=== PATIENT | female | born 1945 | race Caucasian/White ===

== ENCOUNTER 2018-03-13 08:56 | Inpatient (IN) ==
--- NOTE | 2018-03-13 09:27 | Emergency Department Note ---
Disposition Clinical Impression: Cellulitis of right foot Disposition: Admitted As Inpatient Condition: Fair Referrals: Dory Salvador, SECONDARY CONNECTOR ARMATURE [Primary Care Provider] - Forms: ED Satisfaction Letter Time of Disposition: 10:48 Wound/Laceration HPI - General Chief Complaint: ED Wound/Laceration Stated Complaint: "ulcers on feet" Time Seen by Provider: 03/13/18 09:04 Source: patient Mode of arrival: ambulatory Limitations: no limitations Nursing Notes Reviewed: Yes Vital Signs Reviewed: Yes - History of Present Illness HPI Narrative: Patient is a 73-year-old female with past medical history of hypertension, poorly controlld insulin dependent diabetes, dementia. She is chronic ulcers of the bilateral lower feet that she follows with Dr. Mcdonnell for. Patient states that she has had increased redness and pain of the right foot surrounding her pinky toe ulcer. I did receive a call from Dr. Mcdonnell who was concerned that patient has worsening cellulitis of the right lower extremity despite being on antibiotics. Patient states that she has been on doxycycline, has completed one round and is currently on second round of doxy. Admits to fevers. Denies any nausea, vomiting, diarrhea, abdominal pain, dysuria, hematuria. However, family does note increased urinary frequency. She has a reported allergy to ceftriaxone but is unable to remember the reaction that she had. She denies ever having anaphylaxis to any antibiotics in the past. - Related Data Previous Rx's Medication Instructions Recorded Sulfamethoxazole/Trimeth DS 1 each PO BID #14 tablet 11/20/17 [Bactrim DS] Doxycycline 100 mg PO BID #14 capsule 03/08/18 Allergies Allergy/AdvReac Type Severity Reaction Status Date / Time ceftriaxone Allergy Hives Verified 11/20/17 13:01 gabapentin Allergy Hives Verified 11/20/17 13:01 hydrochlorothiazide Allergy Hives Verified 11/20/17 13:01 pregabalin Allergy Hives Verified 11/20/17 13:01 All systems ED: reviewed and negative except as stated. Constitutional: Reports: fever Cardiovascular: Denies: chest pain Respiratory: Denies: cough, dyspnea Gastrointestinal: Denies: abdominal pain, nausea, vomiting, diarrhea Genitourinary: Reports: frequency. Denies: urgency, dysuria, hematuria Integumentary: Reports: rash, lesions Past Medical History - Past Medical History Attestation: Yes The following information was validated with the patient. Source: patient Medical history: Reports: asthma, CHF, COPD, coronary artery disease, dementia, diabetes, GERD, hyperlipidemia, hypertension, thyroid disease Surgical history: Reports: appendectomy, coronary bypass (CABG), hysterectomy Psychiatric history: Reports: anxiety, depression - Social History Smoking Status: Never smoker Smokeless Tobacco Status: No Alcohol use: Reports: none Drug use: Reports: none Physical Exam - General Limitations: no limitations General appearance: alert, in no apparent distress, other (smells strongly of urine) - Head Head exam: atraumatic, normocephalic, normal inspection - Eye Eye exam: Present: normal appearance, PERRL, EOMI - ENT ENT exam: normal exam, normal oropharynx, mucous membranes moist - Neck Neck exam: Present: normal inspection, full ROM, trachea midline - Chest Chest inspection: Present: normal inspection, symmetric chest wall rise - Respiratory Respiratory exam: Present: normal lung sounds bilaterally - Cardiovascular Cardiovascular exam: Present: regular rate, normal rhythm, normal heart sounds - Abdominal Exam Abdominal exam: Present: soft, Non-Tender. Absent: tenderness, distention, guarding, rebound, rigidity - Extremities Exam Extremities exam: Present: other (1 cm ulcer of the lateral aspect of the right peak toe with erythema up to mid dorsal aspect of the foot. She also has chronic erythema of the right dueñas up to the knee. Ulcer of the left medial heel that is approximately 1 cm in diameter with localized erythema.) - Neurological Exam Neurological exam: Present: alert, oriented X3 - Psychiatric Psychiatric exam: Present: normal affect, normal mood - Skin Skin exam: Present: warm, dry, intact, other (see extremity section above.) Course Vital Signs Temperature 99.3 F 03/13/18 08:58 Pulse Rate 92 03/13/18 08:58 Respiratory Rate 20 03/13/18 08:58 Blood Pressure 181/97 03/13/18 08:58 O2 Sat by Pulse Oximetry 96 03/13/18 08:58 Temperature 99.3 F 03/13/18 09:03 Pulse Rate 92 03/13/18 09:03 Respiratory Rate 20 03/13/18 09:03 Blood Pressure 181/97 03/13/18 09:03 O2 Sat by Pulse Oximetry 96 03/13/18 09:03 Oxygen Delivery Oxygen Delivery Room Air Wound/Laceration - [facility] Narrative Medical decision making narrative: Concern for failed outpatient treatment of lower extremity cellulitis. Patient does have cellulitis of the right foot extending to the dorsal aspect of the foot. She is currently on doxycycline. We will obtain basic blood work, will start clindamycin and meropenem to cover gram-positive and gram-negative. Patient has an allergy to Rocephin but is unsure what her reaction was. We will use meropenem instead of Zosyn in case of any cross-reactivity. 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 We will send wound cultures at this time. No concern for sepsis at this time as patient vitals WNL and no change in mental status. Will admit to hospitalist for further care. 10:40 WBC 6.6. BMP shows glucose in 500s. Will start Normal saline, give 10 units of regular insulin. No gap, no concern for DKA. Will continue with above plan. - Medical Records Medical records reviewed: Yes I reviewed the patient's medical records. - Lab Data Lab results reviewed: Yes I reviewed the patient's lab results. Result diagrams: 03/13/18 09:41 03/13/18 09:41 Lab Results 03/13/18 03/13/18 03/13/18 Range/Units 09:41 09:41 10:00 WBC 6.6 (4.3-11.1) K/mcL RBC 3.56 L (3.82-4.97) M/mcL Hgb 10.7 L (11.5-15.4) g/dL Hct 31.3 L (35.3-44.9) % MCV 87.9 (83.0-100.0) fL MCH 30.1 (28.0-33.3) pg MCHC 34.2 (31.6-35.5) g/dL RDW 13.2 (11.5-14.5) % Plt Count 303 (140-400) K/mcL MPV 9.7 (9.4-12.4) fL Immature Gran % 0.5 (0-4) % Seg Neutrophils % 66.0 % Lymphocytes % 21.5 % Monocytes % 9.9 % Eosinophils % 1.8 % Basophils % 0.3 % Neutrophils # 4.3 (1.6-8.9) K/mcL Lymphocytes # 1.4 (0.6-4.6) K/mcL Monocytes # 0.7 (0.0-1.3) K/mcL Eosinophils # 0.1 (0.0-0.6) K/mcL Basophils # 0.0 (0.0-0.2) K/mcL Sodium 130 L (136-145) mEq/L Potassium 4.6 (3.5-5.1) mEq/L Chloride 97 L (98-107) mEq/L Carbon Dioxide 28 (23-29) mEq/L BUN 29 H (8-23) mg/dL Creatinine 1.18 (0.60-1.20) mg/dL Est GFR ( Amer) 54 L (> 60) Est GFR (Non-Af Amer) 45 L (> 60) BUN/Creatinine Ratio 25 (6-26) Glucose 541 H* (70-105) mg/dL Calculated Osmolality 300 (280-300) Calcium 9.1 (8.6-10.3) mg/dL Urine Color (Yellow) Christi - Christi Situation: Demographics, MOA Background: Presenting Complaint, Relevant PMH, Meds, & Allergies Assessment: Vital Signs, Course and respsone to treatment, Exam Concerns, Patient/Family Expectation, Pertinant Lab Results Recommendation: Barrier(s) to disposition, Recommendation based on pending studies, treatments, or consults Christi Report Given to: Dr. Dhaval Barraza Repor Time: 10:47
[2018-03-13] MEDS ORDERED: Meropenem 1,000 MG in 0.9 % Sodium Chloride Mini Bag 100 ML IVPB ONE (09:45)
[2018-03-13 09:58] LABS: Basophils % 0.3 %; Eosinophils # 0.1 K/mcL (0.0-0.6); Eosinophils % 1.8 %; Hematocrit 31.3 % (35.3-44.9); Hemoglobin 10.7 g/dL (11.5-15.4); Immature Granulocytes % 0.5 % (0-4); Lymphocytes # 1.4 K/mcL (0.6-4.6); Lymphocytes % 21.5 %; Mean Corpuscular HGB Conc 34.2 g/dL (31.6-35.5); Mean Corpuscular Hemoglobin 30.1 pg (28.0-33.3); Mean Corpuscular Volume 87.9 fL (83.0-100.0); Mean Platelet Volume 9.7 fL (9.4-12.4); Monocytes # 0.7 K/mcL (0.0-1.3); Monocytes % 9.9 %; Neutrophils # 4.3 K/mcL (1.6-8.9); Platelet Count 303 K/mcL (140-400); Red Blood Count 3.56 M/mcL (3.82-4.97); Red Cell Distribution Width 13.2 % (11.5-14.5)
[2018-03-13] MEDS ORDERED: Vancomycin 1,750 MG in 0.9 % Sodium Chloride 250 ML IVPB SCH (10:00)
--- NOTE | 2018-03-13 10:00 | Emergency Department Note ---
Disposition Clinical Impression: Cellulitis of right foot Disposition: Admitted As Inpatient Condition: Fair Referrals: Dory Salvador, MOLD CHECKER [Primary Care Provider] - Forms: ED Satisfaction Letter General Adult HPI - General Chief complaint: ED Wound/Laceration Stated complaint: "ulcers on feet" Time Seen by Provider: 03/13/18 09:04 Source: patient Mode of arrival: ambulatory Limitations: no limitations - History of Present Illness Pain Scale: 8 - Related Data Previous Rx's Medication Instructions Recorded Sulfamethoxazole/Trimeth DS 1 each PO BID #14 tablet 11/20/17 [Bactrim DS] Doxycycline 100 mg PO BID #14 capsule 03/08/18 Allergies Allergy/AdvReac Type Severity Reaction Status Date / Time ceftriaxone Allergy Hives Verified 11/20/17 13:01 gabapentin Allergy Hives Verified 11/20/17 13:01 hydrochlorothiazide Allergy Hives Verified 11/20/17 13:01 pregabalin Allergy Hives Verified 11/20/17 13:01 Constitutional: Reports: fever Cardiovascular: Denies: chest pain Respiratory: Denies: cough, dyspnea Gastrointestinal: Denies: abdominal pain, nausea, vomiting, diarrhea Genitourinary: Reports: frequency. Denies: urgency, dysuria, hematuria Integumentary: Reports: rash, lesions Past Medical History - Past Medical History Medical history: Reports: asthma, CHF, COPD, coronary artery disease, dementia, diabetes, GERD, hyperlipidemia, hypertension, thyroid disease Surgical history: Reports: appendectomy, coronary bypass (CABG), hysterectomy Psychiatric history: Reports: anxiety, depression - Social History Smoking Status: Never smoker Smokeless Tobacco Status: No Alcohol use: Reports: none Drug use: Reports: none Physical Exam - General Limitations: no limitations General appearance: alert, in no apparent distress, other (smells strongly of urine) Course Vital Signs Temperature 99.3 F 03/13/18 08:58 Pulse Rate 92 03/13/18 08:58 Respiratory Rate 20 03/13/18 08:58 Blood Pressure 181/97 03/13/18 08:58 O2 Sat by Pulse Oximetry 96 03/13/18 08:58 Temperature 99.3 F 03/13/18 09:03 Pulse Rate 92 03/13/18 09:03 Respiratory Rate 20 03/13/18 09:03 Blood Pressure 181/97 03/13/18 09:03 O2 Sat by Pulse Oximetry 96 03/13/18 09:03 Oxygen Delivery Oxygen Delivery Room Air Attestation Statement - Attestation Attestation: I examined this patient and my medical decision-making was reviewed with the STRAIGHTEDGE WORKER/PA/Advanced Practice Nurse/Resident Physician. I agree with the documented findings, disposition and treatment plan as described except to the extent set forth below. I did see the patient is spoke with her and examined her and does have significant evidence of cellulitis right foot with erythema but no crepitus with palpation. The patient could also have osteomyelitis. Has felt outpatient therapy with doxycycline. Patient does have some dementia but no increased confusion. According to the daughter and granddaughter the patient has been having fevers at home. Was sent here for admission. 1000
[2018-03-13 10:24] LABS: Calcium 9.1 mg/dL (8.6-10.3); Potassium 4.6 mEq/L (3.5-5.1)
[2018-03-13] MEDS ORDERED: Insulin Human Regular 10 UNIT in 0.9 % Sodium Chloride 10 ML IV ONE (10:39)
[2018-03-13] MEDS ORDERED: 0.9 % Sodium Chloride 1,000 ML IVC ONE (10:39)
[2018-03-13 11:36] LABS: Bilirubin,Urine Negative (Negative); Blood,Urine Small (Negative); Clarity,Urine Clear (Clear); Glucose,Urine (UA) 500 mg/dL (Normal); Ketones,Urine Negative (Negative); Leukocyte Esterase,Urine Negative (Negative); Nitrite,Urine Negative (Negative); Protein,Urine 100 mg/dL (Neg-Trace); Specific Gravity,Urine 1.015 (1.010-1.025); Urobilinogen,Urine Normal (Normal)
[2018-03-13] MEDS ORDERED: Naloxone 0.4 MG/ML INJ IVP PRN (11:40)
[2018-03-13 11:48] LABS: RBC,Urine 0-3 per hpf (0-3); Squamous Epithelial Cell,Urine Few per lpf (None-Few); WBC,Urine 0-3 per hpf (0-3); Yeast,Urine Few per hpf (None Seen)
[2018-03-13] MEDS ORDERED: D5% in Water 1,000 ML IVC PRN (11:48)
[2018-03-13] MEDS ORDERED: *HR* Dextrose 50 % in Water (Syg) 50 ML SYRINGE IVP PRN (11:48)
[2018-03-13] MEDS ORDERED: Dextrose Gel 15 GM/37.5 ML TUBE PO PRN ×2 (11:48)
--- NOTE | 2018-03-13 11:57 | Internal Med History&Physical ---
<Elizabeth Aguiar Dalton - Last Filed: 03/13/18 12:51> Date of Encounter: 03/13/18 Time of Encounter: 11:56 Internal Medicine - H&P: HPI Chief complaint: Fevers and worsening cellulitis Admitted From: Home Plans for Post Hospital Care: Home History of present illness: Ms. Kamara is a 73 year old female with history of DM, cellulitis, and HTN. The patient had recent outpatient treatment failure with bactrim and doxycycline. Was sent over from Dr. Mcdonnell's office due to worsening of cellulitis. The patient family reported fevers at home. Xray of right foot showed no osteomyelitis. The patient is alert and oriented x3 with some confusion. Blood sugars were in the 500's, initially. The patient indicated she has been uncontrolled for a while. She apparently lives with her dtr and granddaughter. The patient was started on vancomycin and merrem, while in the ED. Spoke with Dr. Mcdonnell, will follow the patient while in-house. Past Med Surg Social Fam HX - Past Medical History Medical history: asthma, CHF, COPD, coronary artery disease, dementia, diabetes , GERD, hyperlipidemia, hypertension, thyroid disease Additional medical history: Glaucoma Psychiatric history: anxiety, depression - Past Surgical History Surgical History: appendectomy, coronary bypass (CABG), hysterectomy Additional surgical history: Back surgery. Carpal tunnel. triple bypass 2013 - Social History Smoking Status: Never smoker Smokeless Tobacco Status: No Alcohol use: none Drug use: none Internal Medicine - H&P: Meds Aspirin [Lo-Dose Aspirin EC] 81 mg PO HS 03/13/18 [History] Donepezil [Aricept] 10 mg PO DAILY 03/13/18 [History] Fenofibrate Nanocrystallized [Triglide] 160 mg PO DAILY 03/13/18 [History] Ferrous Sulfate [Iron] 325 mg PO DAILY 03/13/18 [History] Furosemide [Lasix] 40 mg PO DAILY 03/13/18 [History] Insulin Regular U-500 [HumuLIN R U-500] 50 unit SQ BID 03/13/18 [History] Melatonin/Pyridoxine HCl (B6) [Melatonin 5 mg Tablet] 1 tab PO HS 03/13/18 [ History] Metoprolol Succinate [Toprol Xl] 25 mg PO DAILY 03/13/18 [History] Mirtazapine [Remeron] 30 mg PO DAILY 03/13/18 [History] Omeprazole [PriLOSEC] 40 mg PO DAILY 03/13/18 [History] Sertraline [Zoloft] 100 mg PO DAILY 03/13/18 [History] Tramadol HCl [Ultram] 50 mg PO TID PRN 03/13/18 [History] 3 Allergy/AdvReac Type Severity Reaction Status Date / Time ceftriaxone Allergy Hives Verified 03/13/18 10:49 gabapentin Allergy Hives Verified 03/13/18 10:49 hydrochlorothiazide Allergy Hives Verified 03/13/18 10:49 pregabalin Allergy Hives Verified 03/13/18 10:49 All Systems PM: A 10-system review of systems was performed and is negative for pertinent findings except as documented above in the HPI. - Constitutional Constitutional: no chills, no fever(s), no night sweats - EENT Eyes: no change in vision, no discharge, no pain, no photophobia Ears: no ear discharge, no ear pain, no tinnitus Nose, mouth and throat: no dysphagia, no nasal discharge, no neck pain, no sore throat - Cardiovascular Cardiovascular ROS IM: no chest pain, no diaphoresis, no dyspnea, no lightheadedness, no palpitations, no syncope - Respiratory Respiratory: no cough, no dyspnea, no wheezing, no excessive phlegm production - Gastrointestinal Gastrointestinal: no abdominal pain, no diarrhea, no hematemesis, no hematochezia, no melena, no nausea, no vomiting - Genitourinary Genitourinary: no change in urinary stream, no dysuria, no flank pain, no hematuria - Musculoskeletal Musculoskeletal ROS IM: no numbness, no tingling - Integumentary Integumentary IM: no rash, no unusual bruising - Neurological Neurological ROS: no confusion, no convulsions, no focal weakness, no numbness, no tingling, no tremor(s) - Hematologic/Lymphatic Hematologic/Lymphatic: no easy bruising - Constitutional Vitals: Temp Pulse Resp BP Pulse Ox 99.3 F 91 20 129/107 93 03/13/18 09:03 03/13/18 11:16 03/13/18 11:16 03/13/18 11:16 03/13/18 11:16 General appearance: Present: A&O X 3, answers questions appropriately (mOST OF THE TIME) - Head Head exam: Present: atraumatic, normocephalic - Eye Eye exam: Present: PERRL, conjuntiva pink, sclera anicteric Pupils: Present: PERRL - Neck Neck exam general surgery: Present: supple, trachea midline. Absent: lymphadenopathy - Respiratory Respiratory exam: Present: CTAB. Absent: accessory muscle use, rales, rhonchi, wheezes - Cardiovascular Cardiovascular exam: Present: RRR, +S1, +S2. Absent: diastolic murmur, gallop, rubs, systolic murmur - GI/Abdominal GI/Abdominal exam: Present: normal bowel sounds, soft, no peritoneal signs. Absent: distended, tenderness - Extremities Exam Extremities exam: Present: warm, radial pulses palpable and symmetrical. Absent : calf tenderness, cyanotic, pedal edema - Neurological Exam Neurological exam: Present: CN II-XII intact, oriented X3, no focal deficits. Absent: pronater drift, facial droop, speech deficit - Skin Skin exam: Present: dry, erythema (Left lower ext. 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), intact Internal Med - H&P Results - Labs CBC & Chem 7: 03/13/18 09:41 03/13/18 09:41 - Assessment and plan (1) Cellulitis of right foot Current Visit: Yes Status: Acute Assessment and plan: Continue IV Vancomycin and Merrem Consider wound culture if drainage present Monitor vital signs Monitor daily labs (2) Diabetic ulcer of both feet Current Visit: Yes Status: Chronic Assessment and plan: Will consult wound care for treatment recommendations (3) Hyperglycemia due to type 2 diabetes mellitus Current Visit: Yes Status: Chronic Assessment and plan: Accu check q4 hours with high level humalog coverage. Goal is under 200, while inpatient Daily labs AIC in am Qualifiers: Diabetes mellitus shelter insulin use: unspecified lobsterman insulin use status Qualified Code(s): E11.65 - Type 2 diabetes mellitus with hyperglycemia (4) Hypertension Current Visit: Yes Status: Chronic Assessment and plan: Bp is uncontrolled Continue home medications-Toprol XL Qualifiers: Hypertension type: essential hypertension Qualified Code(s): I10 - Essential (primary) hypertension - Time Spent With Patient Total time spent is greater than 50% in coordination of care (as documented) at patient's floor/unit and/or counseling patient: 25 - 35 minutes <Luis Puentes S - Last Filed: 03/13/18 13:08> Date of Encounter: 03/13/18 Internal Medicine - H&P: HPI History of present illness: Ms. Kamara is a 73 year old female All Systems PM: A 10-system review of systems was performed and is negative for pertinent findings except as documented above in the HPI. - Constitutional Vitals: Temp Pulse Resp BP Pulse Ox 99.1 F 93 20 165/80 93 03/13/18 12:13 03/13/18 12:13 03/13/18 12:13 03/13/18 12:13 03/13/18 12:13 Internal Med - H&P Results - Labs CBC & Chem 7: 03/13/18 09:41 03/13/18 09:41 - Attending Attestation I have seen and examined the patient with Elizabeth Aguiar and agree with his/her assessment and plan. 73-year-old female with poorly controlled diabetes presented with worsening right foot cellulitis despite being on outpatient doxycycline and Bactrim. No obvious drainage noted. X-ray negative for osteomyelitis. She has unclear allergy to ceftriaxone and was given IV vancomycin and meropenem in the ER which we will continue. Follow wound care and podiatry. Glycemic control with high-dose sliding scale today which may be converted into basal and prandial. Luis Puentes MD - Time Spent With Patient Total time spent is greater than 50% in coordination of care (as documented) at patient's floor/unit and/or counseling patient:
[2018-03-13] MEDS ORDERED: 0.9 % Sodium Chloride 1,000 ML IVC SCH (12:45)
--- NOTE | 2018-03-13 16:43 | Podiatry Consult Note ---
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 Cultures taken in clinic prior to being referred to the ED of the fifth toe right foot. History of MRSA infection of the left heel. #2 local wound care daily #3 radiographic imaging #4 consider formal debridement if necessary depending upon imaging History of Present Illness Chief complaint: New finding wound dorsal aspect toe #5 HPI: Ms. Kamara is a 73 year old female, known to me for ongoing pressure ulcer medial aspect of her left heel with history of MRSA. Wound was closing uneventfully but unfortunately her blood glucose is been out of control for some time with an A1c of almost 15.0 mg/dL. She presents today with her daughter and granddaughter with a new finding the wound of the dorsal aspect of the lateral proximal interphalangeal joint fifth toe right foot with spreading cellulitis as far proximal as the midfoot. Patient complaining of significant pain likely secondary to neuropathic pain from her diabetes out of control although we cannot exclude the possibility of bone infection at this time. Past Med Surg Social Fam HX - Past Medical History Medical history: asthma, CHF, COPD, coronary artery disease, dementia, diabetes , GERD, hyperlipidemia, hypertension, thyroid disease Additional medical history: Glaucoma Psychiatric history: anxiety, depression - Past Surgical History Surgical History: appendectomy, coronary bypass (CABG), hysterectomy Additional surgical history: Back surgery. Carpal tunnel. triple bypass 2013 - Social History Smoking Status: Never smoker Smokeless Tobacco Status: No Alcohol use: none Drug use: none - Family History Father Age: 55 Cause of : colon cancer Mother Age: 74 Cause of : alzheimers Medications and Allergies Aspirin [Lo-Dose Aspirin EC] 81 mg PO HS 03/13/18 [History] Donepezil [Aricept] 10 mg PO DAILY 03/13/18 [History] Fenofibrate Nanocrystallized [Triglide] 160 mg PO DAILY 03/13/18 [History] Ferrous Sulfate [Iron] 325 mg PO DAILY 03/13/18 [History] Furosemide [Lasix] 40 mg PO DAILY 03/13/18 [History] Insulin Regular U-500 [HumuLIN R U-500] 50 unit SQ BID 03/13/18 [History] Melatonin/Pyridoxine HCl (B6) [Melatonin 5 mg Tablet] 1 tab PO HS 03/13/18 [ History] Metoprolol Succinate [Toprol Xl] 25 mg PO DAILY 03/13/18 [History] Mirtazapine [Remeron] 30 mg PO DAILY 03/13/18 [History] Omeprazole [PriLOSEC] 40 mg PO DAILY 03/13/18 [History] Sertraline [Zoloft] 100 mg PO DAILY 03/13/18 [History] Tramadol HCl [Ultram] 50 mg PO TID PRN 03/13/18 [History] 3 Allergy/AdvReac Type Severity Reaction Status Date / Time ceftriaxone Allergy Hives Verified 03/13/18 10:49 gabapentin Allergy Hives Verified 03/13/18 10:49 hydrochlorothiazide Allergy Hives Verified 03/13/18 10:49 pregabalin Allergy Hives Verified 03/13/18 10:49 All Systems Reviewed: The remainder of the systems were reviewed and are negative. No chest pain nausea vomiting fever or chills over the patient is complaining of malaise and intermittent chills over the last week. Patient also complaining with concerns for decreased visual acuity this is likely to her diabetes under control and secondary to retinopathy. Physical Exam - Constitutional Vitals: Temp Pulse Resp BP Pulse Ox 99.1 F 93 20 165/80 93 03/13/18 12:13 03/13/18 12:13 03/13/18 12:13 03/13/18 12:13 03/13/18 12:13 General appearance: cooperative, mild distress, morbidly obese - Expanded Lower Extremities Exam Lower Leg exam: Present: swelling Foot/Toe exam: Present: swelling (Revisualize an ulceration of dorsal aspect of the lateral proximal interphalangeal joint fifth toe right foot measuring approximately 0.8 cm x 0.8 cm x 0.2 cm with spreading cellulitis proximally over the fifth MTPJ and onto the midfoot and medially as well to the midfoot. No odor. No fluctuance. Will also appreciate a left heel wound measuring approximately 2.5 cm in length 2.0 cm in width and its unstageable with 80% eschar 20% fibrin no undermining sinus tract or tunneling. There is surrounding erythema. No fluctuance or odor.) Gait: Present: not tested/not observed - Neurological Exam Neurological exam: Present: oriented X3 Additional comments: Patient with loss of protective sensation epicritic sensation, 2 point discrimination light touch and vibration from toes to tibia bilaterally no spasticity. No flaccidity no rigidity. Patient does exhibit intrinsic minus with loss of flexor strength of the digits of both feet - Skin Additional comments: Ulcerations dorsal lateral toe #5 right medial aspect of left heel. As described. 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.) Results - Labs Result Diagrams: 03/13/18 09:41 03/13/18 09:41 Labs: Abnormal lab results RBC 3.56 M/mcL (3.82-4.97) L 03/13/18 09:41 Hgb 10.7 g/dL (11.5-15.4) L 03/13/18 09:41 Hct 31.3 % (35.3-44.9) L 03/13/18 09:41 Sodium 130 mEq/L (136-145) L 03/13/18 09:41 Chloride 97 mEq/L (98-107) L 03/13/18 09:41 BUN 29 mg/dL (8-23) H 03/13/18 09:41 Est GFR ( Amer) 54 (> 60) L 03/13/18 09:41 Est GFR (Non-Af Amer) 45 (> 60) L 03/13/18 09:41 Glucose 541 mg/dL (70-105) H* 03/13/18 09:41 POC Glucose 412 mg/dL (70-99) H* 03/13/18 11:48 Urine Protein 100 mg/dL (Neg-Trace) H 03/13/18 10:00 Urine Glucose (UA) 500 mg/dL (Normal) H 03/13/18 10:00 Urine Blood Small (Negative) H 03/13/18 10:00 Urine Yeast Few per hpf (None Seen) H 03/13/18 10:00 All other labs normal. - Diagnostic results Ankle/Foot x-ray: pending Consult Discharge Plan - Plan Referrals: Dory Salvador, CLASSICS PROFESSOR [Primary Care Provider] -
[2018-03-13] MEDS: Insulin LISPRO 300 UNITS/3 ML VIAL SQ SCH ×2 (16:49→19:40)
[2018-03-13] MEDS: Aspirin Enteric Coated 81 MG Tablet PO SCH (19:40)
[2018-03-13 19:45] LABS: ABG Base Excess 2 mEq/L (-2 to 3); ABG HCO3 26 mEq/L (21-27); ABG Oxygen Saturation 97 % (95-98); ABG PCO2 39 mmHg (35-45); ABG PH 7.43 pH Units (7.32-7.45); ABG PO2 89 mmHg (85-104); ABG TCO2 27 mEq/L (20-26)
[2018-03-13] MEDS ORDERED: PYRIDOXINE HCL PO SCH (21:00)
[2018-03-13] MEDS ORDERED: [UNRECOGNIZED DRUG - OTHER] PO SCH (21:00)
[2018-03-13] MEDS ORDERED: MELATONIN PO SCH (21:00)
[2018-03-13] MEDS: Meropenem 1,000 MG in 0.9 % Sodium Chloride Mini Bag 100 ML IVPB SCH (21:40)
[2018-03-14] MEDS: Insulin LISPRO 300 UNITS/3 ML VIAL SQ SCH ×6 (00:25→22:44)
[2018-03-14] MEDS: traMADol 50 MG TABLET PO PRN ×3 (03:27→22:48)
[2018-03-14 07:06] LABS: Basophils % 0.5 %; Eosinophils # 0.2 K/mcL (0.0-0.6); Eosinophils % 2.7 %; Hematocrit 30.8 % (35.3-44.9); Hemoglobin 10.6 g/dL (11.5-15.4); Immature Granulocytes % 0.2 % (0-4); Lymphocytes % 23.3 %; Mean Corpuscular HGB Conc 34.4 g/dL (31.6-35.5); Mean Corpuscular Volume 87.3 fL (83.0-100.0); Mean Platelet Volume 9.8 fL (9.4-12.4); Monocytes # 0.7 K/mcL (0.0-1.3); Neutrophils # 5.7 K/mcL (1.6-8.9); Platelet Count 304 K/mcL (140-400); Red Blood Count 3.53 M/mcL (3.82-4.97); Red Cell Distribution Width 13.4 % (11.5-14.5); Segmented Neutrophils % 65.3 %
[2018-03-14 07:25] LABS: BUN/Creatinine Ratio 20 (6-26); Blood Urea Nitrogen 20 mg/dL (8-23); Calcium 8.3 mg/dL (8.6-10.3); Carbon Dioxide 20 mEq/L (23-29); Chloride 105 mEq/L (98-107); Glucose 254 mg/dL (70-105); Osmolality,Calculated 289 (280-300); Sodium 134 mEq/L (136-145); eGFR For Non-African Americans 53 (> 60)
[2018-03-14] MEDS ORDERED: Vancomycin 0 MG in 0.9 % Sodium Chloride 250 ML IVPB SCH (09:00)
[2018-03-14] MEDS ORDERED: Metoprolol XL (24 HR) Succ 25 MG TAB.ER.24H PO SCH (09:00)
[2018-03-14] MEDS: Fenofibrate 54 MG TABLET PO SCH (09:15)
[2018-03-14] MEDS: Furosemide 40 MG TABLET PO SCH (09:15)
[2018-03-14] MEDS: Meropenem 1,000 MG in 0.9 % Sodium Chloride Mini Bag 100 ML IVPB SCH (09:15)
[2018-03-14] MEDS: *HR* Heparin 5,000 UNIT/ML VIAL SQ SCH ×2 (09:16→17:05)
[2018-03-14] MEDS ORDERED: Melatonin 3 MG TABLET PO PRN (10:22)
[2018-03-14] MEDS ORDERED: Metoprolol XL (24 HR) Succ 25 MG TAB.ER.24H PO ONE (11:48)
--- NOTE | 2018-03-14 15:39 | Internal Med Progress Note ---
Date of Encounter: 03/14/18 Time of Encounter: 15:36 - Assessment and plan (1) Diabetic ulcer of both feet Current Visit: Yes Status: Chronic Assessment and plan: The patient has diabetic foot ulcers on both feet on the right lateral fifth toe as well as the left heel; see physical exam for details; there is also surrounding cellulitis that is to be improving comparing my physical exam to yesterday's documented podiatry physical exam -Podiatry following the patient; may need debridement at some point -Continue broad-spectrum IV antibiotics with IV vancomycin and IV Zosyn -Cultures taken and podiatry office prior to admission; Gram stain positive for gram-positive cocci and gram-negative rods -History of MRSA (2) Cellulitis of right foot Current Visit: Yes Status: Acute Assessment and plan: Patient has cellulitis surrounding right lateral fifth toe diabetic ulcer as well as left heel diabetic ulcer; please see above for details -Continue IV antibiotics with IV vancomycin and IV Zosyn -History of MRSA -Podiatry following (3) Hyperglycemia due to type 2 diabetes mellitus Current Visit: Yes Status: Chronic Assessment and plan: Patient with diabetes mellitus type 2 requiring insulin and hyperglycemia; patient states blood glucose was in the 500s upon admission -Patient has a prescription for U500 at home however the patient has been out of it and not been taking it; -Reviewed sliding-scale insulin requirements which were substantial therefore increase long-acting to 20 units of Lantus twice a day for now; hesitant to restart U500 in currently as patient has not been taking it as an outpatient -Blood glucose is better controlled now than on admission -Monitor Accu-Cheks; may need increase in insulin regimen tomorrow -Discussed at length the need for compliance with insulin regimen at home and how this is contributing to her foot ulcers Qualifiers: 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 insulin 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: unspecified chcf insulin use status Qualified Code(s): E11.65 - Type 2 diabetes mellitus with hyperglycemia (4) Hypertension Current Visit: Yes Status: Chronic Assessment and plan: Essential hypertension -Continue home medications -If blood pressure remains elevated we will uptitrate regimen Qualifiers: Hypertension type: essential hypertension Qualified Code(s): I10 - Essential (primary) hypertension - Time Spent With Patient Total time spent is greater than 50% in coordination of care (as documented) at patient's floor/unit and/or counseling patient: 25 - 35 minutes - Subjective Interval history: Patient seen and examined at bedside. Patient had no overnight events. Patient states she is doing well; patient denies any chest pain, shortness, nausea, vomiting, abdominal pain. Patient states that she ran out of her insulin and was not taking it for a week prior to admission. Patient states that she has very little feeling in her lower extremities so her wounds are not painful. - Constitutional Vitals: Temp Pulse Resp BP Pulse Ox 98.8 F 86 18 180/80 97 03/14/18 14:31 03/14/18 14:31 03/14/18 14:31 03/14/18 14:31 03/14/18 14:31 General appearance: Present: A&O X 3, answers questions appropriately (mOST OF THE TIME) Exam: Constitutional: No acute distress, Alert Psych: AAO x 3 HEENT: NCAT, EOMI Cardio: regular rate and rhythm, +s1s2, no murmurs/rubs/ronchi Resp: clear to ascultation bilaterally, no wheezes/rales/ronchi Abd: Obese soft, non tender/non distended, positive bowel sounds, no gaurding/ reboud/ridgitity Extremities: Patient has a ulceration on the right fifth toe on the lateral aspect approximately 1cm x 0.8 x 0.2 cm with mild erythema surrounding the wound by about 2 cm; patient has another wound on her left heel is approximately 2 x 2 centimeters with eschar with mild surrounding erythema there is no crepitus noted around either wound Neuro: Shows moderate to severe peripheral neuropathy in her lower distal 70 Internal Medicine: Result - Labs CBC & Chem 7: 03/14/18 06:38 03/14/18 06:38 Labs: Short CBC 03/14/18 Range/Units 06:38 WBC 8.6 (4.3-11.1) K/mcL Hgb 10.6 L (11.5-15.4) g/dL Hct 30.8 L (35.3-44.9) % Plt Count 304 (140-400) K/mcL Neutrophils # 5.7 (1.6-8.9) K/mcL BMP 03/14/18 06:38 Sodium 134 L Potassium 4.0 Chloride 105 Carbon Dioxide 20 L BUN 20 Creatinine 1.02 Glucose 254 H Calcium 8.3 L - ABG Interpretation ABG results: ABG ABG pH 7.43 pH Units (7.32-7.45) 03/13/18 19:37 ABG pCO2 39 mmHg (35-45) 03/13/18 19:37 ABG pO2 89 mmHg (85-104) 03/13/18 19:37 ABG O2 Saturation 97 % (95-98) 03/13/18 19:37 Consult Discharge Plan - Plan Referrals: Dory Salvador, FINANCIAL COORDINATOR [Primary Care Provider] -
[2018-03-14] MEDS: Piperacillin/Tazobactam 3.375 GM in 0.9 % Sodium Chloride Mini Bag 100 ML IVPB SCH (17:06)
[2018-03-14] MEDS: Insulin DETEMIR 100 UNIT/ML X5UNITS SQ SCH (22:41)
[2018-03-14] MEDS: Mirtazapine 15 MG TABLET PO SCH (22:41)
[2018-03-14] MEDS: Aspirin Enteric Coated 81 MG Tablet PO SCH (22:41)
[2018-03-15] MEDS: Piperacillin/Tazobactam 3.375 GM in 0.9 % Sodium Chloride Mini Bag 100 ML IVPB SCH ×3 (00:03→15:31)
[2018-03-15 01:53] LABS: Basophils % 0.6 %; Eosinophils # 0.2 K/mcL (0.0-0.6); Eosinophils % 2.9 %; Hematocrit 29.6 % (35.3-44.9); Hemoglobin 9.8 g/dL (11.5-15.4); Immature Granulocytes % 0.4 % (0-4); Lymphocytes # 2.2 K/mcL (0.6-4.6); Lymphocytes % 30.8 %; Mean Corpuscular HGB Conc 33.1 g/dL (31.6-35.5); Mean Corpuscular Hemoglobin 29.6 pg (28.0-33.3); Mean Corpuscular Volume 89.4 fL (83.0-100.0); Mean Platelet Volume 9.8 fL (9.4-12.4); Monocytes # 0.8 K/mcL (0.0-1.3); Monocytes % 10.4 %; Platelet Count 328 K/mcL (140-400); Red Blood Count 3.31 M/mcL (3.82-4.97); Red Cell Distribution Width 13.9 % (11.5-14.5); Segmented Neutrophils % 54.9 %
[2018-03-15 02:17] LABS: Calcium 8.1 mg/dL (8.6-10.3); Potassium 4.6 mEq/L (3.5-5.1)
[2018-03-15] MEDS: *HR* Heparin 5,000 UNIT/ML VIAL SQ SCH ×2 (06:47→17:20)
[2018-03-15] MEDS: Insulin LISPRO 300 UNITS/3 ML VIAL SQ SCH ×4 (08:18→21:44)
[2018-03-15] MEDS ORDERED: Metoprolol XL (24 HR) Succ 25 MG TAB.ER.24H PO SCH ×2 (09:00)
[2018-03-15] MEDS: Furosemide 40 MG TABLET PO SCH (09:04)
[2018-03-15] MEDS: Fenofibrate 54 MG TABLET PO SCH (09:04)
[2018-03-15] MEDS: Insulin DETEMIR 100 UNIT/ML X5UNITS SQ SCH ×2 (09:04→21:33)
[2018-03-15] MEDS: traMADol 50 MG TABLET PO PRN ×2 (09:08→21:33)
[2018-03-15 09:15] LABS: Estimated Average Glucose 346 mg/dl; Hemoglobin A1C 13.7 %
[2018-03-15] MEDS ORDERED: Insulin DETEMIR 100 UNIT/ML X5UNITS SQ ONE (10:18)
--- NOTE | 2018-03-15 10:26 | Internal Med Progress Note ---
Date of Encounter: 03/15/18 Time of Encounter: 10:13 - Assessment and plan (1) Diabetic ulcer of both feet Current Visit: Yes Status: Chronic Assessment and plan: The patient has diabetic foot ulcers on both feet on the right lateral fifth toe as well as the left heel; see physical exam for details; there is also surrounding cellulitis that is to be improving -Podiatry following the patient; may need debridement at some point pending imaging; discussed with Dr. Mcdonnell -Continue broad-spectrum IV antibiotics with IV vancomycin and IV Zosyn -Cultures taken and podiatry office prior to admission; Gram stain positive for gram-positive cocci and gram-negative rods; cultures pending -History of MRSA -will get xrays of both feet to eval for any periosteal changes suggesting osteomylitis -no leukocytosis (2) Cellulitis of right foot Current Visit: Yes Status: Acute Assessment and plan: Patient has cellulitis surrounding right lateral fifth toe diabetic ulcer as well as left heel diabetic ulcer; please see above for details -improving -no leukocytosis -Continue IV antibiotics with IV vancomycin and IV Zosyn -History of MRSA -Podiatry following (3) Hyperglycemia due to type 2 diabetes mellitus Current Visit: Yes Status: Chronic Assessment and plan: Patient with diabetes mellitus type 2 requiring insulin and hyperglycemia; patient states blood glucose was in the 500s upon admission -Patient has a prescription for U500 at home however the patient has been out of it and not been taking it; -increase lantus to 40units bid -Monitor Accu-Cheks; may need increase in insulin regimen tomorrow -Discussed at length the need for compliance with insulin regimen at home and how this is contributing to her foot ulcers Qualifiers: Diabetes mellitus detention insulin use: unspecified detention insulin use status Qualified Code(s): E11.65 - Type 2 diabetes mellitus with hyperglycemia (4) Hypertension Current Visit: Yes Status: Chronic Assessment and plan: Essential hypertension -Continue home medications -Continue Lasix for now secondary to renal function -Increase metoprolol XL 100 mg daily -Add hydralazine 25 mg 3 times a day -monitor blood pressure Qualifiers: Hypertension type: essential hypertension Qualified Code(s): I10 - Essential (primary) hypertension (5) LEOBARDO (acute kidney injury) Current Visit: Yes Status: Acute Assessment and plan: Patient with elevation in her creatinine from admission from 1.18-1.50; review of past labs are consistent with stage III to 4 chronic kidney disease most likely from diabetic nephropathy -This is likely due to her chronic kidney disease; it appears her baseline is between 1.4 and 1.7 -We will discontinue Lasix today and start gentle IV fluids due to jump and creatinine this admission; likely discontinue fluids tomorrow -We will monitor Vanco troughs - Time Spent With Patient Total time spent is greater than 50% in coordination of care (as documented) at patient's floor/unit and/or counseling patient: 25 - 35 minutes - Subjective Interval history: Patient seen and examined at bedside. Patient had no overnight events. Patient with no complaints currently. Patient denies any chest pain, shortness breath, nausea, vomiting, diarrhea. Patient states Dr. Mcdonnell saw her yesterday and said that she would need a few more days of IV antibiotics. - Constitutional Vitals: Temp Pulse Resp BP Pulse Ox 98.2 F 88 14 189/77 96 03/15/18 06:49 03/15/18 06:49 03/15/18 06:49 03/15/18 06:49 03/15/18 06:49 General appearance: Present: A&O X 3, answers questions appropriately (mOST OF THE TIME) Exam: Constitutional: No acute distress, Alert Psych: AAO x 3 HEENT: NCAT, EOMI Cardio: regular rate and rhythm, +s1s2, no murmurs/rubs/ronchi Resp: clear to ascultation bilaterally, no wheezes/rales/ronchi Abd: Obese soft, non tender/non distended, positive bowel sounds, no gaurding/ reboud/ridgitity Extremities: Patient has a ulceration on the right fifth toe on the lateral aspect approximately 1cm x 0.8 x 0.2 cm with mild erythema surrounding the wound by about .5 cm which is improving; patient has another wound on her left heel is approximately 2 x 2 centimeters with eschar with mild surrounding erythema that is also improving. there is no crepitus noted around either wound Neuro: Shows moderate to severe peripheral neuropathy in her lower distal extremities Internal Medicine: Result - Labs CBC & Chem 7: 03/15/18 01:10 03/15/18 01:10 Labs: Short CBC 03/15/18 Range/Units 01:10 WBC 7.2 (4.3-11.1) K/mcL Hgb 9.8 L (11.5-15.4) g/dL Hct 29.6 L (35.3-44.9) % Plt Count 328 (140-400) K/mcL Neutrophils # 4.0 (1.6-8.9) K/mcL BMP 03/15/18 01:10 Sodium 133 L Potassium 4.6 Chloride 101 Carbon Dioxide 24 BUN 23 Creatinine 1.50 H Glucose 336 H Calcium 8.1 L - ABG Interpretation ABG results: ABG ABG pH 7.43 pH Units (7.32-7.45) 03/13/18 19:37 ABG pCO2 39 mmHg (35-45) 03/13/18 19:37 ABG pO2 89 mmHg (85-104) 03/13/18 19:37 ABG O2 Saturation 97 % (95-98) 03/13/18 19:37 Consult Discharge Plan - Plan Referrals: Dory Salvador, CREDENTIALS SPECIALIST [Primary Care Provider] -
[2018-03-15] MEDS ORDERED: Metoprolol XL (24 HR) Succ 25 MG TAB.ER.24H PO ONE (10:37)
[2018-03-15] MEDS ORDERED: 0.9 % Sodium Chloride 1,000 ML IVC SCH (10:45)
[2018-03-15] MEDS: hydrALAZINE 25 MG TABLET PO SCH (15:32)
[2018-03-15] MEDS: Aspirin Enteric Coated 81 MG Tablet PO SCH (21:33)
[2018-03-15] MEDS: Mirtazapine 15 MG TABLET PO SCH (21:33)
[2018-03-16] MEDS: Piperacillin/Tazobactam 3.375 GM in 0.9 % Sodium Chloride Mini Bag 100 ML IVPB SCH ×3 (00:56→15:48)
[2018-03-16] MEDS: hydrALAZINE 25 MG TABLET PO SCH ×3 (00:57→15:48)
[2018-03-16] MEDS: *HR* Heparin 5,000 UNIT/ML VIAL SQ SCH ×2 (05:25→17:17)
[2018-03-16 06:29] LABS: Basophils % 0.4 %; Eosinophils # 0.3 K/mcL (0.0-0.6); Eosinophils % 4.3 %; Hematocrit 31.2 % (35.3-44.9); Hemoglobin 10.4 g/dL (11.5-15.4); Immature Granulocytes % 0.5 % (0-4); Lymphocytes # 2.7 K/mcL (0.6-4.6); Lymphocytes % 34.2 %; Mean Corpuscular HGB Conc 33.3 g/dL (31.6-35.5); Mean Corpuscular Hemoglobin 30.1 pg (28.0-33.3); Mean Corpuscular Volume 90.2 fL (83.0-100.0); Mean Platelet Volume 9.9 fL (9.4-12.4); Monocytes % 12.1 %; Neutrophils # 3.8 K/mcL (1.6-8.9); Platelet Count 346 K/mcL (140-400); Red Blood Count 3.46 M/mcL (3.82-4.97); Segmented Neutrophils % 48.5 %
[2018-03-16 06:41] LABS: Calcium 7.9 mg/dL (8.6-10.3); Potassium 4.2 mEq/L (3.5-5.1)
[2018-03-16] MEDS: Insulin LISPRO 300 UNITS/3 ML VIAL SQ SCH ×4 (07:48→21:20)
[2018-03-16] MEDS: Metoprolol XL (24 HR) Succ 50 MG TAB.ER.24H PO SCH (08:00)
[2018-03-16] MEDS: Fenofibrate 54 MG TABLET PO SCH (08:00)
[2018-03-16] MEDS: Insulin DETEMIR 100 UNIT/ML X5UNITS SQ SCH ×2 (08:43→21:12)
[2018-03-16] MEDS ORDERED: 0.9 % Sodium Chloride 1,000 ML IVC SCH (11:45)
--- NOTE | 2018-03-16 12:10 | Internal Med Progress Note ---
Date of Encounter: 03/16/18 Time of Encounter: 11:44 - Assessment and plan (1) Diabetic ulcer of both feet Current Visit: Yes Status: Inactive Assessment and plan: The patient has diabetic foot ulcers on both feet on the right lateral fifth toe as well as the left heel; see physical exam for details -Podiatry following the patient -Continue broad-spectrum IV antibiotics with IV vancomycin and IV Zosyn, transitioned to by mouth tomorrow -Cultures taken and podiatry office prior to admission; Gram stain positive for gram-positive cocci and gram-negative rods; cultures growing group B strep -History of MRSA -X-rays of both feet and negative for any evidence of osteomyelitis -no leukocytosis (2) Cellulitis of right foot Current Visit: Yes Status: Acute Assessment and plan: Patient has cellulitis surrounding right lateral fifth toe diabetic ulcer as well as left heel diabetic ulcer; please see above for details -improving; nearly resolved -no leukocytosis -Continue IV antibiotics with IV vancomycin and IV Zosyn; transitioned to by mouth antibiotics tomorrow -History of MRSA -Podiatry following (3) Hyperglycemia due to type 2 diabetes mellitus Current Visit: Yes Status: Inactive Assessment and plan: Patient with diabetes mellitus type 2 requiring insulin and hyperglycemia; patient states blood glucose was in the 500s upon admission -Patient has a prescription for U500 at home however the patient has been out of it and not been taking it; may discharge on Lantus -Decrease Lantus to 25 units twice a day secondary to relative hypoglycemia this morning -Monitor Accu-Cheks; may need increase in insulin regimen tomorrow -Discussed at length the need for compliance with insulin regimen at home and how this is contributing to her foot ulcers Qualifiers: Diabetes mellitus fpc insulin use: unspecified terminal operator insulin use status Qualified Code(s): E11.65 - Type 2 diabetes mellitus with hyperglycemia (4) Hypertension Current Visit: Yes Status: Chronic Assessment and plan: Essential hypertension -Pressure more controlled today -Continue home medications -hold Lasix for now secondary to renal function -Increase metoprolol XL 100 mg daily -Continue hydralazine 25 mg 3 times a day -monitor blood pressure Qualifiers: Hypertension type: essential hypertension Qualified Code(s): I10 - Essential (primary) hypertension (5) LEOBARDO (acute kidney injury) Current Visit: Yes Status: Acute Assessment and plan: Patient with elevation in her creatinine from admission from 1.18-1.50; review of past labs are consistent with stage III to 4 chronic kidney disease most likely from diabetic nephropathy -This is likely due to her chronic kidney disease; it appears her baseline is between 1.4 and 1.7 -Continue to hold Lasix today and continue gentle IV fluids due to jump and creatinine this admission -We will monitor Vanco troughs (6) Generalized weakness Current Visit: Yes Status: Acute Assessment and plan: Secondary to deconditioning -We will consult physical therapy -May need ECF placement for short-term rehabilitation - Time Spent With Patient Total time spent is greater than 50% in coordination of care (as documented) at patient's floor/unit and/or counseling patient: 25 - 35 minutes - Subjective Interval history: Patient seen and examined at bedside. Patient had no overnight events. Patient with no complaints currently. Patient denies any chest pain, shortness breath, nausea, vomiting, diarrhea. Cultures today show group b strep. Patient denies any pain in her lower extremities. Patient has been afebrile. Patient is requiring significant assistance to get out of bed to use the restroom. - Constitutional Vitals: Temp Pulse Resp BP Pulse Ox 97.5 F L 63 16 132/78 99 03/16/18 10:42 03/16/18 10:42 03/16/18 10:42 03/16/18 10:42 03/16/18 10:42 General appearance: Present: A&O X 3, answers questions appropriately (mOST OF THE TIME) Exam: Constitutional: No acute distress, Alert Psych: AAO x 3 HEENT: NCAT, EOMI Cardio: regular rate and rhythm, +s1s2, no murmurs/rubs/ronchi Resp: clear to ascultation bilaterally, no wheezes/rales/ronchi Abd: Obese soft, non tender/non distended, positive bowel sounds, no gaurding/ reboud/ridgitity Extremities: Patient has a ulceration on the right fifth toe on the lateral aspect approximately 1cm x 0.8 x 0.2 cm ; patient has another wound on her left heel is approximately 2 x 2 centimeters with eschar; erythema around both ulcers is almost resolved and much improved there is no crepitus noted around either wound; no purulent discharge from either wound Neuro: Shows moderate to severe peripheral neuropathy in her lower distal extremities Internal Medicine: Result - Labs CBC & Chem 7: 03/16/18 05:44 03/16/18 05:44 Labs: Short CBC 03/16/18 Range/Units 05:44 WBC 7.9 (4.3-11.1) K/mcL Hgb 10.4 L (11.5-15.4) g/dL Hct 31.2 L (35.3-44.9) % Plt Count 346 (140-400) K/mcL Neutrophils # 3.8 (1.6-8.9) K/mcL BMP 03/16/18 05:44 Sodium 137 Potassium 4.2 Chloride 108 H Carbon Dioxide 24 BUN 29 H Creatinine 1.41 H Glucose 79 Calcium 7.9 L - ABG Interpretation ABG results: ABG ABG pH 7.43 pH Units (7.32-7.45) 03/13/18 19:37 ABG pCO2 39 mmHg (35-45) 03/13/18 19:37 ABG pO2 89 mmHg (85-104) 03/13/18 19:37 ABG O2 Saturation 97 % (95-98) 03/13/18 19:37 - Impressions Impressions Foot X-Ray 03/15/18 10:11 IMPRESSION: 1. No acute osseous abnormality of either foot. Namely, no radiographic evidence of osteomyelitis. 2. Mild multifocal osteoarthritis involving both feet. D/ / 03/15/2018 11:47:55 Chapin Chapman MD / josephine Interpreting Provider: Chapin Chapman MD Foot X-Ray 03/15/18 10:11 IMPRESSION: 1. No acute osseous abnormality of either foot. Namely, no radiographic evidence of osteomyelitis. 2. Mild multifocal osteoarthritis involving both feet. D/ / 03/15/2018 11:47:55 hCapin Chapman MD / josephine Interpreting Provider: Chapin Chapman MD Consult Discharge Plan - Plan Referrals: Dory Salvador, AIR PUMPER [Primary Care Provider] -
[2018-03-16] MEDS: Mirtazapine 15 MG TABLET PO SCH (21:12)
[2018-03-16] MEDS: Aspirin Enteric Coated 81 MG Tablet PO SCH (21:13)
[2018-03-17] MEDS: hydrALAZINE 25 MG TABLET PO SCH ×4 (00:17→23:20)
[2018-03-17] MEDS: Piperacillin/Tazobactam 3.375 GM in 0.9 % Sodium Chloride Mini Bag 100 ML IVPB SCH ×2 (00:17→08:21)
[2018-03-17] MEDS: *HR* Heparin 5,000 UNIT/ML VIAL SQ SCH ×2 (06:02→16:06)
[2018-03-17 06:14] LABS: Basophils % 0.6 %; Eosinophils # 0.3 K/mcL (0.0-0.6); Eosinophils % 4.6 %; Hematocrit 28.3 % (35.3-44.9); Hemoglobin 9.1 g/dL (11.5-15.4); Immature Granulocytes % 0.5 % (0-4); Lymphocytes % 30.8 %; Mean Corpuscular HGB Conc 32.2 g/dL (31.6-35.5); Mean Corpuscular Hemoglobin 29.2 pg (28.0-33.3); Mean Corpuscular Volume 90.7 fL (83.0-100.0); Mean Platelet Volume 9.7 fL (9.4-12.4); Monocytes # 0.8 K/mcL (0.0-1.3); Monocytes % 12.9 %; Neutrophils # 3.3 K/mcL (1.6-8.9); Platelet Count 313 K/mcL (140-400); Red Blood Count 3.12 M/mcL (3.82-4.97); Segmented Neutrophils % 50.6 %
[2018-03-17 06:34] LABS: Potassium 4.1 mEq/L (3.5-5.1)
[2018-03-17] MEDS ORDERED: Aminoglycoside Consult 1 EACH MC ONE (06:53)
[2018-03-17] MEDS: Fenofibrate 54 MG TABLET PO SCH (08:20)
[2018-03-17] MEDS: Insulin LISPRO 300 UNITS/3 ML VIAL SQ SCH ×4 (08:22→21:19)
[2018-03-17] MEDS: Metoprolol XL (24 HR) Succ 50 MG TAB.ER.24H PO SCH (08:22)
[2018-03-17] MEDS: Insulin DETEMIR 100 UNIT/ML X5UNITS SQ SCH ×2 (08:32→21:40)
--- NOTE | 2018-03-17 13:35 | Internal Med Progress Note ---
Hospitalist Progress Note - Encounter Date of Encounter: 03/17/18 Time of Encounter: 13:45 - Subjective Interval History: Patient seen and examined at bedside. Patient had no overnight events. Patient with no complaints currently. Patient denies any chest pain, shortness breath, nausea, vomiting, diarrhea. Patient sitting in chair today. Physical therapy worked with the patient and recommended home health care at discharge. Afebrile. - Exam Vitals: Temp Pulse Resp BP Pulse Ox 98.2 F 84 18 183/83 97 03/17/18 11:08 03/17/18 11:08 03/17/18 11:08 03/17/18 11:08 03/17/18 11:08 Exam: Constitutional: No acute distress, Alert Psych: AAO x 3 HEENT: NCAT, EOMI Cardio: regular rate and rhythm, +s1s2, no murmurs/rubs/ronchi Resp: clear to ascultation bilaterally, no wheezes/rales/ronchi Abd: Obese soft, non tender/non distended, positive bowel sounds, no gaurding/ reboud/ridgitity Extremities: Patient has a ulceration on the right fifth toe on the lateral aspect that is smaller now less than 1 cm by less than 1 cm, patient has another wound on her left heel is approximately 2 x 2 centimeters with eschar; erythema around both ulcers is nearly resolved. no crepitus noted around either wound; no purulent discharge from either wound Neuro: Shows moderate to severe peripheral neuropathy in her lower distal extremities - Assessment and Plan (1) Diabetic ulcer of both feet Current Visit: Yes Status: Inactive Assessment and Plan: The patient has diabetic foot ulcers on both feet on the right lateral fifth toe as well as the left heel; see physical exam for details -Podiatry following the patient -Discontinue IV antibiotics start by mouth Augmentin 875 twice a day -Cultures taken and podiatry office prior to admission; culture growing group B strep -History of MRSA -X-rays of both feet and negative for any evidence of osteomyelitis -no leukocytosis -Continue local wound care and daily dressing changes -We will follow up with podiatry as an outpatient (2) Cellulitis of right foot Current Visit: Yes Status: Acute Assessment and Plan: Patient has cellulitis surrounding right lateral fifth toe diabetic ulcer as well as left heel diabetic ulcer; please see above for details -nearly resolved -no leukocytosis -IV antibiotics discontinued today and by mouth Augmentin started -History of MRSA -Podiatry following and will follow-up as an outpatient (3) Hyperglycemia due to type 2 diabetes mellitus Current Visit: Yes Status: Inactive Assessment and Plan: Patient with diabetes mellitus type 2 requiring insulin and hyperglycemia; patient states blood glucose was in the 500s upon admission -Patient has a prescription for U500 at home however the patient has been out of it and not been taking it; will discharge on Lantus; discussed with pharmacy and welfare case worker -Continue Lantus to 25 units twice a day; better controlled now -Monitor Accu-Cheks -Discussed at length the need for compliance with insulin regimen at home and how this is contributing to her foot ulcers (4) Hypertension Current Visit: Yes Status: Chronic Assessment and Plan: Essential hypertension -Patient with adequate control now despite one elevated reading this a.m. -Continue home medications -hold Lasix for now secondary to renal function -continue metoprolol XL 100 mg daily -Continue hydralazine 25 mg 3 times a day -monitor blood pressure (5) LEOBARDO (acute kidney injury) Current Visit: Yes Status: Acute Assessment and Plan: Patient with elevation in her creatinine from admission from 1.18-1.50; review of past labs are consistent with stage III to 4 chronic kidney disease most likely from diabetic nephropathy -This is likely due to her chronic kidney disease; it appears her baseline is between 1.4 and 1.7 -Serum creatinine 1.47 today -Continue to hold Lasix -We will resume IV fluids overnight -Vancomycin discontinued -BMP in a.m. (6) Generalized weakness Current Visit: Yes Status: Acute Assessment and Plan: Secondary to deconditioning -Continue physical therapy -Physical therapy recommended home health care at discharge - Summary of Assessment and Plan Summary of Assessment and Plan: Anticipate discharge tomorrow. - Time Spent with Patient Total time spent is greater than 50% in coordination of care (as documented) at patient's floor/unit and/or counseling patient: Plan of Care Discussed with: patient Internal Medicine: Result - Labs CBC & Chem 7: 03/17/18 05:41 03/17/18 05:41 Labs: Short CBC 03/17/18 Range/Units 05:41 WBC 6.5 (4.3-11.1) K/mcL Hgb 9.1 L (11.5-15.4) g/dL Hct 28.3 L (35.3-44.9) % Plt Count 313 (140-400) K/mcL Neutrophils # 3.3 (1.6-8.9) K/mcL BMP 03/17/18 05:41 Sodium 136 Potassium 4.1 Chloride 109 H Carbon Dioxide 22 L BUN 33 H Creatinine 1.47 H Glucose 193 H Calcium 8.0 L - ABG Interpretation ABG results: ABG ABG pH 7.43 pH Units (7.32-7.45) 03/13/18 19:37 ABG pCO2 39 mmHg (35-45) 03/13/18 19:37 ABG pO2 89 mmHg (85-104) 03/13/18 19:37 ABG O2 Saturation 97 % (95-98) 03/13/18 19:37 Consult Discharge Plan - Plan Referrals: Dory Salvador, CLINICAL AIDE [Primary Care Provider] - (3) Hyperglycemia due to type 2 diabetes mellitus Qualifiers: Diabetes 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
--- NOTE | 2018-03-17 14:00 | Physician Discharge Referral ---
Home Health/Hosp Referral Info Transfer to: Home Health Provider in Charge Post Discharge: PCP (Needs Nursing, physical therapy, and wound care) - Diagnosis (1) Diabetic ulcer of both feet Status: Inactive (2) Cellulitis of right foot Status: Acute (3) Hyperglycemia due to type 2 diabetes mellitus Status: Inactive (4) Hypertension Status: Chronic (5) LEOBARDO (acute kidney injury) Status: Acute (6) Generalized weakness Status: Acute - Respiratory Orders Smoking Cessation: Smoking cessation has been advised. For more information, call the [place] Tobacco Quit Line at 1-783-QQPT-NOW. - Transfer Medications Home Medications: Aspirin [Lo-Dose Aspirin EC] 81 mg PO HS 03/13/18 [History] Donepezil [Aricept] 10 mg PO DAILY 03/13/18 [History] Fenofibrate Nanocrystallized [Triglide] 160 mg PO DAILY 03/13/18 [History] Ferrous Sulfate [Iron] 325 mg PO DAILY 03/13/18 [History] Furosemide [Lasix] 40 mg PO DAILY 03/13/18 [History] Insulin Regular U-500 [HumuLIN R U-500] 50 unit SQ BID 03/13/18 [History] Melatonin/Pyridoxine HCl (B6) [Melatonin 5 mg Tablet] 1 tab PO HS 03/13/18 [ History] Metoprolol Succinate [Toprol Xl] 25 mg PO DAILY 03/13/18 [History] Mirtazapine [Remeron] 30 mg PO DAILY 03/13/18 [History] Omeprazole [PriLOSEC] 40 mg PO DAILY 03/13/18 [History] Sertraline [Zoloft] 100 mg PO DAILY 03/13/18 [History] Tramadol HCl [Ultram] 50 mg PO TID PRN 03/13/18 [History] Allergies/Adverse Reactions: 3 Allergy/AdvReac Type Severity Reaction Status Date / Time ceftriaxone Allergy Hives Verified 03/13/18 10:49 gabapentin Allergy Hives Verified 03/13/18 10:49 hydrochlorothiazide Allergy Hives Verified 03/13/18 10:49 pregabalin Allergy Hives Verified 03/13/18 10:49 Certification: Further, I certify that my clinical findings support that this patient is homebound (i.e. absences from home require considerable and taxing effort and are for medical reasons or shinto services or infrequently or short duration when for other reasons) because: Homebound Reason: Patient requires assistance of a person or device to safely leave home Attestation: My signature below is to certify that this patient is under my care and that I, or nurse practitioner, or a physician's patent legal assistant working with me, has a face-to -face encounter with this patient.
--- NOTE | 2018-03-17 16:57 | Podiatry Progress Note ---
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 Cultures taken in clinic prior to being referred to the ED of the fifth toe right foot. History of MRSA infection of the left heel. #2 local wound care daily #3 radiographic imaging #4 consider formal debridement if necessary depending upon imaging Dictation for 03/17/2018 Assessment: #1 healing ulceration medial left heel dorsal lateral right fifth toe #2 patient with multiple comorbidities and deconditioning. #3 history of diabetes under poor control Plan: #1 continue local wound care daily #2 continue oral antibiotics for a period of 10 days post discharge #3 would recommend and agree with placement post discharge to an extended care facility for reconditioning and strengthening and ability to perform local wound care a daily basis with appropriate antibiotics and control her diabetes which be the ideal situation as opposed to be discharged to home where she has no help to continue to improve from baseline. #4 will follow-up in wound care clinic April 02 Subjective Principal diagnosis: Ulcer toe #5 right foot medial aspect left heel Interval history: Patient's cultures revealed streptococcal infection of the right heel with history of MRSA infection of left medial ulceration. No evidence of active infection of the left heel. Right foot cellulitis and ulceration continuing to resolve with local wound care. Objective - Vital Signs Vital Signs: Vital Signs Temp Pulse Resp BP Pulse Ox 03/17/18 14:37 98.3 F 59 18 163/66 97 03/17/18 11:08 98.2 F 84 18 183/83 97 03/17/18 06:28 97.6 F 54 14 135/52 94 03/17/18 04:14 98.6 F 63 14 151/67 95 03/17/18 00:15 98.5 F 73 15 142/66 96 03/16/18 18:53 99 F 67 16 125/51 92 Intake and Output 03/17/18 03/17/18 03/17/18 07:59 15:59 23:59 Intake Total 1610 / 1610 120 / 120 Output Total 550 / 550 200 / 200 Balance 1060 / 1060 -80 / -80 Intake: IV Fluids 1100 / 1100 0.9 % Sodium Chloride 1,000 ML 1000 / 1000 @ 75 mls/hr IVC .[id number] BETZAIDA Rx #:[id number] Zosyn 3.375 GM In 0.9 % Sodium 100 / 100 Chloride (Mini-Bag +) 100 ML @ 25 mls/hr IVPB Q8HR BETZAIDA Rx#: [id number] Oral 510 / 510 120 / 120 Output: Urine 550 / 550 200 / 200 Other: Meal Nourishment/Supplement Breakfast Percent of Meal Consumed 100% 90% Stool Size Large Large Stool Consistency soft soft formed formed Stool Color Brown Brown # Voids 1 # Bowel Movements 0 0 1 Weight 118.4 kg Blood Glucose* 143 196 256 Patient Weight 03/17/18 23:59 Weight 118.4 kg - Exam Exam: Ulceration fifth toe right foot full-thickness does not penetrate into the dermis. Cellulitis resolving. Ulcer medial aspect left calcaneus with 25% granulation tissue 25% eschar and 50% fibrin no tunneling no sinus tract no undermining. No evidence of active infection of the left heel wound. - Lab Result Diagrams: 03/17/18 05:41 03/17/18 05:41 Labs: Abnormal lab results RBC 3.12 M/mcL (3.82-4.97) L 03/17/18 05:41 Hgb 9.1 g/dL (11.5-15.4) L 03/17/18 05:41 Hct 28.3 % (35.3-44.9) L 03/17/18 05:41 ABG Total CO2 27 mEq/L (20-26) H 03/13/18 19:37 Chloride 109 mEq/L (98-107) H 03/17/18 05:41 Carbon Dioxide 22 mEq/L (23-29) L 03/17/18 05:41 BUN 33 mg/dL (8-23) H 03/17/18 05:41 Creatinine 1.47 mg/dL (0.60-1.20) H 03/17/18 05:41 Est GFR ( Amer) 42 (> 60) L 03/17/18 05:41 Est GFR (Non-Af Amer) 35 (> 60) L 03/17/18 05:41 Glucose 193 mg/dL (70-105) H 03/17/18 05:41 POC Glucose 256 mg/dL (70-99) H 03/17/18 16:07 Hemoglobin A1c 13.7 % (-5.6) H 03/15/18 01:10 Calcium 8.0 mg/dL (8.6-10.3) L 03/17/18 05:41 Urine Protein 100 mg/dL (Neg-Trace) H 03/13/18 10:00 Urine Glucose (UA) 500 mg/dL (Normal) H 03/13/18 10:00 Urine Blood Small (Negative) H 03/13/18 10:00 Urine Yeast Few per hpf (None Seen) H 03/13/18 10:00 Vancomycin Trough 21 mcg/mL (5-10) H 03/17/18 09:54 Consult Discharge Plan - Plan Referrals: Dory Salvador, CUSTOMER RELATIONS ADVISOR [Primary Care Provider] -
[2018-03-17] MEDS: 0.9 % Sodium Chloride 1,000 ML IVC SCH (17:40)
[2018-03-17] MEDS: Mirtazapine 15 MG TABLET PO SCH (21:16)
[2018-03-17] MEDS: Aspirin Enteric Coated 81 MG Tablet PO SCH (21:16)
[2018-03-17] MEDS: traMADol 50 MG TABLET PO PRN (23:20)
[2018-03-18 05:48] LABS: Basophils # 0.1 K/mcL (0.0-0.2); Basophils % 0.8 %; Eosinophils # 0.3 K/mcL (0.0-0.6); Hemoglobin 9.4 g/dL (11.5-15.4); Immature Granulocytes % 0.6 % (0-4); Lymphocytes # 1.9 K/mcL (0.6-4.6); Lymphocytes % 30.2 %; Mean Corpuscular HGB Conc 32.4 g/dL (31.6-35.5); Mean Corpuscular Hemoglobin 29.2 pg (28.0-33.3); Mean Corpuscular Volume 90.1 fL (83.0-100.0); Mean Platelet Volume 9.7 fL (9.4-12.4); Monocytes # 0.7 K/mcL (0.0-1.3); Monocytes % 11.8 %; Neutrophils # 3.3 K/mcL (1.6-8.9); Platelet Count 337 K/mcL (140-400); Red Blood Count 3.22 M/mcL (3.82-4.97); Segmented Neutrophils % 52.6 %
[2018-03-18 06:07] LABS: Calcium 8.3 mg/dL (8.6-10.3); Potassium 4.5 mEq/L (3.5-5.1)
[2018-03-18] MEDS: *HR* Heparin 5,000 UNIT/ML VIAL SQ SCH (06:24)
[2018-03-18 07:16] VITALS: BP 197/72
[2018-03-18] MEDS: 0.9 % Sodium Chloride 1,000 ML IVC SCH (07:24)
--- NOTE | 2018-03-18 09:08 | Discharge Summary ---
- NOTES TO OUTPATIENT PROVIDER Notes to Outpatient Provider: glucose monitoring. was started on new insulin regimen that she can afford. Her blood pressure was controlled while in the hospital, with periods of elevated blood pressure. Please review her home blood pressure logs and adjust medications accordingly. Needs ophthalmology and podiatry follow-ups. 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 Kamara is a 73 year old female with history of uncontrolled diabetes and hypertension presented to the ED after she had a failed outpatient treatment for diabetic foot ulcer and surrounding cellulitis. She follows with Dr. Mcdonnell' s office and was started on Bactrim and doxycycline as outpatient however she did not have any improvement. Cultures were taking at podiatry as outpatient. While in the ED x-ray of the left foot and right foot was done which was negative for any osteomyelitis. She was started on IV broad-spectrum antibiotics vancomycin and Zosyn with significant improvement of her symptoms. Podiatry was consulted while inpatient recommendations followed. As per podiatry the cultures growing from the office showed group B strep. She was switched to oral Augmentin twice a day on March 17. During admission she showed significant hyperglycemia blood glucose was above 200. She reported that she cannot afford her home insulin. Pharmacy and social work was consulted and an affordable insulin regimen was recommended. Her hemoglobin A1c was 13.7 on admission. On BMP her creatinine was 1.5 on March 15, which improved to 1.28 on the at time of discharge. review of past labs are consistent with CKD most likely from diabetic nephropathy. She was counseled on importance of oral hydration and better glucose control. She is to have follow-up BMPs for renal function monitoring as outpatient. Her blood pressure medications was adjusted, Lasix was discontinued due to renal function, hydralazine adn metoprolol was increased with better blood pressure control. She was told to keep a blood pressure log along with her glucose log and follow-up with her PCP for medication adjustment. to follow with Dr. Mcdonnell's office for her bilateral feet ulcers [employer] referral was made. Discharge discussed with: patient, nurse, social work, case management - Time Spent with Patient Total time spent providing and/or coordinating discharge services: Greater than 30 minutes - Discharge Medications Home Medications: Aspirin [Lo-Dose Aspirin EC] 81 mg PO HS 03/13/18 [History] Donepezil [Aricept] 10 mg PO DAILY 03/13/18 [History] Fenofibrate Nanocrystallized [Triglide] 160 mg PO DAILY 03/13/18 [History] Ferrous Sulfate [Iron] 325 mg PO DAILY 03/13/18 [History] Melatonin/Pyridoxine HCl (B6) [Melatonin 5 mg Tablet] 1 tab PO HS 03/13/18 [ History] Mirtazapine [Remeron] 30 mg PO DAILY 03/13/18 [History] Omeprazole [PriLOSEC] 40 mg PO DAILY 03/13/18 [History] Sertraline [Zoloft] 100 mg PO DAILY 03/13/18 [History] Tramadol HCl [Ultram] 50 mg PO TID PRN 03/13/18 [History] Amoxicillin/Clavulanate [Augmentin] 875 mg PO BIDWM #20 tablet 03/18/18 [Rx] Collagenase Oint [Santyl] 1 appl TP BID tube 03/18/18 [Rx] Insulin DETEMIR [Levemir] 25 unit SQ BID [id number] 03/18/18 [Rx] Insulin LISPRO [HumaLOG] 0 units SQ HS vial 03/18/18 [Rx] Insulin LISPRO [HumaLOG] 0 units SQ TIDAC vial 03/18/18 [Rx] Metoprolol XL (24 HR) Succ [Toprol Xl] 100 mg PO DAILY tab.er.24h 03/18/18 [Rx] hydrALAZINE [HydrALAZINE] 25 mg PO Q8HR tablet 03/18/18 [Rx] Allergies/Adverse Reactions: 3 Allergy/AdvReac Type Severity Reaction Status Date / Time ceftriaxone Allergy Hives Verified 03/13/18 10:49 gabapentin Allergy Hives Verified 03/13/18 10:49 hydrochlorothiazide Allergy Hives Verified 03/13/18 10:49 pregabalin Allergy Hives Verified 03/13/18 10:49 Date of admission: 03/13/18 11:40 Primary care physician: Dory Salvador CNP Consults: 03/13/18 12:42 Consult to Podiatry [CONS] Routine Consulting Provider: Pod[facility]ry [facility] Reason for Consult: Ulceration to both feet and cellulitis Time Notified: 12:42 Call Completed: No 03/13/18 19:26 Consult to Hospitalist [CONS] Stat Consulting Provider: Hospitalist Dior Reason for Consult: Hyperglycemia Call Completed: Yes 03/16/18 12:33 Consult to Physical Therapy [CONS] Routine Comment: Evaluate, develop and implement POC Reason for Consult: Deconditioning Does patient have active BEDREST order?: No Is patient medically & hemodynamically stable?: Yes - Constitutional Vitals: Temp Pulse Resp BP Pulse Ox 98.9 F 63 16 197/72 95 03/18/18 07:15 03/18/18 07:15 03/18/18 07:15 03/18/18 07:15 03/18/18 07:15 General appearance: Present: A&O X 3, answers questions appropriately (mOST OF THE TIME) Exam: General: Patient is alert, oriented, no acute distress, morbidly obese Head: atraumatic, normocephalic, Eye: normal appearance, PERRL, no scleral icterus, no conjunctival injection ENT: mucous membranes moist, normal external ear exam Neck: normal inspection, trachea midline, full ROM, no carotid bruits Chest: normal inspection, symmetric chest rise Respiratory: Distant breath sounds secondary to body habitus, Good respiratory effort. Bilateral breath sounds are clear without wheezing, crackles, or rhonchi. Cardiovascular: Distant heart sounds secondary to body habitus, Regular rate and rhythm. s1 and s2 No clicks, rubs, gallops, or murmors. Abdomen: Bowel sounds present normoactive x-4 quadrants. Abdomen is soft, nondistended. no Epigastric tenderness. No guarding or rebound. No organomegaly noted, musculoskeletal: Spontaneously moving all extremities. no edema, no calf tenderness Skin: warm, dry, intact. Ulceration fifth toe right foot full-thickness does not penetrate into the dermis. Cellulitis resolving. Ulcer medial aspect left calcaneus with 25% granulation tissue 25% eschar and 50% fibrin no tunneling no sinus tract no undermining. No evidence of active infection of the left heel wound.Ulceration fifth toe right foot full-thickness does not penetrate into the dermis. Cellulitis resolving. Ulcer medial aspect left calcaneus with 25% granulation tissue 25% eschar and 50% fibrin no tunneling no sinus tract no undermining. No evidence of active infection of the left heel wound. Neuro: Alert and oriented x4. Cranial nerves 2-12 is intact. Not aphasic, moderate to severe decreased sensation of the lower extremities Psych: Patient's affect is normal - Patient Status Disposition: Home Health Service Condition: Fair Functional capacity at discharge: uses cane/walker Overall status at discharge: patient is progressing back to baseline - Discharge Instructions Instructions: Cellulitis (DC) Follow Up With: WoundCare,Clinic [Other] - 03/27/18 10:00 am (You will see Dr. Mackenzie at this appointment. Please call if you need to cancel. Thank you) Dory Salvador, ARTERIAL EMBALMER [Primary Care Provider] - 03/25/18 10:00 am - Diet and Activity Activity: as per physical therapy, increase activity as tolerated Diet: diabetic diet
[2018-03-18] MEDS: Metoprolol XL (24 HR) Succ 50 MG TAB.ER.24H PO SCH (09:33)
[2018-03-18] MEDS: hydrALAZINE 25 MG TABLET PO SCH (09:34)
[2018-03-18] MEDS: Insulin LISPRO 300 UNITS/3 ML VIAL SQ SCH (09:34)
[2018-03-18] MEDS: Fenofibrate 54 MG TABLET PO SCH (09:34)
[2018-03-18] MEDS: Insulin DETEMIR 100 UNIT/ML X5UNITS SQ SCH (09:35)
--- NOTE | 2018-03-18 10:01 | Physician Discharge Referral ---
Home Health/Hosp Referral Info Provider in Charge Post Discharge: PCP - Diagnosis (1) Diabetic ulcer of both feet Status: Inactive (2) Hyperglycemia due to type 2 diabetes mellitus Status: Inactive (3) Cellulitis of right foot Status: Acute (4) Hypertension Status: Chronic (5) LEOBARDO (acute kidney injury) Status: Acute (6) Generalized weakness Status: Acute - Respiratory Orders Smoking Cessation: Smoking cessation has been advised. For more information, call the [place] Tobacco Quit Line at 5-578-JPAJ-NOW. - Services Needed Following services are medically necessary services: Nursing, Home Health Aide - Transfer Medications Home Medications: Aspirin [Lo-Dose Aspirin EC] 81 mg PO HS 03/13/18 [History] Donepezil [Aricept] 10 mg PO DAILY 03/13/18 [History] Fenofibrate Nanocrystallized [Triglide] 160 mg PO DAILY 03/13/18 [History] Ferrous Sulfate [Iron] 325 mg PO DAILY 03/13/18 [History] Melatonin/Pyridoxine HCl (B6) [Melatonin 5 mg Tablet] 1 tab PO HS 03/13/18 [ History] Mirtazapine [Remeron] 30 mg PO DAILY 03/13/18 [History] Omeprazole [PriLOSEC] 40 mg PO DAILY 03/13/18 [History] Sertraline [Zoloft] 100 mg PO DAILY 03/13/18 [History] Tramadol HCl [Ultram] 50 mg PO TID PRN 03/13/18 [History] Amoxicillin/Clavulanate [Augmentin] 875 mg PO BIDWM #20 tablet 03/18/18 [Rx] Collagenase Oint [Santyl] 1 appl TP BID tube 03/18/18 [Rx] Insulin DETEMIR [Levemir] 25 unit SQ BID [id number] 03/18/18 [Rx] Insulin LISPRO [HumaLOG] 0 units SQ HS vial 03/18/18 [Rx] Insulin LISPRO [HumaLOG] 0 units SQ TIDAC vial 03/18/18 [Rx] Metoprolol XL (24 HR) Succ [Toprol Xl] 100 mg PO DAILY tab.er.24h 03/18/18 [Rx] hydrALAZINE [HydrALAZINE] 25 mg PO Q8HR tablet 03/18/18 [Rx] Allergies/Adverse Reactions: 3 Allergy/AdvReac Type Severity Reaction Status Date / Time ceftriaxone Allergy Hives Verified 03/13/18 10:49 gabapentin Allergy Hives Verified 03/13/18 10:49 hydrochlorothiazide Allergy Hives Verified 03/13/18 10:49 pregabalin Allergy Hives Verified 03/13/18 10:49 Certification: Further, I certify that my clinical findings support that this patient is homebound (i.e. absences from home require considerable and taxing effort and are for medical reasons or judaism services or infrequently or short duration when for other reasons) because: Homebound Reason: Patient requires assistance of a person or device to safely leave home Attestation: My signature below is to certify that this patient is under my care and that I, or nurse practitioner, or a physician's facilities assistant working with me, has a face-to -face encounter with this patient.
== END 2018-03-18 12:20 | disposition home health service (06) | DRG 603 ==
LOC: 2SOUTHHOLD 08:56 → EMEROO 08:56 → 2SOUTHHOLD 11:38 → SUATTDRO 11:40 → 3ANU 20:26
PROVIDERS: ADMIT Internal Medicine; ATTEND Internal Medicine

== ENCOUNTER 2018-05-15 17:50 | Observation (INO) ==
[2018-05-15] MEDS ORDERED: 0.9 % Sodium Chloride 1,000 ML IVC ONE (18:11)
[2018-05-15] MEDS ORDERED: Nystatin POWDER 30 GM BOTTLE TP STA (18:11)
--- NOTE | 2018-05-15 18:27 | Emergency Department Note ---
Disposition Clinical Impression: Hyperglycemia, UTI (urinary tract infection), Confusion, Ashley infection, Skin ulcer, Failure to thrive Disposition: Admitted As Inpatient Condition: Fair Referrals: Dory Salvador, [employer] [Primary Care Provider] - Forms: ED Satisfaction Letter Time of Disposition: 00:32 Altered Mental Status HPI - General Chief Complaint: ED Altered Mental Status Stated Complaint: AMS Time Seen by Provider: 05/15/18 17:59 Nursing Notes Reviewed: Yes Vital Signs Reviewed: Yes - History of Present Illness HPI Narrative: 73-year-old female presents from home with daughter and granddaughter bedside for evaluation of altered mentation. Over the past month, patient has been confused and progressively angry. Notably worse over the past 5 days. No falls or head trauma. Family is also concerned about her lateral lower extremity ulcers for which she follows with wound care as well as skin wounds in the intertriginous area of her abdominal pannus. PMH: Hypertension, hyperlipidemia, insulin dependent diabetes. ROS: Positive: As above Negative: Fever, chills, nausea, vomiting, chest pain, palpitations or dyspnea, diaphoresis, abdominal pain, flank pain - Related Data Home Medications Medication Instructions Recorded Confirmed Aspirin [Lo-Dose Aspirin EC] 81 mg PO HS 03/13/18 03/13/18 Donepezil [Aricept] 10 mg PO DAILY 03/13/18 03/13/18 Fenofibrate Nanocrystallized 160 mg PO DAILY 03/13/18 03/13/18 [Triglide] Ferrous Sulfate [Iron] 325 mg PO DAILY 03/13/18 03/13/18 Omeprazole [PriLOSEC] 40 mg PO DAILY 03/13/18 03/13/18 Tramadol HCl [Ultram] 50 mg PO TID PRN 03/13/18 03/13/18 Amitriptyline [Elavil] 25 mg PO HS 05/15/18 05/15/18 Insulin Regular, Human [Humulin R 50 - 55 unit SQ BID 05/15/18 05/15/18 U-500 Kwikpen] Metoprolol Succinate 200 mg PO DAILY 05/15/18 05/15/18 Sulfamethoxazole/Trimethoprim 1 tab PO BID 05/15/18 05/15/18 [Sulfamethoxazole-Tmp Ss Tablet] Previous Rx's Medication Instructions Recorded Collagenase Oint [Santyl] 1 appl TP BID tube 03/18/18 Allergies Allergy/AdvReac Type Severity Reaction Status Date / Time ceftriaxone Allergy Hives Verified 05/15/18 22:54 gabapentin Allergy Hives Verified 05/15/18 22:54 hydrochlorothiazide Allergy Hives Verified 05/15/18 22:54 pregabalin Allergy Hives Verified 05/15/18 22:54 risperidone AdvReac Confusion Verified 05/15/18 22:54 All systems ED: reviewed and negative except as stated. Review of Systems: As Per HPI Past Medical History - Past Medical History Medical history: Reports: asthma, CHF, COPD, coronary artery disease, dementia, diabetes, GERD, hyperlipidemia, hypertension, thyroid disease Surgical history: Reports: appendectomy, coronary bypass (CABG), hysterectomy Psychiatric history: Reports: anxiety, depression - Social History Smoking Status: Never smoker Smokeless Tobacco Status: No Alcohol use: Reports: none Drug use: Reports: none Physical Exam Vital Signs Reviewed General: Patient is alert, oriented, and in no acute distress. Patient smells of foul stale urine. Head: atraumatic, normocephalic Eye: normal appearance, PERRL, no scleral icterus, no conjunctival injection ENT: mucous membranes moist, normal external ear exam Neck: normal inspection, trachea midline, full ROM Chest: normal inspection, symmetric chest rise Respiratory: Poor respiratory effort. Bilateral breath sounds are clear without wheezing, crackles, or rhonchi. Cardiovascular: Regular rate and rhythm. No clicks, rubs, gallops, or murmors. Normal heart sounds. Abdomen: Bowel sounds present normoactive x-4 quadrants. Abdomen is soft, nondistended, and nontender. No guarding or rebound. No organomegaly noted. Musculoskeletal: Spontaneously moving all extremities. Skin: warm. Bilateral lower extremities with several small healing ulcers with no surrounding erythema or purulence. Intertriginous crease of the abdominal pannus is moist and foul-smelling with stellate erythematous lesions and to untreated skin ulcers on the right side. Neuro: Alert and oriented x4. Sensation light touch intact. Psych: Patient's affect is appropriate for situation. Course Course Narrative: Clinical concern is for UTI. Will perform septic workup though patient is SIRS (-). Patient's pannus concerning for yeast infection with diabetic ulcer. We will begin with nystatin powder. Urinalysis concerning for urinary tract infection. Will begin empiric Levaquin as patient has an allergy to ceftriaxone. EKG is unremarkable. Chest x-ray unremarkable. CT head unremarkable. Serum hematology shows no leukocytosis. Serum chemistry shows some serum ketones. Serum osmolality is not markedly elevated; unlikely HHS. VBG shows normal serum pH; no DKA. Patient remains hyperglycemic with blood glucose in the 400s. Will provide 10 units regular insulin. Discussed the above with the patient and family bedside. They are agreeable to admission. Discussed the above with the admitting hospitalist, Dr. Rojas, who agrees to accept the patient for continued evaluation and management of UTI, hyperglycemia , intertriginous yeast infection. EKG dated 05/15/2018 at 18:27 interpreted as sinus rhythm with rate of 83. DE 181, QTC 469. Left axis. LVH. Nonspecific ST-T changes. Compared to previous EKG dated 02/01/2018 showing no acute ischemic changes or comparison. Chest X-Ray 05/15/18 18:10 IMPRESSION: Cardiomegaly with no acute finding or significant change. D/ / Darius Forbes MD / Darius Forbes MD Interpreting Provider: Darius Forbes MD Head CT 05/15/18 19:52 IMPRESSION: No acute intracranial abnormality. D/ / Reg Bueno MD / Reg Bueno MD Interpreting Provider: Reg Bueno MD Vital Signs Temperature 99.1 F 05/15/18 17:59 Pulse Rate 83 05/15/18 17:59 Respiratory Rate 18 05/15/18 17:59 Blood Pressure 209/75 05/15/18 17:59 O2 Sat by Pulse Oximetry 98 05/15/18 17:59 Temperature 99.1 F 05/15/18 19:31 Pulse Rate 83 05/16/18 00:22 Respiratory Rate 20 05/16/18 00:22 Blood Pressure 145/109 05/16/18 00:22 O2 Sat by Pulse Oximetry 95 05/16/18 00:22 Oxygen Delivery Oxygen Delivery Room Air Altered Mental Status - Lab Data Result diagrams: 05/15/18 18:54 05/15/18 18:54 Lab Results 05/15/18 05/15/18 05/15/18 Range/Units 18:54 18:54 18:54 WBC 9.8 (4.3-11.1) K/mcL RBC 3.82 (3.82-4.97) M/mcL Hgb 11.3 L (11.5-15.4) g/dL Hct 34.1 L (35.3-44.9) % MCV 89.3 (83.0-100.0) fL MCH 29.6 (28.0-33.3) pg MCHC 33.1 (31.6-35.5) g/dL RDW 13.6 (11.5-14.5) % Plt Count 263 (140-400) K/mcL MPV 9.8 (9.4-12.4) fL Immature Gran % 0.3 (0-4) % Seg Neutrophils % 70.8 % Lymphocytes % 17.8 % Monocytes % 9.5 % Eosinophils % 1.2 % Basophils % 0.4 % Neutrophils # 6.9 (1.6-8.9) K/mcL Lymphocytes # 1.7 (0.6-4.6) K/mcL Monocytes # 0.9 (0.0-1.3) K/mcL Eosinophils # 0.1 (0.0-0.6) K/mcL Basophils # 0.0 (0.0-0.2) K/mcL PT (9.4-12.1) Seconds INR APTT (26.0-36.0) Seconds VBG pH (7.32-7.42) pH Units VBG pCO2 (41-51) mmHg VBG pO2 (25-50) mmHg VBG HCO3 (21-27) mEq/L Sodium 132 L (136-145) mEq/L Potassium 4.8 (3.5-5.1) mEq/L Chloride 99 (98-107) mEq/L Carbon Dioxide 25 (23-29) mEq/L BUN 31 H (8-23) mg/dL Creatinine 1.11 (0.60-1.20) mg/dL Est GFR ( Amer) 58 L (> 60) Est GFR (Non-Af Amer) 48 L (> 60) BUN/Creatinine Ratio 28 H (6-26) Glucose 457 H (70-105) mg/dL Calculated Osmolality 300 (280-300) Lactic Acid (0.5-2.2) mmol/L Calcium 9.0 (8.6-10.3) mg/dL Magnesium 2.0 (1.6-2.6) mg/dL Total Bilirubin 0.5 (0.3-1.0) mg/dL Direct Bilirubin 0.1 (0.0-0.2) mg/dL Indirect Bilirubin 0.4 (0.0-1.2) mg/dL AST 9 L (13-39) Units/L ALT 8 (7-52) Units/L Alkaline Phosphatase 118 H (34-104) Units/L Troponin I < 0.03 (< 0.04) ng/mL Serum Total Protein 6.5 (6.4-8.9) g/dL Albumin 3.5 (3.5-5.7) g/dL Globulin 3.0 (2.4-3.5) g/dL Albumin/Globulin Ratio 1.2 (1.1-2.2) Lipase 4 L (11-82) Units/L Beta-Hydroxybutyric Acd 0.53 H (0.02-0.27) mmol/L Urine Color (Yellow) Urine Clarity (Clear) Urine pH (5.0-8.0) pH Units Ur Specific [place] (1.010-1.025) Urine Protein (Neg-Trace) mg/dL Urine Glucose (UA) (Normal) mg/dL Urine Ketones (Negative) mg/dL Urine Blood (Negative) Urine Nitrite (Negative) Urine Bilirubin (Negative) Urine Urobilinogen (Normal) mg/dL Ur Leukocyte Esterase (Negative) Urine Microscopic RBC (0-3) per hpf Urine Microscopic WBC (0-3) per hpf Ur Squamous Epith Cells (None-Few) per lpf Urine Bacteria (None-Few) per hpf Hyaline Casts (None-Few) per lpf Ur Culture Indicated? (NO) Specimen Rejected 05/15/18 05/15/18 05/15/18 Range/Units 18:55 19:16 19:36 WBC (4.3-11.1) K/mcL RBC (3.82-4.97) M/mcL Hgb (11.5-15.4) g/dL Hct (35.3-44.9) % MCV (83.0-100.0) fL MCH (28.0-33.3) pg MCHC (31.6-35.5) g/dL RDW (11.5-14.5) % Plt Count (140-400) K/mcL MPV (9.4-12.4) fL Immature Gran % (0-4) % Seg Neutrophils % % Lymphocytes % % Monocytes % % Eosinophils % % Basophils % % Neutrophils # (1.6-8.9) K/mcL Lymphocytes # (0.6-4.6) K/mcL Monocytes # (0.0-1.3) K/mcL Eosinophils # (0.0-0.6) K/mcL Basophils # (0.0-0.2) K/mcL PT 12.2 H (9.4-12.1) Seconds INR 1.1 APTT 20.6 L (26.0-36.0) Seconds VBG pH (7.32-7.42) pH Units VBG pCO2 (41-51) mmHg VBG pO2 (25-50) mmHg VBG HCO3 (21-27) mEq/L Sodium (136-145) mEq/L Potassium (3.5-5.1) mEq/L Chloride (98-107) mEq/L Carbon Dioxide (23-29) mEq/L BUN (8-23) mg/dL Creatinine (0.60-1.20) mg/dL Est GFR ( Amer) (> 60) Est GFR (Non-Af Amer) (> 60) BUN/Creatinine Ratio (6-26) Glucose (70-105) mg/dL Calculated Osmolality (280-300) Lactic Acid 1.1 (0.5-2.2) mmol/L Calcium (8.6-10.3) mg/dL Magnesium (1.6-2.6) mg/dL Total Bilirubin (0.3-1.0) mg/dL Direct Bilirubin (0.0-0.2) mg/dL Indirect Bilirubin (0.0-1.2) mg/dL AST (13-39) Units/L ALT (7-52) Units/L Alkaline Phosphatase (34-104) Units/L Troponin I (< 0.04) ng/mL Serum Total Protein (6.4-8.9) g/dL Albumin (3.5-5.7) g/dL Globulin (2.4-3.5) g/dL Albumin/Globulin Ratio (1.1-2.2) Lipase (11-82) Units/L Beta-Hydroxybutyric Acd (0.02-0.27) mmol/L Urine Color Yellow (Yellow) Urine Clarity Clear (Clear) Urine pH 6.5 (5.0-8.0) pH Units Ur Specific [place] 1.024 (1.010-1.025) Urine Protein >=300 H (Neg-Trace) mg/dL Urine Glucose (UA) >=1000 H (Normal) mg/dL Urine Ketones Negative (Negative) mg/dL Urine Blood Small H (Negative) Urine Nitrite Negative (Negative) Urine Bilirubin Negative (Negative) Urine Urobilinogen Normal (Normal) mg/dL Ur Leukocyte Esterase Negative (Negative) Urine Microscopic RBC 3-5 H (0-3) per hpf Urine Microscopic WBC 15-30 H (0-3) per hpf Ur Squamous Epith Cells None Seen (None-Few) per lpf Urine Bacteria Moderate H (None-Few) per hpf Hyaline Casts None Seen (None-Few) per lpf Ur Culture Indicated? NO (NO) Specimen Rejected 05/15/18 05/15/18 Range/Units 20:18 22:49 WBC (4.3-11.1) K/mcL RBC (3.82-4.97) M/mcL Hgb (11.5-15.4) g/dL Hct (35.3-44.9) % MCV (83.0-100.0) fL MCH (28.0-33.3) pg MCHC (31.6-35.5) g/dL RDW (11.5-14.5) % Plt Count (140-400) K/mcL MPV (9.4-12.4) fL Immature Gran % (0-4) % Seg Neutrophils % % Lymphocytes % % Monocytes % % Eosinophils % % Basophils % % Neutrophils # (1.6-8.9) K/mcL Lymphocytes # (0.6-4.6) K/mcL Monocytes # (0.0-1.3) K/mcL Eosinophils # (0.0-0.6) K/mcL Basophils # (0.0-0.2) K/mcL PT (9.4-12.1) Seconds INR APTT (26.0-36.0) Seconds VBG pH 7.35 (7.32-7.42) pH Units VBG pCO2 50 (41-51) mmHg VBG pO2 75 H (25-50) mmHg VBG HCO3 28 H (21-27) mEq/L Sodium (136-145) mEq/L Potassium (3.5-5.1) mEq/L Chloride (98-107) mEq/L Carbon Dioxide (23-29) mEq/L BUN (8-23) mg/dL Creatinine (0.60-1.20) mg/dL Est GFR ( Amer) (> 60) Est GFR (Non-Af Amer) (> 60) BUN/Creatinine Ratio (6-26) Glucose (70-105) mg/dL Calculated Osmolality (280-300) Lactic Acid (0.5-2.2) mmol/L Calcium (8.6-10.3) mg/dL Magnesium (1.6-2.6) mg/dL Total Bilirubin (0.3-1.0) mg/dL Direct Bilirubin (0.0-0.2) mg/dL Indirect Bilirubin (0.0-1.2) mg/dL AST (13-39) Units/L ALT (7-52) Units/L Alkaline Phosphatase (34-104) Units/L Troponin I (< 0.04) ng/mL Serum Total Protein (6.4-8.9) g/dL Albumin (3.5-5.7) g/dL Globulin (2.4-3.5) g/dL Albumin/Globulin Ratio (1.1-2.2) Lipase (11-82) Units/L Beta-Hydroxybutyric Acd (0.02-0.27) mmol/L Urine Color (Yellow) Urine Clarity (Clear) Urine pH (5.0-8.0) pH Units Ur Specific [place] (1.010-1.025) Urine Protein (Neg-Trace) mg/dL Urine Glucose (UA) (Normal) mg/dL Urine Ketones (Negative) mg/dL Urine Blood (Negative) Urine Nitrite (Negative) Urine Bilirubin (Negative) Urine Urobilinogen (Normal) mg/dL Ur Leukocyte Esterase (Negative) Urine Microscopic RBC (0-3) per hpf Urine Microscopic WBC (0-3) per hpf Ur Squamous Epith Cells (None-Few) per lpf Urine Bacteria (None-Few) per hpf Hyaline Casts (None-Few) per lpf Ur Culture Indicated? (NO) Specimen Rejected Volume TPA Checklist - LKW: 3-4.5 hrs Add. Warnings/Precautions Patient/family understanding: The patient/family members have been counseled and understood the risk, benefit , and alternatives of treatment.
[2018-05-15 19:13] LABS: Basophils % 0.4 %; Eosinophils # 0.1 K/mcL (0.0-0.6); Eosinophils % 1.2 %; Hematocrit 34.1 % (35.3-44.9); Hemoglobin 11.3 g/dL (11.5-15.4); Immature Granulocytes % 0.3 % (0-4); Lymphocytes # 1.7 K/mcL (0.6-4.6); Lymphocytes % 17.8 %; Mean Corpuscular HGB Conc 33.1 g/dL (31.6-35.5); Mean Corpuscular Hemoglobin 29.6 pg (28.0-33.3); Mean Corpuscular Volume 89.3 fL (83.0-100.0); Mean Platelet Volume 9.8 fL (9.4-12.4); Monocytes # 0.9 K/mcL (0.0-1.3); Monocytes % 9.5 %; Neutrophils # 6.9 K/mcL (1.6-8.9); Platelet Count 263 K/mcL (140-400); Red Blood Count 3.82 M/mcL (3.82-4.97); Red Cell Distribution Width 13.6 % (11.5-14.5); Segmented Neutrophils % 70.8 %
[2018-05-15 19:33] LABS: Troponin I < 0.03 ng/mL (< 0.04)
[2018-05-15 19:41] LABS: Bilirubin,Urine Negative (Negative); Blood,Urine Small (Negative); Clarity,Urine Clear (Clear); Color,Urine Yellow (Yellow); Glucose,Urine (UA) >=1000 mg/dL (Normal); Ketones,Urine Negative (Negative); Leukocyte Esterase,Urine Negative (Negative); Nitrite,Urine Negative (Negative); PH,Urine 6.5 pH Units (5.0-8.0); Protein,Urine >=300 mg/dL (Neg-Trace); Specific Gravity,Urine 1.024 (1.010-1.025); Urobilinogen,Urine Normal (Normal)
[2018-05-15 19:44] LABS: Bacteria,Urine Moderate per hpf (None-Few); Hyaline Casts,Urine None Seen per lpf (None-Few); Squamous Epithelial Cell,Urine None Seen per lpf (None-Few); WBC,Urine 15-30 per hpf (0-3)
[2018-05-15 19:53] LABS: Alanine Aminotransferase 8 Units/L (7-52); Albumin 3.5 g/dL (3.5-5.7); Albumin/Globulin Ratio 1.2 (1.1-2.2); Alkaline Phosphatase 118 Units/L (34-104); Aspartate Amino Transferase 9 Units/L (13-39); BUN/Creatinine Ratio 28 (6-26); Bilirubin,Direct 0.1 mg/dL (0.0-0.2); Bilirubin,Indirect 0.4 mg/dL (0.0-1.2); Bilirubin,Total 0.5 mg/dL (0.3-1.0); Blood Urea Nitrogen 31 mg/dL (8-23); Carbon Dioxide 25 mEq/L (23-29); Chloride 99 mEq/L (98-107); Glucose 457 mg/dL (70-105); Lipase 4 Units/L (11-82); Osmolality,Calculated 300 (280-300); Potassium 4.8 mEq/L (3.5-5.1); Sodium 132 mEq/L (136-145); Total Protein 6.5 g/dL (6.4-8.9); eGFR For Non-African Americans 48 (> 60)
[2018-05-15 19:57] LABS: INR 1.1; Prothrombin Time 12.2 Seconds (9.4-12.1)
--- NOTE | 2018-05-15 20:00 | Emergency Department Note ---
Disposition Clinical Impression: Hyperglycemia, UTI (urinary tract infection), Confusion, Ashley infection, Skin ulcer, Failure to thrive Disposition: Admitted As Inpatient Referrals: Dory Salvador, [employer] [Primary Care Provider] - Forms: ED Satisfaction Letter General Adult HPI - General Chief complaint: ED Altered Mental Status Stated complaint: AMS Time Seen by Provider: 05/15/18 17:59 Source: patient, family Limitations: altered mental status - History of Present Illness Pain Scale: 8 - Related Data Home Medications Medication Instructions Recorded Confirmed Aspirin [Lo-Dose Aspirin EC] 81 mg PO HS 03/13/18 05/15/18 Donepezil [Aricept] 10 mg PO DAILY 03/13/18 03/13/18 Fenofibrate Nanocrystallized 160 mg PO DAILY 03/13/18 05/15/18 [Triglide] Ferrous Sulfate [Iron] 325 mg PO BID 03/13/18 05/15/18 Omeprazole [PriLOSEC] 40 mg PO DAILY 03/13/18 05/15/18 Tramadol HCl [Ultram] 50 mg PO TID PRN 03/13/18 05/15/18 Amitriptyline [Elavil] 25 mg PO HS 05/15/18 05/15/18 Insulin Regular, Human [Humulin R 50 - 55 unit SQ BID 05/15/18 05/15/18 U-500 Kwikpen] Metoprolol Succinate 200 mg PO DAILY 05/15/18 05/15/18 Sulfamethoxazole/Trimethoprim 1 tab PO BID 05/15/18 05/15/18 [Sulfamethoxazole-Tmp Ss Tablet] Previous Rx's Medication Instructions Recorded Collagenase Oint [Santyl] 1 appl TP BID tube 03/18/18 Allergies Allergy/AdvReac Type Severity Reaction Status Date / Time ceftriaxone Allergy Hives Verified 05/15/18 22:54 gabapentin Allergy Hives Verified 05/15/18 22:54 hydrochlorothiazide Allergy Hives Verified 05/15/18 22:54 pregabalin Allergy Hives Verified 05/15/18 22:54 risperidone AdvReac Confusion Verified 05/15/18 22:54 Past Medical History - Past Medical History Medical history: Reports: asthma, CHF, COPD, coronary artery disease, dementia, diabetes, GERD, hyperlipidemia, hypertension, thyroid disease Surgical history: Reports: appendectomy, coronary bypass (CABG), hysterectomy Psychiatric history: Reports: anxiety, depression - Social History Smoking Status: Never smoker Smokeless Tobacco Status: No Alcohol use: Reports: none Drug use: Reports: none Physical Exam - General Limitations: altered mental status Course Vital Signs Temperature 99.1 F 05/15/18 17:59 Pulse Rate 83 05/15/18 17:59 Respiratory Rate 18 05/15/18 17:59 Blood Pressure 209/75 05/15/18 17:59 O2 Sat by Pulse Oximetry 98 05/15/18 17:59 Temperature 99.1 F 05/15/18 19:31 Pulse Rate 83 05/15/18 22:42 Respiratory Rate 20 05/15/18 22:42 Blood Pressure 145/129 05/15/18 22:42 O2 Sat by Pulse Oximetry 95 05/15/18 22:42 Oxygen Delivery Oxygen Delivery Room Air Medical Decision Making - Lab Data Result diagrams: 05/15/18 18:54 05/15/18 18:54 Lab Results 05/15/18 05/15/18 05/15/18 Range/Units 18:54 18:54 18:54 WBC 9.8 (4.3-11.1) K/mcL RBC 3.82 (3.82-4.97) M/mcL Hgb 11.3 L (11.5-15.4) g/dL Hct 34.1 L (35.3-44.9) % MCV 89.3 (83.0-100.0) fL MCH 29.6 (28.0-33.3) pg MCHC 33.1 (31.6-35.5) g/dL RDW 13.6 (11.5-14.5) % Plt Count 263 (140-400) K/mcL MPV 9.8 (9.4-12.4) fL Immature Gran % 0.3 (0-4) % Seg Neutrophils % 70.8 % Lymphocytes % 17.8 % Monocytes % 9.5 % Eosinophils % 1.2 % Basophils % 0.4 % Neutrophils # 6.9 (1.6-8.9) K/mcL Lymphocytes # 1.7 (0.6-4.6) K/mcL Monocytes # 0.9 (0.0-1.3) K/mcL Eosinophils # 0.1 (0.0-0.6) K/mcL Basophils # 0.0 (0.0-0.2) K/mcL PT (9.4-12.1) Seconds INR APTT (26.0-36.0) Seconds VBG pH (7.32-7.42) pH Units VBG pCO2 (41-51) mmHg VBG pO2 (25-50) mmHg VBG HCO3 (21-27) mEq/L Sodium 132 L (136-145) mEq/L Potassium 4.8 (3.5-5.1) mEq/L Chloride 99 (98-107) mEq/L Carbon Dioxide 25 (23-29) mEq/L BUN 31 H (8-23) mg/dL Creatinine 1.11 (0.60-1.20) mg/dL Est GFR ( Amer) 58 L (> 60) Est GFR (Non-Af Amer) 48 L (> 60) BUN/Creatinine Ratio 28 H (6-26) Glucose 457 H (70-105) mg/dL Calculated Osmolality 300 (280-300) Lactic Acid (0.5-2.2) mmol/L Calcium 9.0 (8.6-10.3) mg/dL Magnesium 2.0 (1.6-2.6) mg/dL Total Bilirubin 0.5 (0.3-1.0) mg/dL Direct Bilirubin 0.1 (0.0-0.2) mg/dL Indirect Bilirubin 0.4 (0.0-1.2) mg/dL AST 9 L (13-39) Units/L ALT 8 (7-52) Units/L Alkaline Phosphatase 118 H (34-104) Units/L Troponin I < 0.03 (< 0.04) ng/mL Serum Total Protein 6.5 (6.4-8.9) g/dL Albumin 3.5 (3.5-5.7) g/dL Globulin 3.0 (2.4-3.5) g/dL Albumin/Globulin Ratio 1.2 (1.1-2.2) Lipase 4 L (11-82) Units/L Beta-Hydroxybutyric Acd 0.53 H (0.02-0.27) mmol/L Urine Color (Yellow) Urine Clarity (Clear) Urine pH (5.0-8.0) pH Units Ur Specific [place] (1.010-1.025) Urine Protein (Neg-Trace) mg/dL Urine Glucose (UA) (Normal) mg/dL Urine Ketones (Negative) mg/dL Urine Blood (Negative) Urine Nitrite (Negative) Urine Bilirubin (Negative) Urine Urobilinogen (Normal) mg/dL Ur Leukocyte Esterase (Negative) Urine Microscopic RBC (0-3) per hpf Urine Microscopic WBC (0-3) per hpf Ur Squamous Epith Cells (None-Few) per lpf Urine Bacteria (None-Few) per hpf Hyaline Casts (None-Few) per lpf Ur Culture Indicated? (NO) Specimen Rejected 05/15/18 05/15/18 05/15/18 Range/Units 18:55 19:16 19:36 WBC (4.3-11.1) K/mcL RBC (3.82-4.97) M/mcL Hgb (11.5-15.4) g/dL Hct (35.3-44.9) % MCV (83.0-100.0) fL MCH (28.0-33.3) pg MCHC (31.6-35.5) g/dL RDW (11.5-14.5) % Plt Count (140-400) K/mcL MPV (9.4-12.4) fL Immature Gran % (0-4) % Seg Neutrophils % % Lymphocytes % % Monocytes % % Eosinophils % % Basophils % % Neutrophils # (1.6-8.9) K/mcL Lymphocytes # (0.6-4.6) K/mcL Monocytes # (0.0-1.3) K/mcL Eosinophils # (0.0-0.6) K/mcL Basophils # (0.0-0.2) K/mcL PT 12.2 H (9.4-12.1) Seconds INR 1.1 APTT 20.6 L (26.0-36.0) Seconds VBG pH (7.32-7.42) pH Units VBG pCO2 (41-51) mmHg VBG pO2 (25-50) mmHg VBG HCO3 (21-27) mEq/L Sodium (136-145) mEq/L Potassium (3.5-5.1) mEq/L Chloride (98-107) mEq/L Carbon Dioxide (23-29) mEq/L BUN (8-23) mg/dL Creatinine (0.60-1.20) mg/dL Est GFR ( Amer) (> 60) Est GFR (Non-Af Amer) (> 60) BUN/Creatinine Ratio (6-26) Glucose (70-105) mg/dL Calculated Osmolality (280-300) Lactic Acid 1.1 (0.5-2.2) mmol/L Calcium (8.6-10.3) mg/dL Magnesium (1.6-2.6) mg/dL Total Bilirubin (0.3-1.0) mg/dL Direct Bilirubin (0.0-0.2) mg/dL Indirect Bilirubin (0.0-1.2) mg/dL AST (13-39) Units/L ALT (7-52) Units/L Alkaline Phosphatase (34-104) Units/L Troponin I (< 0.04) ng/mL Serum Total Protein (6.4-8.9) g/dL Albumin (3.5-5.7) g/dL Globulin (2.4-3.5) g/dL Albumin/Globulin Ratio (1.1-2.2) Lipase (11-82) Units/L Beta-Hydroxybutyric Acd (0.02-0.27) mmol/L Urine Color Yellow (Yellow) Urine Clarity Clear (Clear) Urine pH 6.5 (5.0-8.0) pH Units Ur Specific [place] 1.024 (1.010-1.025) Urine Protein >=300 H (Neg-Trace) mg/dL Urine Glucose (UA) >=1000 H (Normal) mg/dL Urine Ketones Negative (Negative) mg/dL Urine Blood Small H (Negative) Urine Nitrite Negative (Negative) Urine Bilirubin Negative (Negative) Urine Urobilinogen Normal (Normal) mg/dL Ur Leukocyte Esterase Negative (Negative) Urine Microscopic RBC 3-5 H (0-3) per hpf Urine Microscopic WBC 15-30 H (0-3) per hpf Ur Squamous Epith Cells None Seen (None-Few) per lpf Urine Bacteria Moderate H (None-Few) per hpf Hyaline Casts None Seen (None-Few) per lpf Ur Culture Indicated? NO (NO) Specimen Rejected 05/15/18 05/15/18 Range/Units 20:18 22:49 WBC (4.3-11.1) K/mcL RBC (3.82-4.97) M/mcL Hgb (11.5-15.4) g/dL Hct (35.3-44.9) % MCV (83.0-100.0) fL MCH (28.0-33.3) pg MCHC (31.6-35.5) g/dL RDW (11.5-14.5) % Plt Count (140-400) K/mcL MPV (9.4-12.4) fL Immature Gran % (0-4) % Seg Neutrophils % % Lymphocytes % % Monocytes % % Eosinophils % % Basophils % % Neutrophils # (1.6-8.9) K/mcL Lymphocytes # (0.6-4.6) K/mcL Monocytes # (0.0-1.3) K/mcL Eosinophils # (0.0-0.6) K/mcL Basophils # (0.0-0.2) K/mcL PT (9.4-12.1) Seconds INR APTT (26.0-36.0) Seconds VBG pH 7.35 (7.32-7.42) pH Units VBG pCO2 50 (41-51) mmHg VBG pO2 75 H (25-50) mmHg VBG HCO3 28 H (21-27) mEq/L Sodium (136-145) mEq/L Potassium (3.5-5.1) mEq/L Chloride (98-107) mEq/L Carbon Dioxide (23-29) mEq/L BUN (8-23) mg/dL Creatinine (0.60-1.20) mg/dL Est GFR ( Amer) (> 60) Est GFR (Non-Af Amer) (> 60) BUN/Creatinine Ratio (6-26) Glucose (70-105) mg/dL Calculated Osmolality (280-300) Lactic Acid (0.5-2.2) mmol/L Calcium (8.6-10.3) mg/dL Magnesium (1.6-2.6) mg/dL Total Bilirubin (0.3-1.0) mg/dL Direct Bilirubin (0.0-0.2) mg/dL Indirect Bilirubin (0.0-1.2) mg/dL AST (13-39) Units/L ALT (7-52) Units/L Alkaline Phosphatase (34-104) Units/L Troponin I (< 0.04) ng/mL Serum Total Protein (6.4-8.9) g/dL Albumin (3.5-5.7) g/dL Globulin (2.4-3.5) g/dL Albumin/Globulin Ratio (1.1-2.2) Lipase (11-82) Units/L Beta-Hydroxybutyric Acd (0.02-0.27) mmol/L Urine Color (Yellow) Urine Clarity (Clear) Urine pH (5.0-8.0) pH Units Ur Specific [place] (1.010-1.025) Urine Protein (Neg-Trace) mg/dL Urine Glucose (UA) (Normal) mg/dL Urine Ketones (Negative) mg/dL Urine Blood (Negative) Urine Nitrite (Negative) Urine Bilirubin (Negative) Urine Urobilinogen (Normal) mg/dL Ur Leukocyte Esterase (Negative) Urine Microscopic RBC (0-3) per hpf Urine Microscopic WBC (0-3) per hpf Ur Squamous Epith Cells (None-Few) per lpf Urine Bacteria (None-Few) per hpf Hyaline Casts (None-Few) per lpf Ur Culture Indicated? (NO) Specimen Rejected Volume Critical Care Time Critical Care Time: No Attestation Statement - Attestation Attestation: I examined this patient and my medical decision-making was reviewed with the Resident Physician. I agree with the documented findings, disposition and treatment plan as described except to the extent set forth below. 73-year-old male presents to the emergency room for increasing confusion over the last month. Patient has noted increased sores under her pannus folds. She also admits that she has got sores on her legs. Really states she has been more confused and angry over the past month. We will rule out any infectious process versus a metabolic issue. I do not know if she is getting the appropriate care for her body habitus at home. Patient has elevated serum ketones. We started her on IV fluids. We will treat her with some insulin. Patient will need to be admitted.
[2018-05-15 20:21] LABS: Activated Partial Thrombo Time 20.6 Seconds (26.0-36.0)
[2018-05-15] MEDS ORDERED: Levofloxacin 750 MG/150 ML 750 MG/150 ML BAG IVPB ONE (21:35)
[2018-05-15 22:55] LABS: VBG HCO3 28 mEq/L (21-27); VBG PCO2 50 mmHg (41-51); VBG PH 7.35 pH Units (7.32-7.42); VBG PO2 75 mmHg (25-50)
[2018-05-15] MEDS ORDERED: hydrALAZINE 25 MG TABLET PO PRN (23:12)
[2018-05-15] MEDS ORDERED: Insulin Regular, Human 100 UNIT/ML SQ ONE (23:13)
[2018-05-16] MEDS ORDERED: hydrALAZINE 25 MG TABLET PO ONE (00:15)
[2018-05-16] MEDS ORDERED: Acetaminophen 325 MG TABLET PO PRN (03:09)
[2018-05-16] MEDS ORDERED: Naloxone 0.4 MG/ML INJ IVP PRN (03:09)
[2018-05-16] MEDS ORDERED: D5% in Water 1,000 ML IVC PRN (03:12)
[2018-05-16] MEDS ORDERED: *HR* Dextrose 50 % in Water (Syg) 50 ML SYRINGE IVP PRN (03:12)
[2018-05-16] MEDS ORDERED: Dextrose Gel 15 GM/37.5 ML TUBE PO PRN ×2 (03:12)
[2018-05-16] MEDS: 0.9 % Sodium Chloride 1,000 ML IVC SCH ×2 (03:47→19:37)
[2018-05-16 05:43] LABS: Basophils % 0.4 %; Eosinophils # 0.2 K/mcL (0.0-0.6); Eosinophils % 2.8 %; Hematocrit 30.8 % (35.3-44.9); Hemoglobin 10.2 g/dL (11.5-15.4); Immature Granulocytes % 0.1 % (0-4); Lymphocytes # 1.8 K/mcL (0.6-4.6); Lymphocytes % 24.6 %; Mean Corpuscular HGB Conc 33.1 g/dL (31.6-35.5); Mean Corpuscular Hemoglobin 29.4 pg (28.0-33.3); Mean Corpuscular Volume 88.8 fL (83.0-100.0); Mean Platelet Volume 9.8 fL (9.4-12.4); Monocytes # 0.9 K/mcL (0.0-1.3); Monocytes % 12.3 %; Neutrophils # 4.4 K/mcL (1.6-8.9); Platelet Count 240 K/mcL (140-400); Red Blood Count 3.47 M/mcL (3.82-4.97); Red Cell Distribution Width 13.6 % (11.5-14.5); Segmented Neutrophils % 59.8 %
[2018-05-16] MEDS ORDERED: Insulin LISPRO 300 UNITS/3 ML VIAL SQ SCH ×2 (06:00→21:00)
[2018-05-16 06:10] LABS: Bilirubin,Total 0.4 mg/dL (0.3-1.0); Calcium 8.4 mg/dL (8.6-10.3); Globulin 2.9 g/dL (2.4-3.5); Potassium 4.3 mEq/L (3.5-5.1); Total Protein 5.9 g/dL (6.4-8.9)
[2018-05-16] MEDS: *HR* Heparin 5,000 UNIT/ML VIAL SQ SCH ×3 (06:17→20:43)
[2018-05-16] MEDS: Metoprolol XL (24 HR) Succ 50 MG TAB.ER.24H PO SCH (08:07)
[2018-05-16] MEDS: Fenofibrate 54 MG TABLET PO SCH (08:07)
[2018-05-16] MEDS: Insulin LISPRO 300 UNITS/3 ML VIAL SQ SCH ×3 (08:08→16:51)
--- NOTE | 2018-05-16 08:22 | Internal Med History&Physical ---
Date of Encounter: 05/17/18 Time of Encounter: 03:00 Internal Medicine - H&P: HPI Chief complaint: AMS History of present illness: Ms. Kamara is a 73 year old female with a past medical history of poorly controlled diabetes, history of diabetic foot ulcers and HTN who presents to the emergency room for increasing confusion over the last month which has been noted by her family. Patient upon my evaluation was alert and oriented 2-3, however was a poor historian. No family was at the bedside to provide any further history. Per medical records in the ED, over the past month, patient has been confused and progressively angry. Notably worse over the past 5 days. No falls or head trauma. Family is also concerned about her lateral lower extremity ulcers for which she follows with wound care as well as skin wounds in the intertriginous area of her abdominal and inguinal folds. Initial laboratory results were relatively unremarkable except for hyperglycemia 457. ABG was also performed which was unremarkable. CT scan of the head was performed which showed no acute intracranial abnormality. Chest x-ray was also unremarkable. Patient at this time states that she is feeling fine. She denies any fever, chills, cough, shortness of breath, chest pain, nausea, vomiting, abdominal pain or diarrhea. Multiple areas of erythematous rash were noted between the abdominal and inguinal folds of the skin. Per records, patient was seen by wound care nurse on April 27 at which time an excisional debridement of her chronic foot ulcers were performed. Past Med Surg Social Fam HX - Past Medical History Medical history: asthma, CHF, COPD, coronary artery disease, dementia, diabetes , GERD, hyperlipidemia, hypertension, thyroid disease Additional medical history: Glaucoma Psychiatric history: anxiety, depression - Past Surgical History Surgical History: appendectomy, coronary bypass (CABG), hysterectomy Additional surgical history: tonsillectomy - Social History Smoking Status: Never smoker Smokeless Tobacco Status: No Alcohol use: none Drug use: none - Family History Mother Adopted: No Family Member Ethnicity: Non- Living Status: Hx Family Cardiac Disorders: No Hx Family Respiratory Disorders: No Hx Family Cancer: No Hx Family GI Disorders: No Hx Family Genitourinary Disorders: No Hx Family Endocrine Disorder: Yes Hx Family Musculoskeletal Disorders: No Hx Family Neuromuscular Disorders: No (arthritis) Hx Family Neurologic Disorders: No Hx Family HEENT Disorders: No Hx Family Autoimmune Disorders: No Hx Family Reproductive Disorders: No Hx Family Psychosocial Disorders: No Hx Family Medical Disorders: No Father Adopted: No Family Member Ethnicity: Non- Living Status: Hx Family Cardiac Disorders: Yes Hx Family Respiratory Disorders: Yes Hx Family Cancer: Yes Hx Family GI Disorders: No Hx Family Genitourinary Disorders: No Hx Family Endocrine Disorder: No Hx Family Neuromuscular Disorders: No Hx Family Neurologic Disorders: No Hx Family HEENT Disorders: No Hx Family Autoimmune Disorders: No Hx Family Reproductive Disorders: No Hx Family Psychosocial Disorders: No Hx Family Medical Disorders: No Internal Medicine - H&P: Meds Aspirin [Lo-Dose Aspirin EC] 81 mg PO HS 03/13/18 [History] Donepezil [Aricept] 10 mg PO DAILY 03/13/18 [History] Fenofibrate Nanocrystallized [Triglide] 160 mg PO DAILY 03/13/18 [History] Ferrous Sulfate [Iron] 325 mg PO BID 03/13/18 [History] Omeprazole [PriLOSEC] 40 mg PO DAILY 03/13/18 [History] Tramadol HCl [Ultram] 50 mg PO TID PRN 03/13/18 [History] Collagenase Oint [Santyl] 1 appl TP BID tube 03/18/18 [Rx] Amitriptyline [Elavil] 25 mg PO HS 05/15/18 [History] Insulin Regular, Human [Humulin R U-500 Kwikpen] 50 - 55 unit SQ BID 05/15/18 [ History] Metoprolol Succinate 200 mg PO DAILY 05/15/18 [History] Sulfamethoxazole/Trimethoprim [Sulfamethoxazole-Tmp Ss Tablet] 1 tab PO BID [History] 3 Allergy/AdvReac Type Severity Reaction Status Date / Time ceftriaxone Allergy Hives Verified 05/15/18 22:54 gabapentin Allergy Hives Verified 05/15/18 22:54 hydrochlorothiazide Allergy Hives Verified 05/15/18 22:54 pregabalin Allergy Hives Verified 05/15/18 22:54 risperidone AdvReac Confusion Verified 05/15/18 22:54 All Systems PM: A 10-system review of systems was performed and is negative for pertinent findings except as documented above in the HPI. - Constitutional Constitutional: no chills, no fever(s), no night sweats - EENT Eyes: no change in vision, no discharge, no pain, no photophobia Ears: no ear discharge, no ear pain, no tinnitus Nose, mouth and throat: no dysphagia, no nasal discharge, no neck pain, no sore throat - Cardiovascular Cardiovascular ROS IM: no chest pain, no diaphoresis, no dyspnea, no lightheadedness, no palpitations, no syncope - Respiratory Respiratory: no cough, no dyspnea, no wheezing, no excessive phlegm production - Gastrointestinal Gastrointestinal: no abdominal pain, no diarrhea, no hematemesis, no hematochezia, no melena, no nausea, no vomiting - Genitourinary Genitourinary: no change in urinary stream, no dysuria, no flank pain, no hematuria - Musculoskeletal Musculoskeletal ROS IM: no numbness, no tingling - Integumentary Integumentary IM: no rash, no unusual bruising - Neurological Neurological ROS: no confusion, no convulsions, no focal weakness, no numbness, no tingling, no tremor(s) - Hematologic/Lymphatic Hematologic/Lymphatic: no easy bruising - Constitutional Vitals: Temp Pulse Resp BP Pulse Ox 99.3 F 88 18 182/66 93 05/16/18 07:37 05/16/18 07:37 05/16/18 07:37 05/16/18 07:37 05/16/18 07:37 Exam: General: Alert and oriented 2-3; no acute distress Skin: Large areas of erythematous maculopapular rash in the abdominal folds and inguinal folds of the skin. HEENT:EOM, pupils equal, round and reactive. Cardiovascular:Normal S1 & S2, no rubs, murmurs or gallops. No JVD. Pulse regular. Lungs:Normal breath sounds, no wheezes or crackles. Abdomen:Soft, non-tender, no rigidity. Extremities: 1+ bilateral lower extremity pitting edema. 2 cm left heel ulcer. No surrounding erythema or purulent drainage Neurological:Normal cognition and motor skills. Pulses:Carotid and radial pulses normal +2. Rest of the physical exam is non contributory Internal Med - H&P Results - Labs CBC & Chem 7: 05/16/18 05:29 05/16/18 20:28 Labs: Short CBC 05/16/18 Range/Units 05:29 WBC 7.4 (4.3-11.1) K/mcL Hgb 10.2 L (11.5-15.4) g/dL Hct 30.8 L (35.3-44.9) % Plt Count 240 (140-400) K/mcL Neutrophils # 4.4 (1.6-8.9) K/mcL BMP 05/16/18 05:29 Sodium 135 L Potassium 4.3 Chloride 104 Carbon Dioxide 28 BUN 30 H Creatinine 1.18 Glucose 343 H Calcium 8.4 L Liver Function 05/16/18 Range/Units 05:29 Total Bilirubin 0.4 (0.3-1.0) mg/dL AST 8 L (13-39) Units/L ALT 8 (7-52) Units/L Alkaline Phosphatase 97 (34-104) Units/L Albumin 3.0 L (3.5-5.7) g/dL - Assessment and plan (1) Altered mental status Current Visit: Yes Status: Acute Assessment and plan: Reported 1 month history of altered mental status characterized by increased confusion and progressive anger of unclear etiology. No evidence of an infectious etiology. CT scan of the head was unremarkable. No electrolyte abnormalities except for hyperglycemia. No evidence of DKA. Patient appears to be mentating well and has no focal findings on physical exam. At this time we will work to correct her hyperglycemia. Follow-up blood and urine culture. Qualifiers: Altered mental status type: unspecified Qualified Code(s): R41.82 - Altered mental status, unspecified (2) Intertriginous dermatitis associated with moisture Current Visit: Yes Status: Acute Assessment and plan: Significant dermatitis within the inguinal folds concerning for possible fungal infection. We will continue with the nystatin powder. (3) Type 2 diabetes mellitus with foot ulcer Current Visit: No Status: Acute Assessment and plan: Poorly controlled diabetes. Patient was hyperglycemic with a blood sugar of 457. We will start patient on diabetic diet with sliding scale insulin and blood glucose checks. Qualifiers: Diabetes mellitus terminal operations manager insulin use: with nursing home use Qualified Code( s): E11.621 - Type 2 diabetes mellitus with foot ulcer; L97.509 - Non-pressure chronic ulcer of other part of unspecified foot with unspecified severity; Z79.4 - exterminator helper termite (current) use of insulin (4) Hyperglycemia Current Visit: Yes Status: Acute Assessment and plan: Secondary to poorly controlled diabetes. See above (5) DVT prophylaxis Current Visit: Yes Status: Acute Assessment and plan: Subcutaneous heparin - Time Spent With Patient Total time spent is greater than 50% in coordination of care (as documented) at patient's floor/unit and/or counseling patient:
[2018-05-16] MEDS: hydrALAZINE 10 MG TABLET PO PRN ×2 (10:11→19:37)
--- NOTE | 2018-05-16 10:45 | Event Note ---
Date of Encounter: 05/16/18 Time of Encounter: 10:45 Seen and examined at the bedside She is admitted to obs for hyperglycemia, AMS She is AAOX3 at time of review and seemed comfortable Continue current care
[2018-05-16] MEDS: Nystatin POWDER 30 GM BOTTLE TP SCH ×3 (16:51→19:37)
[2018-05-16] MEDS: Aspirin Enteric Coated 81 MG Tablet PO SCH (19:37)
[2018-05-16 21:24] LABS: Albumin 3.3 g/dL (3.5-5.7); Bilirubin,Total 0.3 mg/dL (0.3-1.0); Calcium 8.6 mg/dL (8.6-10.3); Globulin 3.4 g/dL (2.4-3.5); Potassium 4.5 mEq/L (3.5-5.1); Total Protein 6.7 g/dL (6.4-8.9)
[2018-05-17] MEDS: *HR* Heparin 5,000 UNIT/ML VIAL SQ SCH ×3 (06:15→21:32)
[2018-05-17] MEDS: Metoprolol XL (24 HR) Succ 50 MG TAB.ER.24H PO SCH (08:09)
[2018-05-17] MEDS: Fenofibrate 54 MG TABLET PO SCH (08:10)
[2018-05-17] MEDS: Nystatin POWDER 30 GM BOTTLE TP SCH ×3 (08:10→21:28)
[2018-05-17] MEDS: Insulin LISPRO 300 UNITS/3 ML VIAL SQ SCH ×4 (08:11→21:29)
[2018-05-17 08:46] LABS: Basophils % 0.5 %; Eosinophils # 0.2 K/mcL (0.0-0.6); Eosinophils % 2.6 %; Hematocrit 32.5 % (35.3-44.9); Hemoglobin 10.6 g/dL (11.5-15.4); Immature Granulocytes % 0.3 % (0-4); Lymphocytes # 2.8 K/mcL (0.6-4.6); Lymphocytes % 35.9 %; Mean Corpuscular HGB Conc 32.6 g/dL (31.6-35.5); Mean Corpuscular Hemoglobin 29.4 pg (28.0-33.3); Mean Platelet Volume 10.2 fL (9.4-12.4); Monocytes # 0.7 K/mcL (0.0-1.3); Platelet Count 308 K/mcL (140-400); Red Blood Count 3.61 M/mcL (3.82-4.97); Red Cell Distribution Width 13.9 % (11.5-14.5); Segmented Neutrophils % 51.7 %
[2018-05-17 09:05] LABS: Calcium 8.5 mg/dL (8.6-10.3); Potassium 4.5 mEq/L (3.5-5.1)
--- NOTE | 2018-05-17 12:55 | Internal Med Progress Note ---
Hospitalist Progress Note - Encounter Date of Encounter: 05/17/18 Time of Encounter: 09:00 - Subjective Interval History: Pt is pleasant, AAO x 3, in NAD. Denies dizziness/SOB/nausea, no fever. - Exam Vitals: Temp Pulse Resp BP Pulse Ox 98.7 F 81 18 193/71 96 05/17/18 11:43 05/17/18 11:43 05/17/18 11:43 05/17/18 11:43 05/17/18 11:43 Exam: General: Alert and oriented 3; no acute distress Skin: Large areas of erythematous maculopapular rash in the abdominal folds and inguinal folds of the skin. HEENT:EOM, pupils equal, round and reactive. Cardiovascular:Normal S1 & S2, no rubs, murmurs or gallops. No JVD. Pulse regular. Lungs:Normal breath sounds, no wheezes or crackles. Abdomen:Soft, non-tender, no rigidity. Extremities: 1+ bilateral lower extremity pitting edema. 2 cm left heel ulcer. 1 cm right small toe ulcer, both have no surrounding erythema or purulent drainage Neurological:Normal cognition and motor skills. Pulses:Carotid and radial and dorsal pedal pulses normal +2. Rest of the physical exam is non contributory - Assessment and Plan (1) Type 2 diabetes mellitus with foot ulcer Current Visit: No Status: Acute Assessment and Plan: Poorly controlled diabetes. Add long acting insulin, increase SSI to medium dose. (2) Hyperglycemia Current Visit: Yes Status: Acute Assessment and Plan: Secondary to poorly controlled diabetes. See above (3) Altered mental status Current Visit: Yes Status: Acute Assessment and Plan: Reported 1 month history of altered mental status characterized by increased confusion and progressive anger of unclear etiology. No evidence of an infectious etiology. CT scan of the head was unremarkable. No electrolyte abnormalities except for hyperglycemia. No evidence of DKA. Patient appears to be mentating well and has no focal findings on physical exam. - AAO x 3 and pleasant to me. - Check TSH, Vit B12, Folate in AM - PT/OT recommend ECF upon DC. (4) Intertriginous dermatitis associated with moisture Current Visit: Yes Status: Acute Assessment and Plan: Significant dermatitis within the inguinal folds concerning for possible fungal infection. We will continue with the nystatin powder. (5) DVT prophylaxis Current Visit: Yes Status: Acute Assessment and Plan: Subcutaneous heparin - Time Spent with Patient Total time spent is greater than 50% in coordination of care (as documented) at patient's floor/unit and/or counseling patient: 30 min 25 - 35 minutes Plan of Care Discussed with: nurse Internal Medicine: Result - Labs CBC & Chem 7: 05/17/18 06:23 05/17/18 06:23 Labs: Short CBC 05/17/18 Range/Units 06:23 WBC 7.8 (4.3-11.1) K/mcL Hgb 10.6 L (11.5-15.4) g/dL Hct 32.5 L (35.3-44.9) % Plt Count 308 (140-400) K/mcL Neutrophils # 4.0 (1.6-8.9) K/mcL BMP 05/16/18 05/17/18 20:28 06:23 Sodium 134 L 135 L Potassium 4.5 4.5 Chloride 103 103 Carbon Dioxide 26 24 BUN 31 H 31 H Creatinine 1.37 H 1.32 H Glucose 358 H 317 H Calcium 8.6 8.5 L Liver Function 05/16/18 Range/Units 20:28 Total Bilirubin 0.3 (0.3-1.0) mg/dL AST 9 L (13-39) Units/L ALT 9 (7-52) Units/L Alkaline Phosphatase 103 (34-104) Units/L Albumin 3.3 L (3.5-5.7) g/dL - ABG Interpretation ABG results: PT/INR, D-dimer PT 12.2 Seconds (9.4-12.1) H 05/15/18 19:36 Consult Discharge Plan - Plan Referrals: Dory Salvador, MEDICAL PHOTOGRAPHER [Primary Care Provider] - (Your appointment has been requested. Our office will call you with an appointment. ) (1) Type 2 diabetes mellitus with foot ulcer Qualifiers: Diabetes mellitus termite control technician insulin use: with [facility] use Qualified Code(s) : E11.621 - Type 2 diabetes mellitus with foot ulcer; L97.509 - Non-pressure chronic ulcer of other part of unspecified foot with unspecified severity; Z79.4 - [facility] (current) use of insulin (3) Altered mental status Qualifiers: Altered mental status type: unspecified Qualified Code(s): R41.82 - Altered mental status, unspecified
[2018-05-17] MEDS ORDERED: Insulin DETEMIR 100 UNIT/ML X5UNITS SQ SCH (21:00)
[2018-05-17] MEDS: Aspirin Enteric Coated 81 MG Tablet PO SCH (21:27)
[2018-05-18] MEDS: traMADol 50 MG TABLET PO PRN ×2 (01:36→19:48)
[2018-05-18 04:17] LABS: Basophils % 0.3 %; Eosinophils # 0.2 K/mcL (0.0-0.6); Eosinophils % 3.7 %; Hematocrit 30.1 % (35.3-44.9); Hemoglobin 9.9 g/dL (11.5-15.4); Immature Granulocytes % 0.3 % (0-4); Lymphocytes # 2.3 K/mcL (0.6-4.6); Mean Corpuscular HGB Conc 32.9 g/dL (31.6-35.5); Mean Corpuscular Volume 88.3 fL (83.0-100.0); Mean Platelet Volume 9.8 fL (9.4-12.4); Monocytes # 0.6 K/mcL (0.0-1.3); Monocytes % 9.8 %; Neutrophils # 3.2 K/mcL (1.6-8.9); Platelet Count 246 K/mcL (140-400); Red Blood Count 3.41 M/mcL (3.82-4.97); Red Cell Distribution Width 13.6 % (11.5-14.5); Segmented Neutrophils % 49.9 %
[2018-05-18 04:31] LABS: Calcium 8.3 mg/dL (8.6-10.3); Potassium 4.3 mEq/L (3.5-5.1)
[2018-05-18 04:57] LABS: Folate 9.3 ng/mL (3.0-16.0)
[2018-05-18] MEDS: *HR* Heparin 5,000 UNIT/ML VIAL SQ SCH ×3 (05:47→21:13)
[2018-05-18] MEDS: Metoprolol XL (24 HR) Succ 50 MG TAB.ER.24H PO SCH (09:03)
[2018-05-18] MEDS: Insulin LISPRO 300 UNITS/3 ML VIAL SQ SCH ×4 (09:03→21:20)
[2018-05-18] MEDS: Fenofibrate 54 MG TABLET PO SCH (09:04)
[2018-05-18] MEDS: Nystatin POWDER 30 GM BOTTLE TP SCH ×3 (09:05→21:13)
[2018-05-18] MEDS ORDERED: Haloperidol Lactate 5 MG/ML VIAL IVP ONE (10:49)
--- NOTE | 2018-05-18 12:50 | Internal Med Progress Note ---
Hospitalist Progress Note - Encounter Date of Encounter: 05/18/18 Time of Encounter: 09:00 - Subjective Interval History: Pt is pleasant, AAO x 2, sometimes confused/delirium. no fever. - Exam Vitals: Temp Pulse Resp BP Pulse Ox 98.1 F 79 16 111/72 93 05/18/18 11:48 05/18/18 11:48 05/18/18 11:48 05/18/18 11:48 05/18/18 11:48 Exam: General: Alert and oriented 2; no acute distress Skin: Large areas of erythematous maculopapular rash in the abdominal folds and inguinal folds of the skin. HEENT:EOM, pupils equal, round and reactive. Cardiovascular:Normal S1 & S2, no rubs, murmurs or gallops. No JVD. Pulse regular. Lungs:Normal breath sounds, no wheezes or crackles. Abdomen:Soft, non-tender, no rigidity. Extremities: 1+ bilateral lower extremity pitting edema. 2 cm left heel ulcer. 1 cm right small toe ulcer, both have no surrounding erythema or purulent drainage Neurological:Sometimes confused. Generally normal motor skills. Pulses:Carotid and radial and dorsal pedal pulses normal +2. Rest of the physical exam is non contributory - Assessment and Plan (1) Type 2 diabetes mellitus with foot ulcer Current Visit: No Status: Acute Assessment and Plan: Better controlled today. Cont basal and SSI. (2) Altered mental status Current Visit: Yes Status: Acute Assessment and Plan: Pt's mental status wax and wane. No signs of infection (asymptomatic UTI probably) or dehydartion. TSH, Vit B12 and folate wnl. - Likely early dementia. - Cont Pt/OT, need ECF discharge. (3) Intertriginous dermatitis associated with moisture Current Visit: Yes Status: Acute Assessment and Plan: Significant dermatitis within the inguinal folds concerning for possible fungal infection. We will continue with the nystatin powder. (4) DVT prophylaxis Current Visit: Yes Status: Acute Assessment and Plan: Subcutaneous heparin (5) UTI (urinary tract infection) Current Visit: Yes Status: Acute Assessment and Plan: Pt denies symptoms. Urine culture shows Klebsiella pneu., sensitive to cipro, treat as uncomplicated UTI. on cipro po. DVT Prophylaxis: Heparin SC - Time Spent with Patient Total time spent is greater than 50% in coordination of care (as documented) at patient's floor/unit and/or counseling patient: 30 min 25 - 35 minutes Plan of Care Discussed with: patient Internal Medicine: Result - Labs CBC & Chem 7: 05/18/18 04:00 05/18/18 04:00 Labs: Short CBC 05/18/18 Range/Units 04:00 WBC 6.5 (4.3-11.1) K/mcL Hgb 9.9 L (11.5-15.4) g/dL Hct 30.1 L (35.3-44.9) % Plt Count 246 (140-400) K/mcL Neutrophils # 3.2 (1.6-8.9) K/mcL BMP 05/18/18 04:00 Sodium 135 L Potassium 4.3 Chloride 104 Carbon Dioxide 25 BUN 28 H Creatinine 1.20 Glucose 288 H Calcium 8.3 L - ABG Interpretation ABG results: PT/INR, D-dimer PT 12.2 Seconds (9.4-12.1) H 05/15/18 19:36 Consult Discharge Plan - Plan Referrals: Dory Salvador, DIRECTOR OF KIDS [Primary Care Provider] - (Your appointment has been requested. Our office will call you with an appointment. ) (1) Type 2 diabetes mellitus with foot ulcer Qualifiers: Diabetes mellitus engineer geophysical laboratory insulin use: with engineer geophysical laboratory use Qualified Code(s) : E11.621 - Type 2 diabetes mellitus with foot ulcer; L97.509 - Non-pressure chronic ulcer of other part of unspecified foot with unspecified severity; Z79.4 - alf (current) use of insulin (2) Altered mental status Qualifiers: Altered mental status type: delirium Qualified Code(s): R41.0 - Disorientation, unspecified (5) UTI (urinary tract infection) Qualifiers: Urinary tract infection type: acute cystitis Hematuria presence: without hematuria Qualified Code(s): N30.00 - Acute cystitis without hematuria
[2018-05-18] MEDS ORDERED: Nitroglycerin 0.4 MG TAB.SUBL SL PRN (13:51)
[2018-05-18] MEDS ORDERED: Aspirin 325 MG TABLET PO ONE (13:53)
--- NOTE | 2018-05-18 14:39 | Event Note ---
Date of Encounter: 05/18/18 Time of Encounter: 14:00 Pt report to RN chest pain after eating lunch. See pt bedside, said chest/epigastric pain, 8/10, sharp, radiated to back. No nausea/vomiting/SOB/diaphoresis. Physical exam unremarkable. Vitals stable HR 70's, in NAD. Pt is apparently more confused today, cannot recognize me although I just saw her this morning. Don't think she is in hospital. Like to make story. Per nurse , pt will be anxious if she stay in room alone. Per family, pt takes aricept at home. Pt has Hx of CABG, need to r/o ACS. - Cont cardiac monitoring - Track 3 sets of troponin. - EKG done reviewed by me, no significant ST-T change, no significant change comparing with previous EKG - CXR - ASA 325mg, nitro SL around 20min later, pt said her pain is completely gone after above treatment. No sure true CP or pt just wants attention. Cont f/u above tests and cont tele.
[2018-05-18] MEDS: Aspirin Enteric Coated 81 MG Tablet PO SCH (21:11)
[2018-05-18] MEDS: Insulin DETEMIR 100 UNIT/ML X5UNITS SQ SCH (21:13)
--- NOTE | 2018-05-18 21:44 | Electrocardiograph Report ---
[address] [place] [address] Test Date: 2018-05-15 Pat Name: Karina Kamara Department: EXAM3 Room: 3B63 Gender: F Transcript Evaluator: : 1945 Requested By: Ben Guillen Order Number: [id number] Reading MD: Patrice Owens Measurements Intervals [place] Rate: 83 P: 27 WV: 191 QRS: -21 QRSD: 100 T: 110 QT: 399 QTc: 469 Interpretive Statements Sinus rhythm Probable left atrial enlargement Abnormal R-wave progression, late transition LVH with secondary repolarization abnormality Electronically Signed On 05-18-2018 21:42:33 EDT by Patrice Owens
[2018-05-19] MEDS: *HR* Heparin 5,000 UNIT/ML VIAL SQ SCH ×3 (05:16→20:52)
[2018-05-19] MEDS: Insulin LISPRO 300 UNITS/3 ML VIAL SQ SCH ×4 (09:08→21:14)
[2018-05-19] MEDS: Fenofibrate 54 MG TABLET PO SCH (09:09)
[2018-05-19] MEDS: Metoprolol XL (24 HR) Succ 50 MG TAB.ER.24H PO SCH (09:09)
[2018-05-19] MEDS: Nystatin POWDER 30 GM BOTTLE TP SCH ×3 (09:10→22:21)
[2018-05-19] MEDS: traMADol 50 MG TABLET PO PRN (10:02)
[2018-05-19] MEDS ORDERED: *HR* LORazepam 2 MG/ML VIAL IVP ONE (13:49)
--- NOTE | 2018-05-19 14:36 | Discharge Summary ---
<Barbie Loaiza - Last Filed: 05/19/18 14:27> - NOTES TO OUTPATIENT PROVIDER Notes to Outpatient Provider: At presentation she was alert and oriented to person and place. CT of the head was performed and showed no acute intracranial abnormality. Chest x-ray was also unremarkable. Her glucose at presentation was high and during her stay here it remained high. She stated she has never received diabetic diet counseling and contributes her high glucose to that. She was noted to have multiple erythematous rash between abdominal and inguinal fold of the skin. [facility]. She was found to have klebsiella pneumonia UTI and it is susceptible to ciprofloxacin and will require 5 day of total treatment. Date of Encounter: 05/19/18 Time of Encounter: 14:28 - Discharge Diagnosis (1) UTI (urinary tract infection) Priority: Primary Status: Acute Qualifiers: Urinary tract infection type: acute cystitis Hematuria presence: without hematuria Qualified Code(s): N30.00 - Acute cystitis without hematuria (2) Type 2 diabetes mellitus with foot ulcer Priority: Secondary Status: Acute Qualifiers: Diabetes mellitus odd bundle worker insulin use: with odd bundle worker use Qualified Code( s): E11.621 - Type 2 diabetes mellitus with foot ulcer; L97.509 - Non-pressure chronic ulcer of other part of unspecified foot with unspecified severity; 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 Kamara is a 73 year old female with past medical history of uncontrolled diabetic, diabetic foot ulcer and HTN. At presentation she was alert and oriented to person and place. CT of the head was performed and showed no acute intracranial abnormality. Chest x-ray was also unremarkable. Her glucose at presentation was high and during her stay here it remained high. She stated she has never received diabetic diet counseling and contributes her high glucose to that. She was noted to have multiple erythematous rash between abdominal and inguinal fold of the skin. She [facility] with [facility]. She was found to have klebsiella pneumonia UTI and is susceptible to ciprofloxacin. After starting treatment for the UTI her delirium resolved. She will require total for 5 day treatment. Discharge discussed with: patient - Time Spent with Patient Total time spent providing and/or coordinating discharge services: Greater than 30 minutes - Discharge Medications Prescriptions: Ciprofloxacin [Cipro] 250 mg PO BID 2 Days #4 tablet Home Medications: Aspirin [Lo-Dose Aspirin EC] 81 mg PO HS 03/13/18 [History] Donepezil [Aricept] 10 mg PO DAILY 03/13/18 [History] Fenofibrate Nanocrystallized [Triglide] 160 mg PO DAILY 03/13/18 [History] Ferrous Sulfate [Iron] 325 mg PO BID 03/13/18 [History] Omeprazole [PriLOSEC] 40 mg PO DAILY 03/13/18 [History] Tramadol HCl [Ultram] 50 mg PO TID PRN 03/13/18 [History] Collagenase Oint [Santyl] 1 appl TP BID tube 03/18/18 [Rx] Amitriptyline [Elavil] 25 mg PO HS 05/15/18 [History] Insulin Regular, Human [Humulin R U-500 Kwikpen] 50 - 55 unit SQ BID 05/15/18 [ History] Metoprolol Succinate 200 mg PO DAILY 05/15/18 [History] Ciprofloxacin [Cipro] 250 mg PO BID 2 Days #4 tablet 05/19/18 [Rx] Allergies/Adverse Reactions: 3 Allergy/AdvReac Type Severity Reaction Status Date / Time ceftriaxone Allergy Hives Verified 05/15/18 22:54 gabapentin Allergy Hives Verified 05/15/18 22:54 hydrochlorothiazide Allergy Hives Verified 05/15/18 22:54 pregabalin Allergy Hives Verified 05/15/18 22:54 risperidone AdvReac Confusion Verified 05/15/18 22:54 Date of admission: 05/16/18 00:33 Primary care physician: Dory Salvador CNP Consults: 05/16/18 03:35 Consult to Director Of Business Development [CONS] Routine Reason for SW Consult: During my assessment patient became tearful and started to cry because of the kind of care she received. She stated she no longer has health insurace. Pt would really benefit from home health. She needs care that can be provided to her at her home. Shes here for UTI and failure to thirve. Pt is incontient and has excoreation in groin area from prolonged exposure to urine. 05/16/18 14:50 Consult to Occupational Therapy [CONS] Routine Comment: Evaluate, develop and implement POC Reason for Consult: WEAKNESS, POSSIBLE PLACEMENT Does patient have active BEDREST order?: No Is patient medically & hemodynamically stable?: Yes Consult to Physical Therapy [CONS] Routine Comment: Evaluate, develop and implement POC Reason for Consult: WEAKNESS, POSSIBLE PLACEMENT Does patient have active BEDREST order?: No Is patient medically & hemodynamically stable?: Yes Discharging clinician: Barbie Loaiza Anticipated date of discharge: 05/19/18 - Constitutional Vitals: Temp Pulse Resp BP Pulse Ox 98.5 F 79 16 120/81 96 05/19/18 11:07 05/19/18 11:07 05/19/18 11:07 05/19/18 11:07 05/19/18 11:07 General appearance: Present: cooperative, A&O X 3, pleasant Exam: awake, alert and oriented to person, place and time - Head Head exam: Present: atraumatic, normocephalic - Eye Eye exam: Present: normal appearance, sclera anicteric - Neck Neck exam general surgery: Absent: full ROM - Respiratory Respiratory exam: Present: CTAB. Absent: rhonchi, stridor, wheezes - Cardiovascular Cardiovascular exam: Present: RRR, +S1, +S2. Absent: clicks - GI/Abdominal GI/Abdominal exam: Present: normal bowel sounds, soft. Absent: guarding, rigid - Extremities Exam Extremities exam: Present: warm (left leg wrapped ). Absent: calf tenderness - Psychiatric Psychiatric exam: Present: normal affect, normal mood - Skin Skin exam: Present: dry, intact, warm. Absent: rash - Patient Status Disposition: Home Health Service Condition: Fair Functional capacity at discharge: wheelchair bound (needs assistance with mobility) Overall status at discharge: patient is progressing back to baseline - Discharge Instructions Follow Up With: Dory Salvador CNP [Primary Care Provider] - 06/05/18 3:00 pm (. ) - Diet and Activity Activity: increase activity as tolerated Diet: diabetic diet <Sandie Escamilla - Last Filed: 05/19/18 15:16> Date of Encounter: 05/19/18 - Discharge Diagnosis (1) Type 2 diabetes mellitus with foot ulcer Status: Acute Qualifiers: Diabetes mellitus senior care insulin use: with odd bundle worker use Qualified Code( s): E11.621 - Type 2 diabetes mellitus with foot ulcer; L97.509 - Non-pressure chronic ulcer of other part of unspecified foot with unspecified severity; Z79.4 - [employer] (current) use of insulin (2) UTI (urinary tract infection) Status: Acute Qualifiers: Urinary tract infection type: acute cystitis Hematuria presence: without hematuria Qualified Code(s): N30.00 - Acute cystitis without hematuria (3) Altered mental status Status: Acute Qualifiers: Altered mental status type: delirium Qualified Code(s): R41.0 - Disorientation, unspecified (4) Intertriginous dermatitis associated with moisture Status: Acute (5) DVT prophylaxis Status: Resolved Hospital course: Ms. Kamara is a 73 year old female - Time Spent with Patient Total time spent providing and/or coordinating discharge services: Date of admission: 05/16/18 00:33 Primary care physician: Dory Salvador CNP Consults: 05/16/18 03:35 Consult to Director Of Business Development [CONS] Routine Reason for SW Consult: During my assessment patient became tearful and started to cry because of the kind of care she received. She stated she no longer has health insurace. Pt would really benefit from home health. She needs care that can be provided to her at her home. Shes here for UTI and failure to thirve. Pt is incontient and has excoreation in groin area from prolonged exposure to urine. 05/16/18 14:50 Consult to Occupational Therapy [CONS] Routine Comment: Evaluate, develop and implement POC Reason for Consult: WEAKNESS, POSSIBLE PLACEMENT Does patient have active BEDREST order?: No Is patient medically & hemodynamically stable?: Yes Consult to Physical Therapy [CONS] Routine Comment: Evaluate, develop and implement POC Reason for Consult: WEAKNESS, POSSIBLE PLACEMENT Does patient have active BEDREST order?: No Is patient medically & hemodynamically stable?: Yes 05/19/18 14:54 Consult to Psychiatry [CONS] Routine Consulting Provider: Brittnee Sellers Reason consult: Psychosis Other reason and/or additional details: Patient is paranoid stating that her room is bugged and that staff is trying to harm her. Origianally presented with AMS secondary to UTI which had resolved.Family is requesting psych consult. Call Completed: Yes - Constitutional Vitals: Temp Pulse Resp BP Pulse Ox 98.5 F 79 16 120/81 96 05/19/18 11:07 05/19/18 11:07 05/19/18 11:07 05/19/18 11:07 05/19/18 11:07 - Attending Attestation I have seen and examined this pt independently. I have discussed with resident physician Dr Loaiza regarding the management plan. Agree with the documentation. Initially plan to d/c to [facility], however, family report she has some paranoid behavior and would like to have psych evaluation. Will consult psych.
--- NOTE | 2018-05-19 15:01 | Event Note ---
Date of Encounter: 05/19/18 Time of Encounter: 14:58 Patient is awake, alert and oriented to person and place. Family had agreed to have the patient discharged with home health but later they expressed concern for paranoid behavior at home and want psychiatric consult for further evaluation.
[2018-05-19] MEDS: Aspirin Enteric Coated 81 MG Tablet PO SCH (20:52)
[2018-05-19] MEDS: Insulin DETEMIR 100 UNIT/ML X5UNITS SQ SCH (20:52)
[2018-05-20] MEDS: *HR* Heparin 5,000 UNIT/ML VIAL SQ SCH ×3 (05:59→21:32)
[2018-05-20 06:14] LABS: Basophils % 0.7 %; Eosinophils # 0.3 K/mcL (0.0-0.6); Eosinophils % 4.8 %; Hematocrit 31.9 % (35.3-44.9); Hemoglobin 10.4 g/dL (11.5-15.4); Immature Granulocytes % 0.2 % (0-4); Lymphocytes # 2.2 K/mcL (0.6-4.6); Lymphocytes % 37.6 %; Mean Corpuscular HGB Conc 32.6 g/dL (31.6-35.5); Mean Corpuscular Hemoglobin 29.2 pg (28.0-33.3); Mean Corpuscular Volume 89.6 fL (83.0-100.0); Mean Platelet Volume 10.3 fL (9.4-12.4); Monocytes # 0.7 K/mcL (0.0-1.3); Monocytes % 11.4 %; Neutrophils # 2.7 K/mcL (1.6-8.9); Platelet Count 235 K/mcL (140-400); Red Blood Count 3.56 M/mcL (3.82-4.97); Red Cell Distribution Width 13.4 % (11.5-14.5); Segmented Neutrophils % 45.3 %
[2018-05-20 06:25] LABS: Calcium 8.4 mg/dL (8.6-10.3); Potassium 4.5 mEq/L (3.5-5.1)
[2018-05-20] MEDS: Insulin LISPRO 300 UNITS/3 ML VIAL SQ SCH ×4 (08:33→21:31)
[2018-05-20] MEDS: Fenofibrate 54 MG TABLET PO SCH (08:33)
[2018-05-20] MEDS: Metoprolol XL (24 HR) Succ 50 MG TAB.ER.24H PO SCH (08:33)
[2018-05-20] MEDS: Nystatin POWDER 30 GM BOTTLE TP SCH ×3 (08:39→21:56)
--- NOTE | 2018-05-20 11:23 | Consult Note ---
Date of Encounter: 05/20/18 Time of Encounter: 10:50 Assessment & Recommendation (1) Depression Current visit: Yes Status: Chronic Assessment & Recommendation: start lexapro 10 mg po am . Qualifiers: Depression Type: unspecified Qualified Code(s): F32.9 - Major depressive disorder, single episode, unspecified (2) Anxiety Current visit: Yes Status: Acute History of Present Illness Patient: new to practice Requesting Physician: Rachel Woods Reason for consult: family wants consult. History of present illness: Ms. Kamara is a 73 year old female was consulted today at her bedside. Pleasant , cooperative White female stated I am doing good today As per patient she was treated years ago for depression and was given nerve pill but it was stopped , does not know why , states since her husbands 5 yrs ago nothing is same , she lives with her daughter who helps her a lot but she feels sad at times , feels lonely and does not have motivation ,when gets anxious she sometimes feels can not breath , became tearful while talking about her and her illness, she worries a lot states i cry a lot sleep off and on , states here sleeping better, she denied any a/v hallucination , states but had them before, gets paranoid only when her anxiety is high , only that people talk about me, no other paranoia. she at present has no suicidal /homicidal ideation. she is depress and has h/o anxiety . medically she stable and is being dischrged today . A/P depressive disorder nos anxiety disorder nos Rec: LEXAPRO 10 MG am . she is also on tramadol , patient educated on side effects and serotonin syndrome Thank you for consult and involving in her care. will sign off. CC: Rachel Woods Past Med Surg Social Fam HX - Past Medical History Medical history: asthma, CHF, COPD, coronary artery disease, dementia, diabetes , GERD, hyperlipidemia, hypertension, thyroid disease - Past Psychiatric History Psychiatric history: Reports: anxiety Family psychiatric history: Yes Family History of Suicide: None - Past Surgical History Surgical History: appendectomy, coronary bypass (CABG), hysterectomy - Social History Smoking Status: Never smoker Smokeless Tobacco Status: No Alcohol use: none Drug use: none - Family History Mother Adopted: No Family Member Ethnicity: Non- Living Status: Hx Family Cardiac Disorders: No Hx Family Respiratory Disorders: No Hx Family Cancer: No Hx Family GI Disorders: No Hx Family Genitourinary Disorders: No Hx Family Endocrine Disorder: Yes Hx Family Musculoskeletal Disorders: No Hx Family Neuromuscular Disorders: No (arthritis) Hx Family Neurologic Disorders: No Hx Family HEENT Disorders: No Hx Family Autoimmune Disorders: No Hx Family Reproductive Disorders: No Hx Family Psychosocial Disorders: No Hx Family Medical Disorders: No Father Adopted: No Family Member Ethnicity: Non- Living Status: Hx Family Cardiac Disorders: Yes Hx Family Respiratory Disorders: Yes Hx Family Cancer: Yes Hx Family GI Disorders: No Hx Family Genitourinary Disorders: No Hx Family Endocrine Disorder: No Hx Family Neuromuscular Disorders: No Hx Family Neurologic Disorders: No Hx Family HEENT Disorders: No Hx Family Autoimmune Disorders: No Hx Family Reproductive Disorders: No Hx Family Psychosocial Disorders: No Hx Family Medical Disorders: No Medications & Allergies Aspirin [Lo-Dose Aspirin EC] 81 mg PO HS 03/13/18 [History] Donepezil [Aricept] 10 mg PO DAILY 03/13/18 [History] Fenofibrate Nanocrystallized [Triglide] 160 mg PO DAILY 03/13/18 [History] Ferrous Sulfate [Iron] 325 mg PO BID 03/13/18 [History] Omeprazole [PriLOSEC] 40 mg PO DAILY 03/13/18 [History] Tramadol HCl [Ultram] 50 mg PO TID PRN 03/13/18 [History] Collagenase Oint [Santyl] 1 appl TP BID tube 03/18/18 [Rx] Amitriptyline [Elavil] 25 mg PO HS 05/15/18 [History] Insulin Regular, Human [Humulin R U-500 Kwikpen] 50 - 55 unit SQ BID 05/15/18 [ History] Metoprolol Succinate 200 mg PO DAILY 05/15/18 [History] Ciprofloxacin [Cipro] 250 mg PO BID 2 Days #4 tablet 05/19/18 [Rx] 3 Allergy/AdvReac Type Severity Reaction Status Date / Time ceftriaxone Allergy Hives Verified 05/15/18 22:54 gabapentin Allergy Hives Verified 05/15/18 22:54 hydrochlorothiazide Allergy Hives Verified 05/15/18 22:54 pregabalin Allergy Hives Verified 05/15/18 22:54 risperidone AdvReac Confusion Verified 05/15/18 22:54 Review of Systems Psychiatric: Reports: depression, anxiety Psychiatry Exam - Constitutional Vitals: Temp Pulse Resp BP Pulse Ox 98.2 F 74 17 180/72 97 05/20/18 07:40 05/20/18 07:40 05/20/18 07:40 05/20/18 07:40 05/20/18 07:40 General appearance: obese - Psychiatric Patient Orientation: Yes Person, Yes Time, Yes Place Level of alertness: Alert Behavior: cooperative, anxious Psychomotor activity: Normal Eye Contact: Maintains Eye Contact Mood Description: Anxious Affect description: tearful Speech pattern: clear, coherent Language & Vocabulary: consistent with education Thought Process: Intact Thought Content: Yes Intact Perceptual Disturbances: No Auditory hallucinations, No Visual hallucinations Attention Span Ability: Capable of Focused Attention Memory Description: Grossly Intact Patient Reliability: Reliable Historian Intelligence Estimate: Average Judgment: Fair Insight: Full Results - Labs Labs: Laboratory Last Values WBC 5.9 K/mcL (4.3-11.1) 05/20/18 06:02 RBC 3.56 M/mcL (3.82-4.97) L 05/20/18 06:02 Hgb 10.4 g/dL (11.5-15.4) L 05/20/18 06:02 Hct 31.9 % (35.3-44.9) L 05/20/18 06:02 MCV 89.6 fL (83.0-100.0) 05/20/18 06:02 MCH 29.2 pg (28.0-33.3) 05/20/18 06:02 MCHC 32.6 g/dL (31.6-35.5) 05/20/18 06:02 RDW 13.4 % (11.5-14.5) 05/20/18 06:02 Plt Count 235 K/mcL (140-400) 05/20/18 06:02 MPV 10.3 fL (9.4-12.4) 05/20/18 06:02 Immature Gran % 0.2 % (0-4) 05/20/18 06:02 Seg Neutrophils % 45.3 % 05/20/18 06:02 Lymphocytes % 37.6 % 05/20/18 06:02 Monocytes % 11.4 % 05/20/18 06:02 Eosinophils % 4.8 % 05/20/18 06:02 Basophils % 0.7 % 05/20/18 06:02 Neutrophils # 2.7 K/mcL (1.6-8.9) 05/20/18 06:02 Lymphocytes # 2.2 K/mcL (0.6-4.6) 05/20/18 06:02 Monocytes # 0.7 K/mcL (0.0-1.3) 05/20/18 06:02 Eosinophils # 0.3 K/mcL (0.0-0.6) 05/20/18 06:02 Basophils # 0.0 K/mcL (0.0-0.2) 05/20/18 06:02 PT 12.2 Seconds (9.4-12.1) H 05/15/18 19:36 INR 1.1 05/15/18 19:36 APTT 20.6 Seconds (26.0-36.0) L 05/15/18 19:36 VBG pH 7.35 pH Units (7.32-7.42) 05/15/18 22:49 VBG pCO2 50 mmHg (41-51) 05/15/18 22:49 VBG pO2 75 mmHg (25-50) H 05/15/18 22:49 VBG HCO3 28 mEq/L (21-27) H 05/15/18 22:49 Sodium 135 mEq/L (136-145) L 05/20/18 06:02 Potassium 4.5 mEq/L (3.5-5.1) 05/20/18 06:02 Chloride 106 mEq/L (98-107) 05/20/18 06:02 Carbon Dioxide 25 mEq/L (23-29) 05/20/18 06:02 BUN 29 mg/dL (8-23) H 05/20/18 06:02 Creatinine 1.19 mg/dL (0.60-1.20) 05/20/18 06:02 Est GFR ( Amer) 54 (> 60) L 05/20/18 06:02 Est GFR (Non-Af Amer) 44 (> 60) L 05/20/18 06:02 BUN/Creatinine Ratio 24 (6-26) 05/20/18 06:02 Glucose 137 mg/dL (70-105) H 05/20/18 06:02 POC Glucose 142 mg/dL (70-99) H 05/19/18 21:13 Calculated Osmolality 288 (280-300) 05/20/18 06:02 Lactic Acid 1.1 mmol/L (0.5-2.2) 05/15/18 18:55 Calcium 8.4 mg/dL (8.6-10.3) L 05/20/18 06:02 Magnesium 2.0 mg/dL (1.6-2.6) 05/15/18 18:54 Total Bilirubin 0.3 mg/dL (0.3-1.0) 05/16/18 20:28 Direct Bilirubin 0.1 mg/dL (0.0-0.2) 05/15/18 18:54 Indirect Bilirubin 0.4 mg/dL (0.0-1.2) 05/15/18 18:54 AST 9 Units/L (13-39) L 05/16/18 20:28 ALT 9 Units/L (7-52) 05/16/18 20:28 Alkaline Phosphatase 103 Units/L (34-104) 05/16/18 20:28 Troponin I < 0.03 ng/mL (< 0.04) 05/19/18 01:42 Serum Total Protein 6.7 g/dL (6.4-8.9) 05/16/18 20:28 Albumin 3.3 g/dL (3.5-5.7) L 05/16/18 20:28 Globulin 3.4 g/dL (2.4-3.5) 05/16/18 20:28 Albumin/Globulin Ratio 1.0 (1.1-2.2) L 05/16/18 20:28 Lipase 4 Units/L (11-82) L 05/15/18 18:54 Vitamin B12 323 pg/mL (250-1100) 05/18/18 04:00 Folate 9.3 ng/mL (3.0-16.0) 05/18/18 04:00 Beta-Hydroxybutyric Acd 0.53 mmol/L (0.02-0.27) H 05/15/18 18:54 TSH 1.667 mcIU/mL (0.340-5.600) 05/18/18 04:00 Urine Color Yellow (Yellow) 05/15/18 19:16 Urine Clarity Clear (Clear) 05/15/18 19:16 Urine pH 6.5 pH Units (5.0-8.0) 05/15/18 19:16 Ur Specific Roann 1.024 (1.010-1.025) 05/15/18 19:16 Urine Protein >=300 mg/dL (Neg-Trace) H 05/15/18 19:16 Urine Glucose (UA) >=1000 mg/dL (Normal) H 05/15/18 19:16 Urine Ketones Negative mg/dL (Negative) 05/15/18 19:16 Urine Blood Small (Negative) H 05/15/18 19:16 Urine Nitrite Negative (Negative) 05/15/18 19:16 Urine Bilirubin Negative (Negative) 05/15/18 19:16 Urine Urobilinogen Normal mg/dL (Normal) 05/15/18 19:16 Ur Leukocyte Esterase Negative (Negative) 05/15/18 19:16 Urine Microscopic RBC 3-5 per hpf (0-3) H 05/15/18 19:16 Urine Microscopic WBC 15-30 per hpf (0-3) H 05/15/18 19:16 Ur Squamous Epith Cells None Seen per lpf (None-Few) 05/15/18 19:16 Urine Bacteria Moderate per hpf (None-Few) H 05/15/18 19:16 Hyaline Casts None Seen per lpf (None-Few) 05/15/18 19:16 Ur Culture Indicated? NO (NO) 05/15/18 19:16 Specimen Rejected Volume 05/15/18 20:18 Consult Discharge Plan - Plan Referrals: Dory Salvador CNP [Primary Care Provider] - 06/05/18 3:00 pm (. ) Prescriptions: Ciprofloxacin [Cipro] 250 mg PO BID 2 Days #4 tablet
--- NOTE | 2018-05-20 12:00 | Internal Med Progress Note ---
<Rachel Woods - Last Filed: 05/20/18 16:35> Hospitalist Progress Note - Encounter Date of Encounter: 05/20/18 - Exam Vitals: Temp Pulse Resp BP Pulse Ox 97.7 F 75 17 184/79 96 05/20/18 11:21 05/20/18 11:21 05/20/18 11:21 05/20/18 11:21 05/20/18 11:21 - Assessment and Plan (1) Type 2 diabetes mellitus with foot ulcer Current Visit: No Status: Acute (2) UTI (urinary tract infection) Current Visit: Yes Status: Acute (3) Altered mental status Current Visit: Yes Status: Acute (4) Intertriginous dermatitis associated with moisture Current Visit: Yes Status: Acute (5) DVT prophylaxis Current Visit: Yes Status: Resolved - Time Spent with Patient Total time spent is greater than 50% in coordination of care (as documented) at patient's floor/unit and/or counseling patient: Internal Medicine: Result - Labs CBC & Chem 7: 05/20/18 06:02 05/20/18 06:02 Labs: Short CBC 05/20/18 Range/Units 06:02 WBC 5.9 (4.3-11.1) K/mcL Hgb 10.4 L (11.5-15.4) g/dL Hct 31.9 L (35.3-44.9) % Plt Count 235 (140-400) K/mcL Neutrophils # 2.7 (1.6-8.9) K/mcL BMP 05/20/18 06:02 Sodium 135 L Potassium 4.5 Chloride 106 Carbon Dioxide 25 BUN 29 H Creatinine 1.19 Glucose 137 H Calcium 8.4 L - ABG Interpretation ABG results: PT/INR, D-dimer PT 12.2 Seconds (9.4-12.1) H 05/15/18 19:36 Consult Discharge Plan - Plan Referrals: Dory Salvador, AUDIOMETRIST [Primary Care Provider] - 06/05/18 3:00 pm (. ) Prescriptions: Ciprofloxacin [Cipro] 250 mg PO BID 2 Days #4 tablet - Attending Attestation I examined this patient and my medical decision-making was reviewed with the Resident Physician Dr Loaiza. I agree with the documented findings, disposition and treatment plan as described except to the extent set forth below/addl details below Ms Kristi was admitted with confusion and found to have a UTI. Awaiting placement to ECF Pt independently seen and examined. Awake, comfortable appearing. no complaints. no dysuria, bladder pressure or pain, denies fevers or chills. Anxiously awaiting discharge. gen- alert, awake,appears stated age, nad cv- reg rate and rhythm, normal s1,s2, no murmurs appreciated lungs- ctabl, no wheezing, rhonchi or crackles abd- soft, non tender, non distended, + bs neuro- AAOx3, CN grossly intact, no focal deficits Metabolic Encephalopathy likely 2/2 UTI now resolved UTI with Ucx + Klebsiella robles sensitive- cont cipro course LEOBARDO, resolved HTN with elevated BPs- cont home BB, will add low dose acei, cont to monitor, will require outpt fu with PCP Depressive DO NOS and Anxiety DO NOS- evaluated by psych,lexapro started, cont elavil, caution with home tramadol and will relay to ECF to monitor for any s/s of seratonin syndrome dc to ecf hopefully in am, remains medically cleared for dc <Barbie Loaiza - Last Filed: 05/20/18 18:10> Hospitalist Progress Note - Encounter Date of Encounter: 05/20/18 Time of Encounter: 10:15 - Subjective Interval History: Ms. Kmaara was examined at bedside chair this morning. She had no events overnight. Her vitals this morning were within normal limits. Her labs from overnight were stable in comparison to her previous labs. She had just finished her breakfast. She was sitting comfortably in her chair. When asked about how she was doing she said fine and inquired about when she can go home. I informed her we are awaiting shelter approval. She denied fever, chills, nausea, emesis, shortness of breath, chest pain, abdominal pain or dysuria. - Exam Vitals: Temp Pulse Resp BP Pulse Ox 97.7 F 75 17 184/79 96 05/20/18 11:21 05/20/18 11:21 05/20/18 11:21 05/20/18 11:21 05/20/18 11:21 Exam: Constitutional: Alert, in no acute distress, blood pressure elevated, not symptomatic HEENT: Normocephalic, atraumatic, moist mucus membrane Heart: Normal, regular rate and rhythm, no murmurs Lungs: lungs clear and equal bilaterally Abdomen: Soft, non distended, non tender Extremities: No edema, no clubbing; legs wrapped in dressing Skin: Skin warm and dry, no lesions, no rashes, no jaundice Psych: thought content congruent, appropriate affect Neurological Alert and oriented - Assessment and Plan (1) UTI (urinary tract infection) Current Visit: Yes Status: Acute Assessment and Plan: This morning she denies any symptoms associated with the UTI. She is no longer delirious and is awake, alert and oriented x 3. Urine culture showed Klebsiella pneunia and it was sensitive to cipro Plan: Day 4 of cipro, continue as oncomplicated, total of 5 day treatment (2) Type 2 diabetes mellitus with foot ulcer Current Visit: No Status: Acute Assessment and Plan: She has history of diabetes and noted she has never received diabetic diet counseling. I did some diet education with her concerning carbohydrate count and appropriate diet. Since her admission her glucose has been stable and this morning was 137. Nursing is changing dressing daily. Plan: Continue 15 units of detemir Continue sliding scale Continue to monitor glucose Continue to change dressing daily (3) Altered mental status Current Visit: Yes Status: Resolved Assessment and Plan: At presenatation she had waxing and waning mental status, likely delirium due to UTI vs depression. Since starting antibiotics for UTI her mental status has improved. She has no difficulty sleeping. Psychiatry was consulted per family's recommendation and they recommended adding 10 mg lexapro. She was informed of concern for serotonin syndrome due to concurrent use of tramadol. TSH, Vit B12 and folate within normal limits. Plan: - Continue UTI management - Continue lexapro - Decrease night time disturbance, close blinds at night (4) Intertriginous dermatitis associated with moisture Current Visit: Yes Status: Acute Assessment and Plan: Significant dermatitis within the inguinal folds concerning for possible fungal infection. Plan: Continue nystatin powder (5) Hypertension Current Visit: Yes Status: Acute Assessment and Plan: Her blood pressure this morning was 180/72 and she was not symptomatic and has remained today. She is only on metoprolol at home which does not have great potential for hypertension management. Plan: Continue lisinopril 5 mg, for renal protection and hypertension management Continue home metoprolol Continue hydralazine PRN if systolic above 160 (6) Depression Current Visit: Yes Status: Acute Assessment and Plan: Depression with anxiety. Psychiatry saw the patient today and she expressed concern for more episodes of anxiety and sadness after her passed. Plan: Continue lexapro 10 mg Monitor for vitals, for serotonin syndrome concern (7) DVT prophylaxis Current Visit: Yes Status: Resolved Assessment and Plan: Subcutaneous heparin - Time Spent with Patient Total time spent is greater than 50% in coordination of care (as documented) at patient's floor/unit and/or counseling patient: 25 - 35 minutes Plan of Care Discussed with: patient Internal Medicine: Result - Labs CBC & Chem 7: 05/20/18 06:02 05/20/18 06:02 Labs: Short CBC 05/20/18 Range/Units 06:02 WBC 5.9 (4.3-11.1) K/mcL Hgb 10.4 L (11.5-15.4) g/dL Hct 31.9 L (35.3-44.9) % Plt Count 235 (140-400) K/mcL Neutrophils # 2.7 (1.6-8.9) K/mcL BMP 05/20/18 06:02 Sodium 135 L Potassium 4.5 Chloride 106 Carbon Dioxide 25 BUN 29 H Creatinine 1.19 Glucose 137 H Calcium 8.4 L - ABG Interpretation ABG results: PT/INR, D-dimer PT 12.2 Seconds (9.4-12.1) H 05/15/18 19:36 <Rachel Woods - Last Filed: 05/20/18 16:35> (1) Type 2 diabetes mellitus with foot ulcer Qualifiers: Diabetes mellitus intermodal customer service insulin use: with intermodal customer service use Qualified Code(s) : E11.621 - Type 2 diabetes mellitus with foot ulcer; L97.509 - Non-pressure chronic ulcer of other part of unspecified foot with unspecified severity; Z79.4 - half-way (current) use of insulin (2) UTI (urinary tract infection) Qualifiers: Urinary tract infection type: acute cystitis Hematuria presence: without hematuria Qualified Code(s): N30.00 - Acute cystitis without hematuria (3) Altered mental status Qualifiers: Altered mental status type: delirium Qualified Code(s): R41.0 - Disorientation, unspecified <Josse,Barbie - Last Filed: 05/20/18 18:10> (1) UTI (urinary tract infection) Qualifiers: Urinary tract infection type: acute cystitis Hematuria presence: without hematuria Qualified Code(s): N30.00 - Acute cystitis without hematuria (2) Type 2 diabetes mellitus with foot ulcer Qualifiers: Diabetes mellitus intermodal customer service insulin use: with intermodal customer service use Qualified Code(s) : E11.621 - Type 2 diabetes mellitus with foot ulcer; L97.509 - Non-pressure chronic ulcer of other part of unspecified foot with unspecified severity; Z79.4 - half-way (current) use of insulin (3) Altered mental status Qualifiers: Altered mental status type: delirium Qualified Code(s): R41.0 - Disorientation, unspecified (6) Depression Qualifiers: Depression Type: unspecified Qualified Code(s): F32.9 - Major depressive disorder, single episode, unspecified
[2018-05-20] MEDS: Insulin DETEMIR 100 UNIT/ML X5UNITS SQ SCH (21:31)
[2018-05-20] MEDS: Aspirin Enteric Coated 81 MG Tablet PO SCH (21:31)
[2018-05-21] MEDS: *HR* Heparin 5,000 UNIT/ML VIAL SQ SCH ×3 (05:42→21:40)
[2018-05-21] MEDS: Fenofibrate 54 MG TABLET PO SCH (08:43)
[2018-05-21] MEDS: Metoprolol XL (24 HR) Succ 50 MG TAB.ER.24H PO SCH (08:43)
[2018-05-21] MEDS: Insulin LISPRO 300 UNITS/3 ML VIAL SQ SCH ×4 (08:45→21:41)
[2018-05-21] MEDS: Nystatin POWDER 30 GM BOTTLE TP SCH ×3 (11:00→22:01)
--- NOTE | 2018-05-21 11:40 | Discharge Summary ---
<Barbie Loaiza - Last Filed: 05/21/18 11:35> - NOTES TO OUTPATIENT PROVIDER Notes to Outpatient Provider: At presentation she was alert and oriented to person and place. She was presented to the ED by family for confusion. CT of the head was performed and showed no acute intracranial abnormality. Chest x- ray was also unremarkable. Her glucose at presentation was high. She stated she has never received diabetic diet counseling and contributes her high glucose to that. She was noted to have multiple erythematous rash between abdominal and inguinal fold of the skin. She follows outpatient with wound care. She was found to have klebsiella pneumonia UTI and it is susceptible to ciprofloxacin and will require 5 day of total treatment. Family was concerned of paranoid behavior and pscyhiatry was consulted. Psychiatry recommended 10 mg lexapro for anxiety and depression. She has received her medication regiment and will not require any further treatment outpatient. Date of Encounter: 05/21/18 Time of Encounter: 11:35 - Discharge Diagnosis (1) UTI (urinary tract infection) Priority: Primary Status: Acute Qualifiers: Urinary tract infection type: acute cystitis Hematuria presence: without hematuria Qualified Code(s): N30.00 - Acute cystitis without hematuria (2) Type 2 diabetes mellitus with foot ulcer Priority: Secondary Status: Acute Qualifiers: Diabetes mellitus blasting miner insulin use: with blasting miner use Qualified Code( s): E11.621 - Type 2 diabetes mellitus with foot ulcer; L97.509 - Non-pressure chronic ulcer of other part of unspecified foot with unspecified severity; Z79.4 - residential (current) use of insulin (3) Altered mental status Priority: Secondary Status: Resolved Qualifiers: Altered mental status type: delirium Qualified Code(s): R41.0 - Disorientation, unspecified (4) Intertriginous dermatitis associated with moisture Priority: Secondary Status: Acute (5) DVT prophylaxis Priority: Secondary Status: Resolved Hospital course: Ms. Kamara is a 73 year old female with past medical history of uncontrolled diabetic, diabetic foot ulcer and HTN. She was presented by family for confusion. Per family her confusion was ongoing for one month prior to presentation. At presentation she was alert and oriented to person and place. CT of the head was performed and showed no acute intracranial abnormality. Chest x-ray was also unremarkable. Her glucose at presentation was high and during her stay here it remained high. She stated she has never received diabetic diet counseling and contributes her high glucose to that. I gave her diabetic diet counseling. Also at presentation she was noted to have multiple erythematous rash between abdominal and inguinal fold of the skin. She follows outpatient with [facility]. She was found to have klebsiella pneumonia UTI and is susceptible to ciprofloxacin. After starting treatment for the UTI her delirium resolved and received 5 days of treatment during her stay. Her family became concerned of paranoid behavior and psychiatry was consulted. Psychiatry recommended starting lexapro 10 mg daily. Additionally, She will need her chronic left lower leg dressing changed at her outside facility daily. She is being discharged to [facility] as her family is unable to provide care for her. Discharge discussed with: patient - Time Spent with Patient Total time spent providing and/or coordinating discharge services: Less than 30 minutes - Discharge Medications Prescriptions: Escitalopram [Lexapro] 10 mg PO DAILY 30 Days #30 tablet Tramadol HCl [Ultram] 50 mg PO TID PRN 1 Days #2 tablet PRN Reason: Severe Pain Home Medications: Aspirin [Lo-Dose Aspirin EC] 81 mg PO HS 03/13/18 [History] Donepezil [Aricept] 10 mg PO DAILY 03/13/18 [History] Fenofibrate Nanocrystallized [Triglide] 160 mg PO DAILY 03/13/18 [History] Ferrous Sulfate [Iron] 325 mg PO BID 03/13/18 [History] Omeprazole [PriLOSEC] 40 mg PO DAILY 03/13/18 [History] Collagenase Oint [Santyl] 1 appl TP BID tube 03/18/18 [Rx] Amitriptyline [Elavil] 25 mg PO HS 05/15/18 [History] Insulin Regular, Human [Humulin R U-500 Kwikpen] 50 - 55 unit SQ BID 05/15/18 [ History] Metoprolol Succinate 200 mg PO DAILY 05/15/18 [History] Ciprofloxacin [Cipro] 250 mg PO BID 5 Days #10 tablet 05/21/18 [Rx] Escitalopram [Lexapro] 10 mg PO DAILY 30 Days #30 tablet 05/21/18 [Rx] Lisinopril [Zestril] 5 mg PO DAILY tablet 05/21/18 [Rx] Nystatin POWDER [Nystop] 1 appl TP TID bottle 05/21/18 [Rx] Tramadol HCl [Ultram] 50 mg PO TID PRN 1 Days #2 tablet 05/21/18 [Rx] Allergies/Adverse Reactions: 3 Allergy/AdvReac Type Severity Reaction Status Date / Time ceftriaxone Allergy Hives Verified 05/15/18 22:54 gabapentin Allergy Hives Verified 05/15/18 22:54 hydrochlorothiazide Allergy Hives Verified 05/15/18 22:54 pregabalin Allergy Hives Verified 05/15/18 22:54 risperidone AdvReac Confusion Verified 05/15/18 22:54 Date of admission: 05/16/18 00:33 Primary care physician: Dory Salvador ANALYTICS ANALYST Consults: 05/16/18 03:35 Consult to Theatrical Dresser [CONS] Routine Reason for SW Consult: During my assessment patient became tearful and started to cry because of the kind of care she received. She stated she no longer has health insurace. Pt would really benefit from home health. She needs care that can be provided to her at her home. Shes here for UTI and failure to thirve. Pt is incontient and has excoreation in groin area from prolonged exposure to urine. 05/16/18 14:50 Consult to Occupational Therapy [CONS] Routine Comment: Evaluate, develop and implement POC Reason for Consult: WEAKNESS, POSSIBLE PLACEMENT Does patient have active BEDREST order?: No Is patient medically & hemodynamically stable?: Yes Consult to Physical Therapy [CONS] Routine Comment: Evaluate, develop and implement POC Reason for Consult: WEAKNESS, POSSIBLE PLACEMENT Does patient have active BEDREST order?: No Is patient medically & hemodynamically stable?: Yes 05/19/18 14:54 Consult to Psychiatry [CONS] Routine Consulting Provider: Brittnee Sellers Reason consult: Psychosis Other reason and/or additional details: Patient is paranoid stating that her room is bugged and that staff is trying to harm her. Origianally presented with AMS secondary to UTI which had resolved.Family is requesting psych consult. Call Completed: Yes Discharging clinician: Barbie Loaiza Anticipated date of discharge: 05/21/18 - Constitutional Vitals: Temp Pulse Resp BP Pulse Ox 98.4 F 75 17 189/77 96 05/21/18 07:32 05/21/18 07:32 05/21/18 07:32 05/21/18 07:32 05/21/18 07:32 General appearance: Present: cooperative, A&O X 3, pleasant Exam: awake, alert and oriented to person, place and time - Head Head exam: Present: atraumatic, normocephalic - Eye Eye exam: Present: EOMI, sclera anicteric - ENT ENT exam: Present: mucous membranes moist - Neck Neck exam general surgery: Present: full ROM, normal inspection - Respiratory Respiratory exam: Present: CTAB. Absent: rhonchi, stridor, wheezes - Cardiovascular Cardiovascular exam: Present: RRR, +S1, +S2 - GI/Abdominal GI/Abdominal exam: Present: soft. Absent: firm, guarding, rebound, tenderness - Extremities Exam Extremities exam: Present: full ROM, warm (has wrapping on left lower leg). Absent: pedal edema, tenderness - Psychiatric Psychiatric exam: Present: anxious, normal affect - Skin Skin exam: Present: dry, intact, warm - Patient Status Disposition: Transfer SNF Condition: Fair Overall status at discharge: patient is progressing back to baseline - Discharge Instructions Follow Up With: Dory Salvador ANALYTICS ANALYST [Primary Care Provider] - 06/05/18 3:00 pm (. ) - Diet and Activity Activity: as per physical therapy Diet: diabetic diet <Rachel Woods - Last Filed: 05/21/18 14:37> Date of Encounter: 05/21/18 - Discharge Diagnosis (1) Type 2 diabetes mellitus with foot ulcer Status: Acute Qualifiers: Diabetes mellitus blasting miner insulin use: with prison use Qualified Code( s): E11.621 - Type 2 diabetes mellitus with foot ulcer; L97.509 - Non-pressure chronic ulcer of other part of unspecified foot with unspecified severity; Z79.4 - residential (current) use of insulin (2) UTI (urinary tract infection) Status: Acute Qualifiers: Urinary tract infection type: acute cystitis Hematuria presence: without hematuria Qualified Code(s): N30.00 - Acute cystitis without hematuria (3) Altered mental status Status: Resolved Qualifiers: Altered mental status type: delirium Qualified Code(s): R41.0 - Disorientation, unspecified (4) Intertriginous dermatitis associated with moisture Status: Acute (5) DVT prophylaxis Status: Resolved Hospital course: Ms. Kamara is a 73 year old female - Time Spent with Patient Total time spent providing and/or coordinating discharge services: Date of admission: 05/16/18 00:33 Primary care physician: Dory Salvador CNP Consults: 05/16/18 03:35 Consult to Theatrical Dresser [CONS] Routine Reason for SW Consult: During my assessment patient became tearful and started to cry because of the kind of care she received. She stated she no longer has health insurace. Pt would really benefit from home health. She needs care that can be provided to her at her home. Shes here for UTI and failure to thirve. Pt is incontient and has excoreation in groin area from prolonged exposure to urine. 05/16/18 14:50 Consult to Occupational Therapy [CONS] Routine Comment: Evaluate, develop and implement POC Reason for Consult: WEAKNESS, POSSIBLE PLACEMENT Does patient have active BEDREST order?: No Is patient medically & hemodynamically stable?: Yes Consult to Physical Therapy [CONS] Routine Comment: Evaluate, develop and implement POC Reason for Consult: WEAKNESS, POSSIBLE PLACEMENT Does patient have active BEDREST order?: No Is patient medically & hemodynamically stable?: Yes 05/19/18 14:54 Consult to Psychiatry [CONS] Routine Consulting Provider: Psychiatry Verito Reason consult: Psychosis Other reason and/or additional details: Patient is paranoid stating that her room is bugged and that staff is trying to harm her. Origianally presented with AMS secondary to UTI which had resolved.Family is requesting psych consult. Call Completed: Yes - Constitutional Vitals: Temp Pulse Resp BP Pulse Ox 98.4 F 75 17 189/77 96 05/21/18 07:32 05/21/18 07:32 05/21/18 07:32 05/21/18 07:32 05/21/18 07:32 - Attending Attestation I examined this patient and my medical decision-making was reviewed with the Resident Physician Dr Loaiza. I agree with the documented findings, disposition and treatment plan as described except to the extent set forth below/addl details below Ms Kamara was admitted with confusion and found to have a UTI. Has been stable and awaiting dipso to ECF Awake, comfortable appearing. She again has no complaints. no dysuria, bladder pressure or pain, denies fevers or chills. continues to await discharge gen- alert, awake,appears stated age, nad cv- reg rate and rhythm, normal s1,s2, no murmurs appreciated lungs- ctabl, no wheezing, rhonchi or crackles, norm resp effort on room air neuro- AAOx3, CN grossly intact, no focal deficits Metabolic Encephalopathy likely 2/2 UTI now resolved UTI with Ucx + Klebsiella robles sensitive- cont cipro course upon dc, for 5 ADDL days of treatment, not 5 days total as noted by resident LEOBARDO, resolved HTN with elevated BPs- cont home BB, added low dose acei this admission, will require outpt fu with PCP Depressive DO NOS and Anxiety DO NOS- evaluated by psych,lexapro started, cont elavil, caution with home tramadol and will relay to ECF to monitor for any s/s of seratonin syndrome dc to ecf
--- NOTE | 2018-05-21 12:05 | Physician Discharge Referral ---
<Barbie Loaiza - Last Filed: 05/21/18 12:03> ExtendedCare Referral Info Transfer To: F Provider in Charge after Transfer: PCP Institutional Level of Care: Skilled - Diagnosis (1) UTI (urinary tract infection) Priority: Primary Status: Acute (2) Type 2 diabetes mellitus with foot ulcer Priority: Secondary Status: Acute (3) Altered mental status Priority: Secondary Status: Resolved (4) Intertriginous dermatitis associated with moisture Priority: Secondary Status: Acute (5) DVT prophylaxis Priority: Secondary Status: Resolved Prognosis: Good Aware of Diagnosis: Patient Aware of Prognosis: Patient - Transfer Medications Prescriptions: Escitalopram [Lexapro] 10 mg PO DAILY 30 Days #30 tablet Tramadol HCl [Ultram] 50 mg PO TID PRN 1 Days #2 tablet PRN Reason: Severe Pain Home Medications: Aspirin [Lo-Dose Aspirin EC] 81 mg PO HS 03/13/18 [History] Donepezil [Aricept] 10 mg PO DAILY 03/13/18 [History] Fenofibrate Nanocrystallized [Triglide] 160 mg PO DAILY 03/13/18 [History] Ferrous Sulfate [Iron] 325 mg PO BID 03/13/18 [History] Omeprazole [PriLOSEC] 40 mg PO DAILY 03/13/18 [History] Collagenase Oint [Santyl] 1 appl TP BID tube 03/18/18 [Rx] Amitriptyline [Elavil] 25 mg PO HS 05/15/18 [History] Insulin Regular, Human [Humulin R U-500 Kwikpen] 50 - 55 unit SQ BID 05/15/18 [ History] Metoprolol Succinate 200 mg PO DAILY 05/15/18 [History] Ciprofloxacin [Cipro] 250 mg PO BID 5 Days #10 tablet 05/21/18 [Rx] Escitalopram [Lexapro] 10 mg PO DAILY 30 Days #30 tablet 05/21/18 [Rx] Lisinopril [Zestril] 5 mg PO DAILY tablet 05/21/18 [Rx] Nystatin POWDER [Nystop] 1 appl TP TID bottle 05/21/18 [Rx] Tramadol HCl [Ultram] 50 mg PO TID PRN 1 Days #2 tablet 05/21/18 [Rx] Allergies/Adverse Reactions: 3 Allergy/AdvReac Type Severity Reaction Status Date / Time ceftriaxone Allergy Hives Verified 05/15/18 22:54 gabapentin Allergy Hives Verified 05/15/18 22:54 hydrochlorothiazide Allergy Hives Verified 05/15/18 22:54 pregabalin Allergy Hives Verified 05/15/18 22:54 risperidone AdvReac Confusion Verified 05/15/18 22:54 - Respiratory Orders None Smoking Cessation: Smoking cessation has been advised. For more information, call the [employer] Quit Line at 0-092-AVSB-NOW. - Advance Directives Code Status: Full Code - Mobility Orders Other (physical therapy as needed) - Diet Orders No Concentrated Sweets CERTIFICATION: I certify that the transfer of the above named patient to an Extended Care Facility is necessary for the continuing treatment of the diagnosis listed. The above information is true and accurate reflection of patient's current condition. Confidential - Redisclosure prohibited without a patient's written consent. <Rachel Woods - Last Filed: 05/21/18 14:40> - Diagnosis (1) Type 2 diabetes mellitus with foot ulcer Status: Acute (2) UTI (urinary tract infection) Status: Acute (3) Altered mental status Status: Resolved (4) Intertriginous dermatitis associated with moisture Status: Acute (5) DVT prophylaxis Status: Resolved - Respiratory Orders Smoking Cessation: Smoking cessation has been advised. For more information, call the [facility] Line at 7-849-NEOE-NOW. - Rehabiliation Orders Rehab Potential: Good CERTIFICATION: I certify that the transfer of the above named patient to an Extended Care Facility is necessary for the continuing treatment of the diagnosis listed. The above information is true and accurate reflection of patient's current condition. Confidential - Redisclosure prohibited without a patient's written consent.
[2018-05-21] MEDS: Aspirin Enteric Coated 81 MG Tablet PO SCH (21:37)
[2018-05-21] MEDS: traMADol 50 MG TABLET PO PRN (21:39)
[2018-05-21] MEDS: Insulin DETEMIR 100 UNIT/ML X5UNITS SQ SCH (21:42)
[2018-05-22] MEDS: *HR* Heparin 5,000 UNIT/ML VIAL SQ SCH ×2 (06:08→13:48)
[2018-05-22] MEDS: Insulin LISPRO 300 UNITS/3 ML VIAL SQ SCH ×3 (08:55→17:19)
[2018-05-22] MEDS: Fenofibrate 54 MG TABLET PO SCH (08:56)
[2018-05-22] MEDS: Metoprolol XL (24 HR) Succ 50 MG TAB.ER.24H PO SCH (08:56)
--- NOTE | 2018-05-22 09:17 | Electrocardiograph Report ---
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
[2018-05-22] MEDS: Nystatin POWDER 30 GM BOTTLE TP SCH (11:15)
[2018-05-22 12:32] VITALS: BP 152/68
--- NOTE | 2018-05-22 15:24 | Internal Med Progress Note ---
<Barbie Loaiza - Last Filed: 05/22/18 15:20> Hospitalist Progress Note - Encounter Date of Encounter: 05/22/18 Time of Encounter: 09:30 - Subjective Interval History: Ms. Kamara was examined at bedside chair this morning. She had no events overnight. Her vitals this morning were within normal limits. She had just finished her breakfast. She was sitting comfortably in her chair. She was awake , alert and oriented to person and place but she could not recall me. I informed her I had been taking care of her since admission and she could not remember. When asked about how she was doing she said fine and inquired about when she could be discharged. There was some confusion between her daughter and her as she noted her daughter told her she would be going home although I informed her they had decided to discharge for extended care facility as her family was unable to take care of her due to her daughter's recent injury. She denied fever, chills, nausea, emesis, shortness of breath, chest pain, abdominal pain or dysuria. - Exam Vitals: Temp Pulse Resp BP Pulse Ox 97.7 F 68 18 152/68 96 05/22/18 12:31 05/22/18 12:31 05/22/18 12:31 05/22/18 12:31 05/22/18 12:31 Exam: General: Alert and oriented 2; no acute distress Skin: Large areas of erythematous maculopapular rash in the abdominal folds and inguinal folds of the skin. HEENT: EOM, pupils equal, round and reactive. Cardiovascular:Normal S1 & S2, no rubs, murmurs or gallops. No JVD. Pulse regular. Lungs: Normal breath sounds, no wheezes or crackles. Abdomen: Soft, non-tender, no rigidity. Extremities: No edema, 2 cm left heel ulcer. 1 cm right small toe ulcer, both have no surrounding erythema or purulent drainage Neurological: Normal motor skills, but requires assistance with mobility Pulses: Carotid and radial and dorsal pedal pulses normal +2. Psych: mildly confused, she could not recall seeing me the past a few days, affect and mood normal - Assessment and Plan (1) UTI (urinary tract infection) Current Visit: Yes Status: Resolved Assessment and Plan: Resolved. This morning she denies any symptoms associated with the UTI. She is no longer delirious and is awake, alert and oriented x 3. Urine culture showed Klebsiella pneumonia and it was sensitive to cipro Plan: She received total treatment 5 days of treatment (2) Type 2 diabetes mellitus with foot ulcer Current Visit: No Status: Chronic Assessment and Plan: She has history of diabetes and noted she has never received diabetic diet counseling. I did diet education with her concerning carbohydrate count and appropriate diabetic diet during her admission. Her glucose was high this morning at 328. Nursing is changing dressing daily. Plan: Can continue home insulin dosage upon discharge Continue to monitor glucose Continue to change dressing daily (3) Altered mental status Current Visit: Yes Status: Resolved Assessment and Plan: At presentation she had waxing and waning mental status, likely delirium due to UTI vs depression. Since starting antibiotics for UTI her delirium improved. She has no difficulty sleeping. She did have an episode of forgetting me today. Also, she forgot that her family had decided that she will be discharged to extended care facility and continued to say she is going home. Psychiatry was consulted per family's recommendation and they recommended adding 10 mg lexapro. She was informed of concern for serotonin syndrome due to concurrent use of tramadol. TSH, Vit B12 and folate within normal limits. Plan: - Continue lexapro - Decrease night time disturbance, close blinds at night (4) Intertriginous dermatitis associated with moisture Current Visit: Yes Status: Acute Assessment and Plan: Significant dermatitis within the inguinal folds concerning for possible fungal infection. Plan: Continue nystatin powder (5) DVT prophylaxis Current Visit: Yes Status: Resolved Assessment and Plan: Subcutaneous heparin DVT Prophylaxis: Heparin SC - Time Spent with Patient Total time spent is greater than 50% in coordination of care (as documented) at patient's floor/unit and/or counseling patient: 25 - 35 minutes Plan of Care Discussed with: patient Internal Medicine: Result - Labs CBC & Chem 7: 05/20/18 06:02 05/20/18 06:02 - ABG Interpretation ABG results: PT/INR, D-dimer PT 12.2 Seconds (9.4-12.1) H 05/15/18 19:36 Consult Discharge Plan - Plan Referrals: Dory Salvador, TIMBER MANAGEMENT ASSISTANT [Primary Care Provider] - 06/05/18 3:00 pm (. ) Prescriptions: Escitalopram [Lexapro] 10 mg PO DAILY 30 Days #30 tablet Tramadol HCl [Ultram] 50 mg PO TID PRN 1 Days #2 tablet PRN Reason: Severe Pain <ChuckReaRachel Maria C - Last Filed: 05/22/18 15:46> Hospitalist Progress Note - Encounter Date of Encounter: 05/22/18 - Exam Vitals: Temp Pulse Resp BP Pulse Ox 97.7 F 68 18 152/68 96 05/22/18 12:31 05/22/18 12:31 05/22/18 12:31 05/22/18 12:31 05/22/18 12:31 - Assessment and Plan (1) Type 2 diabetes mellitus with foot ulcer Current Visit: No Status: Chronic (2) UTI (urinary tract infection) Current Visit: Yes Status: Resolved (3) Altered mental status Current Visit: Yes Status: Resolved (4) Intertriginous dermatitis associated with moisture Current Visit: Yes Status: Acute (5) DVT prophylaxis Current Visit: Yes Status: Resolved - Time Spent with Patient Total time spent is greater than 50% in coordination of care (as documented) at patient's floor/unit and/or counseling patient: Internal Medicine: Result - Labs CBC & Chem 7: 05/20/18 06:02 05/20/18 06:02 - ABG Interpretation ABG results: PT/INR, D-dimer PT 12.2 Seconds (9.4-12.1) H 05/15/18 19:36 - Attending Attestation I examined this patient and my medical decision-making was reviewed with the Resident Physician Dr Loaiza. I agree with the documented findings, disposition and treatment plan as described except to the extent set forth below/addl details below Ms Kamara was admitted with confusion and found to have a UTI. Has been stable and awaiting dipso to ECF Awake,eating in chair. She again has no complaints. no dysuria, bladder pressure or pain, denies fevers or chills. continues to await discharge to ECF gen- alert, awake,appears stated age, nad cv- reg rate and rhythm, normal s1,s2, no murmurs appreciated, no le edema lungs- ctabl, no wheezing, rhonchi or crackles, norm resp effort on room air neuro- AAOx2 today, CN grossly intact, no focal deficits Metabolic Encephalopathy likely 2/2 UTI now resolved UTI with Ucx + Klebsiella robles sensitive- cont cipro course upon dc, for 5 ADDL days of treatment, not 5 days total as noted by resident LEOBARDO, resolved HTN with elevated BPs- cont home BB, added low dose acei this admission, will require outpt fu with PCP Depressive DO NOS and Anxiety DO NOS- evaluated by psych,lexapro started, cont elavil, caution with home tramadol and will relay to ECF to monitor for any s/s of seratonin syndrome DM- she was started on lower than home dose insulin initially on admit, didn't have updated med rec on admit, covered with basal insulin and SSI, her home dose insulin may be resumed on dc as confirmed dosing and stability on it by her granddaughter, as her bs has been elevated in recent days here with SSI requirements high dc to ecf <Barbie Loaiza - Last Filed: 05/22/18 15:20> (1) UTI (urinary tract infection) Qualifiers: Urinary tract infection type: acute cystitis Hematuria presence: without hematuria Qualified Code(s): N30.00 - Acute cystitis without hematuria (2) Type 2 diabetes mellitus with foot ulcer Qualifiers: Diabetes mellitus detention insulin use: with parts counterman use Qualified Code(s) : E11.621 - Type 2 diabetes mellitus with foot ulcer; L97.509 - Non-pressure chronic ulcer of other part of unspecified foot with unspecified severity; Z79.4 - group home (current) use of insulin (3) Altered mental status Qualifiers: Altered mental status type: delirium Qualified Code(s): R41.0 - Disorientation, unspecified <Rachel Woods - Last Filed: 05/22/18 15:46> (1) Type 2 diabetes mellitus with foot ulcer Qualifiers: Diabetes mellitus detention insulin use: with parts counterman use Qualified Code(s) : E11.621 - Type 2 diabetes mellitus with foot ulcer; L97.509 - Non-pressure chronic ulcer of other part of unspecified foot with unspecified severity; Z79.4 - ferry terminal agent (current) use of insulin (2) UTI (urinary tract infection) Qualifiers: Urinary tract infection type: acute cystitis Hematuria presence: without hematuria Qualified Code(s): N30.00 - Acute cystitis without hematuria (3) Altered mental status Qualifiers: Altered mental status type: delirium Qualified Code(s): R41.0 - Disorientation, unspecified
== END 2018-05-22 18:40 ==
LOC: 3BNU 17:50 → EMEROOARM 17:50 → SUATTDRO 05-16 00:33 → 3BNU 05-16 01:12
PROVIDERS: ADMIT Internal Medicine; ATTEND Internal Medicine

== ENCOUNTER 2019-01-26 21:47 | Observation (INO) ==
[2019-01-26] MEDS ORDERED: 0.9 % Sodium Chloride 1,000 ML IVC ONE (22:31)
[2019-01-26 22:54] LABS: Bilirubin,Urine Negative (Negative); Blood,Urine Moderate (Negative); Clarity,Urine Cloudy (Clear); Color,Urine Yellow (Yellow); Glucose,Urine (UA) >=1000 mg/dL (Normal); Ketones,Urine Negative (Negative); Leukocyte Esterase,Urine Trace (Negative); Nitrite,Urine Negative (Negative); Protein,Urine 100 mg/dL (Neg-Trace); Specific Gravity,Urine 1.017 (1.010-1.025); Urobilinogen,Urine Normal (Normal)
[2019-01-26 22:58] LABS: Bacteria,Urine None Seen per hpf (None-Few); Hyaline Casts,Urine None Seen per lpf (None-Few); RBC,Urine 30-50 per hpf (0-3); Squamous Epithelial Cell,Urine Moderate per lpf (None-Few); WBC,Urine 30-50 per hpf (0-3)
[2019-01-26 23:05] LABS: Basophils % 0.3 %; Eosinophils # 0.1 K/mcL (0.0-0.6); Eosinophils % 1.4 %; Hematocrit 34.3 % (35.3-44.9); Hemoglobin 11.2 g/dL (11.5-15.4); Immature Granulocytes % 0.3 % (0-4); Lymphocytes # 1.5 K/mcL (0.6-4.6); Lymphocytes % 16.5 %; Mean Corpuscular HGB Conc 32.7 g/dL (31.6-35.5); Mean Corpuscular Hemoglobin 29.5 pg (28.0-33.3); Mean Corpuscular Volume 90.3 fL (83.0-100.0); Mean Platelet Volume 9.5 fL (9.4-12.4); Monocytes # 0.9 K/mcL (0.0-1.3); Monocytes % 10.5 %; Neutrophils # 6.2 K/mcL (1.6-8.9); Platelet Count 197 K/mcL (140-400); Red Cell Distribution Width 13.6 % (11.5-14.5); White Blood Count 8.8 K/mcL (4.3-11.1)
[2019-01-26 23:28] LABS: Alanine Aminotransferase 14 Units/L (7-52); Albumin 3.1 g/dL (3.5-5.7); Alkaline Phosphatase 102 Units/L (34-104); Aspartate Amino Transferase 14 Units/L (13-39); BUN/Creatinine Ratio 29 (6-26); Bilirubin,Direct 0.1 mg/dL (0.0-0.2); Bilirubin,Indirect 0.3 mg/dL (0.0-1.2); Bilirubin,Total 0.4 mg/dL (0.3-1.0); Blood Urea Nitrogen 33 mg/dL (8-23); Calcium 8.8 mg/dL (8.6-10.3); Carbon Dioxide 27 mEq/L (23-29); Chloride 102 mEq/L (98-107); Globulin 3.2 g/dL (2.4-3.5); Glucose 407 mg/dL (70-105); Lipase 3 Units/L (11-82); Osmolality,Calculated 312 (280-300); Potassium 4.1 mEq/L (3.5-5.1); Sodium 139 mEq/L (136-145); Total Protein 6.3 g/dL (6.4-8.9); Troponin I < 0.03 ng/mL (< 0.04); eGFR For African Americans 57 (> 60); eGFR For Non-African Americans 47 (> 60)
[2019-01-27] MEDS ORDERED: levoFLOXacin 500 MG/100 ML 500 MG/100 ML BAG IVPB ONE (01:19)
[2019-01-27] MEDS ORDERED: 0.9 % Sodium Chloride 1,000 ML IVC ONE (02:11)
[2019-01-27 03:24] LABS: ABG Base Excess 5 mEq/L (-2 to 3); ABG HCO3 33 mEq/L (21-27); ABG Oxygen Saturation 95 % (95-98); ABG PCO2 66 mmHg (35-45); ABG PH 7.31 pH Units (7.32-7.45); ABG PO2 83 mmHg (85-104); ABG TCO2 35 mEq/L (20-26)
[2019-01-27] MEDS ORDERED: Insulin LISPRO 300 UNITS/3 ML VIAL SQ ONE (05:44)
--- NOTE | 2019-01-27 07:07 | Emergency Department Note ---
Disposition Clinical Impression: Hyperglycemia Altered mental status Qualifiers: Altered mental status type: unspecified Qualified Code(s): R41.82 - Altered mental status, unspecified Dementia Qualifiers: Dementia type: unspecified type Dementia behavioral disturbance: with behavioral disturbance Qualified Code(s): F03.91 - Unspecified dementia with behavioral disturbance Disposition: Still a Patient Condition: Fair Referrals: John Rubin MD [Primary Care Provider] - Time of Disposition: 05:35 Altered Mental Status HPI - General Chief Complaint: ED General Medical Stated Complaint: Altered mental status Time Seen by Provider: 01/26/19 21:49 Source: patient, EMS Limitations: no limitations Nursing Notes Reviewed: Yes Vital Signs Reviewed: Yes - History of Present Illness HPI Narrative: 73-year-old who presents in respiratory for altered mental status this is a worse in the afternoons. Sometimes becomes combative. She was recently admitted and discharged home and placed under continuous hospice care service she was in his rales was she is normally. She has not complained of any chest pain abdominal pain nausea vomiting or any diarrhea at all. It mentioned that she is a DNR CC however there was to fix anything that we are able to alleviate limited to not intubating the patient submitted her do CT scans or any significant invasive testing although they did agree to BiPAP and ABG complaint: altered mental status, confusion, decreased responsiveness Timing confirmed by: family member, caregiver Pain Severity: none - Related Data Home Medications Medication Instructions Recorded Confirmed Fenofibrate Nanocrystallized 160 mg PO DAILY 03/13/18 12/10/18 [Triglide] Ferrous Sulfate [Iron] 325 mg PO BID 03/13/18 12/10/18 Metoprolol Succinate 200 mg PO DAILY 05/15/18 12/10/18 LORazepam [Ativan] 0.5 mg PO QID PRN 07/23/18 12/10/18 Memantine HCl 10 mg PO BID 07/23/18 12/10/18 Amitriptyline [Elavil] 25 mg PO HS 07/24/18 12/10/18 Bumetanide 2 mg PO BID 11/25/18 12/10/18 Dextromethorphan HBr/Quinidine 1 cap PO BID 11/25/18 12/10/18 [Nuedexta 20-10 mg Capsule] Ondansetron HCl [Zofran] 4 mg PO Q6H PRN 11/25/18 12/10/18 Sertraline [Zoloft] 100 mg PO DAILY 11/25/18 12/10/18 Trazodone HCl 100 mg PO HS 11/25/18 12/10/18 amLODIPine [Norvasc] 5 mg PO HS 11/25/18 12/10/18 Ergocalciferol (VITAMIN D2) 50,000 unit PO [place] 12/10/18 12/10/18 [Vitamin D2] HYDROcodone/Acet 5/325 mg [Alpine 2 tab PO Q4H PRN 12/10/18 12/10/18 5-325 mg] Hydrocodone/Acetaminophen [[place] 1 tab PO Q4H PRN 12/10/18 12/10/18 5-325 Tablet] OxyCODONE Immed Rel [Roxicodone 10 10 mg PO Q4H PRN 12/10/18 12/10/18 MG] Previous Rx's Medication Instructions Recorded Insulin NPH/REG 70/30 [HumuLIN 10 units SQ BID #0 11/28/18 70/30 VIAL] Allergies Allergy/AdvReac Type Severity Reaction Status Date / Time ceftriaxone Allergy Hives Verified 07/22/18 20:46 gabapentin Allergy Hives Verified 07/22/18 20:46 hydrochlorothiazide Allergy Hives Verified 07/22/18 20:46 pregabalin Allergy Hives Verified 07/22/18 20:46 risperidone AdvReac Confusion Verified 07/22/18 20:46 All systems ED: reviewed and negative except as stated. Constitutional: Reports: weakness. Denies: fever, chills Eyes: Denies: eye pain, eye discharge, vision change ENT ED: Denies: ear pain, throat pain, dental pain, hearing loss, epistaxis, congestion, dysphagia Cardiovascular: Denies: chest pain, palpitations, dyspnea on exertion, edema, syncope Respiratory: Denies: cough, dyspnea, wheezes, hemoptysis, stridor Gastrointestinal: Denies: abdominal pain, nausea, vomiting, diarrhea, constipation, hematemesis, melena, hematochezia Musculoskeletal: Denies: back pain, neck pain, arthralgia, myalgia Integumentary: Denies: rash, abrasion, lesions Neurological: Reports: weakness, confusion. Denies: headache, numbness, paresthesias, abnormal gait, vertigo Hematological/Lymphatic: Denies: easy bleeding, easy bruising Allergic/Immunologic: Denies: facial swelling, urticaria Past Medical History - Past Medical History Source: patient, old records reviewed, obtained from family (Most information from the family), nursing notes reviewed Medical history: Reports: asthma, CHF, COPD, coronary artery disease, dementia, diabetes, GERD, hyperlipidemia, hypertension, thyroid disease Surgical history: Reports: appendectomy, coronary bypass (CABG), hysterectomy Psychiatric history: Reports: anxiety - Social History Smoking Status: Never smoker Smokeless Tobacco Status: No Alcohol use: Reports: none Drug use: Reports: none Physical Exam - General Limitations: no limitations, altered mental status, physical limitation General appearance: other (Is drowsy but awake and arousable and able to answer most questions) - Head Head exam: atraumatic, normocephalic, normal inspection - Eye Eye exam: Present: normal appearance, PERRL, EOMI - ENT ENT exam: normal exam, normal oropharynx, mucous membranes dry - Neck Neck exam: Present: normal inspection, full ROM, trachea midline - Chest Chest inspection: Present: normal inspection, symmetric chest wall rise - Respiratory Respiratory exam: Present: normal lung sounds bilaterally - Cardiovascular Cardiovascular exam: Present: regular rate, normal rhythm, normal heart sounds - Abdominal Exam Abdominal exam: Present: soft, Non-Tender, tenderness (Suprapubic and lower abdominal area). Absent: distention, guarding, rebound, rigidity - Extremities Exam Extremities exam: Present: normal inspection, other (Prolonged capillary refill bilateral lower extremities are wrapped but do not see a obvious ulcer at this time). Absent: tenderness, pedal edema - Expanded Lower Extremity Exam Neurovascular/Tendon exam: Present: other (Capillary refill is prolonged at 3 seconds). Absent: motor deficit, sensory deficit, tendon deficit - Back Exam Back exam: Present: normal inspection, full ROM. Absent: tenderness, CVA tenderness (R), CVA tenderness (L) - Neurological Exam Neurological exam: Present: alert, reflexes normal. Absent: motor sensory deficit - Skin Skin exam: Present: warm, dry, intact, normal color Course Course Narrative: Patient arrival was able to quantify whether she had pain or did not and did state that she had some lower dental pain when questioned. However she was more somnolent and sleepy than normal. She has recently been admitted to the hospital and was placed has been on hospice and is a DNR CC. However when family arrived they wanted to keep her DNR CC but were okay with giving fluids and retaining them lab work and attempted to fix anything that we are able to do so. When initially gave him a liter bolus of normal saline obtain a urinalysis which did reveal possible early UTI. Blood cultures were was obtained as well as I did give her Levaquin 500 mg IV. He declined having a CT scan of her head. Her blood sugar was elevated at 407. However after a second liter fluid is not noted to have improved. And subcutaneous insulin was given. Not associated insulin drip before lab abnormalities such as her hyperglycemia secondary to being dehydrated. As her lips were very dry as well as her tongue. ABG and ammonia level were obtained. Ammonia level is normal. However although her pH was was almost normal at 7.31 her PCO2 was 66 and her PO2 although normal was low end of normal. Oxygen was continued continued. However, the second liter fluid and the oxygen she did started to sit up was able to converse although she does have a history of dementia she was able to talk and carry on a conversation. BiPAP was initiated as family was agreeable to this. I did speak with the on-call hospitalist Dr BOYER He will admit the patient to hospitalist observation and we will involve healthcare once again. At the end of the family elected possibly replace into a hospice hospital or to a nursing facility as they are not able to care for her at home at this time with her significant comorbidities and medical condition. Vital Signs Temperature 98.8 F 01/26/19 21:52 Pulse Rate 86 01/26/19 21:52 Respiratory Rate 20 01/26/19 21:52 Blood Pressure 158/89 01/26/19 21:52 O2 Sat by Pulse Oximetry 95 01/26/19 21:52 Temperature 98.8 F 01/26/19 21:52 Pulse Rate 88 01/27/19 06:06 Respiratory Rate 20 01/27/19 05:00 Blood Pressure 149/78 01/27/19 06:06 O2 Sat by Pulse Oximetry 98 01/27/19 06:18 Oxygen Delivery Oxygen Delivery Bipap Altered Mental Status - Medical Records Medical records reviewed: Yes I reviewed the patient's medical records. - Lab Data Lab results reviewed: Yes I reviewed the patient's lab results. Result diagrams: 01/26/19 22:53 01/26/19 22:53 Lab Results 01/26/19 01/26/19 01/26/19 Range/Units 22:04 22:53 22:53 WBC 8.8 (4.3-11.1) K/mcL RBC 3.80 L (3.82-4.97) M/mcL Hgb 11.2 L (11.5-15.4) g/dL Hct 34.3 L (35.3-44.9) % MCV 90.3 (83.0-100.0) fL MCH 29.5 (28.0-33.3) pg MCHC 32.7 (31.6-35.5) g/dL RDW 13.6 (11.5-14.5) % Plt Count 197 (140-400) K/mcL MPV 9.5 (9.4-12.4) fL Immature Gran % 0.3 (0-4) % Seg Neutrophils % 71.0 % Lymphocytes % 16.5 % Monocytes % 10.5 % Eosinophils % 1.4 % Basophils % 0.3 % Neutrophils # 6.2 (1.6-8.9) K/mcL Lymphocytes # 1.5 (0.6-4.6) K/mcL Monocytes # 0.9 (0.0-1.3) K/mcL Eosinophils # 0.1 (0.0-0.6) K/mcL Basophils # 0.0 (0.0-0.2) K/mcL ABG pH (7.32-7.45) pH Units ABG pCO2 (35-45) mmHg ABG pO2 (85-104) mmHg ABG HCO3 (21-27) mEq/L ABG Total CO2 (20-26) mEq/L ABG O2 Saturation (95-98) % ABG Base Excess (-2 to 3) mEq/L O2 Delivery Device Inspired O2 (1-15=lpm [id number]=%) Sodium 139 (136-145) mEq/L Potassium 4.1 (3.5-5.1) mEq/L Chloride 102 (98-107) mEq/L Carbon Dioxide 27 (23-29) mEq/L BUN 33 H (8-23) mg/dL Creatinine 1.14 (0.60-1.20) mg/dL Est GFR ( Amer) 57 L (> 60) Est GFR (Non-Af Amer) 47 L (> 60) BUN/Creatinine Ratio 29 H (6-26) Glucose 407 H (70-105) mg/dL Calculated Osmolality 312 H (280-300) Lactic Acid (0.5-2.2) mmol/L Calcium 8.8 (8.6-10.3) mg/dL Total Bilirubin 0.4 (0.3-1.0) mg/dL Direct Bilirubin 0.1 (0.0-0.2) mg/dL Indirect Bilirubin 0.3 (0.0-1.2) mg/dL AST 14 (13-39) Units/L ALT 14 (7-52) Units/L Alkaline Phosphatase 102 (34-104) Units/L Ammonia (16-53) mcmol/L Troponin I < 0.03 (< 0.04) ng/mL Serum Total Protein 6.3 L (6.4-8.9) g/dL Albumin 3.1 L (3.5-5.7) g/dL Globulin 3.2 (2.4-3.5) g/dL Albumin/Globulin Ratio 1.0 L (1.1-2.2) Lipase 3 L (11-82) Units/L Beta-Hydroxybutyric Acd (0.02-0.27) mmol/L Urine Color Yellow (Yellow) Urine Clarity Cloudy A (Clear) Urine pH 5.0 (5.0-8.0) pH Units Ur Specific [place] 1.017 (1.010-1.025) Urine Protein 100 H (Neg-Trace) mg/dL Urine Glucose (UA) >=1000 H (Normal) mg/dL Urine Ketones Negative (Negative) mg/dL Urine Blood Moderate H (Negative) Urine Nitrite Negative (Negative) Urine Bilirubin Negative (Negative) Urine Urobilinogen Normal (Normal) mg/dL Ur Leukocyte Esterase Trace H (Negative) Urine Microscopic RBC 30-50 H (0-3) per hpf Urine Microscopic WBC 30-50 H (0-3) per hpf Ur Squamous Epith Cells Moderate H (None-Few) per lpf Urine Bacteria None Seen (None-Few) per hpf Hyaline Casts None Seen (None-Few) per lpf Ur Culture Indicated? YES A (NO) 01/26/19 01/26/19 01/27/19 Range/Units 22:53 22:53 01:47 WBC (4.3-11.1) K/mcL RBC (3.82-4.97) M/mcL Hgb (11.5-15.4) g/dL Hct (35.3-44.9) % MCV (83.0-100.0) fL MCH (28.0-33.3) pg MCHC (31.6-35.5) g/dL RDW (11.5-14.5) % Plt Count (140-400) K/mcL MPV (9.4-12.4) fL Immature Gran % (0-4) % Seg Neutrophils % % Lymphocytes % % Monocytes % % Eosinophils % % Basophils % % Neutrophils # (1.6-8.9) K/mcL Lymphocytes # (0.6-4.6) K/mcL Monocytes # (0.0-1.3) K/mcL Eosinophils # (0.0-0.6) K/mcL Basophils # (0.0-0.2) K/mcL ABG pH (7.32-7.45) pH Units ABG pCO2 (35-45) mmHg ABG pO2 (85-104) mmHg ABG HCO3 (21-27) mEq/L ABG Total CO2 (20-26) mEq/L ABG O2 Saturation (95-98) % ABG Base Excess (-2 to 3) mEq/L O2 Delivery Device Inspired O2 (1-15=lpm [id number]=%) Sodium (136-145) mEq/L Potassium (3.5-5.1) mEq/L Chloride (98-107) mEq/L Carbon Dioxide (23-29) mEq/L BUN (8-23) mg/dL Creatinine (0.60-1.20) mg/dL Est GFR ( Amer) (> 60) Est GFR (Non-Af Amer) (> 60) BUN/Creatinine Ratio (6-26) Glucose (70-105) mg/dL Calculated Osmolality (280-300) Lactic Acid 1.1 (0.5-2.2) mmol/L Calcium (8.6-10.3) mg/dL Total Bilirubin (0.3-1.0) mg/dL Direct Bilirubin (0.0-0.2) mg/dL Indirect Bilirubin (0.0-1.2) mg/dL AST (13-39) Units/L ALT (7-52) Units/L Alkaline Phosphatase (34-104) Units/L Ammonia 29 (16-53) mcmol/L Troponin I (< 0.04) ng/mL Serum Total Protein (6.4-8.9) g/dL Albumin (3.5-5.7) g/dL Globulin (2.4-3.5) g/dL Albumin/Globulin Ratio (1.1-2.2) Lipase (11-82) Units/L Beta-Hydroxybutyric Acd 1.10 H (0.02-0.27) mmol/L Urine Color (Yellow) Urine Clarity (Clear) Urine pH (5.0-8.0) pH Units Ur Specific [place] (1.010-1.025) Urine Protein (Neg-Trace) mg/dL Urine Glucose (UA) (Normal) mg/dL Urine Ketones (Negative) mg/dL Urine Blood (Negative) Urine Nitrite (Negative) Urine Bilirubin (Negative) Urine Urobilinogen (Normal) mg/dL Ur Leukocyte Esterase (Negative) Urine Microscopic RBC (0-3) per hpf Urine Microscopic WBC (0-3) per hpf Ur Squamous Epith Cells (None-Few) per lpf Urine Bacteria (None-Few) per hpf Hyaline Casts (None-Few) per lpf Ur Culture Indicated? (NO) 01/27/19 Range/Units 03:18 WBC (4.3-11.1) K/mcL RBC (3.82-4.97) M/mcL Hgb (11.5-15.4) g/dL Hct (35.3-44.9) % MCV (83.0-100.0) fL MCH (28.0-33.3) pg MCHC (31.6-35.5) g/dL RDW (11.5-14.5) % Plt Count (140-400) K/mcL MPV (9.4-12.4) fL Immature Gran % (0-4) % Seg Neutrophils % % Lymphocytes % % Monocytes % % Eosinophils % % Basophils % % Neutrophils # (1.6-8.9) K/mcL Lymphocytes # (0.6-4.6) K/mcL Monocytes # (0.0-1.3) K/mcL Eosinophils # (0.0-0.6) K/mcL Basophils # (0.0-0.2) K/mcL ABG pH 7.31 L (7.32-7.45) pH Units ABG pCO2 66 H (35-45) mmHg ABG pO2 83 L (85-104) mmHg ABG HCO3 33 H (21-27) mEq/L ABG Total CO2 35 H (20-26) mEq/L ABG O2 Saturation 95 (95-98) % ABG Base Excess 5 H (-2 to 3) mEq/L O2 Delivery Device Cannula Inspired O2 3.0 (1-15=lpm nm47-916=%) Sodium (136-145) mEq/L Potassium (3.5-5.1) mEq/L Chloride (98-107) mEq/L Carbon Dioxide (23-29) mEq/L BUN (8-23) mg/dL Creatinine (0.60-1.20) mg/dL Est GFR ( Amer) (> 60) Est GFR (Non-Af Amer) (> 60) BUN/Creatinine Ratio (6-26) Glucose (70-105) mg/dL Calculated Osmolality (280-300) Lactic Acid (0.5-2.2) mmol/L Calcium (8.6-10.3) mg/dL Total Bilirubin (0.3-1.0) mg/dL Direct Bilirubin (0.0-0.2) mg/dL Indirect Bilirubin (0.0-1.2) mg/dL AST (13-39) Units/L ALT (7-52) Units/L Alkaline Phosphatase (34-104) Units/L Ammonia (16-53) mcmol/L Troponin I (< 0.04) ng/mL Serum Total Protein (6.4-8.9) g/dL Albumin (3.5-5.7) g/dL Globulin (2.4-3.5) g/dL Albumin/Globulin Ratio (1.1-2.2) Lipase (11-82) Units/L Beta-Hydroxybutyric Acd (0.02-0.27) mmol/L Urine Color (Yellow) Urine Clarity (Clear) Urine pH (5.0-8.0) pH Units Ur Specific [place] (1.010-1.025) Urine Protein (Neg-Trace) mg/dL Urine Glucose (UA) (Normal) mg/dL Urine Ketones (Negative) mg/dL Urine Blood (Negative) Urine Nitrite (Negative) Urine Bilirubin (Negative) Urine Urobilinogen (Normal) mg/dL Ur Leukocyte Esterase (Negative) Urine Microscopic RBC (0-3) per hpf Urine Microscopic WBC (0-3) per hpf Ur Squamous Epith Cells (None-Few) per lpf Urine Bacteria (None-Few) per hpf Hyaline Casts (None-Few) per lpf Ur Culture Indicated? (NO) - Radiology Data Radiology results reviewed: Yes I reviewed the patient's radiology results. cc: John Rubin; Jasper Quintanilla; ~ EXAMINATION: ONE XRAY VIEW OF THE CHEST 01/26/2019 8:10 pm COMPARISON: 12/10/2018 HISTORY: ORDERING SYSTEM PROVIDED HISTORY: AMS FINDINGS: Cardial-pericardial silhouette is enlarged but stable. Minimal atelectasis left lung base. No focal infiltrate is identified. No pneumothorax. No free air. No acute bony abnormality. Midline sternotomy wires are unchanged. XR/XR chest 1V portable IMPRESSION: No acute abnormality detected. D/ / Vinicius Guzman MD / Vinicius Guzman MD Interpreting Provider: Vinicius Guzman MD - EKG Data EKG attestation: Yes I reviewed and interpreted this EKG. EKG results narrative: EKG shows normal sinus rhythm at 68 bpm, first-degree AV block, interventricular conduction delay, left axis deviation, no acute ST elevations TPA Checklist - LKW: 3-4.5 hrs Add. Warnings/Precautions Patient/family understanding: The patient/family members have been counseled and understood the risk, benefit, and alternatives of treatment. Critical Care Time Critical Care Time: Yes Total Critical Care Time: 60 Attestation: The high probability of a clinically significant, sudden or life threatening deterioration of the patient's condition required my full and direct attention, intervention and personal management.
--- NOTE | 2019-01-27 09:32 | Internal Med History&Physical ---
<Yonathan Bynum - Last Filed: 01/27/19 12:23> Date of Encounter: 01/27/19 Time of Encounter: 09:17 Internal Medicine - H&P: HPI Chief complaint: AMS Admitted From: Emergency Dept Plans for Post Hospital Care: Home History of present illness: Ms. Berry is a 73 year old female with PMHx of HTN, depression, anxiety, OA, CKD stage III, CAD, DM II, obesity, Parkinsons disease, COPD (non compliant with home Oxygen). Patient was recently admitted/ 12/10-12/12 for acute on chronic respiratory failure due to decompensated heart failure. She was previously enrolled in home hospice but was non compliant with diuretics and oxygen use. patient was brought to the hospital per [facility] because she had al tered mental status and was very short of breath. No family was available at bedside and patient was not able to give a good history. Labwork showed PCO2 of 66. Past Med Surg Social Fam HX - Past Medical History Medical history: asthma, CHF, COPD, coronary artery disease, dementia, diabetes, GERD, hyperlipidemia, hypertension, thyroid disease Additional medical history: Glaucoma Psychiatric history: anxiety - Past Surgical History Surgical History: appendectomy, coronary bypass (CABG), hysterectomy Additional surgical history: tonsillectomy - Social History Smoking Status: Never smoker Smokeless Tobacco Status: No Alcohol use: none Drug use: none - Family History Mother Adopted: No Family Member Ethnicity: Non- Living Status: Hx Family Cardiac Disorders: No Hx Family Respiratory Disorders: No Hx Family Cancer: No Hx Family GI Disorders: No Hx Family Endocrine Disorder: Yes Hx Family Neuromuscular Disorders: No (arthritis) Hx Family Neurologic Disorders: No Hx Family HEENT Disorders: No Hx Family Autoimmune Disorders: No Father Adopted: No Family Member Ethnicity: Non- Living Status: Hx Family Cardiac Disorders: Yes Hx Family Respiratory Disorders: Yes Hx Family Cancer: Yes Hx Family GI Disorders: No Hx Family Endocrine Disorder: No Hx Family Neuromuscular Disorders: No Hx Family Neurologic Disorders: No Hx Family HEENT Disorders: No Hx Family Autoimmune Disorders: No Internal Medicine - H&P: Meds Fenofibrate Nanocrystallized [Triglide] 160 mg PO DAILY 03/13/18 [History] Ferrous Sulfate [Iron] 325 mg PO BID 03/13/18 [History] Metoprolol Succinate 200 mg PO DAILY 05/15/18 [History] Memantine HCl 10 mg PO BID 07/23/18 [History] Amitriptyline [Elavil] 50 mg PO HS 07/24/18 [History] Bumetanide 2 mg PO BID 11/25/18 [History] Ondansetron HCl [Zofran] 4 mg PO Q6H PRN 11/25/18 [History] Sertraline [Zoloft] 100 mg PO DAILY 11/25/18 [History] Trazodone HCl 100 mg PO HS 11/25/18 [History] amLODIPine [Norvasc] 5 mg PO HS 11/25/18 [History] OxyCODONE Immed Rel [Roxicodone 10 MG] 10 mg PO Q4H PRN 12/10/18 [History] Docusate [Colace] 100 mg PO DAILY 01/27/19 [History] Hydrocortisone 1% OINT [Cortaid] 1 appl TP BID 01/27/19 [History] Insulin NPH Hum/Reg Insulin Hm [Humulin 70-30 Vial] 10 unit SQ BID 01/27/19 [History] LORazepam [Ativan] 0.5 mg PO QID PRN 01/27/19 [History] OxyCODONE Immed Rel [Roxicodone 10 MG] 10 mg PO DAILY 01/27/19 [History] Polyethylene Glycol 3350 [MiraLAX] 17 gm PO DAILY 01/27/19 [History] Quetiapine Fumarate [Seroquel] 50 mg PO BID 01/27/19 [History] Sulfamethoxazole/Trimeth DS [Bactrim DS] 1 each PO BID 01/27/19 [History] Allergy/AdvReac Type Severity Reaction Status Date / Time ceftriaxone Allergy Hives Verified 07/22/18 20:46 gabapentin Allergy Hives Verified 01/28/19 07:58 hydrochlorothiazide Allergy Hives Verified 01/28/19 07:58 pregabalin Allergy Hives Verified 01/28/19 07:58 risperidone AdvReac Confusion Verified 07/22/18 20:46 ROS unobtainable: due to mental status All Systems PM: A 10-system review of systems was performed and is negative for pertinent findings except as documented above in the HPI. - Constitutional Vitals: Temp Pulse Resp BP Pulse Ox 98.8 F 78 20 138/106 100 01/26/19 21:52 01/27/19 08:18 01/27/19 08:18 01/27/19 08:18 01/27/19 08:18 Exam: patient sitting up in bed on BIPAP. able to answer some questions. - Head Head exam: Present: atraumatic, normocephalic - Neck Neck exam general surgery: Present: supple, trachea midline - Respiratory Respiratory exam: Present: CTAB - Cardiovascular Cardiovascular exam: Present: RRR, +S1, +S2 - GI/Abdominal GI/Abdominal exam: Present: normal bowel sounds, soft. Absent: distended, tenderness - Extremities Exam Extremities exam: Absent: cyanotic Additional comments: bilateral lower extremity +2 pitting edema. extremities wrapped - Neurological Exam Neurological exam: Present: alert - Skin Skin exam: Present: intact Internal Med - H&P Results - Labs CBC & Chem 7: 01/26/19 22:53 01/26/19 22:53 Labs: Short CBC 01/26/19 Range/Units 22:53 WBC 8.8 (4.3-11.1) K/mcL Hgb 11.2 L (11.5-15.4) g/dL Hct 34.3 L (35.3-44.9) % Plt Count 197 (140-400) K/mcL Neutrophils # 6.2 (1.6-8.9) K/mcL BMP 01/26/19 22:53 Sodium 139 Potassium 4.1 Chloride 102 Carbon Dioxide 27 BUN 33 H Creatinine 1.14 Glucose 407 H Calcium 8.8 Cardiac Enzymes 01/26/19 Range/Units 22:53 Troponin I < 0.03 (< 0.04) ng/mL Liver Function 01/26/19 Range/Units 22:53 Total Bilirubin 0.4 (0.3-1.0) mg/dL Direct Bilirubin 0.1 (0.0-0.2) mg/dL AST 14 (13-39) Units/L ALT 14 (7-52) Units/L Alkaline Phosphatase 102 (34-104) Units/L Albumin 3.1 L (3.5-5.7) g/dL Urine 01/26/19 Range/Units 22:04 Urine Color Yellow (Yellow) Urine Clarity Cloudy A (Clear) Urine pH 5.0 (5.0-8.0) pH Units Ur Specific [place] 1.017 (1.010-1.025) Urine Protein 100 H (Neg-Trace) mg/dL Urine Glucose (UA) >=1000 H (Normal) mg/dL - ABG Interpretation ABG results: 01/27/19 03:18 ABG pH 7.31 L ABG pCO2 66 H ABG pO2 83 L ABG HCO3 33 H ABG Total CO2 35 H ABG O2 Saturation 95 ABG Base Excess 5 H - Impressions ITS Impressions Chest X-Ray 01/26/19 22:55 IMPRESSION: No acute abnormality detected. D/ / Vinicius Guzman MD / Vinicius Guzman MD Interpreting Provider: Vinicius Guzman MD - Assessment and Plan (1) Altered mental status Current Visit: No Status: Resolved Assessment and plan: patient reports from assisted for altered mental status and dyspnea. extensive history of COPD with noncompiance with home oxygen and home diuretics is on [facility], yet admitted to hospital multiple times. has met with palliative care team in the past. CXR: no acute abnormality UA: contaminated specimen with numerous WBCs. has grown klebsiella ESBL in the past Etiology of AMS unclear, could be due to CO2 narcosis from OHS/COPD. do not suspect infectious cause as WBC normal, patient not meeting sepsis criteria at this time. Plan: await urine culture, will start ABX at that time if needed. Hold off on ABX for now. palliative care consult-appreciate recs consult to [employer]p [employer] social media and crm full code for now until we get copy of code status from assisted. Qualifiers: Altered mental status type: delirium Qualified Code(s): R41.0 - Disorientation, unspecified (2) Hypertension Current Visit: No Status: Chronic Assessment and plan: hold blood pressure meds for now as patient is hypotensive Qualifiers: Hypertension type: essential hypertension Qualified Code(s): I10 - Essential (primary) hypertension (3) Congestive heart failure Current Visit: No Status: Acute Assessment and plan: last echo from 12/11/18 shows LVEF 55-60% with normal LV chamber size and function, mild concentric LVH. does not appear to be in acute exacerbation. continue to monitor. Qualifiers: Heart failure type: diastolic Heart failure chronicity: acute on chronic Qualified Code(s): I50.33 - Acute on chronic diastolic (congestive) heart failure (4) Diabetes Current Visit: No Status: Chronic Assessment and plan: history of Type 2DM Medium dose sliding scale insulin Qualifiers: Diabetes mellitus type: type 2 Diabetes mellitus chcf insulin use: unspecified chcf insulin use status Diabetes mellitus complication s tatus: with other specified complication Qualified Code(s): E11.69 - Type 2 diabetes mellitus with other specified complication (5) DVT prophylaxis Current Visit: No Status: Acute Assessment and plan: Heparin SQ - Time Spent With Patient Total time spent is greater than 50% in coordination of care (as documented) at patient's floor/unit and/or counseling patient: <Jazlyn Arciniega - Last Filed: 01/28/19 08:38> Date of Encounter: 01/27/19 Internal Medicine - H&P: HPI History of present illness: Ms. Berry is a 73 year old female All Systems PM: A 10-system review of systems was performed and is negative for pertinent findi ngs except as documented above in the HPI. - Constitutional Vitals: Temp Pulse Resp BP Pulse Ox 98.3 F 75 16 174/75 98 01/28/19 06:44 01/28/19 06:44 01/28/19 06:44 01/28/19 06:44 01/28/19 06:44 Internal Med - H&P Results - Labs CBC & Chem 7: 01/26/19 22:53 01/26/19 22:53 - ABG Interpretation ABG results: 01/27/19 03:18 ABG pH 7.31 L ABG pCO2 66 H ABG pO2 83 L ABG HCO3 33 H ABG Total CO2 35 H ABG O2 Saturation 95 ABG Base Excess 5 H - Impressions ITS Impressions Chest X-Ray 01/26/19 22:55 IMPRESSION: No acute abnormality detected. D/ / Vinicius Guzman MD / Vinicius Guzman MD Interpreting Provider: Vinicius Guzman MD - Time Spent With Patient Total time spent is greater than 50% in coordination of care (as documented) at patient's floor/unit and/or counseling patient: - Attending Attestation I performed a history and physical examination of the patient and discussed his management with the resident. I reviewed the residents note and agree with the documented findings and plan of care
[2019-01-27] MEDS ORDERED: Dextrose Gel 15 GM/37.5 ML TUBE PO PRN ×2 (12:49)
[2019-01-27] MEDS ORDERED: D5% in Water 1,000 ML IVC PRN (12:49)
[2019-01-27] MEDS ORDERED: *HR* Dextrose 50 % in Water (Syg) 50 ML SYRINGE IVP PRN (12:49)
[2019-01-27] MEDS ORDERED: Ondansetron 4 MG/2 ML VIAL IVP PRN (12:50)
[2019-01-27] MEDS ORDERED: Naloxone 0.4 MG/ML INJ IVP PRN ×2 (12:50→13:03)
--- NOTE | 2019-01-27 16:07 | Palliative - Consult Note ---
Date of Encounter: 01/27/19 Time of Encounter: 14:10 - Assessment and Plan (1) Dyspnea Current Visit: No Status: Acute Assessment and plan: Continue with supportive oxygen, bipap if needed. Will add SL Oxycodone if needed. Utilizes Oxycodone po at home. Speech consult pending. Qualifiers: Dyspnea type: shortness of breath Qualified Code(s): R06.02 - Shortness of breath; R06.00 - Dyspnea, unspecified; R06.01 - Orthopnea (2) Goals of care, counseling/discussion Current Visit: Yes Status: Acute Assessment and plan: Patient is confused and there is no family at the bedside multiple calls have been attempted by staff and myself without success. Update 1620 - I did reach daughter Sangeetha via telephone. States she is medical power of contract attorney. Sangeetha was tearful, stating that it was getting difficult caring for her, but they cannot place her in ECF as would be private pay. Discussed code status at length, and Sangeetha transitioned patient to DNR-Comfort care. Code status changed to DNRCC in [facility], and I will be meeting with her tomorrow to complete DNR state form. She is ok with her receiving atb/fluids/steroids/nebs if needed. States that [facility] has a copy. I contacted Joselin Richter of [facility] and they will fax over copy of the POA. She states that they will speak with family and see if they can provide them some extra support at home. Will f/u in am. (3) Dementia Current Visit: Yes Status: Chronic Qualifiers: Dementia type: unspecified type Dementia behavioral disturbance: with behavioral disturbance Qualified Code(s): F03.91 - Unspecified dementia with behavioral disturbance (4) Palliative care encounter Current Visit: No Status: Acute (5) Acute on chronic respiratory failure with hypoxia and hypercapnia Current Visit: No Status: Acute Palliative-CN HPI - Data of Consult Consult date: 01/27/19 Requesting Physician: Escobar East MD Primary Care Provider: John Rubin MD - Consult Narrative History of present illness: Ms. Berry is a 73 year old female known to the palliative care team from previous visit who was admitted for altered mental status and shortness of breath. She has been cared for by family at home and is enrolled in [facility]. She has PMH of HTN, depression, anxiety, OA, CKD stage III, CAD, DM II, obesity, Parkinsons disease, COPD (non compliant with home Oxygen). Patient was recently admitted/ 12/10-12/12 for acute on chronic respiratory failure due to decompensated heart failure. CO2 on ABG was 66 upon arrival. Bipap was initiated for a time, then pt became agitated and wanted it off. No Leukocytosis or fever. Vitals stable. Upon my visit, patient is pleasantly confused. Disheveled appearance. Can tell me her name, and thinks she is at "[employer]". Thinks its 1974. No family at bedside. Appears to be breathing comfortably and in no distress. Haq is in place. Bilateral lower extremities wrapped with dressing and toby bandages. CC: Escobar East MD - Time Spent with Patient Time: Total time spent is greater than 50% in coordination of care (as documented) at patient's floor/unit and/or counseling patient: Past Med Surg Social Fam HX - Past Medical History Medical history: asthma, CHF, COPD, coronary artery disease, dementia, diabetes, GERD, hyperlipidemia, hypertension, thyroid disease Additional medical history: Glaucoma Psychiatric history: anxiety - Past Surgical History Surgical History: appendectomy, coronary bypass (CABG), hysterectomy Additional surgical history: tonsillectomy - Social History Smoking Status: Never smoker Smokeless Tobacco Status: No Alcohol use: none Drug use: none - Family History Mother Adopted: No Family Member Ethnicity: Non- Living Status: Hx Family Cardiac Disorders: No Hx Family Respiratory Disorders: No Hx Family Cancer: No Hx Family GI Disorders: No Hx Family Endocrine Disorder: Yes Hx Family Neuromuscular Disorders: No (arthritis) Hx Family Neurologic Disorders: No Hx Family HEENT Disorders: No Hx Family Autoimmune Disorders: No Father Adopted: No Family Member Ethnicity: Non- Living Status: Hx Family Cardiac Disorders: Yes Hx Family Respiratory Disorders: Yes Hx Family Cancer: Yes Hx Family GI Disorders: No Hx Family Endocrine Disorder: No Hx Family Neuromuscular Disorders: No Hx Family Neurologic Disorders: No Hx Family HEENT Disorders: No Hx Family Autoimmune Disorders: No Medications and Allergies Fenofibrate Nanocrystallized [Triglide] 160 mg PO DAILY 03/13/18 [History] Ferrous Sulfate [Iron] 325 mg PO BID 03/13/18 [History] Metoprolol Succinate 200 mg PO DAILY 05/15/18 [History] Memantine HCl 10 mg PO BID 07/23/18 [History] Amitriptyline [Elavil] 50 mg PO HS 07/24/18 [History] Bumetanide 2 mg PO BID 11/25/18 [History] Ondansetron HCl [Zofran] 4 mg PO Q6H PRN 11/25/18 [History] Sertraline [Zoloft] 100 mg PO DAILY 11/25/18 [History] Trazodone HCl 100 mg PO HS 11/25/18 [History] amLODIPine [Norvasc] 5 mg PO HS 11/25/18 [History] OxyCODONE Immed Rel [Roxicodone 10 MG] 10 mg PO Q4H PRN 12/10/18 [History] Docusate [Colace] 100 mg PO DAILY 01/27/19 [History] Hydrocortisone 1% OINT [Cortaid] 1 appl TP BID 01/27/19 [History] Insulin NPH Hum/Reg Insulin Hm [Humulin 70-30 Vial] 10 unit SQ DAILY 01/27/19 [History] Insulin NPH Hum/Reg Insulin Hm [Novolin 70-30 100 Unit/ml Vial] 30 unit SQ BID 01/27/19 [History] Insulin NPH Hum/Reg Insulin Hm [Novolin 70-30 100 Unit/ml Vial] 60 unit SQ BID 01/27/19 [History] LORazepam [Ativan] 0.5 mg PO QID 01/27/19 [History] OxyCODONE Immed Rel [Roxicodone 10 MG] 10 mg PO DAILY 01/27/19 [History] Polyethylene Glycol 3350 [MiraLAX] 17 gm PO DAILY 01/27/19 [History] Quetiapine Fumarate [Seroquel] 50 mg PO BID 01/27/19 [History] Sulfamethoxazole/Trimeth DS [Bactrim DS] 1 each PO BID 01/27/19 [History] Allergy/AdvReac Type Severity Reaction Status Date / Time ceftriaxone Allergy Hives Verified 07/22/18 20:46 gabapentin Allergy Hives Verified 07/22/18 20:46 hydrochlorothiazide Allergy Hives Verified 07/22/18 20:46 pregabalin Allergy Hives Verified 07/22/18 20:46 risperidone AdvReac Confusion Verified 07/22/18 20:46 ROS unobtainable: due to mental status Palliative Care-Exam - Constitutional Vitals: Temp Pulse Resp BP Pulse Ox 99.3 F 91 18 101/73 98 01/27/19 12:12 01/27/19 12:12 01/27/19 12:12 01/27/19 12:12 01/27/19 12:12 General appearance: Present: no acute distress - Head Head Exam: Present: normal inspection, normocephalic - Eye Eye exam: Present: normal appearance, PERRL - Respiratory Respiratory exam: Present: decreased breath sounds, CTAB - Cardiovascular Cardiovascular exam: Present: +S1, +S2 - GI/Abdominal Exam GI/Abdominal exam: Present: distended, normal bowel sounds, soft - Catheter Type: Urethral (Haq) - Extremities Exam Additional comments: Lower extremities with bilateral dressings/toby wraps intact - Neurological Exam Neurological exam: Present: alert Additional comments: Oriented to name only. Thinks she is at [employer], and tells me her mother takes care of her. - Skin Skin exam: Present: dry, pallor, warm Internal Medicine - CN: Reslt - Labs CBC & Chem 7: 01/26/19 22:53 01/26/19 22:53 Labs: Short CBC 01/26/19 Range/Units 22:53 WBC 8.8 (4.3-11.1) K/mcL Hgb 11.2 L (11.5-15.4) g/dL Hct 34.3 L (35.3-44.9) % Plt Count 197 (140-400) K/mcL Neutrophils # 6.2 (1.6-8.9) K/mcL BMP 01/26/19 22:53 Sodium 139 Potassium 4.1 Chloride 102 Carbon Dioxide 27 BUN 33 H Creatinine 1.14 Glucose 407 H Calcium 8.8 Cardiac Enzymes 01/26/19 Range/Units 22:53 Troponin I < 0.03 (< 0.04) ng/mL Liver Function 01/26/19 Range/Units 22:53 Total Bilirubin 0.4 (0.3-1.0) mg/dL Direct Bilirubin 0.1 (0.0-0.2) mg/dL AST 14 (13-39) Units/L ALT 14 (7-52) Units/L Alkaline Phosphatase 102 (34-104) Units/L Albumin 3.1 L (3.5-5.7) g/dL Urine 01/26/19 Range/Units 22:04 Urine Color Yellow (Yellow) Urine Clarity Cloudy A (Clear) Urine pH 5.0 (5.0-8.0) pH Units Ur Specific [place] 1.017 (1.010-1.025) Urine Protein 100 H (Neg-Trace) mg/dL Urine Glucose (UA) >=1000 H (Normal) mg/dL - ABG Interpretation ABG results: ABG ABG pH 7.31 pH Units (7.32-7.45) L 01/27/19 03:18 ABG pCO2 66 mmHg (35-45) H 01/27/19 03:18 ABG pO2 83 mmHg (85-104) L 01/27/19 03:18 ABG O2 Saturation 95 % (95-98) 01/27/19 03:18 - Impressions Impressions Chest X-Ray 01/26/19 22:55 IMPRESSION: No acute abnormality detected. D/ / Vinicius Guzman MD / Vinicius Guzman MD Interpreting Provider: Vinicius Guzman MD Consult Discharge Plan - Plan Referrals: John Rubin MD [Primary Care Provider] - Palliative Quality Palliative Quality: Screen for Code Status: NA (Patient with altered mental status, no family available), Screen for Goals of Care: NA, Screen for Pain: NA, If Pain Regimen Started, Initiate Bowel Regimen: NA, Screen for Nausea/Vomitting: NA Code Status: 01/27/19 12:50 Resuscitation Status: Active [RES] Routine Comment: Resuscitation Status: Full Code 01/27/19 13:03 Resuscitation Status: Active [RES] Routine Comment: Resuscitation Status: Full Code
[2019-01-27] MEDS ORDERED: Insulin LISPRO 300 UNITS/3 ML VIAL SQ SCH ×2 (16:30→21:00)
[2019-01-27] MEDS: *HR* Heparin 5,000 UNIT/ML VIAL SQ SCH (18:40)
[2019-01-28] MEDS: Insulin LISPRO 300 UNITS/3 ML VIAL SQ SCH ×6 (00:15→21:00)
[2019-01-28] MEDS: *HR* Heparin 5,000 UNIT/ML VIAL SQ SCH ×3 (05:26→17:35)
[2019-01-28] MEDS: Metoprolol XL (24 HR) Succ 50 MG TAB.ER.24H PO SCH (09:55)
--- NOTE | 2019-01-28 10:00 | Internal Med Progress Note ---
<Yamila Stoner - Last Filed: 01/28/19 15:48> Hospitalist Progress Note - Encounter Date of Encounter: 01/28/19 Time of Encounter: 10:30 - Subjective Interval History: Patient seen examined at bedside. She is sitting up in bed comfortably resting. She is alert and oriented times 3 however she is confused on why she is in the hospital. She believes that she is here for her daughter's boyfriend doctor's appointment. She does denied fever, chills, cough, shortness of breath, abdominal pain, diarrhea, abdominal pain. She has no complaints. She reports that she does use oxygen 2 L as needed. However she is not short of breath now. - Exam Vitals: Temp Pulse Resp BP Pulse Ox 98.3 F 75 16 174/75 98 01/28/19 06:44 01/28/19 06:44 01/28/19 06:44 01/28/19 06:44 01/28/19 06:44 Exam: Gen.: Vitals noted. No acute distress. AAOx3 HEENT: oropharynx clear, Normocephalic, atraumatic Cardiac: RRR, no murmur, +S1/S2 Pulmonary: CTA bilaterally, no wheezes, rales or rhonchi, equal chest expansion Abdomen: soft, nontender, Bowel sounds noted, no guarding MSK: no joint swelling noted Extremities: +1 BLE edema, nontender calf, no cyanosis or clubbing Neuro: A&Ox3, moves all extremities Psych: Appropriate mood and behavior - Assessment and Plan (1) Acute encephalopathy Current Visit: Yes Status: Acute Assessment and Plan: acute encephalopathy likely secondary to hypoxia from her noncompliance with BiPAP and oxygen along with diuretics for congestive heart failure. She also appears to have some baseline psychiatric illness. Does not appear to be cardiacin etiology or stroke as she has not been demonstrate focal neurologic deficits. -currently alert and oriented times 3 however she is confused to is why she is at the hospital. -ABG: pH 7.31, CO2 66, O2 83, HCO3 33 -SpO2 90% on room air -chest x-ray unremarkable -urine culture negative -blood culture pending plan: -continue patient's home Seroquel, Ativan, sertraline, Namenda, amitriptyline -continue BiPAP for bedtime and supplemental oxygen during the day -continue supportive management -palliative care following due to the patient's DNR CC code status on hospice. palliative care is working on where the patient will be discharged to once ready. -PT/OT to evaluate patient -social work following (2) Acute respiratory failure with hypercapnia Current Visit: No Status: Acute Assessment and Plan: Resolved. Acute on chronic respiratory failure with hypercapnia. This is likely secondary to her noncompliance with BiPAP and oxygen and also noncompliance with diuretic use. She is recurrent noncompliance. This is in the setting of having COPD and congestive heart failure. -ABG: pH 7.31, CO2 66, O2 83, HCO3 33 -SpO2 90% on room air -chest x-ray unremarkable -continue supplemental oxygen -continue home bumetanide (3) Hypertension Current Visit: No Status: Chronic Assessment and Plan: History of hypertension taking metoprolol and amlodipine -blood pressure elevated -restart home blood pressure medication and continue to monitor (4) Diabetes Current Visit: No Status: Chronic Assessment and Plan: History of diabetes taking insulin -glucose elevated -continue meeting to sliding scale insulin and will evaluate for possible basal insulin -continue Accu check -continue diabetic diet (5) Congestive heart failure Current Visit: No Status: Acute Assessment and Plan: History of CHFpEF taking metoprolol, amlodipine, bumetanide. -Continue home medications (6) Dementia Current Visit: Yes Status: Chronic Assessment and Plan: History of dementia taking the memantine. Continue medication (7) DVT prophylaxis Current Visit: No Status: Acute Assessment and Plan: Heparin SQ - Time Spent with Patient Total time spent is greater than 50% in coordination of care (as documented) at patient's floor/unit and/or counseling patient: Internal Medicine: Result - Labs CBC & Chem 7: 01/28/19 11:15 01/28/19 11:15 - ABG Interpretation ABG results: ABG ABG pH 7.31 pH Units (7.32-7.45) L 01/27/19 03:18 ABG pCO2 66 mmHg (35-45) H 01/27/19 03:18 ABG pO2 83 mmHg (85-104) L 01/27/19 03:18 ABG O2 Saturation 95 % (95-98) 01/27/19 03:18 Consult Discharge Plan - Plan Referrals: John Rubin MD [Primary Care Provider] - <ChuckRachel M - Last Filed: 01/28/19 16:44> Hospitalist Progress Note - Encounter Date of Encounter: 01/28/19 - Exam Vitals: Temp Pulse Resp BP Pulse Ox 98.8 F 81 18 180/64 90 01/28/19 10:00 01/28/19 10:00 01/28/19 10:00 01/28/19 10:00 01/28/19 10:00 - Time Spent with Patient Total time spent is greater than 50% in coordination of care (as documented) at patient's floor/unit and/or counseling patient: Internal Medicine: Result - Labs CBC & Chem 7: 01/28/19 11:15 01/28/19 11:15 Labs: Short CBC 01/28/19 Range/Units 11:15 WBC 10.0 (4.3-11.1) K/mcL Hgb 11.1 L (11.5-15.4) g/dL Hct 34.9 L (35.3-44.9) % Plt Count 222 (140-400) K/mcL Neutrophils # 7.8 (1.6-8.9) K/mcL BMP 01/28/19 11:15 Sodium 144 Potassium 3.9 Chloride 107 Carbon Dioxide 30 H BUN 25 H Creatinine 0.91 Glucose 252 H Calcium 9.2 - ABG Interpretation ABG results: ABG ABG pH 7.31 pH Units (7.32-7.45) L 01/27/19 03:18 ABG pCO2 66 mmHg (35-45) H 01/27/19 03:18 ABG pO2 83 mmHg (85-104) L 01/27/19 03:18 ABG O2 Saturation 95 % (95-98) 01/27/19 03:18 - Attending Attestation I examined this patient and my medical decision-making was reviewed with the Resident Physician Dr Stoner. I agree with the documented findings, disposition and treatment plan as described except to the extent set forth below. Ms Berry is being observed after presenting with acute encephalopathy and sob from home hospice awake, no family present, Palliative care at bedside. Pt denies any cough, abd pain, diarrhea, rash or wounds. She answers questions appropriately but seems still somewhat confused. It is clearly documented and Palliative has confirmed with Home Hospice agency that pt is non compliant with her home o2 and bipap. She presented with co2 retention and hypoxia highly likely from not wearing home rx o2 and bipap as r eported by her home agency. Recent admit end of november for acute on chronic resp failure 2/2 CHF. Palliative has received word not compliant with diuretic either. Renetta met with family whocannot manage pt at home with home hospice and is pursuing placement gen- alert, awake,appears stated age eyes- pupils equal round , eom intact cv- reg rate and rhythm, normal s1,s2, no murmurs appreciated, no le edema lungs- ctabl, no wheezing, rhonchi or crackles, normal resp effort on o2 nc abd- soft, non tender, non distended, + bs msk- toby wrap to bl legs neuro- AAOxperson, not place, CN grossly intact,moves all ext without focal deficit and strength intact and equal throughout Acute Encephalopathy Etiology suspected to be hypoxia with CO2 retention in setting of non compliance with home chronic resp failure treatment No signs of infectious process at this time, no signs of cardiac event or CVA/other neurologic event -encourage compliance wiht oxygen, cont home seroquel and ativan as she became agitated without it Chronic resp failure with COPD and HFpEF- home o2, check vbg if further mentation changes throughout day, she saturates well with o2 in place, cont home diuretic HTN, elevated above goal- resume home meds and monitor, outpt fu required HFpEF, stable- cont home med regimen Outpt UTI being tx with bactrim- cont course, was due to complete course 01/31 dispo- plan is to have pt/ot eval to see if meets skilled need, family requesting placement as cant care for her at home, Renetta following to aide in hospice continuation at ma further diagnoses and plan as noted by resident <Yamila Stoner - Last Filed: 01/28/19 15:48> (3) Hypertension Qualifiers: Hypertension type: unspecified Qualified Code(s): I10 - Essential (primary) hypertension (4) Diabetes Qualifiers: Diabetes mellitus type: type 2 Diabetes mellitus shelter insulin use: unspecified supervisor intermediates insulin use status Diabetes mellitus complication status: with other specified complication Qualified Code(s): E11.69 - Type 2 diabetes mellitus with other specified complication (5) Congestive heart failure Qualifiers: Heart failure type: diastolic Heart failure chronicity: acute on chronic Qualified Code(s): I50.33 - Acute on chronic diastolic (congestive) heart failure (6) Dementia Qualifiers: Dementia type: unspecified type Dementia behavioral disturbance: with behavioral disturbance Qualified Code(s): F03.91 - Unspecified dementia with behavioral disturbance
--- NOTE | 2019-01-28 10:37 | Palliative Progress Note ---
Date of Encounter: 01/28/19 Time of Encounter: 09:30 - Assessment and plan (1) Dyspnea Current Visit: No Status: Acute Assessment and plan: Refused bipap last night. Currently on nasal cannula. Denies shortness of breath this am. Qualifiers: Dyspnea type: shortness of breath Qualified Code(s): R06.02 - Shortness of breath; R06.00 - Dyspnea, unspecified; R06.01 - Orthopnea (2) Goals of care, counseling/discussion Current Visit: Yes Status: Acute Assessment and plan: Patient's daughter hopefully will be in today. I couldn't reach her this am by phone. D/W Dr. Alvarado in pt room, she is more alert, but remains pleasantly confused. D/W Joselin Richter from [facility] that pt remains observation bed, and thus far negative for any infection, could likely be discharged soon. Will need plan in place with daughter - home or ECF. Reached out to Dr. Yamila Stoner regarding restarting pt regular home meds as blood pressure drifting up. Will f/u later today. (3) Dementia Current Visit: Yes Status: Chronic Qualifiers: Dementia type: unspecified type Dementia behavioral disturbance: with behavioral disturbance Qualified Code(s): F03.91 - Unspecified dementia with behavioral disturbance (4) Palliative care encounter Current Visit: No Status: Acute (5) Acute on chronic respiratory failure with hypoxia and hypercapnia Current Visit: No Status: Acute - Time Spent With Patient Total time spent is greater than 50% in coordination of care (as documented) at patient's floor/unit and/or counseling patient: - Subjective Interval history: Patient awake and alert today, but oriented to name only. She is able to tell me her daughter's name today, but still quite confused and difficult to reorient her. Denies dyspnea, pain or discomfort. Asking for something to eat. Speech therapy did see her and she now has diet ordered. Hospitalist in room at time of my visit. No family present as of yet. Vitals stable, Labs noted. No leukocytosis. Cultures neg thus far. - Constitutional Vitals: Abnormal lab results RBC 3.80 M/mcL (3.82-4.97) L 01/26/19 22:53 Hgb 11.2 g/dL (11.5-15.4) L 01/26/19 22:53 Hct 34.3 % (35.3-44.9) L 01/26/19 22:53 ABG pH 7.31 pH Units (7.32-7.45) L 01/27/19 03:18 ABG pCO2 66 mmHg (35-45) H 01/27/19 03:18 ABG pO2 83 mmHg (85-104) L 01/27/19 03:18 ABG HCO3 33 mEq/L (21-27) H 01/27/19 03:18 ABG Total CO2 35 mEq/L (20-26) H 01/27/19 03:18 ABG Base Excess 5 mEq/L (-2 to 3) H 01/27/19 03:18 BUN 33 mg/dL (8-23) H 01/26/19 22:53 Est GFR ( Amer) 57 (> 60) L 01/26/19 22:53 Est GFR (Non-Af Amer) 47 (> 60) L 01/26/19 22:53 29 (6-26) H 01/26/19 22:53 Glucose 407 mg/dL (70-105) H 01/26/19 22:53 POC Glucose 191 mg/dL (70-99) H 01/28/19 05:21 312 (280-300) H 01/26/19 22:53 6.3 g/dL (6.4-8.9) L 01/26/19 22:53 3.1 g/dL (3.5-5.7) L 01/26/19 22:53 1.0 (1.1-2.2) L 01/26/19 22:53 3 Units/L (11-82) L 01/26/19 22:53 Beta-Hydroxybutyric Acd 1.10 mmol/L (0.02-0.27) H 01/26/19 22:53 Cloudy (Clear) A 01/26/19 22:04 100 mg/dL (Neg-Trace) H 01/26/19 22:04 >=1000 mg/dL (Normal) H 01/26/19 22:04 Moderate (Negative) H 01/26/19 22:04 Ur Leukocyte Esterase Trace (Negative) H 01/26/19 22:04 30-50 per hpf (0-3) H 01/26/19 22:04 30-50 per hpf (0-3) H 01/26/19 22:04 Ur Squamous Epith Cells Moderate per lpf (None-Few) H 01/26/19 22:04 Ur Culture Indicated? YES (NO) A 01/26/19 22:04 General appearance: Present: no acute distress - Respiratory Respiratory exam: Present: decreased breath sounds - Cardiovascular Cardiovascular exam: Present: +S1, +S2 - GI/Abdominal GI/Abdominal exam: Present: normal bowel sounds, soft - Additional comments: Haq with clear yellow urine - Extremities Exam Additional comments: Lower extremity dressing D/I. - Neurological Exam Neurological exam: Present: alert, altered Additional comments: SIDDIQI - has difficulty following commands r/t mental status. - Skin Skin exam: Present: dry, warm Palliative Quality Palliative Quality: Screen for Code Status: NA (Patient with altered mental status, no family available), Screen for Goals of Care: NA, Screen for Pain: NA, If Pain Regimen Started, Initiate Bowel Regimen: NA, Screen for Nausea/Vomitting: NA Code Status: 01/27/19 12:50 Resuscitation Status: Active [RES] Routine Comment: Resuscitation Status: Full Code 01/27/19 13:03 Resuscitation Status: Active [RES] Routine Comment: Resuscitation Status: Full Code 01/27/19 16:47 DNR [Resuscitation Status: Active] [RES] Routine Comment: Resuscitation Status: DNR-Comfort Care - Labs CBC & Chem 7: 01/26/19 22:53 01/26/19 22:53 Labs: Laboratory Results - last 24 hr 01/27/19 01/27/19 01/28/19 05:29 17:52 00:02 POC Glucose 341 H 359 H 287 H 01/28/19 05:21 POC Glucose 191 H - ABG Interpretation ABG results: ABG ABG pH 7.31 pH Units (7.32-7.45) L 01/27/19 03:18 ABG pCO2 66 mmHg (35-45) H 01/27/19 03:18 ABG pO2 83 mmHg (85-104) L 01/27/19 03:18 ABG O2 Saturation 95 % (95-98) 01/27/19 03:18 Consult Discharge Plan - Plan Referrals: John Rubin MD [Primary Care Provider] -
[2019-01-28 11:33] LABS: Basophils % 0.3 %; Eosinophils # 0.2 K/mcL (0.0-0.6); Eosinophils % 1.5 %; Hematocrit 34.9 % (35.3-44.9); Hemoglobin 11.1 g/dL (11.5-15.4); Immature Granulocytes % 0.3 % (0-4); Lymphocytes # 1.3 K/mcL (0.6-4.6); Lymphocytes % 12.6 %; Mean Corpuscular HGB Conc 31.8 g/dL (31.6-35.5); Mean Corpuscular Hemoglobin 29.4 pg (28.0-33.3); Mean Corpuscular Volume 92.6 fL (83.0-100.0); Mean Platelet Volume 9.5 fL (9.4-12.4); Monocytes # 0.8 K/mcL (0.0-1.3); Monocytes % 7.6 %; Neutrophils # 7.8 K/mcL (1.6-8.9); Platelet Count 222 K/mcL (140-400); Red Blood Count 3.77 M/mcL (3.82-4.97); Segmented Neutrophils % 77.7 %
[2019-01-28 11:56] LABS: BUN/Creatinine Ratio 27 (6-26); Blood Urea Nitrogen 25 mg/dL (8-23); Calcium 9.2 mg/dL (8.6-10.3); Carbon Dioxide 30 mEq/L (23-29); Chloride 107 mEq/L (98-107); Glucose 252 mg/dL (70-105); Osmolality,Calculated 311 (280-300); Phosphorous 2.6 mg/dL (2.7-4.5); Potassium 3.9 mEq/L (3.5-5.1); Sodium 144 mEq/L (136-145); eGFR For African Americans > 60 (> 60); eGFR For Non-African Americans > 60 (> 60)
[2019-01-28] MEDS ORDERED: Bumetanide 1 MG TABLET PO SCH (12:00)
[2019-01-28] MEDS: *HR* LORazepam 0.5 MG TABLET PO PRN (14:52)
[2019-01-28] MEDS: Bumetanide 1 MG TABLET PO SCH ×2 (17:18→17:35)
[2019-01-28] MEDS: amLODIPine 5 MG TABLET PO SCH ×2 (17:19→17:35)
[2019-01-28] MEDS: *HR* Metoprolol 5 MG/5 ML VIAL IVP PRN (17:57)
[2019-01-28] MEDS: Sulfamethoxazole/Trimeth DS 1 EACH TABLET PO SCH (20:57)
[2019-01-28] MEDS ORDERED: amLODIPine 5 MG TABLET PO SCH (21:00)
[2019-01-28] MEDS: Hydrocortisone 1% OINT 28 GM TUBE TP SCH (21:01)
[2019-01-29] MEDS: *HR* Heparin 5,000 UNIT/ML VIAL SQ SCH ×2 (05:08→17:35)
[2019-01-29 07:34] LABS: Hematocrit 35.7 % (35.3-44.9); Hemoglobin 11.5 g/dL (11.5-15.4); Mean Corpuscular HGB Conc 32.2 g/dL (31.6-35.5); Mean Corpuscular Hemoglobin 29.6 pg (28.0-33.3); Mean Corpuscular Volume 91.8 fL (83.0-100.0); Mean Platelet Volume 9.6 fL (9.4-12.4); Platelet Count 244 K/mcL (140-400); Red Blood Count 3.89 M/mcL (3.82-4.97); Red Cell Distribution Width 13.8 % (11.5-14.5); White Blood Count 8.7 K/mcL (4.3-11.1)
[2019-01-29 07:52] LABS: BUN/Creatinine Ratio 27 (6-26); Blood Urea Nitrogen 27 mg/dL (8-23); Calcium 8.8 mg/dL (8.6-10.3); Carbon Dioxide 27 mEq/L (23-29); Chloride 100 mEq/L (98-107); Glucose 206 mg/dL (70-105); Magnesium 1.7 mg/dL (1.6-2.6); Osmolality,Calculated 293 (280-300); Phosphorous 2.7 mg/dL (2.7-4.5); Potassium 3.8 mEq/L (3.5-5.1); Sodium 136 mEq/L (136-145); eGFR For African Americans > 60 (> 60); eGFR For Non-African Americans 54 (> 60)
[2019-01-29] MEDS: Insulin LISPRO 300 UNITS/3 ML VIAL SQ SCH ×4 (08:00→21:39)
--- NOTE | 2019-01-29 08:07 | Internal Med Progress Note ---
<Rachel Woods - Last Filed: 01/29/19 13:18> Hospitalist Progress Note - Encounter Date of Encounter: 01/29/19 - Exam Vitals: Temp Pulse Resp BP Pulse Ox 98.7 F 83 20 147/58 95 01/29/19 13:00 01/29/19 13:00 01/29/19 13:00 01/29/19 13:00 01/29/19 13:00 - Assessment and Plan (1) Skin ulcer Current Visit: No Status: Chronic (2) DVT prophylaxis Current Visit: No Status: Acute (3) Hypertension Current Visit: No Status: Chronic (4) Diabetes Current Visit: No Status: Chronic (5) Acute respiratory failure with hypercapnia Current Visit: No Status: Acute (6) Dementia Current Visit: Yes Status: Chronic (7) CHF (congestive heart failure) Current Visit: Yes Status: Acute (8) Acute encephalopathy Current Visit: Yes Status: Acute - Time Spent with Patient Total time spent is greater than 50% in coordination of care (as documented) at patient's floor/unit and/or counseling patient: Internal Medicine: Result - Labs CBC & Chem 7: 01/29/19 07:03 01/29/19 07:03 Labs: Short CBC 01/29/19 Range/Units 07:03 WBC 8.7 (4.3-11.1) K/mcL Hgb 11.5 (11.5-15.4) g/dL Hct 35.7 (35.3-44.9) % Plt Count 244 (140-400) K/mcL BMP 01/29/19 07:03 Sodium 136 Potassium 3.8 Chloride 100 Carbon Dioxide 27 BUN 27 H Creatinine 1.01 Glucose 206 H Calcium 8.8 - ABG Interpretation ABG results: ABG ABG pH 7.31 pH Units (7.32-7.45) L 01/27/19 03:18 ABG pCO2 66 mmHg (35-45) H 01/27/19 03:18 ABG pO2 83 mmHg (85-104) L 01/27/19 03:18 ABG O2 Saturation 95 % (95-98) 01/27/19 03:18 Consult Discharge Plan - Plan Referrals: John Rubin MD [Primary Care Provider] - - Attending Attestation clinically unable to determine <Yamila Stoner - Last Filed: 01/29/19 14:23> Hospitalist Progress Note - Encounter Date of Encounter: 01/29/19 Time of Encounter: 10:34 - Subjective Interval History: Patient seen and examined at bedside. She is alert and oriented to person only. She believes that it is [place] and she is in another location. She is pleasantly cooperative answers questions. She finished working with physical therapy today. She denied fever, chills, shortness of breath, cough, dysuria, abdominal pain. She has no complaints. - Exam Vitals: Temp Pulse Resp BP Pulse Ox 97.7 F 55 20 174/45 94 01/29/19 07:29 01/29/19 07:29 01/29/19 07:29 01/29/19 07:29 01/29/19 07:29 Exam: Gen.: Vitals noted. No acute distress. AAOx1 HEENT: oropharynx clear, Normocephalic, atraumatic Cardiac: RRR, no murmur, +S1/S2 Pulmonary: CTA bilaterally, no wheezes, rales or rhonchi, equal chest expansion Abdomen: soft, nontender, Bowel sounds noted, no guarding MSK: no joint swelling noted, patient has stage one sacral decubitus ulcer that is currently being treated Extremities: +1 BLE edema, nontender calf, no cyanosis or clubbing, heels are wrapped due to chronic ulcers that are currently being treated Neuro: A&Ox1, moves all extremities Psych: Appropriate mood and behavior, pleasant and answers questions cooperatively - Assessment and Plan (1) Acute encephalopathy Current Visit: Yes Status: Acute Assessment and Plan: acute encephalopathy likely secondary to hypoxia from her noncompliance with BiPAP and oxygen along with diuretics for congestive heart failure. She also appears to have some baseline psychiatric illness. Does not appear to be cardiacin etiology or stroke as she has not been demonstrate focal neurologic deficits. -currently alert and oriented times 3 however she is confused to is why she is at the hospital. -ABG: pH 7.31, CO2 66, O2 83, HCO3 33 -chest x-ray unremarkable -urine culture negative -blood culture pending -the patient is alert and oriented to person only. She believes that it is [place] and she is in another location. She is pleasantly cooperative answers questions. plan: -continue patient's home Seroquel, Ativan, sertraline, Namenda, amitriptyline -continue BiPAP for bedtime and supplemental oxygen during the day -continue supportive management -palliative care following due to the patient's DNR CC code status on hospice. palliative care is working on where the patient will be discharged to once ready. -PT/OT recommends discharged to SNF for rehab -social work following. Is working with family to decide which snf facility they would like the patient to be discharged to (2) Acute respiratory failure with hypercapnia Current Visit: No Status: Acute Assessment and Plan: Resolved. Acute on chronic respiratory failure with hypercapnia. This is likely secondary to her noncompliance with BiPAP and oxygen and also noncompliance with diuretic use. She is recurrent noncompliance. This is in the setting of having COPD and congestive heart failure. -ABG: pH 7.31, CO2 66, O2 83, HCO3 33 -SpO2 94% on room air -chest x-ray unremarkable -continue supplemental oxygen -continue home bumetanide (3) UTI (urinary tract infection) Current Visit: No Status: Acute Assessment and Plan: It was noted that on medication reconciliation the patient was currently on antibiotic treatment with Bactrim for a UTI that was initiated prior to admission on 01/26/2019 to be completed on 01/31/2019. -Urine culture negative -Continue Bactrim to complete treatment that was initiated outpatient (4) Diabetes Current Visit: No Status: Chronic Assessment and Plan: History of diabetes taking insulin -glucose 206 -continue meeting to sliding scale insulin -continue Accu check -continue diabetic diet (5) Dementia Current Visit: Yes Status: Chronic Assessment and Plan: History of dementia taking the memantine. Continue medication (6) CHF (congestive heart failure) Current Visit: Yes Status: Acute Assessment and Plan: History of CHFpEF taking metoprolol, amlodipine, bumetanide. -Continue home medications (7) Hypertension Current Visit: No Status: Chronic Assessment and Plan: History of hypertension taking metoprolol and amlodipine -blood pressure elevated -continue home medications -IV Lopressor PRN (8) Skin ulcer Current Visit: No Status: Chronic Assessment and Plan: On admission patient presented with bilateral heel ulcers and a stage one sacral decubitus ulcer that was undergoing treatment prior to admission. -Wound care ordered to continue treatment and care of the ulcers. (9) DVT prophylaxis Current Visit: No Status: Acute Assessment and Plan: Heparin SQ - Time Spent with Patient Total time spent is greater than 50% in coordination of care (as documented) at patient's floor/unit and/or counseling patient: Internal Medicine: Result - Labs CBC & Chem 7: 01/29/19 07:03 01/29/19 07:03 Labs: Short CBC 01/28/19 01/29/19 Range/Units 11:15 07:03 WBC 10.0 8.7 (4.3-11.1) K/mcL Hgb 11.1 L 11.5 (11.5-15.4) g/dL Hct 34.9 L 35.7 (35.3-44.9) % Plt Count 222 244 (140-400) K/mcL Neutrophils # 7.8 (1.6-8.9) K/mcL BMP 01/28/19 01/29/19 11:15 07:03 Sodium 144 136 Potassium 3.9 3.8 Chloride 107 100 Carbon Dioxide 30 H 27 BUN 25 H 27 H Creatinine 0.91 1.01 Glucose 252 H 206 H Calcium 9.2 8.8 - ABG Interpretation ABG results: ABG ABG pH 7.31 pH Units (7.32-7.45) L 01/27/19 03:18 ABG pCO2 66 mmHg (35-45) H 01/27/19 03:18 ABG pO2 83 mmHg (85-104) L 01/27/19 03:18 ABG O2 Saturation 95 % (95-98) 01/27/19 03:18 <Rachel Woods - Last Filed: 01/29/19 13:18> (1) Skin ulcer Qualifiers: Qualified Code(s): L98.499 - Non-pressure chronic ulcer of skin of other sites with unspecified severity (3) Hypertension Qualifiers: Hypertension type: unspecified Qualified Code(s): I10 - Essential (primary) hypertension (4) Diabetes Qualifiers: Diabetes mellitus type: type 2 Diabetes mellitus mcfp insulin use: unspecified mcfp insulin use status Diabetes mellitus complication status: with other specified complication Qualified Code(s): E11.69 - Type 2 diabetes mellitus with other specified complication (6) Dementia Qualifiers: Dementia type: unspecified type Dementia behavioral disturbance: with behavioral disturbance Qualified Code(s): F03.91 - Unspecified dementia with behavioral disturbance <Yamila Stoner - Last Filed: 01/29/19 14:23> (3) UTI (urinary tract infection) Qualifiers: Urinary tract infection type: acute cystitis Hematuria presence: with hematuria Qualified Code(s): N30.01 - Acute cystitis with hematuria (4) Diabetes Qualifiers: Diabetes mellitus type: type 2 Diabetes mellitus mcfp insulin use: unspecified watermaster insulin use status Diabetes mellitus complication status: with other specified complication Qualified Code(s): E11.69 - Type 2 diabetes mellitus with other specified complication (5) Dementia Qualifiers: Dementia type: unspecified type Dementia behavioral disturbance: with behavioral disturbance Qualified Code(s): F03.91 - Unspecified dementia with behavioral disturbance (7) Hypertension Qualifiers: Hypertension type: unspecified Qualified Code(s): I10 - Essential (primary) hypertension (8) Skin ulcer Qualifiers: Qualified Code(s): L98.499 - Non-pressure chronic ulcer of skin of other sites with unspecified severity
[2019-01-29] MEDS ORDERED: Magnesium Oxide 400 MG TABLET PO ONE (10:07)
[2019-01-29] MEDS: Fenofibrate 54 MG TABLET PO SCH (10:49)
[2019-01-29] MEDS: amLODIPine 5 MG TABLET PO SCH (10:49)
[2019-01-29] MEDS: Sulfamethoxazole/Trimeth DS 1 EACH TABLET PO SCH ×2 (10:49→21:21)
[2019-01-29] MEDS: Bumetanide 1 MG TABLET PO SCH ×2 (10:49→17:35)
[2019-01-29] MEDS: Metoprolol XL (24 HR) Succ 50 MG TAB.ER.24H PO SCH (10:49)
[2019-01-29] MEDS: Hydrocortisone 1% OINT 28 GM TUBE TP SCH (10:50)
--- NOTE | 2019-01-29 12:38 | Electrocardiograph Report ---
[facility] Test Date: 2019-01-27 Pat Name: Karina Berry Department: [id number] Room: 3A12 Gender: F Preschool Director: : 1945 Requested By: [id number] Order Number: [id number] Reading MD: Darin Chung Measurements Intervals [place] Rate: 68 P: 23 CT: 209 QRS: -4 QRSD: 117 T: 104 QT: 465 QTc: 495 Interpretive Statements Sinus rhythm Probable left atrial enlargement Left ventricular hypertrophy Borderline T abnormalities, lateral leads Borderline prolonged QT interval Electronically Signed On 01-29-2019 12:37:05 EDT by Darin Chung
--- NOTE | 2019-01-29 14:00 | Palliative Progress Note ---
Date of Encounter: 01/29/19 Time of Encounter: 11:00 - Assessment and plan (1) Goals of care, counseling/discussion Current Visit: Yes Status: Acute Assessment and plan: As per palliative care meeting yesterday, patient's daughter is no longer able to care for her at home and she will need placement. PT/OT recommended ECF for r ehab. Patient remains DNRCC. (2) Dementia Current Visit: Yes Status: Chronic Assessment and plan: On memantine, remains pleasantly confused. patient was restarted on quetiapine, sertraline. recommend to restart home dose of trazodone 100 mg qhs. Qualifiers: Dementia type: unspecified type Dementia behavioral disturbance: with behavioral disturbance Qualified Code(s): F03.91 - Unspecified dementia with behavioral disturbance (3) Palliative care encounter Current Visit: No Status: Acute (4) Acute on chronic respiratory failure with hypoxia and hypercapnia Current Visit: No Status: Acute - Time Spent With Patient Total time spent is greater than 50% in coordination of care (as documented) at patient's floor/unit and/or counseling patient: less than 15 minutes - Subjective Interval history: Patient was alert and calm, oriented t self, pleasantly confused. She believes her daughter is graduating from high school today. Patient's home medication were restarted except Trazodone. recommend to start Trazodone as well. PT/OT evaluation recommended ECF for rehab. - Constitutional Vitals: Abnormal lab results RBC 3.77 M/mcL (3.82-4.97) L 01/28/19 11:15 Hgb 11.1 g/dL (11.5-15.4) L 01/28/19 11:15 Hct 34.9 % (35.3-44.9) L 01/28/19 11:15 ABG pH 7.31 pH Units (7.32-7.45) L 01/27/19 03:18 ABG pCO2 66 mmHg (35-45) H 01/27/19 03:18 ABG pO2 83 mmHg (85-104) L 01/27/19 03:18 ABG HCO3 33 mEq/L (21-27) H 01/27/19 03:18 ABG Total CO2 35 mEq/L (20-26) H 01/27/19 03:18 ABG Base Excess 5 mEq/L (-2 to 3) H 01/27/19 03:18 Carbon Dioxide 30 mEq/L (23-29) H 01/28/19 11:15 BUN 27 mg/dL (8-23) H 01/29/19 07:03 Est GFR ( Amer) 57 (> 60) L 01/26/19 22:53 Est GFR (Non-Af Amer) 54 (> 60) L 01/29/19 07:03 27 (6-26) H 01/29/19 07:03 Glucose 206 mg/dL (70-105) H 01/29/19 07:03 POC Glucose 191 mg/dL (70-99) H 01/28/19 17:09 311 (280-300) H 01/28/19 11:15 Phosphorus 2.6 mg/dL (2.7-4.5) L 01/28/19 11:15 6.3 g/dL (6.4-8.9) L 01/26/19 22:53 3.1 g/dL (3.5-5.7) L 01/26/19 22:53 1.0 (1.1-2.2) L 01/26/19 22:53 3 Units/L (11-82) L 01/26/19 22:53 Beta-Hydroxybutyric Acd 1.10 mmol/L (0.02-0.27) H 01/26/19 22:53 Cloudy (Clear) A 01/26/19 22:04 100 mg/dL (Neg-Trace) H 01/26/19 22:04 >=1000 mg/dL (Normal) H 01/26/19 22:04 Moderate (Negative) H 01/26/19 22:04 Ur Leukocyte Esterase Trace (Negative) H 01/26/19 22:04 30-50 per hpf (0-3) H 01/26/19 22:04 30-50 per hpf (0-3) H 01/26/19 22:04 Ur Squamous Epith Cells Moderate per lpf (None-Few) H 01/26/19 22:04 Ur Culture Indicated? YES (NO) A 01/26/19 22:04 Palliative Quality Palliative Quality: Screen for Code Status: NA (Patient with altered mental status, no family available), Screen for Goals of Care: NA, Screen for Pain: NA, If Pain Regimen Started, Initiate Bowel Regimen: NA, Screen for Nausea/Vomitting: NA Code Status: 01/27/19 12:50 Resuscitation Status: Active [RES] Routine Comment: Resuscitation Status: Full Code 01/27/19 13:03 Resuscitation Status: Active [RES] Routine Comment: Resuscitation Status: Full Code 01/27/19 16:47 DNR [Resuscitation Status: Active] [RES] Routine Comment: Resuscitation Status: DNR-Comfort Care - Labs CBC & Chem 7: 01/29/19 07:03 01/29/19 07:03 Labs: Laboratory Results - last 24 hr 01/28/19 01/28/19 01/29/19 11:34 17:09 07:03 WBC 8.7 RBC 3.89 Hgb 11.5 Hct 35.7 MCV 91.8 MCH 29.6 MCHC 32.2 RDW 13.8 Plt Count 244 MPV 9.6 Sodium Potassium Chloride Carbon Dioxide BUN Creatinine Est GFR ( Amer) Est GFR (Non-Af Amer) BUN/Creatinine Ratio Glucose POC Glucose 239 H 191 H Calculated Osmolality Calcium Phosphorus Magnesium 01/29/19 07:03 WBC RBC Hgb Hct MCV MCH MCHC RDW Plt Count MPV Sodium 136 Potassium 3.8 Chloride 100 Carbon Dioxide 27 BUN 27 H Creatinine 1.01 Est GFR ( Amer) > 60 Est GFR (Non-Af Amer) 54 L BUN/Creatinine Ratio 27 H Glucose 206 H POC Glucose Calculated Osmolality 293 Calcium 8.8 Phosphorus 2.7 Magnesium 1.7 - ABG Interpretation ABG results: ABG ABG pH 7.31 pH Units (7.32-7.45) L 01/27/19 03:18 ABG pCO2 66 mmHg (35-45) H 01/27/19 03:18 ABG pO2 83 mmHg (85-104) L 01/27/19 03:18 ABG O2 Saturation 95 % (95-98) 01/27/19 03:18 Consult Discharge Plan - Plan Referrals: John Rubin MD [Primary Care Provider] -
[2019-01-29] MEDS: Leptospermum Honey Gel 44 ML TUBE TP SCH (17:26)
[2019-01-30] MEDS: Hydrocortisone 1% OINT 28 GM TUBE TP SCH ×3 (00:12→20:14)
[2019-01-30] MEDS: *HR* Heparin 5,000 UNIT/ML VIAL SQ SCH ×2 (05:15→17:18)
[2019-01-30] MEDS: Insulin LISPRO 300 UNITS/3 ML VIAL SQ SCH ×4 (08:59→20:11)
[2019-01-30] MEDS: Leptospermum Honey Gel 44 ML TUBE TP SCH (09:00)
[2019-01-30] MEDS: Metoprolol XL (24 HR) Succ 50 MG TAB.ER.24H PO SCH (09:01)
[2019-01-30] MEDS: Fenofibrate 54 MG TABLET PO SCH (09:01)
[2019-01-30] MEDS: Bumetanide 1 MG TABLET PO SCH ×2 (09:01→17:18)
--- NOTE | 2019-01-30 09:01 | Discharge Summary ---
<Rachel Woods - Last Filed: 01/30/19 14:34> Orders not resulted at time of discharge: Pending orders 01/26/19 00:40 Culture,Blood [] Stat Date of Encounter: 01/30/19 - Discharge Diagnosis (1) Skin ulcer Status: Chronic Qualifiers: Qualified Code(s): L98.499 - Non-pressure chronic ulcer of skin of other sites with unspecified severity (2) DVT prophylaxis Status: Acute (3) Hypertension Status: Chronic Qualifiers: Hypertension type: unspecified Qualified Code(s): I10 - Essential (primary) hypertension (4) Diabetes Status: Chronic Qualifiers: Diabetes mellitus type: type 2 Diabetes mellitus local [employer] insulin 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 Berry is a 73 year old female - Time Spent with Patient Total time spent providing and/or coordinating discharge services: - Discharge Medications Prescriptions: New amLODIPine [Norvasc] 10 mg PO DAILY #30 tablet Miconazole 2% cream [Lesli Antifungal] 1 appl TP BID tube Continued Ferrous Sulfate [Iron] 325 mg PO BID Fenofibrate Nanocrystallized [Triglide] 160 mg PO DAILY Metoprolol Succinate 200 mg PO DAILY Memantine HCl 10 mg PO BID Amitriptyline [Elavil] 50 mg PO HS Sertraline [Zoloft] 100 mg PO DAILY Trazodone HCl 100 mg PO HS Ondansetron HCl [Zofran] 4 mg PO Q6H PRN PRN Reason: Nausea And Vomiting Bumetanide 2 mg PO BID OxyCODONE Immed Rel [Roxicodone 10 MG] 10 mg PO Q4H PRN PRN Reason: Severe Pain Hydrocortisone 1% OINT [Cortaid] 1 appl TP BID Insulin NPH Hum/Reg Insulin Hm [Humulin 70-30 Vial] 10 unit SQ BID Docusate [Colace] 100 mg PO DAILY OxyCODONE Immed Rel [Roxicodone 10 MG] 10 mg PO DAILY Polyethylene Glycol 3350 [MiraLAX] 17 gm PO DAILY LORazepam [Ativan] 0.5 mg PO QID PRN PRN Reason: Anxiety Quetiapine Fumarate [Seroquel] 50 mg PO BID Sulfamethoxazole/Trimeth DS [Bactrim Ds] 1 each PO BID #3 tablet Discontinued amLODIPine [Norvasc] 5 mg PO HS Home Medications: Fenofibrate Nanocrystallized [Triglide] 160 mg PO DAILY 03/13/18 [History] Ferrous Sulfate [Iron] 325 mg PO BID 03/13/18 [History] Metoprolol Succinate 200 mg PO DAILY 05/15/18 [History] Memantine HCl 10 mg PO BID 07/23/18 [History] Amitriptyline [Elavil] 50 mg PO HS 07/24/18 [History] Bumetanide 2 mg PO BID 11/25/18 [History] Ondansetron HCl [Zofran] 4 mg PO Q6H PRN 11/25/18 [History] Sertraline [Zoloft] 100 mg PO DAILY 11/25/18 [History] Trazodone HCl 100 mg PO HS 11/25/18 [History] OxyCODONE Immed Rel [Roxicodone 10 MG] 10 mg PO Q4H PRN 12/10/18 [History] Docusate [Colace] 100 mg PO DAILY 01/27/19 [History] Hydrocortisone 1% OINT [Cortaid] 1 appl TP BID 01/27/19 [History] Insulin NPH Hum/Reg Insulin Hm [Humulin 70-30 Vial] 10 unit SQ BID 01/27/19 [History] LORazepam [Ativan] 0.5 mg PO QID PRN 01/27/19 [History] OxyCODONE Immed Rel [Roxicodone 10 MG] 10 mg PO DAILY 01/27/19 [History] Polyethylene Glycol 3350 [MiraLAX] 17 gm PO DAILY 01/27/19 [History] Quetiapine Fumarate [Seroquel] 50 mg PO BID 01/27/19 [History] Miconazole 2% cream [Lesli Antifungal] 1 appl TP BID tube 01/30/19 [Rx] Sulfamethoxazole/Trimeth DS [Bactrim Ds] 1 each PO BID #3 tablet 01/30/19 [Rx] amLODIPine [Norvasc] 10 mg PO DAILY #30 tablet 01/30/19 [Rx] Allergies/Adverse Reactions: Allergy/AdvReac Type Severity Reaction Status Date / Time ceftriaxone Allergy Hives Verified 07/22/18 20:46 gabapentin Allergy Hives Verified 01/28/19 07:58 hydrochlorothiazide Allergy Hives Verified 01/28/19 07:58 pregabalin Allergy Hives Verified 01/28/19 07:58 risperidone AdvReac Confusion Verified 07/22/18 20:46 Date of admission: 01/27/19 08:52 Primary care physician: John Rubin MD Consults: 01/27/19 12:44 Consult to Palliative Care [CONS] Routine Comment: Consulting Provider: Palliative Care [facility]ito Reason for Consult: in [facility] but had repeat admissions to hospital. Call Completed: Yes 01/27/19 12:47 Consult to Tank Truck Driver [CONS] Routine Reason for SW Consult: Currently [facility] 01/27/19 14:52 Consult to Occupational Therapy [CONS] Routine Comment: Evaluate, develop and implement POC Reason for Consult: From home with [facility] - possible need for ECF Does patient have active BEDREST order?: No Is patient medically & hemodynamically stable?: Yes Patient assessed for mobility or mobilized this visit?: No Consult to Physical Therapy [CONS] Routine Comment: Evaluate, develop and implement POC Reason for Consult: From home with [facility] - possible need for ECF Does patient have active BEDREST order?: No Is patient medically & hemodynamically stable?: Yes Patient assessed for mobility or mobilized this visit?: Yes 01/27/19 18:58 Consult to Wound Care [CONS] Routine Reason for Consult: bilat legs wrapped in JOON. sees outpatient wound clinic Call Completed: No - Constitutional Vitals: Temp Pulse Resp BP Pulse Ox 97.6 F 70 6 105/64 95 01/30/19 11:28 01/30/19 11:28 01/30/19 11:28 01/30/19 11:28 01/30/19 11:28 - Patient Status Disposition: Transfer SNF Condition: Fair - Discharge Instructions Follow Up With: John Rubin MD [Primary Care Provider] - Additional Instructions: - Continue to take home medications including diuretics as prescribed -continue to take new increased dose of amlodipine 10 mg daily -Continue with oxygen therapy -Follow-up with primary care provider in one week -Continue to work with physical therapy - Attending Attestation I examined this patient and my medical decision-making was reviewed with the Resident Physician Dr Stoner. I agree with the documented findings, disposition and treatment plan as described except to the extent set forth below. Ms Berry is being observed after presenting with acute encephalopathy and sob from home hospice. She is medically stable for discharge to SNF [facility] cont of hospice services awake, no complaints. denies sob. she is at her baseline confusion, pleasant and cooperative. gen- alert, awake,appears stated age cv- reg rate and rhythm, normal s1,s2, no pitting le edema lungs- ctabl, normal resp effort on room air abd- soft, non tender, non distended neuro- AAOxperson, not place, CN grossly intact,moves all ext without focal deficit Acute Encephalopathy, Etiology suspected to be hypoxia with CO2 retention in setting of non compliance with home chronic resp failure treatment Complicated by baseline dementia Resolved -encourage compliance with oxygen, cont home med regimen, appreciate palliative care assistance HTN, improved- cont new dose norvasc, outpt fu required Outpt UTI being tx with bactrim- complete course 01/31 further diagnoses and plan as noted by resident time spent on dc 35 min dispo is to SNF with hospice care continued <Yamila Stoner - Last Filed: 01/30/19 15:59> - NOTES TO OUTPATIENT PROVIDER Notes to Outpatient Provider: Admitted for acute encephalopathy and acute on chronic respiratory distress with hypercapnia secondary to noncompliance with diuretics for CHF and noncompliant with oxygen. Currently on hospice. Randy pérez's family also unable to care for her needs any longer. PT/OT recommended SNF. Patient be discharged to inpatient nursing facility. Palliative evaluated patient she is DNR CC. Orders not resulted at time of discharge: Pending orders 01/26/19 00:40 Culture,Blood [BC] Stat Date of Encounter: 01/30/19 Time of Encounter: 09:00 - Discharge Diagnosis (1) Acute encephalopathy Priority: Primary Status: Acute (2) Skin ulcer Priority: Secondary Status: Chronic Qualifiers: Qualified Code(s): L98.499 - Non-pressure chronic ulcer of skin of other sites with unspecified severity (3) DVT prophylaxis Priority: Secondary Status: Acute (4) Hypertension Priority: Secondary Status: Chronic Qualifiers: Hypertension type: unspecified Qualified Code(s): I10 - Essential (primary) hypertension (5) Diabetes Priority: Secondary Status: Chronic Qualifiers: Diabetes mellitus type: type 2 Diabetes mellitus longterm insulin use: unspecified longterm insulin use status Diabetes mellitus complication statu s: with other specified complication Qualified Code(s): E11.69 - Type 2 diabetes mellitus with other specified complication (6) Acute respiratory failure with hypercapnia Priority: Secondary Status: Acute (7) Dementia Priority: Secondary Status: Chronic Qualifiers: Dementia type: unspecified type Dementia behavioral disturbance: with behavioral disturbance Qualified Code(s): F03.91 - Unspecified dementia with behavioral disturbance (8) CHF (congestive heart failure) Priority: Secondary Status: Acute Hospital course: Ms. Berry is a 73 year old female with PMHx of HTN, depression, anxiety, OA, CKD stage III, CAD, DM II, obesity, Parkinsons disease, COPD (non compliant with home Oxygen). Patient was recently admitted/ 12/10-12/12 for acute on chronic respiratory failure due to decompensated heart failure. She was previously en rolled in home hospice but was non compliant with diuretics and oxygen use. patient was brought to the hospital per [facility] hospice because she had altered mental status and was very short of breath. Labwork showed PCO2 of 66. ABG: pH 7.31, CO2 66, O2 83, HCO3 33. Chest x-ray unremarkable. Urine culture negative. Palliative care and social work contact with the family whom stated the patient is at baseline confused and she waxes and wanes. The patient's family reported that they could no longer care for her and her needs at home and requested that she be sent to a skilled nursing facility. PT/OT recommended SNF due to the patient's current mobility status and need for rehab. The patient before admission had been started on Bactrim for a urinary tract infection and so do her hospital stay her treatments with Bactrim was continued. Per records her treatment of urinary tract infection was from 01/26/2019 through 01/31/2019. Upon discharge the patient was alert and oriented to person and place only. She denied fever, chills, shortness breath, cough, abdominal pain. Social work and family set up for the patient be discharged to a rehab facility. The patient was discharged to continue with hospice she was DNR CC. She was sent with Bactrim to complete her urinary tract infection treatment. Due to elevated blood pressure the patient's amlodipine dose was increased to 10 mg daily. She was to follow up with her primary care provider in one week. Discharge discussed with: patient, nurse, social work - Time Spent with Patient Total time spent providing and/or coordinating discharge services: Time spent: Greater than 30 minutes Date of admission: 01/27/19 08:52 Primary care physician: John Rubin MD Consults: 01/27/19 12:44 Consult to Palliative Care [CONS] Routine Comment: Consulting Provider: Palliative Care Verito Reason for Consult: in [facility] but had repeat admissions to hospital. Call Completed: Yes 01/27/19 12:47 Consult to Tank Truck Driver [CONS] Routine Reason for SW Consult: Currently [facility] 01/27/19 14:52 Consult to Occupational Therapy [CONS] Routine Comment: Evaluate, develop and implement POC Reason for Consult: From home with [facility] - possible need for ECF Does patient have active BEDREST order?: No Is patient medically & hemodynamically stable?: Yes Patient assessed for mobility or mobilized this visit?: No Consult to Physical Therapy [CONS] Routine Comment: Evaluate, develop and implement POC Reason for Consult: From home with [facility] - possible need for ECF Does patient have active BEDREST order?: No Is patient medically & hemodynamically stable?: Yes Patient assessed for mobility or mobilized this visit?: Yes 01/27/19 18:58 Consult to Wound Care [CONS] Routine Reason for Consult: bilat legs wrapped in JOON. sees outpatient wound clinic Call Completed: No Discharging clinician: Rachel Woods Anticipated date of discharge: 01/30/19 - Constitutional Vitals: Temp Pulse Resp BP Pulse Ox 98.7 F 86 16 177/75 90 01/30/19 07:13 01/30/19 07:13 01/30/19 07:13 01/30/19 07:13 01/30/19 07:13 Exam: Gen.: Vitals noted. No acute distress. AAOx2 HEENT: oropharynx clear, Normocephalic, atraumatic Cardiac: RRR, no murmur, +S1/S2 Pulmonary: CTA bilaterally, no wheezes, rales or rhonchi, equal chest expansion Abdomen: soft, nontender, Bowel sounds noted, no guarding MSK: no joint swelling noted, patient has stage one sacral decubitus ulcer that is currently being treated Extremities: +1 BLE edema, nontender calf, no cyanosis or clubbing, heels are wrapped due to chronic ulcers that are currently being treated Neuro: A&Ox2, moves all extremities Psych: Appropriate mood and behavior, pleasant and answers questions cooperatively - Patient Status Functional capacity at discharge: uses cane/walker Overall status at discharge: patient is back to baseline - Diet and Activity Activity: as per physical therapy Diet: diabetic diet, low salt diet
[2019-01-30] MEDS: amLODIPine 5 MG TABLET PO SCH (09:02)
[2019-01-30] MEDS: Sulfamethoxazole/Trimeth DS 1 EACH TABLET PO SCH ×2 (09:02→20:10)
[2019-01-30] MEDS: *HR* LORazepam 0.5 MG TABLET PO PRN ×2 (12:13→20:19)
--- NOTE | 2019-01-30 12:36 | Palliative Progress Note ---
Date of Encounter: 01/30/19 Time of Encounter: 11:50 - Assessment and plan (1) Dementia Current Visit: Yes Status: Chronic Assessment and plan: Recommend following regiment including Memantine, Seroquel, Zoloft, and Trazadone. Qualifiers: Dementia type: unspecified type Dementia behavioral disturbance: with behavioral disturbance Qualified Code(s): F03.91 - Unspecified dementia with behavioral disturbance (2) Goals of care, counseling/discussion Current Visit: No Status: Acute Assessment and plan: Spoke with patient whom reports she just wants to go home. Spoke with patient's daughter Sangeetha via telephone, as Sangeetha is sick at home with eye infection. Reviewed note from SW reviewing information with message from [employer] at [employer] requiring Medicaid application be place prior to acceptance. Daughter agreed to complete today. SW made aware. Discharge plan established. No further Palliative care needs. Will sign off. Please reconsult as needed. (3) Palliative care encounter Current Visit: No Status: Acute (4) Acute on chronic respiratory failure with hypoxia and hypercapnia Current Visit: No Status: Acute - Time Spent With Patient Total time spent is greater than 50% in coordination of care (as documented) at patient's floor/unit and/or counseling patient: - Subjective Interval history: Patient sitting up at bedside upon arrival for assessment. Patient is alert to person only, disoriented to time and place. Calm on arrival; however, throughout assessment, patient became more upset and began to cry. Patient reports, "I don't want to be here, I just want to go home." Explained to patient she cannot go home currently, as she has to have help to care for her; patient reports her daughter is living off of her income and having additional people living in the home. Unsure if true, will notify SW of this situation. - Constitutional Vitals: Abnormal lab results RBC 3.77 M/mcL (3.82-4.97) L 01/28/19 11:15 Hgb 11.1 g/dL (11.5-15.4) L 01/28/19 11:15 Hct 34.9 % (35.3-44.9) L 01/28/19 11:15 ABG pH 7.31 pH Units (7.32-7.45) L 01/27/19 03:18 ABG pCO2 66 mmHg (35-45) H 01/27/19 03:18 ABG pO2 83 mmHg (85-104) L 01/27/19 03:18 ABG HCO3 33 mEq/L (21-27) H 01/27/19 03:18 ABG Total CO2 35 mEq/L (20-26) H 01/27/19 03:18 ABG Base Excess 5 mEq/L (-2 to 3) H 01/27/19 03:18 Carbon Dioxide 30 mEq/L (23-29) H 01/28/19 11:15 BUN 27 mg/dL (8-23) H 01/29/19 07:03 Est GFR ( Amer) 57 (> 60) L 01/26/19 22:53 Est GFR (Non-Af Amer) 54 (> 60) L 01/29/19 07:03 27 (6-26) H 01/29/19 07:03 Glucose 206 mg/dL (70-105) H 01/29/19 07:03 POC Glucose 184 mg/dL (70-99) H 01/29/19 20:04 311 (280-300) H 01/28/19 11:15 Phosphorus 2.6 mg/dL (2.7-4.5) L 01/28/19 11:15 6.3 g/dL (6.4-8.9) L 01/26/19 22:53 3.1 g/dL (3.5-5.7) L 01/26/19 22:53 1.0 (1.1-2.2) L 01/26/19 22:53 3 Units/L (11-82) L 01/26/19 22:53 Beta-Hydroxybutyric Acd 1.10 mmol/L (0.02-0.27) H 01/26/19 22:53 Cloudy (Clear) A 01/26/19 22:04 100 mg/dL (Neg-Trace) H 01/26/19 22:04 >=1000 mg/dL (Normal) H 01/26/19 22:04 Moderate (Negative) H 01/26/19 22:04 Ur Leukocyte Esterase Trace (Negative) H 01/26/19 22:04 30-50 per hpf (0-3) H 01/26/19 22:04 30-50 per hpf (0-3) H 01/26/19 22:04 Ur Squamous Epith Cells Moderate per lpf (None-Few) H 01/26/19 22:04 Ur Culture Indicated? YES (NO) A 01/26/19 22:04 General appearance: Present: mild distress, obese - Head Head exam: Present: atraumatic, normal inspection - Eye Eye exam: Present: normal appearance. Absent: periorbital swelling, periorbital tenderness Pupils: Present: normal accommodation - ENT ENT exam: Present: mucous membranes dry, normal external ear exam - Neck Neck exam: Present: full ROM, normal inspection - Respiratory Respiratory exam: Present: decreased breath sounds, CTAB. Absent: respiratory distress - Cardiovascular Cardiovascular exam: Present: +S1, +S2 - GI/Abdominal GI/Abdominal exam: Present: normal bowel sounds, soft. Absent: tenderness - Rectal Rectal exam: Present: deferred - Extremities Exam Extremities exam: Present: normal inspection, pedal edema (1+) - Back Exam Back exam: Present: normal inspection - Neurological Exam Neurological exam: Present: alert, altered. Absent: oriented X3 - Psychiatric Psychiatric exam: Present: normal affect, normal mood - Skin Skin exam: Present: dry, intact, warm Palliative Quality Palliative Quality: Screen for Code Status: NA (Patient with altered mental stat us, no family available), Screen for Goals of Care: NA, Screen for Pain: NA, If Pain Regimen Started, Initiate Bowel Regimen: NA, Screen for Nausea/Vomitting: NA Code Status: 01/27/19 12:50 Resuscitation Status: Active [RES] Routine Comment: Resuscitation Status: Full Code 01/27/19 13:03 Resuscitation Status: Active [RES] Routine Comment: Resuscitation Status: Full Code 01/27/19 16:47 DNR [Resuscitation Status: Active] [RES] Routine Comment: Resuscitation Status: DNR-Comfort Care - Labs CBC & Chem 7: 01/29/19 07:03 01/29/19 07:03 Labs: Laboratory Results - last 24 hr 01/28/19 01/29/19 01/29/19 19:37 07:26 12:59 POC Glucose 175 H 195 H 304 H 01/29/19 01/29/19 16:23 20:04 POC Glucose 149 H 184 H - ABG Interpretation ABG results: ABG ABG pH 7.31 pH Units (7.32-7.45) L 01/27/19 03:18 ABG pCO2 66 mmHg (35-45) H 01/27/19 03:18 ABG pO2 83 mmHg (85-104) L 01/27/19 03:18 ABG O2 Saturation 95 % (95-98) 01/27/19 03:18 Palliative Scale - Palliative Performance Scale How ambulatory is this patient?: Mainly sit / lie What is patient's level of activity and evidence of disease?: Unable hobby/housework, Significant disease How much self-care assistance does patient require?: Considerable assistance required How much oral intake does the patient have?: Normal or reduced What is this patient's level of consciousness?: Full or confusion Palliative Performance Score: 60 % Consult Discharge Plan - Plan Additional Instructions: - Continue to take home medications including diuretics as prescribed -continue to take new increased dose of amlodipine 10 mg daily -Continue with oxygen therapy -Follow-up with primary care provider in one week -Continue to work with physical therapy Referrals: Jhon Rubin MD [Primary Care Provider] -
--- NOTE | 2019-01-30 16:10 | Physician Discharge Referral ---
<Yamila Stoner - Last Filed: 01/30/19 16:08> [facility] Referral Info Transfer To: SNF Provider in Charge after Transfer: PCP Institutional Level of Care: Skilled - Diagnosis (1) Acute encephalopathy Status: Acute (2) Skin ulcer Status: Chronic (3) DVT prophylaxis Status: Acute (4) Hypertension Status: Chronic (5) Diabetes Status: Chronic (6) Acute respiratory failure with hypercapnia Status: Acute (7) Dementia Status: Chronic (8) CHF (congestive heart failure) Status: Acute - Transfer Medications Prescriptions: Sulfamethoxazole/Trimeth DS [Bactrim Ds] 1 each PO BID #3 tablet amLODIPine [Norvasc] 10 mg PO DAILY #30 tablet Home Medications: Fenofibrate Nanocrystallized [Triglide] 160 mg PO DAILY 03/13/18 [History] Ferrous Sulfate [Iron] 325 mg PO BID 03/13/18 [History] Metoprolol Succinate 200 mg PO DAILY 05/15/18 [History] Memantine HCl 10 mg PO BID 07/23/18 [History] Amitriptyline [Elavil] 50 mg PO HS 07/24/18 [History] Bumetanide 2 mg PO BID 11/25/18 [History] Ondansetron HCl [Zofran] 4 mg PO Q6H PRN 11/25/18 [History] Sertraline [Zoloft] 100 mg PO DAILY 11/25/18 [History] Trazodone HCl 100 mg PO HS 11/25/18 [History] OxyCODONE Immed Rel [Roxicodone 10 MG] 10 mg PO Q4H PRN 12/10/18 [History] Docusate [Colace] 100 mg PO DAILY 01/27/19 [History] Hydrocortisone 1% OINT [Cortaid] 1 appl TP BID 01/27/19 [History] Insulin NPH Hum/Reg Insulin Hm [Humulin 70-30 Vial] 10 unit SQ BID 01/27/19 [History] LORazepam [Ativan] 0.5 mg PO QID PRN 01/27/19 [History] OxyCODONE Immed Rel [Roxicodone 10 MG] 10 mg PO DAILY 01/27/19 [History] Polyethylene Glycol 3350 [MiraLAX] 17 gm PO DAILY 01/27/19 [History] Quetiapine Fumarate [Seroquel] 50 mg PO BID 01/27/19 [History] Miconazole 2% cream [Lesli Antifungal] 1 appl TP BID tube 01/30/19 [Rx] Sulfamethoxazole/Trimeth DS [Bactrim Ds] 1 each PO BID #3 tablet 01/30/19 [Rx] amLODIPine [Norvasc] 10 mg PO DAILY #30 tablet 01/30/19 [Rx] Allergies/Adverse Reactions: Allergy/AdvReac Type Severity Reaction Status Date / Time ceftriaxone Allergy Hives Verified 07/22/18 20:46 gabapentin Allergy Hives Verified 01/28/19 07:58 hydrochlorothiazide Allergy Hives Verified 01/28/19 07:58 pregabalin Allergy Hives Verified 01/28/19 07:58 risperidone AdvReac Confusion Verified 07/22/18 20:46 - Respiratory Orders Oxygen / L per min Smoking Cessation: Smoking cessation has been advised. For more information, call the [employer] Line at 2-655-KUAO-NOW. - Ancillary Orders May use pressure relief devices daily prn - Advance Directives Code Status: DNR-Comfort Care - Mobility Orders Ambulate - Rehabiliation Orders Rehab Potential: Fair Rehab Orders: Evaluation for Physical Therapy, Evaluation for Occupational Therapy - Treatments Skin tear care topically daily PRN per policy - Diet Orders Mechanical Soft CERTIFICATION: I certify that the transfer of the above named patient to an Extended Care Facility is necessary for the continuing treatment of the diagnosis listed. The above information is true and accurate reflection of patient's current condition. Confidential - Redisclosure prohibited without a patient's written consent. <Rachel Woods - Last Filed: 01/30/19 18:01> - Diagnosis (1) Skin ulcer Priority: Secondary Status: Chronic (2) DVT prophylaxis Priority: Secondary Status: Acute (3) Hypertension Priority: Secondary Status: Chronic (4) Diabetes Priority: Secondary Status: Chronic (5) Acute respiratory failure with hypercapnia Priority: Secondary Status: Chronic (6) Dementia Priority: Secondary Status: Chronic (7) CHF (congestive heart failure) Priority: Secondary Status: Chronic (8) Acute encephalopathy Priority: Primary Status: Resolved - Respiratory Orders Smoking Cessation: Smoking cessation has been advised. For more information, call the [employer] Quit Line at 5-818-EXNA-NOW. - Rehabiliation Orders Rehab Orders: ROM Exercises CERTIFICATION: I certify that the transfer of the above named patient to an Extended Care Facility is necessary for the continuing treatment of the diagnosis listed. The above information is true and accurate reflection of patient's current condition. Confidential - Redisclosure prohibited without a patient's written consent.
[2019-01-30] MEDS: traZODone 50 MG TABLET PO SCH (20:11)
[2019-01-31] MEDS: *HR* Heparin 5,000 UNIT/ML VIAL SQ SCH ×2 (05:23→18:12)
[2019-01-31] MEDS: Insulin DETEMIR 100 UNIT/ML X5UNITS SQ SCH ×2 (05:44→20:07)
--- NOTE | 2019-01-31 08:05 | Internal Med Progress Note ---
<Yamila Stoner - Last Filed: 01/31/19 10:45> Hospitalist Progress Note - Encounter Date of Encounter: 01/31/19 Time of Encounter: 10:45 - Exam Vitals: Temp Pulse Resp BP Pulse Ox 98.7 F 69 16 142/54 92 01/31/19 06:38 01/31/19 06:38 01/31/19 06:38 01/31/19 06:38 01/31/19 06:38 Exam: Gen.: Vitals noted. No acute distress. AAOx3 HEENT: oropharynx clear, Normocephalic, atraumatic Cardiac: RRR, no murmur, +S1/S2 Pulmonary: CTA bilaterally, no wheezes, rales or rhonchi, equal chest expansion Abdomen: soft, nontender, Bowel sounds noted, no guarding MSK: no joint swelling noted, patient has stage one sacral decubitus ulcer that is currently being treated Extremities: +1 BLE edema, nontender calf, no cyanosis or clubbing, heels are wrapped due to chronic ulcers that are currently being treated Neuro: A&Ox3, moves all extremities Psych: Appropriate mood and behavior, pleasant and answers questions cooperatively - Assessment and Plan (1) Skin ulcer Current Visit: No Status: Chronic Assessment and Plan: On admission patient presented with bilateral heel ulcers and a stage one sacral decubitus ulcer that was undergoing treatment prior to admission. -Wound care ordered to continue treatment and care of the ulcers. (2) DVT prophylaxis Current Visit: No Status: Acute Assessment and Plan: Heparin SQ (3) Hypertension Current Visit: No Status: Chronic Assessment and Plan: History of hypertension taking metoprolol and amlodipine -blood pressure stable -increased home amlodipine to 10 mg -continue home medications -IV Lopressor PRN (4) Diabetes Current Visit: No Status: Chronic Assessment and Plan: History of diabetes taking insulin -glucose control -continue meeting to sliding scale insulin -continue Levemir 10 unit -continue Accu check -continue diabetic diet (5) Acute respiratory failure with hypercapnia Current Visit: No Status: Chronic Assessment and Plan: Resolved. Acute on chronic respiratory failure with hypercapnia. This is likely secondary to her noncompliance with BiPAP and oxygen and also noncompliance with diuretic use. She is recurrent noncompliance. This is in the setting of having COPD and congestive heart failure. -ABG: pH 7.31, CO2 66, O2 83, HCO3 33 -SpO2 94% on room air -chest x-ray unremarkable -continue supplemental oxygen -continue home bumetanide (6) Dementia Current Visit: Yes Status: Chronic Assessment and Plan: History of dementia taking the memantine. Continue medication (7) CHF (congestive heart failure) Current Visit: Yes Status: Chronic Assessment and Plan: History of CHFpEF taking metoprolol, amlodipine, bumetanide. -Continue home medications (8) Acute encephalopathy Current Visit: Yes Status: Resolved Assessment and Plan: acute encephalopathy likely secondary to hypoxia from her noncompliance with BiPAP and oxygen along with diuretics for congestive heart failure. She also appears to have some baseline psychiatric illness. Does not appear to be cardiacin etiology or stroke as she has not been demonstrate focal neurologic deficits. -currently alert and oriented times 3 however she is confused to is why she is at the hospital. -ABG: pH 7.31, CO2 66, O2 83, HCO3 33 -chest x-ray unremarkable -urine culture negative -blood culture pending -the patient is alert and oriented to person only. She believes that it is Cle[place] and she is in another location. She is pleasantly cooperative answers questions. plan: -awaiting placement. -social work following. Is working with family to decide which half-way facility they would like the patient to be discharged to -continue patient's home Seroquel, Ativan, sertraline, Namenda, amitriptyline per palliative care's recommendation -continue BiPAP for bedtime and supplemental oxygen during the day as needed -continue supportive management -palliative care following due to the patient's DNR CC code status on hospice. palliative care is working on where the patient will be discharged to SNF -PT/OT recommends discharged to SNF for rehab - Time Spent with Patient Total time spent is greater than 50% in coordination of care (as documented) at patient's floor/unit and/or counseling patient: Internal Medicine: Result - Labs CBC & Chem 7: 01/29/19 07:03 01/29/19 07:03 - ABG Interpretation ABG results: ABG ABG pH 7.31 pH Units (7.32-7.45) L 01/27/19 03:18 ABG pCO2 66 mmHg (35-45) H 01/27/19 03:18 ABG pO2 83 mmHg (85-104) L 01/27/19 03:18 ABG O2 Saturation 95 % (95-98) 01/27/19 03:18 Consult Discharge Plan - Plan Additional Instructions: - Continue to take home medications including diuretics as prescribed -continue to take new increased dose of amlodipine 10 mg daily -Continue with oxygen therapy -Follow-up with primary care provider in one week -Continue to work with physical therapy Referrals: John Rubin MD [Primary Care Provider] - Prescriptions: Sulfamethoxazole/Trimeth DS [Bactrim Ds] 1 each PO BID #3 tablet amLODIPine [Norvasc] 10 mg PO DAILY #30 tablet <Rachel Woods - Last Filed: 01/31/19 14:09> Hospitalist Progress Note - Encounter Date of Encounter: 01/31/19 - Exam Vitals: Temp Pulse Resp BP Pulse Ox 98.4 F 74 16 150/48 94 01/31/19 10:44 01/31/19 10:44 01/31/19 10:44 01/31/19 10:44 01/31/19 10:46 - Assessment and Plan (1) Skin ulcer Current Visit: No Status: Chronic (2) DVT prophylaxis Current Visit: No Status: Acute (3) Hypertension Current Visit: No Status: Chronic (4) Diabetes Current Visit: No Status: Chronic (5) Acute respiratory failure with hypercapnia Current Visit: No Status: Chronic (6) Dementia Current Visit: Yes Status: Chronic (7) CHF (congestive heart failure) Current Visit: Yes Status: Chronic (8) Acute encephalopathy Current Visit: Yes Status: Resolved - Time Spent with Patient Total time spent is greater than 50% in coordination of care (as documented) at patient's floor/unit and/or counseling patient: Internal Medicine: Result - Labs CBC & Chem 7: 01/29/19 07:03 01/29/19 07:03 - ABG Interpretation ABG results: ABG ABG pH 7.31 pH Units (7.32-7.45) L 01/27/19 03:18 ABG pCO2 66 mmHg (35-45) H 01/27/19 03:18 ABG pO2 83 mmHg (85-104) L 01/27/19 03:18 ABG O2 Saturation 95 % (95-98) 01/27/19 03:18 - Attending Attestation I examined this patient and my medical decision-making was reviewed with the Resident Physician Dr Stoner. I agree with the documented findings, disposition and treatment plan as described except to the extent set forth below. Ms Berry is being observed after presenting with acute encephalopathy and sob from home hospice. She is medically stable for discharge to SNF with cont of hospice services awake, no complaints. got a bath today. feeling well. gen- alert, awake,appears stated age cv- reg rate and rhythm, normal s1,s2 lungs- ctabl, normal resp effort on room air neuro- AAOxperson, place, not time or situation, CN grossly intact,moves all ext without deficit Acute Encephalopathy, Etiology suspected to be hypoxia with CO2 retention in setting of non compliance with home chronic resp failure treatment Complicated by baseline dementia Resolved -encourage compliance with oxygen, cont home med regimen, appreciate palliative care assistance HTN, improved- cont new dose norvasc, outpt fu required Outpt UTI being tx with bactrim- completed course 01/31 further diagnoses and plan as noted by resident dispo is to SNF with hospice care continued, awaiting insurance approval <Yamila Stoner - Last Filed: 01/31/19 10:45> (1) Skin ulcer Qualifiers: Qualified Code(s): L98.499 - Non-pressure chronic ulcer of skin of other sites with unspecified severity (3) Hypertension Qualifiers: Hypertension type: unspecified Qualified Code(s): I10 - Essential (primary) hypertension (4) Diabetes Qualifiers: Diabetes mellitus type: type 2 Diabetes mellitus residential insulin use: unspecified residential insulin use status Diabetes mellitus complication status: with other specified complication Qualified Code(s): E11.69 - Type 2 diabetes mellitus with other specified complication (6) Dementia Qualifiers: Dementia type: unspecified type Dementia behavioral disturbance: with behavioral disturbance Qualified Code(s): F03.91 - Unspecified dementia with behavioral disturbance <Rachel Woods - Last Filed: 01/31/19 14:09> (1) Skin ulcer Qualifiers: Qualified Code(s): L98.499 - Non-pressure chronic ulcer of skin of other sites with unspecified severity (3) Hypertension Qualifiers: Hypertension type: unspecified Qualified Code(s): I10 - Essential (primary) hypertension (4) Diabetes Qualifiers: Diabetes mellitus type: type 2 Diabetes mellitus emergency services dispatcher insulin use: unspecified residential insulin use status Diabetes mellitus complication status: with other specified complication Qualified Code(s): E11.69 - Type 2 diabetes mellitus with other specified complication (6) Dementia Qualifiers: Dementia type: unspecified type Dementia behavioral disturbance: with behavioral disturbance Qualified Code(s): F03.91 - Unspecified dementia with behavioral disturbance
[2019-01-31] MEDS: Insulin LISPRO 300 UNITS/3 ML VIAL SQ SCH ×4 (10:20→20:07)
[2019-01-31] MEDS: Fenofibrate 54 MG TABLET PO SCH (10:20)
[2019-01-31] MEDS: amLODIPine 5 MG TABLET PO SCH (10:21)
[2019-01-31] MEDS: Bumetanide 1 MG TABLET PO SCH ×2 (10:21→18:13)
[2019-01-31] MEDS: Metoprolol XL (24 HR) Succ 50 MG TAB.ER.24H PO SCH (10:21)
[2019-01-31] MEDS: Sulfamethoxazole/Trimeth DS 1 EACH TABLET PO SCH ×2 (10:21→20:08)
[2019-01-31] MEDS: Leptospermum Honey Gel 44 ML TUBE TP SCH (10:22)
[2019-01-31] MEDS: Hydrocortisone 1% OINT 28 GM TUBE TP SCH ×2 (10:22→20:09)
[2019-01-31] MEDS: traZODone 50 MG TABLET PO SCH (20:07)
[2019-02-01] MEDS: *HR* Heparin 5,000 UNIT/ML VIAL SQ SCH ×2 (06:01→18:02)
--- NOTE | 2019-02-01 08:52 | Internal Med Progress Note ---
<Rachel Woods - Last Filed: 02/01/19 10:38> Hospitalist Progress Note - Encounter Date of Encounter: 02/01/19 - Exam Vitals: Temp Pulse Resp BP Pulse Ox 98.1 F 57 15 112/70 96 02/01/19 06:52 02/01/19 06:52 02/01/19 06:52 02/01/19 06:52 02/01/19 06:52 - Assessment and Plan (1) Skin ulcer Current Visit: No Status: Chronic (2) DVT prophylaxis Current Visit: No Status: Acute (3) Hypertension Current Visit: No Status: Chronic (4) Diabetes Current Visit: No Status: Chronic (5) Acute respiratory failure with hypercapnia Current Visit: No Status: Chronic (6) Dementia Current Visit: Yes Status: Chronic (7) CHF (congestive heart failure) Current Visit: Yes Status: Chronic (8) Acute encephalopathy Current Visit: Yes Status: Resolved - Time Spent with Patient Total time spent is greater than 50% in coordination of care (as documented) at patient's floor/unit and/or counseling patient: Internal Medicine: Result - Labs CBC & Chem 7: 01/29/19 07:03 01/29/19 07:03 - ABG Interpretation ABG results: ABG ABG pH 7.31 pH Units (7.32-7.45) L 01/27/19 03:18 ABG pCO2 66 mmHg (35-45) H 01/27/19 03:18 ABG pO2 83 mmHg (85-104) L 01/27/19 03:18 ABG O2 Saturation 95 % (95-98) 01/27/19 03:18 Consult Discharge Plan - Plan Additional Instructions: - Continue to take home medications including diuretics as prescribed -continue to take new increased dose of amlodipine 10 mg daily -Continue with oxygen therapy -Follow-up with primary care provider in one week -Continue to work with physical therapy Referrals: John Rubin MD [Primary Care Provider] - Prescriptions: Sulfamethoxazole/Trimeth DS [Bactrim Ds] 1 each PO BID #3 tablet amLODIPine [Norvasc] 10 mg PO DAILY #30 tablet - Attending Attestation I examined this patient and my medical decision-making was reviewed with the Resident Physician Dr Stoner. I agree with the documented findings, disposition and treatment plan as described except to the extent set forth below. Ms Berry is being observed after presenting with acute encephalopathy and sob f rom home hospice. She is medically stable for discharge to SNF with cont of hospice services awake, RN at bedside. She is pleasant. Feels like she is having trouble getting around. tearful noting sometimes she can't remember things. awaiting placement gen- alert, awake,appears stated age cv- reg rate and rhythm, normal s1,s2, no le edema lungs- ctabl, normal resp effort on room air neuro- AAOxperson, place, not time or situation, CN grossly intact Acute Encephalopathy, Etiology suspected to be hypoxia with CO2 retention in setting of non compliance with home chronic resp failure treatment Complicated by baseline dementia Resolved -encourage compliance with oxygen, cont home med regimen, appreciate palliative care assistance HTN,stable- cont new dose norvasc, outpt fu required Outpt UTI being tx with bactrim- completed course 01/31 further diagnoses and plan as noted by resident dispo is to SNF with hospice care continued, awaiting insurance approval <Yamila Stoner - Last Filed: 02/01/19 13:21> Hospitalist Progress Note - Encounter Date of Encounter: 02/01/19 Time of Encounter: 11:00 - Subjective Interval History: Patient seen examined while she sitting up in the chair. She has no complaints but only inquires when she might go home. She denies fever, chills, dysuria, abdominal pain. Awaiting placement as social human services assistants is working with family to fill out Medicaid papers and determine where she will be discharged. - Exam Vitals: Temp Pulse Resp BP Pulse Ox 98.1 F 57 15 112/70 96 02/01/19 06:52 02/01/19 06:52 02/01/19 06:52 02/01/19 06:52 02/01/19 06:52 Exam: Gen.: Vitals noted. No acute distress. Alert and cooperative HEENT: oropharynx clear, Normocephalic, atraumatic Cardiac: RRR, no murmur, +S1/S2 Pulmonary: CTA bilaterally, no wheezes, rales or rhonchi, equal chest expansion Abdomen: soft, nontender, Bowel sounds noted, no guarding MSK: no joint swelling noted, patient has stage one sacral decubitus ulcer that is currently being treated Extremities: +1 BLE edema, nontender calf, no cyanosis or clubbing, heels are wrapped due to chronic ulcers that are currently being treated Neuro: moves all extremities Psych: Appropriate mood and behavior, pleasant and answers questions cooperatively - Assessment and Plan (1) Acute respiratory failure with hypercapnia Current Visit: No Status: Chronic Assessment and Plan: Resolved. Acute on chronic respiratory failure with hypercapnia. This is likely secondary to her noncompliance with BiPAP and oxygen and also noncompliance with diuretic use. She is recurrent noncompliance. This is in the setting of having COPD and congestive heart failure. -ABG: pH 7.31, CO2 66, O2 83, HCO3 33 -SpO2 94% on room air -chest x-ray unremarkable -Awaiting placement as social human services assistants is working with family to fill out Medicaid papers and determine where she will be discharged. -continue supplemental oxygen -continue home bumetanide (2) Acute encephalopathy Current Visit: Yes Status: Resolved Assessment and Plan: acute encephalopathy likely secondary to hypoxia from her noncompliance with BiPAP and oxygen along with diuretics for congestive heart failure. She also appears to have some baseline psychiatric illness. Does not appear to be cardiacin etiology or stroke as she has not been demonstrate focal neurologic deficits. -currently alert and oriented times 3 however she is confused to is why she is at the hospital. -ABG: pH 7.31, CO2 66, O2 83, HCO3 33 -chest x-ray unremarkable -urine culture negative -blood culture pending -the patient is alert and oriented to person only. She believes that it is Chr istmas and she is in another location. She is pleasantly cooperative answers questions. plan: -patient has been cooperative -awaiting placement. -social work following. Is working with family to decide which [facility] facility they would like the patient to be discharged to -continue patient's home Seroquel, Ativan, sertraline, Namenda, amitriptyline per palliative care's recommendation -continue BiPAP for bedtime and supplemental oxygen during the day as needed -continue supportive management -palliative care following due to the patient's DNR CC code status on hospice. palliative care is working on where the patient will be discharged to SNF -PT/OT recommends discharged to SNF for rehab (3) Skin ulcer Current Visit: No Status: Chronic Assessment and Plan: On admission patient presented with bilateral heel ulcers and a stage one sacral decubitus ulcer that was undergoing treatment prior to admission. -Wound care ordered to continue treatment and care of the ulcers. (4) Hypertension Current Visit: No Status: Chronic Assessment and Plan: History of hypertension taking metoprolol and amlodipine -blood pressure stable -increased home amlodipine to 10 mg -continue home medications -IV Lopressor PRN (5) Dementia Current Visit: Yes Status: Chronic Assessment and Plan: History of dementia taking the memantine. Continue medication (6) CHF (congestive heart failure) Current Visit: Yes Status: Chronic Assessment and Plan: History of CHFpEF taking metoprolol, amlodipine, bumetanide. -Continue home medications (7) Diabetes Current Visit: No Status: Chronic Assessment and Plan: History of diabetes taking insulin -glucose control -continue meeting to sliding scale insulin -continue Levemir 10 unit -continue Accu check -continue diabetic diet (8) DVT prophylaxis Current Visit: No Status: Acute Assessment and Plan: Heparin SQ - Time Spent with Patient Total time spent is greater than 50% in coordination of care (as documented) at patient's floor/unit and/or counseling patient: Internal Medicine: Result - Labs CBC & Chem 7: 01/29/19 07:03 01/29/19 07:03 - ABG Interpretation ABG results: ABG ABG pH 7.31 pH Units (7.32-7.45) L 01/27/19 03:18 ABG pCO2 66 mmHg (35-45) H 01/27/19 03:18 ABG pO2 83 mmHg (85-104) L 01/27/19 03:18 ABG O2 Saturation 95 % (95-98) 01/27/19 03:18 <Rachel Woods - Last Filed: 02/01/19 10:38> (1) Skin ulcer Qualifiers: Qualified Code(s): L98.499 - Non-pressure chronic ulcer of skin of other sites with unspecified severity (3) Hypertension Qualifiers: Hypertension type: unspecified Qualified Code(s): I10 - Essential (primary) hypertension (4) Diabetes Qualifiers: Diabetes mellitus type: type 2 Diabetes mellitus residential insulin use: unspecified terminal operations supervisor insulin use status Diabetes mellitus complication status: with other specified complication Qualified Code(s): E11.69 - Type 2 diabetes mellitus with other specified complication (6) Dementia Qualifiers: Dementia type: unspecified type Dementia behavioral disturbance: with behavioral disturbance Qualified Code(s): F03.91 - Unspecified dementia with behavioral disturbance <Yamila Stoner - Last Filed: 02/01/19 13:21> (3) Skin ulcer Qualifiers: Qualified Code(s): L98.499 - Non-pressure chronic ulcer of skin of other sites with unspecified severity (4) Hypertension Qualifiers: Hypertension type: unspecified Qualified Code(s): I10 - Essential (primary) hypertension (5) Dementia Qualifiers: Dementia type: unspecified type Dementia behavioral disturbance: with behavioral disturbance Qualified Code(s): F03.91 - Unspecified dementia with behavioral disturbance (7) Diabetes Qualifiers: Diabetes mellitus type: type 2 Diabetes mellitus terminal operations supervisor insulin use: unspecified residential insulin use status Diabetes mellitus complication status: with other specified complication Qualified Code(s): E11.69 - Type 2 diabetes mellitus with other specified complication
[2019-02-01] MEDS: Insulin LISPRO 300 UNITS/3 ML VIAL SQ SCH ×4 (10:58→21:54)
[2019-02-01] MEDS: Bumetanide 1 MG TABLET PO SCH ×2 (10:59→18:01)
[2019-02-01] MEDS: Metoprolol XL (24 HR) Succ 50 MG TAB.ER.24H PO SCH (10:59)
[2019-02-01] MEDS: Fenofibrate 54 MG TABLET PO SCH (10:59)
[2019-02-01] MEDS: Leptospermum Honey Gel 44 ML TUBE TP SCH (11:00)
[2019-02-01] MEDS: amLODIPine 5 MG TABLET PO SCH (11:00)
[2019-02-01] MEDS: Hydrocortisone 1% OINT 28 GM TUBE TP SCH ×2 (11:01→22:10)
[2019-02-01] MEDS: traZODone 50 MG TABLET PO SCH (21:23)
[2019-02-01] MEDS: Insulin DETEMIR 100 UNIT/ML X5UNITS SQ SCH (21:54)
[2019-02-02] MEDS: *HR* Heparin 5,000 UNIT/ML VIAL SQ SCH ×2 (05:36→18:26)
--- NOTE | 2019-02-02 08:41 | Internal Med Progress Note ---
<Rachel Woods - Last Filed: 02/02/19 10:11> Hospitalist Progress Note - Encounter Date of Encounter: 02/02/19 - Exam Vitals: Temp Pulse Resp BP Pulse Ox 98.1 F 72 16 151/74 94 02/02/19 07:04 02/02/19 07:04 02/02/19 07:04 02/02/19 07:04 02/02/19 07:04 - Assessment and Plan (1) Skin ulcer Current Visit: No Status: Chronic (2) DVT prophylaxis Current Visit: No Status: Acute (3) Hypertension Current Visit: No Status: Chronic (4) Diabetes Current Visit: No Status: Chronic (5) Acute respiratory failure with hypercapnia Current Visit: No Status: Chronic (6) Dementia Current Visit: Yes Status: Chronic (7) CHF (congestive heart failure) Current Visit: Yes Status: Chronic (8) Acute encephalopathy Current Visit: Yes Status: Resolved - Time Spent with Patient Total time spent is greater than 50% in coordination of care (as documented) at patient's floor/unit and/or counseling patient: Internal Medicine: Result - Labs CBC & Chem 7: 01/29/19 07:03 01/29/19 07:03 - ABG Interpretation ABG results: ABG ABG pH 7.31 pH Units (7.32-7.45) L 01/27/19 03:18 ABG pCO2 66 mmHg (35-45) H 01/27/19 03:18 ABG pO2 83 mmHg (85-104) L 01/27/19 03:18 ABG O2 Saturation 95 % (95-98) 01/27/19 03:18 Consult Discharge Plan - Plan Additional Instructions: - Continue to take home medications including diuretics as prescribed -continue to take new increased dose of amlodipine 10 mg daily -Continue with oxygen therapy -Follow-up with primary care provider in one week -Continue to work with physical therapy Referrals: John Rubin MD [Primary Care Provider] - Prescriptions: Sulfamethoxazole/Trimeth DS [Bactrim Ds] 1 each PO BID #3 tablet amLODIPine [Norvasc] 10 mg PO DAILY #30 tablet - Attending Attestation I examined this patient and my medical decision-making was reviewed with the Resident Physician Dr Velazquez. I agree with the documented findings, disposition and treatment plan as described except to the extent set forth below. Ms Berry is being observed after presenting with acute encephalopathy and sob from home hospice. She is medically stable for discharge to SNF with cont of hospice services awake,pleasant, eating breakfast. she has no concerns, is hoping to leave today, cheerful gen- alert, awake,appears stated age cv- reg rate and rhythm, normal s1,s2, lungs- ctabl, normal resp effort on room air abd- soft, non tender, non distended neuro- AAOxperson, place, not time or situation, CN grossly intact, moves all ext without focal deficits Acute Encephalopathy, Etiology suspected to be hypoxia with CO2 retention in setting of non compliance with home chronic resp failure treatment Complicated by baseline dementia Resolved -encourage compliance with oxygen, cont home med regimen, appreciate palliative care assistance HTN,stable- cont new dose norvasc, outpt fu required Outpt UTI being tx with bactrim- completed course 01/31 further diagnoses and plan as noted by resident dispo is to SNF with hospice care continued, awaiting insurance approval <Khadar Velazquez - Last Filed: 02/02/19 13:21> Hospitalist Progress Note - Encounter Date of Encounter: 02/02/19 Time of Encounter: 08:40 - Subjective Interval History: When seen today patient was a and O 3 however she was confused to situation. She was very emotional at the time and kept reiterating the fact that she would like to go home. She would break into tears at time. She denied any chest pain or shortness of breath. Denied any abdominal pain. Denied any nausea or vomiting. - Exam Vitals: Temp Pulse Resp BP Pulse Ox 98.1 F 72 16 151/74 94 02/02/19 07:04 02/02/19 07:04 02/02/19 07:04 02/02/19 07:04 02/02/19 07:04 Exam: GENERAL APPEARANCE: Obese, alert and cooperative, and appears to be in no acute distress. HEAD: normocephalic. EYES: vision is grossly intact. EARS: hearing grossly intact. NOSE: No nasal discharge. THROAT: Oral cavity and pharynx normal. No inflammation, swelling, exudate, or l esions. NECK: Neck supple, non-tender without lymphadenopathy, masses or thyromegaly. CARDIAC: Normal S1 and S2. No S3, S4 or murmurs. Rhythm is regular. There is no peripheral edema, cyanosis or pallor. Extremities are warm and well perfused. Capillary refill is less than 2 seconds. No carotid bruits. LUNGS: Clear to auscultation and percussion without rales, rhonchi, wheezing or diminished breath sounds. ABDOMEN: Positive bowel sounds. Soft, nondistended, nontender. No guarding or rebound. No masses. EXTREMITIES: No significant deformity or joint abnormality. No edema. Peripheral pulses intact. No varicosities. LOWER EXTREMITY: Examination of both feet reveals all toes to be normal in size and symmetry, normal range of motion, normal sensation with distal capillary filling of less than 2 seconds without tenderness, swelling, discoloration, nodules, weakness or deformity; hyperkeratosis noted bilaterally. SKIN: Skin normal color, texture and turgor with no lesions or eruptions. PSYCHIATRIC: The mental examination revealed the patient was oriented to person, place, and time, however she was not oriented to situation. Emotionally labile. Did not demonstrate good judgment or insight to her situation. Poor eye contact. - Assessment and Plan (1) Acute respiratory failure with hypercapnia Current Visit: No Status: Chronic Assessment and Plan: Resolved. Acute on chronic respiratory failure with hypercapnia. This is likely secondary to her noncompliance with BiPAP and oxygen and also noncompliance with diuretic use. She is recurrent noncompliance. This is in the setting of having COPD and congestive heart failure. -ABG: pH 7.31, CO2 66, O2 83, HCO3 33 -SpO2 100% on room air -chest x-ray unremarkable -Awaiting placement as social security specialist is working with family to fill out Medicaid papers and determine where she will be discharged. -continue supplemental oxygen -continue home bumetanide (2) Acute encephalopathy Current Visit: Yes Status: Resolved Assessment and Plan: Acute encephalopathy likely secondary to hypoxia from her noncompliance with BiPAP and oxygen along with diuretics for congestive heart failure. She also appears to have some baseline psychiatric illness. Does not appear to be cardiacin etiology or stroke as she has not been demonstrate focal neurologic deficits. -currently alert and oriented times 3 however she is confused to is why she is at the hospital. -ABG: pH 7.31, CO2 66, O2 83, HCO3 33 -chest x-ray unremarkable -urine culture negative -blood culture pending -the patient is alert and oriented to person only. She believes that it is [place] and she is in another location. She is pleasantly cooperative answers questions. plan: -patient has been cooperative -awaiting placement. -social work following. Is working with family to decide which detention facility they would like the patient to be discharged to -continue patient's home Seroquel, Ativan, sertraline, Namenda, amitriptyline per palliative care's recommendation -continue BiPAP for bedtime and supplemental oxygen during the day as needed -continue supportive management -palliative care following due to the patient's DNR CC code status on hospice. palliative care is working on where the patient will be discharged to SNF -PT/OT recommends discharged to SNF for rehab (3) Skin ulcer Current Visit: No Status: Chronic Assessment and Plan: On admission patient presented with bilateral heel ulcers and a stage one sacral decubitus ulcer that was undergoing treatment prior to admission. -Wound care ordered to continue treatment and care of the ulcers. (4) Hypertension Current Visit: No Status: Chronic Assessment and Plan: History of hypertension taking metoprolol and amlodipine -blood pressure stable -increased home amlodipine to 10 mg -continue home medications -IV Lopressor PRN (5) Dementia Current Visit: Yes Status: Chronic Assessment and Plan: History of dementia taking the memantine. Continue medication (6) CHF (congestive heart failure) Current Visit: Yes Status: Chronic Assessment and Plan: History of CHFpEF taking metoprolol, amlodipine, bumetanide. -Continue home medications (7) Diabetes Current Visit: No Status: Chronic Assessment and Plan: History of diabetes taking insulin -glucose control -continue meeting to sliding scale insulin -continue Levemir 10 unit -continue Accu check -continue diabetic diet DVT Prophylaxis: Heparin SQ. - Time Spent with Patient Total time spent is greater than 50% in coordination of care (as documented) at patient's floor/unit and/or counseling patient: Internal Medicine: Result - Labs CBC & Chem 7: 01/29/19 07:03 01/29/19 07:03 - ABG Interpretation ABG results: ABG ABG pH 7.31 pH Units (7.32-7.45) L 01/27/19 03:18 ABG pCO2 66 mmHg (35-45) H 01/27/19 03:18 ABG pO2 83 mmHg (85-104) L 01/27/19 03:18 ABG O2 Saturation 95 % (95-98) 01/27/19 03:18 <Rachel Woods - Last Filed: 02/02/19 10:11> (1) Skin ulcer Qualifiers: Qualified Code(s): L98.499 - Non-pressure chronic ulcer of skin of other sites with unspecified severity (3) Hypertension Qualifiers: Hypertension type: unspecified Qualified Code(s): I10 - Essential (primary) hypertension (4) Diabetes Qualifiers: Diabetes mellitus type: type 2 Diabetes mellitus 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 (6) Dementia Qualifiers: Dementia type: unspecified type Dementia behavioral disturbance: with behavioral disturbance Qualified Code(s): F03.91 - Unspecified dementia with behavioral disturbance <Khadar Velazquez - Last Filed: 02/02/19 13:21> (3) Skin ulcer Qualifiers: Qualified Code(s): L98.499 - Non-pressure chronic ulcer of skin of other sites with unspecified severity (4) Hypertension Qualifiers: Hypertension type: essential hypertension Qualified Code(s): I10 - Essential (primary) hypertension (5) Dementia Qualifiers: Dementia type: unspecified type Dementia behavioral disturbance: with behavioral disturbance Qualified Code(s): F03.91 - Unspecified dementia with behavioral disturbance (7) Diabetes Qualifiers: Diabetes mellitus type: type 2 Diabetes mellitus 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
[2019-02-02] MEDS: Insulin LISPRO 300 UNITS/3 ML VIAL SQ SCH ×4 (09:48→23:12)
[2019-02-02] MEDS: Metoprolol XL (24 HR) Succ 50 MG TAB.ER.24H PO SCH (09:49)
[2019-02-02] MEDS: Fenofibrate 54 MG TABLET PO SCH (09:49)
[2019-02-02] MEDS: Bumetanide 1 MG TABLET PO SCH ×2 (09:49→18:26)
[2019-02-02] MEDS: amLODIPine 5 MG TABLET PO SCH (09:50)
[2019-02-02] MEDS: Leptospermum Honey Gel 44 ML TUBE TP SCH (09:50)
[2019-02-02] MEDS: Hydrocortisone 1% OINT 28 GM TUBE TP SCH ×2 (09:51→23:15)
[2019-02-02] MEDS: traZODone 50 MG TABLET PO SCH (22:53)
[2019-02-02] MEDS: Insulin DETEMIR 100 UNIT/ML X5UNITS SQ SCH (22:53)
[2019-02-03] MEDS: *HR* Heparin 5,000 UNIT/ML VIAL SQ SCH ×2 (06:46→17:19)
[2019-02-03] MEDS: Metoprolol XL (24 HR) Succ 50 MG TAB.ER.24H PO SCH (07:40)
[2019-02-03] MEDS: Bumetanide 1 MG TABLET PO SCH ×2 (07:41→17:18)
[2019-02-03] MEDS: amLODIPine 5 MG TABLET PO SCH (07:41)
[2019-02-03] MEDS: Insulin LISPRO 300 UNITS/3 ML VIAL SQ SCH ×5 (07:41→21:42)
[2019-02-03] MEDS: Fenofibrate 54 MG TABLET PO SCH (07:41)
--- NOTE | 2019-02-03 08:28 | Internal Med Progress Note ---
<RoxanajoniKhadar valdez - Last Filed: 02/03/19 11:43> Hospitalist Progress Note - Encounter Date of Encounter: 02/03/19 Time of Encounter: 08:10 - Subjective Interval History: When seen today patient was alert and oriented 3 however she was still confused as to her situation and circumstances. Her she seemed to be in a more stable mood today. She was not emotional. She denied any chest pain or shortness of breath. Denied any wheezing, cough, or fever. Denied any abdominal pain. Denies any nausea or vomiting. Denied any swelling in lower extremities. - Exam Vitals: Temp Pulse Resp BP Pulse Ox 98 F 75 18 147/80 95 02/03/19 07:15 02/03/19 07:15 02/03/19 07:15 02/03/19 07:15 02/03/19 07:15 Exam: GENERAL APPEARANCE: Obese, alert and cooperative, and appears to be in no acute distress. HEAD: normocephalic. EYES: vision is grossly intact. EARS: hearing grossly intact. NOSE: No nasal discharge. THROAT: Oral cavity and pharynx normal. No inflammation, swelling, exudate, or lesions. NECK: Neck supple, non-tender without lymphadenopathy, masses or thyromegaly. CARDIAC: Normal S1 and S2. No S3, S4 or murmurs. Rhythm is regular. There is no peripheral edema, cyanosis or pallor. Extremities are warm and well perfused. Capillary refill is less than 2 seconds. No carotid bruits. LUNGS: Clear to auscultation and percussion without rales, rhonchi, wheezing or diminished breath sounds. ABDOMEN: Positive bowel sounds. Soft, nondistended, nontender. No guarding or rebound. No masses. EXTREMITIES: No significant deformity or joint abnormality. No edema. Peripheral pulses intact. No varicosities. LOWER EXTREMITY: Examination of both feet reveals all toes to be normal in size and symmetry, normal range of motion, normal sensation with distal capillary filling of less than 2 seconds without tenderness, swelling, discoloration, nodules, weakness or deformity; hyperkeratosis noted bilaterally. SKIN: Skin normal color, texture and turgor with no lesions or eruptions. PSYCHIATRIC: The mental examination revealed the patient was oriented to person, place, and time, however she was not oriented to situation. Emotionally labile. Did not demonstrate good judgment or insight to her situation. Poor eye contact. - Assessment and Plan (1) Acute respiratory failure with hypercapnia Current Visit: No Status: Chronic Assessment and Plan: Resolved. Acute on chronic respiratory failure with hypercapnia. This is likely secondary to her noncompliance with BiPAP and oxygen and also noncompliance with diuretic use. She is recurrent noncompliance. This is in the setting of having COPD and congestive heart failure. -ABG: pH 7.31, CO2 66, O2 83, HCO3 33 -SpO2 100% on room air -chest x-ray unremarkable -Awaiting placement as social worker masters is working with family to fill out Medicaid papers and determine where she will be discharged. -continue supplemental oxygen -continue home bumetanide (2) Acute encephalopathy Current Visit: Yes Status: Resolved Assessment and Plan: Acute encephalopathy likely secondary to hypoxia from her noncompliance with BiPAP and oxygen along with diuretics for congestive heart failure. She also appears to have some baseline psychiatric illness. Does not appear to be cardiacin etiology or stroke as she has not been demonstrate focal neurologic deficits. -currently alert and oriented times 3 however she is confused to is why she is at the hospital. -ABG: pH 7.31, CO2 66, O2 83, HCO3 33 -chest x-ray unremarkable -urine culture negative -blood culture pending -the patient is alert and oriented to person only. She believes that it is [place] and she is in another location. She is pleasantly cooperative answers questions. plan: -patient has been cooperative -awaiting placement. -social work following. Is working with family to decide which [facility] facility they would like the patient to be discharged to -continue patient's home Seroquel, Ativan, sertraline, Namenda, amitriptyline per palliative care's recommendation -continue BiPAP for bedtime and supplemental oxygen during the day as needed -continue supportive management -palliative care following due to the patient's DNR CC code status on hospice. palliative care is working on where the patient will be discharged to SNF -PT/OT recommends discharged to SNF for rehab (3) Skin ulcer Current Visit: No Status: Chronic Assessment and Plan: On admission patient presented with bilateral heel ulcers and a stage one sacral decubitus ulcer that was undergoing treatment prior to admission. -Wound care ordered to continue treatment and care of the ulcers. (4) Hypertension Current Visit: No Status: Chronic Assessment and Plan: History of hypertension taking metoprolol and amlodipine -blood pressure stable -increased home amlodipine to 10 mg -continue home medications -IV Lopressor PRN (5) Dementia Current Visit: Yes Status: Chronic Assessment and Plan: History of dementia taking the memantine. Continue medication (6) CHF (congestive heart failure) Current Visit: Yes Status: Chronic Assessment and Plan: History of CHFpEF taking metoprolol, amlodipine, bumetanide. -Continue home medications (7) Diabetes Current Visit: No Status: Chronic Assessment and Plan: History of diabetes taking insulin -glucose control -continue meeting to sliding scale insulin -continue Levemir 10 unit -continue Accu check -continue diabetic diet DVT Prophylaxis: Heparin SQ. - Time Spent with Patient Total time spent is greater than 50% in coordination of care (as documented) at patient's floor/unit and/or counseling patient: Internal Medicine: Result - Labs CBC & Chem 7: 01/29/19 07:03 01/29/19 07:03 - ABG Interpretation ABG results: ABG ABG pH 7.31 pH Units (7.32-7.45) L 01/27/19 03:18 ABG pCO2 66 mmHg (35-45) H 01/27/19 03:18 ABG pO2 83 mmHg (85-104) L 01/27/19 03:18 ABG O2 Saturation 95 % (95-98) 01/27/19 03:18 Consult Discharge Plan - Plan Additional Instructions: - Continue to take home medications including diuretics as prescribed -continue to take new increased dose of amlodipine 10 mg daily -Continue with oxygen therapy -Follow-up with primary care provider in one week -Continue to work with physical therapy Referrals: John Rubin MD [Primary Care Provider] - Prescriptions: Sulfamethoxazole/Trimeth DS [Bactrim Ds] 1 each PO BID #3 tablet amLODIPine [Norvasc] 10 mg PO DAILY #30 tablet <Rachel Woods - Last Filed: 02/03/19 13:22> Hospitalist Progress Note - Encounter Date of Encounter: 02/03/19 - Exam Vitals: Temp Pulse Resp BP Pulse Ox 98 F 75 18 147/80 95 02/03/19 07:15 02/03/19 07:15 02/03/19 07:15 02/03/19 07:15 02/03/19 07:15 - Assessment and Plan (1) Skin ulcer Current Visit: No Status: Chronic (2) DVT prophylaxis Current Visit: No Status: Acute (3) Hypertension Current Visit: No Status: Chronic (4) Diabetes Current Visit: No Status: Chronic (5) Acute respiratory failure with hypercapnia Current Visit: No Status: Chronic (6) Dementia Current Visit: Yes Status: Chronic (7) CHF (congestive heart failure) Current Visit: Yes Status: Chronic (8) Acute encephalopathy Current Visit: Yes Status: Resolved - Time Spent with Patient Total time spent is greater than 50% in coordination of care (as documented) at patient's floor/unit and/or counseling patient: Internal Medicine: Result - Labs CBC & Chem 7: 01/29/19 07:03 01/29/19 07:03 - ABG Interpretation ABG results: ABG ABG pH 7.31 pH Units (7.32-7.45) L 01/27/19 03:18 ABG pCO2 66 mmHg (35-45) H 01/27/19 03:18 ABG pO2 83 mmHg (85-104) L 01/27/19 03:18 ABG O2 Saturation 95 % (95-98) 01/27/19 03:18 - Attending Attestation I examined this patient and my medical decision-making was reviewed with the Resident Physician Dr Velazquez. I agree with the documented findings, disposition and treatment plan as described except to the extent set forth below. Ms Berry is being observed after presenting with acute encephalopathy and sob from home hospice. She is medically stable for discharge to SNF with cont of hospice services awake,pleasant, in chair, no complaints. gen- alert, awake,appears stated age cv- reg rate and rhythm, no le edema lungs- ctabl, normal resp effort on room air neuro- AAOxperson, place, not time or situation, CN grossly intact, moves all ext without focal deficits Acute Encephalopathy, Etiology suspected to be hypoxia with CO2 retention in setting of non compliance with home chronic resp failure treatment Complicated by baseline dementia Resolved -encourage compliance with oxygen, cont home med regimen, appreciate palliative care assistance HTN,stable- cont new dose norvasc, outpt fu required Outpt UTI being tx with bactrim- completed course 6/15 further diagnoses and plan as noted by resident dispo is to SNF with hospice care continued, awaiting insurance approval, as per SNF 02/03 have heard nothing from insurance <Khadar Velazquez - Last Filed: 02/03/19 11:43> (3) Skin ulcer Qualifiers: Qualified Code(s): L98.499 - Non-pressure chronic ulcer of skin of other sites with unspecified severity (4) Hypertension Qualifiers: Hypertension type: essential hypertension Qualified Code(s): I10 - Essential (primary) hypertension (5) Dementia Qualifiers: Dementia type: unspecified type Dementia behavioral disturbance: with behavioral disturbance Qualified Code(s): F03.91 - Unspecified dementia with behavioral disturbance (7) Diabetes Qualifiers: Diabetes mellitus type: type 2 Diabetes mellitus 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 wall mining 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 helper insulin use: unspecified long wall mining machine helper insulin use status Diabetes mellitus complication status: with other specified complication Qualified Code(s): E11.69 - Type 2 diabetes mellitus with other specified complication <Rachel Woods - Last Filed: 02/03/19 13:22> (1) Skin ulcer Qualifiers: Qualified Code(s): L98.499 - Non-pressure chronic ulcer of skin of other sites with unspecified severity (3) Hypertension Qualifiers: Hypertension type: unspecified Qualified Code(s): I10 - Essential (primary) hypertension (4) Diabetes Qualifiers: Diabetes mellitus type: type 2 Diabetes mellitus [facility]p insulin use: unspecified [facility]p insulin use status Diabetes mellitus complication status: with other specified complication Qualified Code(s): E11.69 - Type 2 diabetes mellitus with other specified complication (6) Dementia Qualifiers: Dementia type: unspecified type Dementia behavioral disturbance: with behavioral disturbance Qualified Code(s): F03.91 - Unspecified dementia with behavioral disturbance
[2019-02-03] MEDS: Leptospermum Honey Gel 44 ML TUBE TP SCH (10:47)
[2019-02-03] MEDS: Hydrocortisone 1% OINT 28 GM TUBE TP SCH ×2 (10:49→22:45)
[2019-02-03] MEDS: traZODone 50 MG TABLET PO SCH (21:42)
[2019-02-04] MEDS: *HR* Heparin 5,000 UNIT/ML VIAL SQ SCH ×2 (06:10→18:45)
[2019-02-04] MEDS: Insulin DETEMIR 100 UNIT/ML X5UNITS SQ SCH ×2 (06:11→20:51)
[2019-02-04] MEDS: Metoprolol XL (24 HR) Succ 50 MG TAB.ER.24H PO SCH (07:54)
[2019-02-04] MEDS: amLODIPine 5 MG TABLET PO SCH (07:54)
[2019-02-04] MEDS: Bumetanide 1 MG TABLET PO SCH ×2 (07:54→16:41)
[2019-02-04] MEDS: Fenofibrate 54 MG TABLET PO SCH (07:54)
[2019-02-04] MEDS: Insulin LISPRO 300 UNITS/3 ML VIAL SQ SCH ×7 (07:55→20:51)
[2019-02-04] MEDS: Hydrocortisone 1% OINT 28 GM TUBE TP SCH ×2 (07:57→20:52)
--- NOTE | 2019-02-04 09:51 | Internal Med Progress Note ---
Hospitalist Progress Note - Encounter Date of Encounter: 02/04/19 Time of Encounter: 09:49 - Subjective Interval History: Patient seen examined while she is sitting up in her chair resting. She had no complaints but only inquired if he had heard anything about her discharge. She denied fever, chills, shortness of breath, cough, abdominal pain. Her social work notes there waiting for authorization from the insurance agency to the group home. - Exam Vitals: Temp Pulse Resp BP Pulse Ox 97.8 F 73 14 134/67 93 02/04/19 06:40 02/04/19 06:40 02/04/19 06:40 02/04/19 06:40 02/04/19 06:40 Exam: Gen.: Vitals noted. No acute distress. AAOx2 person in place HEENT: oropharynx clear, Normocephalic, atraumatic Cardiac: RRR, no murmur, +S1/S2 Pulmonary: CTA bilaterally, no wheezes, rales or rhonchi, equal chest expansion Abdomen: soft, nontender, Bowel sounds noted, no guarding Extremities: +1 BLE edema, nontender calf, no cyanosis or clubbing Neuro: A&Ox2, moves all extremities, no focal deficits Psych: Appropriate mood and behavior - Assessment and Plan (1) Skin ulcer Current Visit: No Status: Chronic Assessment and Plan: On admission patient presented with bilateral heel ulcers and a stage one sacral decubitus ulcer that was undergoing treatment prior to admission. -Wound care ordered to continue treatment and care of the ulcers. (2) DVT prophylaxis Current Visit: No Status: Acute Assessment and Plan: Heparin SQ (3) Hypertension Current Visit: No Status: Chronic Assessment and Plan: History of hypertension taking metoprolol and amlodipine -blood pressure stable -increased home amlodipine to 10 mg -continue home medications -IV Lopressor PRN (4) Diabetes Current Visit: No Status: Chronic Assessment and Plan: History of diabetes taking insulin -glucose control -continue meeting to sliding scale insulin -continue Levemir 20 unit -continue Accu check -continue diabetic diet (5) Acute respiratory failure with hypercapnia Current Visit: No Status: Chronic Assessment and Plan: Resolved. Acute on chronic respiratory failure with hypercapnia. This is likely secondary to her noncompliance with BiPAP and oxygen and also noncompliance with diuretic use. She is recurrent noncompliance. This is in the setting of having COPD and congestive heart failure. -ABG: pH 7.31, CO2 66, O2 83, HCO3 33 -SpO2 94% on room air -chest x-ray unremarkable -Awaiting placement as social media marketing analyst is working with family and awaiting for insurance authorization for SNF placement -continue supplemental oxygen -continue home bumetanide (6) Dementia Current Visit: Yes Status: Chronic Assessment and Plan: History of dementia taking the memantine. Continue medication (7) CHF (congestive heart failure) Current Visit: Yes Status: Chronic Assessment and Plan: History of CHFpEF taking metoprolol, amlodipine, bumetanide. -Continue home medications (8) Acute encephalopathy Current Visit: Yes Status: Resolved Assessment and Plan: acute encephalopathy likely secondary to hypoxia from her noncompliance with BiPAP and oxygen along with diuretics for congestive heart failure. She also appears to have some baseline psychiatric illness. Does not appear to be cardiacin etiology or stroke as she has not been demonstrate focal neurologic deficits. -currently alert and oriented times 3 however she is confused to is why she is at the hospital. -ABG: pH 7.31, CO2 66, O2 83, HCO3 33 -chest x-ray unremarkable -urine culture negative -blood culture negative plan: -patient has been cooperative and is pleasant. She is alert and oriented to person in place. -continue patient's home Seroquel, Ativan, sertraline, Namenda, amitriptyline per palliative care's recommendation -continue BiPAP for bedtime and supplemental oxygen during the day as needed -continue supportive management -palliative care following due to the patient's DNR CC code status on hospice. palliative care is working on where the patient will be discharged to SNF -PT/OT recommends discharged to SNF for rehab - Time Spent with Patient Total time spent is greater than 50% in coordination of care (as documented) at patient's floor/unit and/or counseling patient: Internal Medicine: Result - Labs CBC & Chem 7: 01/29/19 07:03 01/29/19 07:03 - ABG Interpretation ABG results: ABG ABG pH 7.31 pH Units (7.32-7.45) L 01/27/19 03:18 ABG pCO2 66 mmHg (35-45) H 01/27/19 03:18 ABG pO2 83 mmHg (85-104) L 01/27/19 03:18 ABG O2 Saturation 95 % (95-98) 01/27/19 03:18 Consult Discharge Plan - Plan Additional Instructions: - Continue to take home medications including diuretics as prescribed -continue to take new increased dose of amlodipine 10 mg daily -Continue with oxygen therapy -Follow-up with primary care provider in one week -Continue to work with physical therapy Referrals: John Rubin MD [Primary Care Provider] - Prescriptions: Sulfamethoxazole/Trimeth DS [Bactrim Ds] 1 each PO BID #3 tablet amLODIPine [Norvasc] 10 mg PO DAILY #30 tablet (1) Skin ulcer Qualifiers: Qualified Code(s): L98.499 - Non-pressure chronic ulcer of skin of other sites with unspecified severity (3) Hypertension Qualifiers: Hypertension type: unspecified Qualified Code(s): I10 - Essential (primary) hypertension (4) Diabetes Qualifiers: Diabetes mellitus type: type 2 Diabetes mellitus 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
[2019-02-04] MEDS: Leptospermum Honey Gel 44 ML TUBE TP SCH (11:41)
[2019-02-04] MEDS: traZODone 50 MG TABLET PO SCH (20:50)
[2019-02-05] MEDS: *HR* Heparin 5,000 UNIT/ML VIAL SQ SCH ×2 (05:50→17:00)
[2019-02-05] MEDS: Metoprolol XL (24 HR) Succ 50 MG TAB.ER.24H PO SCH (07:55)
[2019-02-05] MEDS: Insulin LISPRO 300 UNITS/3 ML VIAL SQ SCH ×7 (07:55→21:48)
[2019-02-05] MEDS: Fenofibrate 54 MG TABLET PO SCH (07:56)
[2019-02-05] MEDS: amLODIPine 5 MG TABLET PO SCH (07:56)
[2019-02-05] MEDS: Bumetanide 1 MG TABLET PO SCH ×2 (07:56→17:00)
[2019-02-05] MEDS: Leptospermum Honey Gel 44 ML TUBE TP SCH (11:38)
[2019-02-05] MEDS: Hydrocortisone 1% OINT 28 GM TUBE TP SCH ×2 (11:38→21:48)
--- NOTE | 2019-02-05 18:45 | Internal Med Progress Note ---
<Khadar Velazquez - Last Filed: 02/05/19 18:43> Hospitalist Progress Note - Encounter Date of Encounter: 02/05/19 Time of Encounter: 08:40 - Subjective Interval History: When seen today patient was in no acute distress. She was resting comfortably in her bed. She denied any chest pain or shortness of breath. Denied any fever or cough. Denied any abdominal pain, nausea, or vomiting. - Exam Vitals: Temp Pulse Resp BP Pulse Ox 98.7 F 70 16 147/60 97 02/05/19 16:32 02/05/19 16:32 02/05/19 16:32 02/05/19 16:32 02/05/19 16:32 Exam: Gen.: Vitals noted. No acute distress. AAOx2 person in place HEENT: oropharynx clear, Normocephalic, atraumatic Cardiac: RRR, no murmur, +S1/S2 Pulmonary: CTA bilaterally, no wheezes, rales or rhonchi, equal chest expansion Abdomen: soft, nontender, Bowel sounds noted, no guarding Extremities: +1 BLE edema, nontender calf, no cyanosis or clubbing Neuro: A&Ox2, moves all extremities, no focal deficits Psych: Appropriate mood and behavior - Assessment and Plan (1) Acute respiratory failure with hypercapnia Current Visit: No Status: Chronic Assessment and Plan: Resolved. Acute on chronic respiratory failure with hypercapnia. This is likely secondary to her noncompliance with BiPAP and oxygen and also noncompliance with diuretic use. She is recurrent noncompliance. This is in the setting of having COPD and congestive heart failure. -ABG: pH 7.31, CO2 66, O2 83, HCO3 33 -SpO2 94% on room air -chest x-ray unremarkable -Awaiting placement as social media project manager is working with family and awaiting for insurance authorization for SNF placement -continue supplemental oxygen -continue home bumetanide (2) Acute encephalopathy Current Visit: Yes Status: Resolved Assessment and Plan: acute encephalopathy likely secondary to hypoxia from her noncompliance with BiPAP and oxygen along with diuretics for congestive heart failure. She also appears to have some baseline psychiatric illness. Does not appear to be cardiacin etiology or stroke as she has not been demonstrate focal neurologic deficits. -currently alert and oriented times 3 however she is confused to is why she is at the hospital. -ABG: pH 7.31, CO2 66, O2 83, HCO3 33 -chest x-ray unremarkable -urine culture negative -blood culture negative plan: -patient has been cooperative and is pleasant. She is alert and oriented to person in place. -continue patient's home Seroquel, Ativan, sertraline, Namenda, amitriptyline per palliative care's recommendation -continue BiPAP for bedtime and supplemental oxygen during the day as needed -continue supportive management -palliative care following due to the patient's DNR CC code status on hospice. palliative care is working on where the patient will be discharged to SNF -PT/OT recommends discharged to SNF for rehab (3) Skin ulcer Current Visit: No Status: Chronic Assessment and Plan: On admission patient presented with bilateral heel ulcers and a stage one sacral decubitus ulcer that was undergoing treatment prior to admission. -Wound care ordered to continue treatment and care of the ulcers. (4) Hypertension Current Visit: No Status: Chronic Assessment and Plan: History of hypertension taking metoprolol and amlodipine -blood pressure stable -increased home amlodipine to 10 mg -continue home medications -IV Lopressor PRN (5) Dementia Current Visit: Yes Status: Chronic Assessment and Plan: History of dementia taking the memantine. Continue medication (6) CHF (congestive heart failure) Current Visit: Yes Status: Chronic Assessment and Plan: History of CHFpEF taking metoprolol, amlodipine, bumetanide. -Continue home medications (7) Diabetes Current Visit: No Status: Chronic Assessment and Plan: History of diabetes taking insulin -glucose control -continue meeting to sliding scale insulin -continue Levemir 20 unit -continue Accu check -continue diabetic diet DVT Prophylaxis: Heparin SQ. - Time Spent with Patient Total time spent is greater than 50% in coordination of care (as documented) at patient's floor/unit and/or counseling patient: Internal Medicine: Result - Labs CBC & Chem 7: 01/29/19 07:03 01/29/19 07:03 - ABG Interpretation ABG results: ABG ABG pH 7.31 pH Units (7.32-7.45) L 01/27/19 03:18 ABG pCO2 66 mmHg (35-45) H 01/27/19 03:18 ABG pO2 83 mmHg (85-104) L 01/27/19 03:18 ABG O2 Saturation 95 % (95-98) 01/27/19 03:18 Consult Discharge Plan - Plan Additional Instructions: - Continue to take home medications including diuretics as prescribed -continue to take new increased dose of amlodipine 10 mg daily -Continue with oxygen therapy -Follow-up with primary care provider in one week -Continue to work with physical therapy Referrals: John Rubin MD [Primary Care Provider] - Prescriptions: Sulfamethoxazole/Trimeth DS [Bactrim Ds] 1 each PO BID #3 tablet amLODIPine [Norvasc] 10 mg PO DAILY #30 tablet <Lenard Mccoy - Last Filed: 02/05/19 19:24> Hospitalist Progress Note - Encounter Date of Encounter: 02/05/19 - Exam Vitals: Temp Pulse Resp BP Pulse Ox 98.7 F 70 16 147/60 97 02/05/19 16:32 02/05/19 16:32 02/05/19 16:32 02/05/19 16:32 02/05/19 16:32 - Assessment and Plan (1) Skin ulcer Current Visit: No Status: Chronic (2) DVT prophylaxis Current Visit: No Status: Acute (3) Hypertension Current Visit: No Status: Chronic (4) Diabetes Current Visit: No Status: Chronic (5) Acute respiratory failure with hypercapnia Current Visit: No Status: Chronic (6) Dementia Current Visit: Yes Status: Chronic (7) CHF (congestive heart failure) Current Visit: Yes Status: Chronic (8) Acute encephalopathy Current Visit: Yes Status: Resolved - Time Spent with Patient Total time spent is greater than 50% in coordination of care (as documented) at patient's floor/unit and/or counseling patient: Internal Medicine: Result - Labs CBC & Chem 7: 01/29/19 07:03 01/29/19 07:03 - ABG Interpretation ABG results: ABG ABG pH 7.31 pH Units (7.32-7.45) L 01/27/19 03:18 ABG pCO2 66 mmHg (35-45) H 01/27/19 03:18 ABG pO2 83 mmHg (85-104) L 01/27/19 03:18 ABG O2 Saturation 95 % (95-98) 01/27/19 03:18 - Attending Attestation I examined this patient and my medical decision-making was reviewed with the Resident Physician on 02/05/19. I agree with the documented findings, disposition and treatment plan as described except to the extent set forth below. Ms Berry is currently hospitalized for acute encephalopathy and resp failure. She remains moderate risk at this time. Ms Berry feels OK. No new issues overnight. Exam as above. Awaiting approval for SNF - agree with assessment and plan as above. 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 insulin 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: unspecified mcc insulin use status Diabetes mellitus complication status: with other specified complication Qualified Code(s): E11.69 - Type 2 diabetes mellitus with other specified complication <Lenard Mccoy - Last Filed: 02/05/19 19:24> (1) Skin ulcer Qualifiers: Qualified Code(s): L98.499 - Non-pressure chronic ulcer of skin of other sites with unspecified severity (3) Hypertension Qualifiers: Hypertension type: unspecified Qualified Code(s): I10 - Essential (primary) hypertension (4) Diabetes Qualifiers: Diabetes mellitus type: type 2 Diabetes mellitus mcc insulin use: unspecified local intermodal truck driver insulin use status Diabetes mellitus complication status: with other specified complication Qualified Code(s): E11.69 - Type 2 diabetes mellitus with other specified complication (6) Dementia Qualifiers: Dementia type: unspecified type Dementia behavioral disturbance: with behavioral disturbance Qualified Code(s): F03.91 - Unspecified dementia with behavioral disturbance
[2019-02-05] MEDS: traZODone 50 MG TABLET PO SCH (21:48)
[2019-02-05] MEDS: Insulin DETEMIR 100 UNIT/ML X5UNITS SQ SCH (21:48)
[2019-02-06] MEDS: *HR* Heparin 5,000 UNIT/ML VIAL SQ SCH ×2 (06:07→18:07)
[2019-02-06] MEDS: Insulin LISPRO 300 UNITS/3 ML VIAL SQ SCH ×7 (07:47→21:21)
[2019-02-06] MEDS: Leptospermum Honey Gel 44 ML TUBE TP SCH (10:59)
[2019-02-06] MEDS: Hydrocortisone 1% OINT 28 GM TUBE TP SCH ×2 (10:59→21:21)
[2019-02-06] MEDS: Bumetanide 1 MG TABLET PO SCH ×2 (11:00→16:24)
[2019-02-06] MEDS: Fenofibrate 54 MG TABLET PO SCH (11:01)
[2019-02-06] MEDS: amLODIPine 5 MG TABLET PO SCH (11:01)
[2019-02-06] MEDS: Metoprolol XL (24 HR) Succ 50 MG TAB.ER.24H PO SCH (11:02)
--- NOTE | 2019-02-06 13:11 | Internal Med Progress Note ---
Hospitalist Progress Note - Encounter Date of Encounter: 02/06/19 Time of Encounter: 08:40 - Subjective Interval History: When seen today patient was a and O 3 however not oriented to situation. She denied any chest pain or shortness of breath. Denied any fever, cough. Denies any abdominal pain, nausea, or vomiting. Denied any dysuria or hematuria. - Exam Vitals: Temp Pulse Resp BP Pulse Ox 98.3 F 73 15 142/84 97 02/06/19 10:13 02/06/19 10:13 02/06/19 10:13 02/06/19 10:13 02/06/19 11:23 Exam: Gen.: Vitals noted. No acute distress. AAOx2 person in place HEENT: oropharynx clear, Normocephalic, atraumatic Cardiac: RRR, no murmur, +S1/S2 Pulmonary: CTA bilaterally, no wheezes, rales or rhonchi, equal chest expansion Abdomen: soft, nontender, Bowel sounds noted, no guarding Extremities: +1 BLE edema, nontender calf, no cyanosis or clubbing Neuro: A&Ox2, moves all extremities, no focal deficits Psych: Appropriate mood and behavior - Assessment and Plan (1) Acute respiratory failure with hypercapnia Current Visit: No Status: Chronic Assessment and Plan: Resolved. Acute on chronic respiratory failure with hypercapnia. This is likely secondary to her noncompliance with BiPAP and oxygen and also noncompliance with diuretic use. She is recurrent noncompliance. This is in the setting of having COPD and congestive heart failure. -ABG: pH 7.31, CO2 66, O2 83, HCO3 33 -SpO2 94% on room air -chest x-ray unremarkable -Per social work, insurance issue has been resolved and pre-cert is submitted. Awaiting placement at SNF. -continue supplemental oxygen -continue home bumetanide (2) Acute encephalopathy Current Visit: Yes Status: Resolved Assessment and Plan: acute encephalopathy likely secondary to hypoxia from her noncompliance with BiPAP and oxygen along with diuretics for congestive heart failure. She also appears to have some baseline psychiatric illness. Does not appear to be cardiacin etiology or stroke as she has not been demonstrate focal neurologic deficits. -currently alert and oriented times 3 however she is confused to is why she is at the hospital. -ABG: pH 7.31, CO2 66, O2 83, HCO3 33 -chest x-ray unremarkable -urine culture negative -blood culture negative plan: -patient has been cooperative and is pleasant. She is alert and oriented to person in place. -continue patient's home Seroquel, Ativan, sertraline, Namenda, amitriptyline per palliative care's recommendation -continue BiPAP for bedtime and supplemental oxygen during the day as needed -continue supportive management -palliative care following due to the patient's DNR CC code status on hospice. palliative care is working on where the patient will be discharged to SNF -PT/OT recommends discharged to SNF for rehab (3) Skin ulcer Current Visit: No Status: Chronic Assessment and Plan: On admission patient presented with bilateral heel ulcers and a stage one sacral decubitus ulcer that was undergoing treatment prior to admission. -Wound care ordered to continue treatment and care of the ulcers. (4) Hypertension Current Visit: No Status: Chronic Assessment and Plan: History of hypertension taking metoprolol and amlodipine -blood pressure stable -increased home amlodipine to 10 mg -continue home medications -IV Lopressor PRN (5) Dementia Current Visit: Yes Status: Chronic Assessment and Plan: History of dementia taking the memantine. Continue medication (6) CHF (congestive heart failure) Current Visit: Yes Status: Chronic Assessment and Plan: History of CHFpEF taking metoprolol, amlodipine, bumetanide. -Continue home medications (7) Diabetes Current Visit: No Status: Chronic Assessment and Plan: History of diabetes taking insulin -glucose control -continue meeting to sliding scale insulin -continue Levemir 20 unit -continue Accu check -continue diabetic diet DVT Prophylaxis: Heparin SQ. - Time Spent with Patient Total time spent is greater than 50% in coordination of care (as documented) at patient's floor/unit and/or counseling patient: Internal Medicine: Result - Labs CBC & Chem 7: 01/29/19 07:03 01/29/19 07:03 - ABG Interpretation ABG results: ABG ABG pH 7.31 pH Units (7.32-7.45) L 01/27/19 03:18 ABG pCO2 66 mmHg (35-45) H 01/27/19 03:18 ABG pO2 83 mmHg (85-104) L 01/27/19 03:18 ABG O2 Saturation 95 % (95-98) 01/27/19 03:18 Consult Discharge Plan - Plan Additional Instructions: - Continue to take home medications including diuretics as prescribed -continue to take new increased dose of amlodipine 10 mg daily -Continue with oxygen therapy -Follow-up with primary care provider in one week -Continue to work with physical therapy Referrals: John Rubin MD [Primary Care Provider] - Prescriptions: Sulfamethoxazole/Trimeth DS [Bactrim Ds] 1 each PO BID #3 tablet amLODIPine [Norvasc] 10 mg PO DAILY #30 tablet (3) Skin ulcer Qualifiers: Qualified Code(s): L98.499 - Non-pressure chronic ulcer of skin of other sites with unspecified severity (4) Hypertension Qualifiers: Hypertension type: essential hypertension Qualified Code(s): I10 - Essential (primary) hypertension (5) Dementia Qualifiers: Dementia type: unspecified type Dementia behavioral disturbance: with behavioral disturbance Qualified Code(s): F03.91 - Unspecified dementia with behavioral disturbance (7) Diabetes Qualifiers: Diabetes mellitus type: type 2 Diabetes mellitus [facility] insulin use: 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
[2019-02-06] MEDS: traZODone 50 MG TABLET PO SCH (21:18)
[2019-02-06] MEDS: Insulin DETEMIR 100 UNIT/ML X5UNITS SQ SCH (21:21)
[2019-02-07] MEDS: *HR* Metoprolol 5 MG/5 ML VIAL IVP PRN (04:46)
[2019-02-07] MEDS: *HR* Heparin 5,000 UNIT/ML VIAL SQ SCH ×2 (04:47→16:19)
--- NOTE | 2019-02-07 08:36 | Internal Med Progress Note ---
<Maureen Butcher - Last Filed: 02/07/19 15:48> Hospitalist Progress Note - Encounter Date of Encounter: 02/07/19 Time of Encounter: 08:33 - Subjective Interval History: Pt seated in bedside chair watching TV. Reports she feels fine, but is frustrated that she's still in the hospital waiting to go to rehab and doesn't understand why she can't just go home. No chest pain, difficulty breathing, abdominal pain, or nausea. - Exam Vitals: Temp Pulse Resp BP Pulse Ox 98.8 F 76 14 173/65 95 02/07/19 07:18 02/07/19 07:18 02/07/19 07:18 02/07/19 07:18 02/07/19 07:18 Exam: General: No acute distress, seated in chair HEENT: head normocephalic/atraumatic, EOMI, PERRL, sclera anicteric, moist mucus membranes Neck: Supple Cardio: RRR, no murmurs, +S1/S2 Pulm: CTAB, diminished breath sounds bilaterally, no wheezing/rhonchi/rales. Normal respiratory effort. Abdomen: soft, active bowel sounds, obese Extremities: No LE edema, no cyanosis or clubbing, warm Neuro: Alert, oriented to herself and to situation, no focal deficits, no speech deficit, CN II-XII grossly intact, moves all extremities spontaneously MSK: Strength 5/5 throughout, no visible deformities Skin: clean, dry, intact, no visible rashes Psych: Appropriate mood and affect. Answers questions appropriately. Cooperative with exam - Assessment and Plan (1) Acute respiratory failure with hypercapnia Current Visit: Yes Status: Resolved Assessment and Plan: Resolved. Acute on chronic respiratory failure with hypercapnia. Most likely due to noncompliance with BiPAP, oxygen, diuretics in the setting of COPD and CHF. ABG: pH 7.31, CO2 66, O2 83, HCO3 33 Unremarkable CXR Maintaining appropriate oxygenation and ventilation on room air. -Awaiting placement at SNF -continue supplemental oxygen -continue home bumetanide (2) Acute encephalopathy Current Visit: Yes Status: Resolved Assessment and Plan: Resolved, back to baseline. Most likely due to hypoxia from noncompliance with BiPAP, oxygen, diuretics for CHF in the setting of Parkinson's disease and possibly underlying psychiatric illness at baseline. Doubt cardiogenic etiology and doubt CVA; negative troponin, no c/o chest pain, EKG without evidence for acute ischemia, and no focal neuro deficits. ABG and CXR as above. Final blood and urine cultures negative. Alert and oriented to person and place. Home Seroquel, Ativan, sertraline, Namenda, amitriptyline restarted per palliative care rec. BiPAP for bedtime and supplemental oxygen during the day as needed. PT/OT recommending SNF for rehab. (3) Hypertension Current Visit: Yes Status: Chronic Assessment and Plan: Controlled. Increased home amlodipine to 10 mg daily Continue home bumex, metoprolol IV Lopressor PRN (4) Congestive heart failure Current Visit: Yes Status: Acute Assessment and Plan: History of CHFpEF on metoprolol, amlodipine, bumetanide. Continue meds as above. (5) Diabetes Current Visit: Yes Status: Chronic Assessment and Plan: Insulin dependent diabetes type II Levemir 20 units SQ HS Humalog 3 units SQ TIDWM Medium dose SSI POC glucose check ACHS Diabetic diet (6) Skin ulcer Current Visit: No Status: Chronic Assessment and Plan: Present on arrival and receiving treatment prior to admission. Bilateral heel ulcers and sacral decubitus ulcer stage 1. Wound care for continued treatment. (7) Dementia Current Visit: Yes Status: Chronic Assessment and Plan: Oriented to person and place. Continue memantine. DVT Prophylaxis: Heparin SQ. - Time Spent with Patient Total time spent is greater than 50% in coordination of care (as documented) at patient's floor/unit and/or counseling patient: less than 15 minutes Plan of Care Discussed with: patient Internal Medicine: Result - Labs CBC & Chem 7: 01/29/19 07:03 01/29/19 07:03 - ABG Interpretation ABG results: ABG ABG pH 7.31 pH Units (7.32-7.45) L 01/27/19 03:18 ABG pCO2 66 mmHg (35-45) H 01/27/19 03:18 ABG pO2 83 mmHg (85-104) L 01/27/19 03:18 ABG O2 Saturation 95 % (95-98) 01/27/19 03:18 Consult Discharge Plan - Plan Additional Instructions: - Continue to take home medications including diuretics as prescribed -continue to take new increased dose of amlodipine 10 mg daily -Continue with oxygen therapy -Follow-up with primary care provider in one week -Continue to work with physical therapy Referrals: John Rubin MD [Primary Care Provider] - Prescriptions: Sulfamethoxazole/Trimeth DS [Bactrim Ds] 1 each PO BID #3 tablet amLODIPine [Norvasc] 10 mg PO DAILY #30 tablet <Lenard Mccoy - Last Filed: 02/07/19 17:34> Hospitalist Progress Note - Encounter Date of Encounter: 02/07/19 - Exam Vitals: Temp Pulse Resp BP Pulse Ox 98.4 F 68 14 127/64 97 02/07/19 16:03 02/07/19 16:03 02/07/19 16:03 02/07/19 16:03 02/07/19 16:03 - Assessment and Plan (1) Skin ulcer Current Visit: No Status: Chronic (2) DVT prophylaxis Current Visit: No Status: Acute (3) Hypertension Current Visit: No Status: Chronic (4) Diabetes Current Visit: Yes Status: Chronic (5) Acute respiratory failure with hypercapnia Current Visit: Yes Status: Resolved (6) Dementia Current Visit: Yes Status: Chronic (7) CHF (congestive heart failure) Current Visit: Yes Status: Chronic (8) Acute encephalopathy Current Visit: Yes Status: Resolved - Time Spent with Patient Total time spent is greater than 50% in coordination of care (as documented) at patient's floor/unit and/or counseling patient: Internal Medicine: Result - Labs CBC & Chem 7: 01/29/19 07:03 01/29/19 07:03 - ABG Interpretation ABG results: ABG ABG pH 7.31 pH Units (7.32-7.45) L 01/27/19 03:18 ABG pCO2 66 mmHg (35-45) H 01/27/19 03:18 ABG pO2 83 mmHg (85-104) L 01/27/19 03:18 ABG O2 Saturation 95 % (95-98) 01/27/19 03:18 - Attending Attestation I examined this patient and my medical decision-making was reviewed with the Dalton richard Physician on 02/07/19. I agree with the documented findings, disposition and treatment plan as described except to the extent set forth below. Ms Berry is currently hospitalized for resp failure. She is awaiting placement in SNF. Ms Berry has no new issues. She wants to go home. She is awaiting placement in SNF. Exam as above. <Maureen Butcher - Last Filed: 02/07/19 15:48> (3) Hypertension Qualifiers: Hypertension type: essential hypertension Qualified Code(s): I10 - Essential (primary) hypertension (4) Congestive heart failure Qualifiers: Heart failure type: diastolic Heart failure chronicity: acute on chronic Qualified Code(s): I50.33 - Acute on chronic diastolic (congestive) heart failure (5) Diabetes Qualifiers: Diabetes mellitus type: type 2 Diabetes mellitus terminal system operator insulin use: unspecified residential insulin use status Diabetes mellitus complication status: with other specified complication Qualified Code(s): E11.69 - Type 2 diabetes mellitus with other specified complication (6) Skin ulcer Qualifiers: Qualified Code(s): L98.499 - Non-pressure chronic ulcer of skin of other sites with unspecified severity (7) Dementia Qualifiers: Dementia type: unspecified type Dementia behavioral disturbance: with behavioral disturbance Qualified Code(s): F03.91 - Unspecified dementia with behavioral disturbance <Lenard Mccoy - Last Filed: 02/07/19 17:34> (1) Skin ulcer Qualifiers: Qualified Code(s): L98.499 - Non-pressure chronic ulcer of skin of other sites with unspecified severity (3) Hypertension Qualifiers: Hypertension type: unspecified Qualified Code(s): I10 - Essential (primary) hypertension (4) Diabetes Qualifiers: Diabetes mellitus type: type 2 Diabetes mellitus residential insulin use: unspecified residential insulin use status Diabetes mellitus complication status: with other specified complication Qualified Code(s): E11.69 - Type 2 diabetes mellitus with other specified complication (6) Dementia Qualifiers: Dementia type: unspecified type Dementia behavioral disturbance: with behavioral disturbance Qualified Code(s): F03.91 - Unspecified dementia with behavioral disturbance
[2019-02-07] MEDS: amLODIPine 5 MG TABLET PO SCH (09:05)
[2019-02-07] MEDS: Fenofibrate 54 MG TABLET PO SCH (09:05)
[2019-02-07] MEDS: Bumetanide 1 MG TABLET PO SCH ×2 (09:05→16:19)
[2019-02-07] MEDS: Insulin LISPRO 300 UNITS/3 ML VIAL SQ SCH ×7 (09:05→21:07)
[2019-02-07] MEDS: Metoprolol XL (24 HR) Succ 50 MG TAB.ER.24H PO SCH (09:05)
[2019-02-07] MEDS: Hydrocortisone 1% OINT 28 GM TUBE TP SCH ×2 (09:07→21:12)
[2019-02-07] MEDS: Leptospermum Honey Gel 44 ML TUBE TP SCH (09:07)
[2019-02-07] MEDS: Insulin DETEMIR 100 UNIT/ML X5UNITS SQ SCH (21:07)
[2019-02-07] MEDS: traZODone 50 MG TABLET PO SCH (21:07)
[2019-02-08] MEDS: *HR* Heparin 5,000 UNIT/ML VIAL SQ SCH ×2 (05:35→17:13)
--- NOTE | 2019-02-08 06:16 | Internal Med Progress Note ---
Hospitalist Progress Note - Encounter Date of Encounter: 02/08/19 - Exam Vitals: Temp Pulse Resp BP Pulse Ox 98.3 F 57 14 130/64 95 02/08/19 03:55 02/08/19 03:55 02/08/19 03:55 02/08/19 03:55 02/08/19 03:55 Exam: General: No acute distress, seated in chair HEENT: head normocephalic/atraumatic, EOMI, PERRL, sclera anicteric, moist mucus membranes Neck: Supple Cardio: RRR, no murmurs, +S1/S2 Pulm: CTAB, diminished breath sounds bilaterally, no wheezing/rhonchi/rales. Normal respiratory effort. Abdomen: soft, active bowel sounds, obese Extremities: No LE edema, no cyanosis or clubbing, warm Neuro: Alert, oriented to herself and to situation, no focal deficits, no speech deficit, CN II-XII grossly intact, moves all extremities spontaneously MSK: Strength 5/5 throughout, no visible deformities Skin: clean, dry, intact, no visible rashes Psych: Appropriate mood and affect. Answers questions appropriately. Cooperative with exam - Assessment and Plan (1) Acute respiratory failure with hypercapnia Current Visit: Yes Status: Resolved Assessment and Plan: Resolved. Acute on chronic respiratory failure with hypercapnia. Most likely due to noncompliance with BiPAP, oxygen, diuretics in the setting of COPD and CHF. ABG: pH 7.31, CO2 66, O2 83, HCO3 33 Unremarkable CXR Maintaining appropriate oxygenation and ventilation on room air. -Awaiting placement at SNF -continue supplemental oxygen -continue home bumetanide (2) Acute encephalopathy Current Visit: Yes Status: Resolved Assessment and Plan: Resolved, back to baseline. Most likely due to hypoxia from noncompliance with BiPAP, oxygen, diuretics for CHF in the setting of Parkinson's disease and possibly underlying psychiatric illness at baseline. Doubt cardiogenic etiology and doubt CVA; negative troponin, no c/o chest pain, EKG without evidence for acute ischemia, and no focal neuro deficits. ABG and CXR as above. Final blood and urine cultures negative. Alert and oriented to person and place. Home Seroquel, Ativan, sertraline, Namenda, amitriptyline restarted per palliative care rec. BiPAP for bedtime and supplemental oxygen during the day as needed. PT/OT recommending SNF for rehab. (3) Hypertension Current Visit: Yes Status: Chronic Assessment and Plan: Current Visit: Yes Status: Chronic Assessment and Plan: Controlled. Increased home amlodipine to 10 mg daily Continue home bumex, metoprolol IV Lopressor PRN (4) Congestive heart failure Current Visit: Yes Status: Acute Assessment and Plan: History of CHFpEF on metoprolol, amlodipine, bumetanide. Continue meds as above. (5) Diabetes Current Visit: Yes Status: Chronic Assessment and Plan: Insulin dependent diabetes type II Levemir 20 units SQ HS Humalog 3 units SQ TIDWM Medium dose SSI POC glucose check ACHS Diabetic diet (6) Skin ulcer Current Visit: Yes Status: Chronic Assessment and Plan: Present on arrival and receiving treatment prior to admission. Bilateral heel ulcers and sacral decubitus ulcer stage 1. Wound care for continued treatment. (7) Dementia Current Visit: Yes Status: Chronic Assessment and Plan: Oriented to person and place. Continue memantine. DVT Prophylaxis: Heparin SQ. - Time Spent with Patient Total time spent is greater than 50% in coordination of care (as documented) at patient's floor/unit and/or counseling patient: Internal Medicine: Result - Labs CBC & Chem 7: 01/29/19 07:03 01/29/19 07:03 - ABG Interpretation ABG results: ABG ABG pH 7.31 pH Units (7.32-7.45) L 01/27/19 03:18 ABG pCO2 66 mmHg (35-45) H 01/27/19 03:18 ABG pO2 83 mmHg (85-104) L 01/27/19 03:18 ABG O2 Saturation 95 % (95-98) 01/27/19 03:18 Consult Discharge Plan - Plan Additional Instructions: - Continue to take home medications including diuretics as prescribed -continue to take new increased dose of amlodipine 10 mg daily -Continue with oxygen therapy -Follow-up with primary care provider in one week -Continue to work with physical therapy Referrals: John Rubin MD [Primary Care Provider] - Prescriptions: Sulfamethoxazole/Trimeth DS [Bactrim Ds] 1 each PO BID #3 tablet amLODIPine [Norvasc] 10 mg PO DAILY #30 tablet ___ (3) Hypertension Qualifiers: Hypertension type: essential hypertension Qualified Code(s): I10 - Essential (primary) hypertension (4) Congestive heart failure Qualifiers: Heart failure type: diastolic Heart failure chronicity: acute on chronic Qualified Code(s): I50.33 - Acute on chronic diastolic (congestive) heart failure (5) Diabetes Qualifiers: Diabetes mellitus type: type 2 Diabetes mellitus terminal clerk insulin use: unspecified terminal clerk insulin use status Diabetes mellitus complication status: with other specified complication Qualified Code(s): E11.69 - Type 2 diabetes mellitus with other specified complication (6) Skin ulcer Qualifiers: Qualified Code(s): L98.499 - Non-pressure chronic ulcer of skin of other sites with unspecified severity (7) Dementia Qualifiers: Dementia type: unspecified type Dementia behavioral disturbance: with behavioral disturbance Qualified Code(s): F03.91 - Unspecified dementia with behavioral disturbance
[2019-02-08 06:30] LABS: Basophils % 0.5 %; Eosinophils # 0.2 K/mcL (0.0-0.6); Eosinophils % 3.2 %; Hematocrit 31.5 % (35.3-44.9); Hemoglobin 10.4 g/dL (11.5-15.4); Immature Granulocytes % 0.3 % (0-4); Lymphocytes # 3.3 K/mcL (0.6-4.6); Lymphocytes % 44.8 %; Mean Corpuscular Hemoglobin 29.6 pg (28.0-33.3); Mean Corpuscular Volume 89.7 fL (83.0-100.0); Mean Platelet Volume 9.7 fL (9.4-12.4); Monocytes # 0.8 K/mcL (0.0-1.3); Platelet Count 359 K/mcL (140-400); Red Blood Count 3.51 M/mcL (3.82-4.97); Red Cell Distribution Width 13.6 % (11.5-14.5); Segmented Neutrophils % 40.2 %; White Blood Count 7.5 K/mcL (4.3-11.1)
[2019-02-08 06:49] LABS: Calcium 8.7 mg/dL (8.6-10.3)
[2019-02-08] MEDS: Fenofibrate 54 MG TABLET PO SCH (08:00)
[2019-02-08] MEDS: Metoprolol XL (24 HR) Succ 50 MG TAB.ER.24H PO SCH (08:00)
[2019-02-08] MEDS: Bumetanide 1 MG TABLET PO SCH ×2 (08:00→17:13)
[2019-02-08] MEDS: amLODIPine 5 MG TABLET PO SCH (08:01)
[2019-02-08] MEDS: Insulin LISPRO 300 UNITS/3 ML VIAL SQ SCH ×7 (08:01→21:18)
[2019-02-08] MEDS: Hydrocortisone 1% OINT 28 GM TUBE TP SCH ×2 (08:02→21:19)
[2019-02-08] MEDS: Leptospermum Honey Gel 44 ML TUBE TP SCH (08:02)
--- NOTE | 2019-02-08 14:15 | Internal Med Progress Note ---
Hospitalist Progress Note - Encounter Date of Encounter: 02/08/19 Time of Encounter: 09:15 - Subjective Interval History: Ms Berry is currently hospitalized for resp failure. She remains low to moderate care at this time. Ms Berry is feeling OK. She wants to go home. No fever or chills. No CP or SOB. - Exam Vitals: Temp Pulse Resp BP Pulse Ox 98.0 F 62 15 116/74 96 02/08/19 10:02/08/19 10:02/08/19 10:02/08/19 10:02/08/19 10:09 Exam: Gen: Pleasant. Comfortable. Sitting up in chair. Head: Normocephalic EENT: Mucus membranes dry. EOMI. Neck: Supple. No adenopathy Heart: Not tachycardic at this time Lungs: Clear bilaterally Abd: Soft and nontender Ext: No edema. Moves equally Neuro: alert and oriented now. - Assessment and Plan (1) Acute respiratory failure with hypercapnia Current Visit: Yes Status: Resolved Assessment and Plan: Resolved. Acute on chronic respiratory failure with hypercapnia. This is likely secondary to her noncompliance with BiPAP and oxygen and also noncompliance with diuretic use. She is recurrent noncompliance. This is in the setting of having COPD and congestive heart failure. - Continuing to wait for insurance approval for SNF. - (2) Skin ulcer Current Visit: Yes Status: Chronic (3) DVT prophylaxis Current Visit: No Status: Acute Assessment and Plan: Heparin SQ (4) Hypertension Current Visit: No Status: Chronic Assessment and Plan: History of hypertension taking metoprolol and amlodipine - Blood pressure controlled at this time. (5) Diabetes Current Visit: Yes Status: Chronic Assessment and Plan: History of diabetes taking insulin - Blood sugar elevated intermittently Adjust meds today. (6) Dementia Current Visit: Yes Status: Suspected Assessment and Plan: History of dementia taking the memantine. Continue medication (7) CHF (congestive heart failure) Current Visit: Yes Status: Chronic (8) Acute encephalopathy Current Visit: Yes Status: Resolved - Time Spent with Patient Total time spent is greater than 50% in coordination of care (as documented) at patient's floor/unit and/or counseling patient: Internal Medicine: Result - Labs CBC & Chem 7: 02/08/19 05:01 02/08/19 05:01 Labs: Short CBC 02/08/19 Range/Units 05:01 WBC 7.5 (4.3-11.1) K/mcL Hgb 10.4 L (11.5-15.4) g/dL Hct 31.5 L (35.3-44.9) % Plt Count 359 (140-400) K/mcL Neutrophils # 3.0 (1.6-8.9) K/mcL BMP 02/08/19 05:01 Sodium 135 L Potassium 4.0 Chloride 99 Carbon Dioxide 29 BUN 50 H Creatinine 1.65 H Glucose 181 H Calcium 8.7 - ABG Interpretation ABG results: ABG ABG pH 7.31 pH Units (7.32-7.45) L 01/27/19 03:18 ABG pCO2 66 mmHg (35-45) H 01/27/19 03:18 ABG pO2 83 mmHg (85-104) L 01/27/19 03:18 ABG O2 Saturation 95 % (95-98) 01/27/19 03:18 Consult Discharge Plan - Plan Additional Instructions: - Continue to take home medications including diuretics as prescribed -continue to take new increased dose of amlodipine 10 mg daily -Continue with oxygen therapy -Follow-up with primary care provider in one week -Continue to work with physical therapy Referrals: John Rubin MD [Primary Care Provider] - Prescriptions: Sulfamethoxazole/Trimeth DS [Bactrim Ds] 1 each PO BID #3 tablet amLODIPine [Norvasc] 10 mg PO DAILY #30 tablet (2) Skin ulcer Qualifiers: Non-pressure ulcer stage: unspecified non-pressure ulcer stage Qualified Code(s): L98.499 - Non-pressure chronic ulcer of skin of other sites with unspecified severity (4) Hypertension Qualifiers: Hypertension type: essential hypertension Qualified Code(s): I10 - Essential (primary) hypertension (5) Diabetes Qualifiers: Diabetes mellitus type: type 2 Diabetes mellitus account executive key accounts insulin use: with account executive key accounts use Diabetes mellitus complication status: with hyperglycemia Qualified Code(s): E11.65 - Type 2 diabetes mellitus with hyperglycemia; Z79.4 - traffic operations engineer (current) use of insulin (6) Dementia Qualifiers: Dementia type: Alzheimer's disease Alzheimer's disease onset: other onset Dementia behavioral disturbance: with behavioral disturbance Qualified Code(s): G30.8 - Other Alzheimer's disease; F02.81 - Dementia in other diseases classified elsewhere with behavioral disturbance
[2019-02-08] MEDS ORDERED: Acetaminophen 325 MG TABLET PO PRN (16:40)
[2019-02-08] MEDS: traZODone 50 MG TABLET PO SCH (21:18)
[2019-02-08] MEDS: Insulin DETEMIR 100 UNIT/ML X5UNITS SQ SCH (21:18)
[2019-02-09] MEDS: *HR* Heparin 5,000 UNIT/ML VIAL SQ SCH ×2 (05:21→18:07)
[2019-02-09] MEDS: Metoprolol XL (24 HR) Succ 50 MG TAB.ER.24H PO SCH (11:03)
[2019-02-09] MEDS: amLODIPine 5 MG TABLET PO SCH (11:04)
[2019-02-09] MEDS: Bumetanide 1 MG TABLET PO SCH ×2 (11:04→18:06)
[2019-02-09] MEDS: Leptospermum Honey Gel 44 ML TUBE TP SCH (11:04)
[2019-02-09] MEDS: Fenofibrate 54 MG TABLET PO SCH (11:04)
[2019-02-09] MEDS: Insulin LISPRO 300 UNITS/3 ML VIAL SQ SCH ×7 (11:05→21:10)
[2019-02-09] MEDS: Hydrocortisone 1% OINT 28 GM TUBE TP SCH ×2 (11:05→21:10)
--- NOTE | 2019-02-09 15:13 | Internal Med Progress Note ---
Hospitalist Progress Note - Encounter Date of Encounter: 02/09/19 Time of Encounter: 08:40 - Subjective Interval History: When seen today patient was comfortably laying down in bed. She was alert and oriented 3. She denied any chest pain, shortness of breath. Denied any cough or fever. Denied any abdominal pain, nausea, or vomiting. - Exam Vitals: Temp Pulse Resp BP Pulse Ox 98.1 F 68 14 147/72 92 02/09/19 14:39 02/09/19 14:39 02/09/19 14:39 02/09/19 14:39 02/09/19 14:39 Exam: GENERAL APPEARANCE: Obese, alert and cooperative, and appears to be in no acute distress. HEAD: normocephalic. EYES: vision is grossly intact. EARS: External auditory canals and tympanic membranes clear, hearing grossly intact. NOSE: No nasal discharge. THROAT: Oral cavity and pharynx normal. No inflammation, swelling, exudate, or lesions. NECK: Neck supple, non-tender without lymphadenopathy, masses or thyromegaly. CARDIAC: Normal S1 and S2. No S3, S4 or murmurs. Rhythm is regular. There is no peripheral edema, cyanosis or pallor. Extremities are warm and well perfused. Capillary refill is less than 2 seconds. No carotid bruits. LUNGS: Clear to auscultation and percussion without rales, rhonchi, wheezing or diminished breath sounds. ABDOMEN: Positive bowel sounds. Soft, nondistended, nontender. No guarding or rebound. No masses. EXTREMITIES: No significant deformity or joint abnormality. No edema. Peripheral pulses intact. No varicosities. Hyperkeratosis of lower extremities. LOWER EXTREMITY: Examination of both feet reveals all toes to be normal in size and symmetry, normal range of motion, normal sensation with distal capillary filling of less than 2 seconds without tenderness, swelling, discoloration, nodules, weakness or deformity. SKIN: Hyperkeratosis of lower extremities bilaterally. PSYCHIATRIC: The mental examination revealed the patient was oriented to person, place, and time, but not to situation. - Assessment and Plan (1) Acute respiratory failure with hypercapnia Current Visit: Yes Status: Resolved Assessment and Plan: Resolved. Acute on chronic respiratory failure with hypercapnia. Most likely due to noncompliance with BiPAP, oxygen, diuretics in the setting of COPD and CHF. ABG: pH 7.31, CO2 66, O2 83, HCO3 33 Unremarkable CXR Maintaining appropriate oxygenation and ventilation on room air. -Awaiting placement at SNF -continue supplemental oxygen -continue home bumetanide (2) Acute encephalopathy Current Visit: Yes Status: Resolved Assessment and Plan: Resolved, back to baseline. Most likely due to hypoxia from noncompliance with BiPAP, oxygen, diuretics for CHF in the setting of Parkinson's disease and possibly underlying psychiatric illness at baseline. Doubt cardiogenic etiology and doubt CVA; negative troponin, no c/o chest pain, EKG without evidence for acute ischemia, and no focal neuro deficits. ABG and CXR as above. Final blood and urine cultures negative. Alert and oriented to person and place. Home Seroquel, Ativan, sertraline, Namenda, amitriptyline restarted per palliative care rec. BiPAP for bedtime and supplemental oxygen during the day as needed. PT/OT recommending SNF for rehab. (3) Skin ulcer Current Visit: Yes Status: Chronic Assessment and Plan: Present on arrival and receiving treatment prior to admission. Bilateral heel ulcers and sacral decubitus ulcer stage 1. Wound care for continued treatment. (4) Hypertension Current Visit: Yes Status: Chronic Assessment and Plan: Controlled. Increased home amlodipine to 10 mg daily Continue home bumex, metoprolol IV Lopressor PRN (5) Dementia Current Visit: Yes Status: Suspected Assessment and Plan: Oriented to person and place. Continue memantine. (6) Diabetes Current Visit: Yes Status: Chronic Assessment and Plan: Insulin dependent diabetes type II Levemir 20 units SQ HS Humalog 3 units SQ TIDWM Medium dose SSI POC glucose check ACHS Diabetic diet (7) CHF (congestive heart failure) Current Visit: Yes Status: Chronic Assessment and Plan: History of CHFpEF on metoprolol, amlodipine, bumetanide. Continue meds as above. DVT Prophylaxis: Heparin SQ. - Time Spent with Patient Total time spent is greater than 50% in coordination of care (as documented) at patient's floor/unit and/or counseling patient: Internal Medicine: Result - Labs CBC & Chem 7: 02/08/19 05:01 02/08/19 05:01 - ABG Interpretation ABG results: ABG ABG pH 7.31 pH Units (7.32-7.45) L 01/27/19 03:18 ABG pCO2 66 mmHg (35-45) H 01/27/19 03:18 ABG pO2 83 mmHg (85-104) L 01/27/19 03:18 ABG O2 Saturation 95 % (95-98) 01/27/19 03:18 Consult Discharge Plan - Plan Additional Instructions: - Continue to take home medications including diuretics as prescribed -continue to take new increased dose of amlodipine 10 mg daily -Continue with oxygen therapy -Follow-up with primary care provider in one week -Continue to work with physical therapy Referrals: John Rubin MD [Primary Care Provider] - Prescriptions: Sulfamethoxazole/Trimeth DS [Bactrim Ds] 1 each PO BID #3 tablet amLODIPine [Norvasc] 10 mg PO DAILY #30 tablet (3) Skin ulcer Qualifiers: Non-pressure ulcer stage: unspecified non-pressure ulcer stage Qualified Code(s): L98.499 - Non-pressure chronic ulcer of skin of other sites with unspecified severity (4) Hypertension Qualifiers: Hypertension type: essential hypertension Qualified Code(s): I10 - Essential (primary) hypertension (5) Dementia Qualifiers: Dementia type: Alzheimer's disease Alzheimer's disease onset: other onset Dementia behavioral disturbance: with behavioral disturbance Qualified Code(s): G30.8 - Other Alzheimer's disease; F02.81 - Dementia in other diseases classified elsewhere with behavioral disturbance (6) Diabetes Qualifiers: Diabetes mellitus type: type 2 Diabetes mellitus care home insulin use: with care home use Diabetes mellitus complication status: with hyperglycemia Qualified Code(s): E11.65 - Type 2 diabetes mellitus with hyperglycemia; Z79.4 - exterminator (current) use of insulin
[2019-02-09] MEDS: traZODone 50 MG TABLET PO SCH (21:09)
[2019-02-09] MEDS: Insulin DETEMIR 100 UNIT/ML X5UNITS SQ SCH (21:10)
[2019-02-10] MEDS: *HR* Heparin 5,000 UNIT/ML VIAL SQ SCH (05:41)
[2019-02-10] MEDS: Insulin LISPRO 300 UNITS/3 ML VIAL SQ SCH ×4 (09:41→12:57)
[2019-02-10] MEDS: Fenofibrate 54 MG TABLET PO SCH (09:42)
[2019-02-10] MEDS: amLODIPine 5 MG TABLET PO SCH (09:42)
[2019-02-10] MEDS: Leptospermum Honey Gel 44 ML TUBE TP SCH (09:43)
[2019-02-10] MEDS: Metoprolol XL (24 HR) Succ 50 MG TAB.ER.24H PO SCH (09:43)
[2019-02-10] MEDS: Bumetanide 1 MG TABLET PO SCH (09:43)
[2019-02-10] MEDS: Hydrocortisone 1% OINT 28 GM TUBE TP SCH (09:44)
--- NOTE | 2019-02-10 11:07 | Discharge Summary ---
Date of Encounter: 02/10/19 - Discharge Diagnosis (1) Acute respiratory failure with hypercapnia Status: Resolved (2) Acute encephalopathy Status: Resolved (3) Skin ulcer Status: Chronic Qualifiers: Non-pressure ulcer stage: unspecified non-pressure ulcer stage Qualified Code(s): L98.499 - Non-pressure chronic ulcer of skin of other sites with unspecified severity (4) Hypertension Status: Chronic Qualifiers: Hypertension type: essential hypertension Qualified Code(s): I10 - Essential (primary) hypertension (5) Dementia Status: Suspected Qualifiers: Dementia type: Alzheimer's disease Alzheimer's disease onset: other onset Dementia behavioral disturbance: with behavioral disturbance Qualified Code(s): G30.8 - Other Alzheimer's disease; F02.81 - Dementia in other diseases classified elsewhere with behavioral disturbance (6) Diabetes Status: Chronic Qualifiers: Diabetes mellitus type: type 2 Diabetes mellitus usp insulin use: with usp use Diabetes mellitus complication status: with hyperglycemia Qualified Code(s): E11.65 - Type 2 diabetes mellitus with hyperglycemia; Z79.4 - [facility] (current) use of insulin (7) CHF (congestive heart failure) Status: Chronic Hospital course: Ms. Berry is a 73 year old female - Time Spent with Patient Total time spent providing and/or coordinating discharge services: - Discharge Medications Prescriptions: New amLODIPine [Norvasc] 10 mg PO DAILY #30 tablet Miconazole 2% cream [Lesli Antifungal] 1 appl TP BID tube Continued Ferrous Sulfate [Iron] 325 mg PO BID Fenofibrate Nanocrystallized [Triglide] 160 mg PO DAILY Metoprolol Succinate 200 mg PO DAILY Memantine HCl 10 mg PO BID Amitriptyline [Elavil] 50 mg PO HS Sertraline [Zoloft] 100 mg PO DAILY Trazodone HCl 100 mg PO HS Ondansetron HCl [Zofran] 4 mg PO Q6H PRN PRN Reason: Nausea And Vomiting Bumetanide 2 mg PO BID OxyCODONE Immed Rel [Roxicodone 10 MG] 10 mg PO Q4H PRN PRN Reason: Severe Pain Hydrocortisone 1% OINT [Cortaid] 1 appl TP BID Insulin NPH Hum/Reg Insulin Hm [Humulin 70-30 Vial] 10 unit SQ BID Docusate [Colace] 100 mg PO DAILY OxyCODONE Immed Rel [Roxicodone 10 MG] 10 mg PO DAILY Polyethylene Glycol 3350 [MiraLAX] 17 gm PO DAILY LORazepam [Ativan] 0.5 mg PO QID PRN PRN Reason: Anxiety Quetiapine Fumarate [Seroquel] 50 mg PO BID Sulfamethoxazole/Trimeth DS [Bactrim Ds] 1 each PO BID #3 tablet Discontinued amLODIPine [Norvasc] 5 mg PO HS Home Medications: Fenofibrate Nanocrystallized [Triglide] 160 mg PO DAILY 03/13/18 [History] Ferrous Sulfate [Iron] 325 mg PO BID 03/13/18 [History] Metoprolol Succinate 200 mg PO DAILY 05/15/18 [History] Memantine HCl 10 mg PO BID 07/23/18 [History] Amitriptyline [Elavil] 50 mg PO HS 07/24/18 [History] Bumetanide 2 mg PO BID 11/25/18 [History] Ondansetron HCl [Zofran] 4 mg PO Q6H PRN 11/25/18 [History] Sertraline [Zoloft] 100 mg PO DAILY 11/25/18 [History] Trazodone HCl 100 mg PO HS 11/25/18 [History] OxyCODONE Immed Rel [Roxicodone 10 MG] 10 mg PO Q4H PRN 12/10/18 [History] Docusate [Colace] 100 mg PO DAILY 01/27/19 [History] Hydrocortisone 1% OINT [Cortaid] 1 appl TP BID 01/27/19 [History] Insulin NPH Hum/Reg Insulin Hm [Humulin 70-30 Vial] 10 unit SQ BID 01/27/19 [History] LORazepam [Ativan] 0.5 mg PO QID PRN 01/27/19 [History] OxyCODONE Immed Rel [Roxicodone 10 MG] 10 mg PO DAILY 01/27/19 [History] Polyethylene Glycol 3350 [MiraLAX] 17 gm PO DAILY 01/27/19 [History] Quetiapine Fumarate [Seroquel] 50 mg PO BID 01/27/19 [History] Miconazole 2% cream [Lesli Antifungal] 1 appl TP BID tube 01/30/19 [Rx] Sulfamethoxazole/Trimeth DS [Bactrim Ds] 1 each PO BID #3 tablet 01/30/19 [Rx] amLODIPine [Norvasc] 10 mg PO DAILY #30 tablet 01/30/19 [Rx] Allergies/Adverse Reactions: Allergy/AdvReac Type Severity Reaction Status Date / Time ceftriaxone Allergy Hives Verified 07/22/18 20:46 gabapentin Allergy Hives Verified 01/28/19 07:58 hydrochlorothiazide Allergy Hives Verified 01/28/19 07:58 pregabalin Allergy Hives Verified 01/28/19 07:58 risperidone AdvReac Confusion Verified 07/22/18 20:46 Date of admission: 01/27/19 08:52 Primary care physician: oJhn Rubin MD Consults: 01/27/19 12:44 Consult to Palliative Care [CONS] Routine Comment: Consulting Provider: Palliative Care Verito Reason for Consult: in [facility] but had repeat admissions to hospital. Call Completed: Yes 01/27/19 12:47 Consult to Business System Consultant [CONS] Routine Reason for SW Consult: Currently [facility] 01/27/19 14:52 Consult to Occupational Therapy [CONS] Routine Comment: Evaluate, develop and implement POC Reason for Consult: From home with [facility] - possible need for ECF Does patient have active BEDREST order?: No Is patient medically & hemodynamically stable?: Yes Patient assessed for mobility or mobilized this visit?: No Consult to Physical Therapy [CONS] Routine Comment: Evaluate, develop and implement POC Reason for Consult: From home with [facility] - possible need for ECF Does patient have active BEDREST order?: No Is patient medically & hemodynamically stable?: Yes Patient assessed for mobility or mobilized this visit?: Yes 01/27/19 18:58 Consult to Wound Care [CONS] Routine Reason for Consult: bilat legs wrapped in JOON. sees outpatient wound clinic Call Completed: No - Constitutional Vitals: Temp Pulse Resp BP Pulse Ox 98.6 F 67 17 133/54 95 02/10/19 11:02 02/10/19 11:02 02/10/19 11:02 02/10/19 11:02 02/10/19 11:02 - Patient Status Disposition: Transfer SNF Condition: Fair - Discharge Instructions Follow Up With: John Rubin MD [Primary Care Provider] - Additional Instructions: - Continue to take home medications including diuretics as prescribed -continue to take new increased dose of amlodipine 10 mg daily -Continue with oxygen therapy -Follow-up with primary care provider in one week -Continue to work with physical therapy
--- NOTE | 2019-02-10 11:16 | Internal Med Progress Note ---
<Lenard Mccoy - Last Filed: 02/10/19 13:25> Hospitalist Progress Note - Encounter Date of Encounter: 02/10/19 - Exam Vitals: Temp Pulse Resp BP Pulse Ox 98.6 F 70 18 126/68 97 02/10/19 13:06 02/10/19 13:06 02/10/19 13:06 02/10/19 13:06 02/10/19 13:06 - Assessment and Plan (1) Acute respiratory failure with hypercapnia Current Visit: Yes Status: Resolved (2) Skin ulcer Current Visit: Yes Status: Chronic (3) DVT prophylaxis Current Visit: No Status: Acute (4) Hypertension Current Visit: No Status: Chronic (5) Diabetes Current Visit: Yes Status: Chronic (6) Dementia Current Visit: Yes Status: Suspected (7) CHF (congestive heart failure) Current Visit: Yes Status: Chronic (8) Acute encephalopathy Current Visit: Yes Status: Resolved - Time Spent with Patient Total time spent is greater than 50% in coordination of care (as documented) at patient's floor/unit and/or counseling patient: Internal Medicine: Result - Labs CBC & Chem 7: 02/08/19 05:01 02/08/19 05:01 - ABG Interpretation ABG results: ABG ABG pH 7.31 pH Units (7.32-7.45) L 01/27/19 03:18 ABG pCO2 66 mmHg (35-45) H 01/27/19 03:18 ABG pO2 83 mmHg (85-104) L 01/27/19 03:18 ABG O2 Saturation 95 % (95-98) 01/27/19 03:18 Consult Discharge Plan - Plan Additional Instructions: - Continue to take home medications including diuretics as prescribed -continue to take new increased dose of amlodipine 10 mg daily -Continue with oxygen therapy -Follow-up with primary care provider in one week -Continue to work with physical therapy Referrals: John Rubin MD [Primary Care Provider] - Prescriptions: Sulfamethoxazole/Trimeth DS [Bactrim Ds] 1 each PO BID #3 tablet amLODIPine [Norvasc] 10 mg PO DAILY #30 tablet - Attending Attestation I examined this patient and my medical decision-making was reviewed with the Resident Physician on 02/10/19. I agree with the documented findings, disposition and treatment plan as described except to the extent set forth below. Ms Berry is currently in observation pending placement. She remains moderate risk at this time. Ms Berry is up in chair. She feels OK. She is coughing a little. No fever or chills. Lungs clear. Arranging for discharge to [facility] resp[facility] at [place]. <Khadar Velazquez - Last Filed: 02/10/19 14:18> Hospitalist Progress Note - Encounter Date of Encounter: 02/10/19 Time of Encounter: 09:10 - Subjective Interval History: When seen today patient is resting comfortably in her seat. She was a and O 3. She denied any chest pain or shortness of breath. Denied any nausea or vomiting. Denied any abdominal pain. Denied any swelling in her lower extremities. Patient was again anxious to go home and was asking when that would be. - Exam Vitals: Temp Pulse Resp BP Pulse Ox 98.6 F 67 17 133/54 95 02/10/19 11:02 02/10/19 11:02 02/10/19 11:02 02/10/19 11:02 02/10/19 11:02 Exam: GENERAL APPEARANCE: Obese, alert and cooperative, and appears to be in no acute distress. HEAD: normocephalic. EYES: vision is grossly intact. EARS: External auditory canals and tympanic membranes clear, hearing grossly intact. NOSE: No nasal discharge. THROAT: Oral cavity and pharynx normal. No inflammation, swelling, exudate, or lesions. NECK: Neck supple, non-tender without lymphadenopathy, masses or thyromegaly. CARDIAC: Normal S1 and S2. No S3, S4 or murmurs. Rhythm is regular. There is no peripheral edema, cyanosis or pallor. Extremities are warm and well perfused. Capillary refill is less than 2 seconds. No carotid bruits. LUNGS: Clear to auscultation and percussion without rales, rhonchi, wheezing or diminished breath sounds. ABDOMEN: Positive bowel sounds. Soft, nondistended, nontender. No guarding or rebound. No masses. EXTREMITIES: No significant deformity or joint abnormality. No edema. Peripheral pulses intact. No varicosities. Hyperkeratosis of lower extremities. LOWER EXTREMITY: Examination of both feet reveals all toes to be normal in size and symmetry, normal range of motion, normal sensation with distal capillary filling of less than 2 seconds without tenderness, swelling, discoloration, nodules, weakness or deformity. SKIN: Hyperkeratosis of lower extremities bilaterally. PSYCHIATRIC: The mental examination revealed the patient was oriented to person, place, and time, but not to situation. - Assessment and Plan (1) Acute respiratory failure with hypercapnia Current Visit: Yes Status: Resolved Assessment and Plan: Resolved. Acute on chronic respiratory failure with hypercapnia. Most likely due to noncompliance with BiPAP, oxygen, diuretics in the setting of COPD and CHF. ABG: pH 7.31, CO2 66, O2 83, HCO3 33 Unremarkable CXR Maintaining appropriate oxygenation and ventilation on room air. - Approved for transfer to respite care. - Continue supplemental oxygen - Continue home bumetanide (2) Acute encephalopathy Current Visit: Yes Status: Resolved Assessment and Plan: Resolved, back to baseline. Most likely due to hypoxia from noncompliance with BiPAP, oxygen, diuretics for CHF in the setting of Parkinson's disease and possibly underlying psychiatric illness at baseline. Doubt cardiogenic etiology and doubt CVA; negative troponin, no c/o chest pain, EKG without evidence for acute ischemia, and no focal neuro deficits. ABG and CXR as above. Final blood and urine cultures negative. Alert and oriented to person and place. Home Seroquel, Ativan, sertraline, Namenda, amitriptyline restarted per palliative care rec. BiPAP for bedtime and supplemental oxygen during the day as needed. PT/OT recommending SNF for rehab. (3) Skin ulcer Current Visit: Yes Status: Chronic Assessment and Plan: Present on arrival and receiving treatment prior to admission. Bilateral heel ulcers and sacral decubitus ulcer stage 1. Wound care for continued treatment. (4) Hypertension Current Visit: Yes Status: Chronic Assessment and Plan: Controlled. Increased home amlodipine to 10 mg daily Continue home bumex, metoprolol IV Lopressor PRN (5) Dementia Current Visit: Yes Status: Suspected Assessment and Plan: Oriented to person and place and time. Continue memantine. (6) Diabetes Current Visit: Yes Status: Chronic Assessment and Plan: Insulin dependent diabetes type II Levemir 20 units SQ HS Humalog 3 units SQ TIDWM Medium dose SSI POC glucose check ACHS Diabetic diet (7) CHF (congestive heart failure) Current Visit: Yes Status: Chronic Assessment and Plan: History of CHFpEF on metoprolol, amlodipine, bumetanide. Continue meds as above. DVT Prophylaxis: Heparin SQ. - Time Spent with Patient Total time spent is greater than 50% in coordination of care (as documented) at patient's floor/unit and/or counseling patient: Internal Medicine: Result - Labs CBC & Chem 7: 02/08/19 05:01 02/08/19 05:01 - ABG Interpretation ABG results: ABG ABG pH 7.31 pH Units (7.32-7.45) L 01/27/19 03:18 ABG pCO2 66 mmHg (35-45) H 01/27/19 03:18 ABG pO2 83 mmHg (85-104) L 01/27/19 03:18 ABG O2 Saturation 95 % (95-98) 01/27/19 03:18 <Lenard Mccoy - Last Filed: 02/10/19 13:25> (2) Skin ulcer Qualifiers: Non-pressure ulcer stage: unspecified non-pressure ulcer stage Qualified Code(s): L98.499 - Non-pressure chronic ulcer of skin of other sites with unspe cified severity (4) Hypertension Qualifiers: Hypertension type: essential hypertension Qualified Code(s): I10 - Essential (primary) hypertension (5) Diabetes Qualifiers: Diabetes mellitus type: type 2 Diabetes mellitus intermodal dispatcher insulin use: with mcc use Diabetes mellitus complication status: with hyperglycemia Qualified Code(s): E11.65 - Type 2 diabetes mellitus with hyperglycemia; Z79.4 - [facility] (current) use of insulin (6) Dementia Qualifiers: Dementia type: Alzheimer's disease Alzheimer's disease onset: other onset Dementia behavioral disturbance: with behavioral disturbance Qualified Code(s): G30.8 - Other Alzheimer's disease; F02.81 - Dementia in other diseases classified elsewhere with behavioral disturbance <Khadar Velazquez - Last Filed: 02/10/19 14:18> (3) Skin ulcer Qualifiers: Non-pressure ulcer stage: unspecified non-pressure ulcer stage Qualified Code(s): L98.499 - Non-pressure chronic ulcer of skin of other sites with unspecified severity (4) Hypertension Qualifiers: Hypertension type: essential hypertension Qualified Code(s): I10 - Essential (primary) hypertension (5) Dementia Qualifiers: Dementia type: Alzheimer's disease Alzheimer's disease onset: other onset Dementia behavioral disturbance: with behavioral disturbance Qualified Code(s): G30.8 - Other Alzheimer's disease; F02.81 - Dementia in other diseases classified elsewhere with behavioral disturbance (6) Diabetes Qualifiers: Diabetes mellitus type: type 2 Diabetes mellitus mcc insulin use: with mcc use Diabetes mellitus complication status: with hyperglycemia Qualified Code(s): E11.65 - Type 2 diabetes mellitus with hyperglycemia; Z79.4 - [facility] (current) use of insulin
[2019-02-10 13:15] VITALS: BP 126/68
== END 2019-02-10 17:11 ==
LOC: EMEROOARM 21:47 → INTOOBSV 01-27 08:52 → SUATTDRO 01-27 08:52 → CDU 01-27 08:52 → 3ANU 01-27 18:15
PROVIDERS: ADMIT Internal Medicine; ATTEND Internal Medicine

== ENCOUNTER 2019-02-23 15:06 | Inpatient (IN) ==
[2019-02-23] MEDS ORDERED: 0.9 % Sodium Chloride 1,000 ML IVC ONE (15:18)
--- NOTE | 2019-02-23 15:27 | Emergency Department Note ---
Disposition Clinical Impression: Metabolic encephalopathy, LEOBARDO (acute kidney injury) UTI (urinary tract infection) Qualifiers: Urinary tract infection type: acute cystitis Hematuria presence: with hematuria Qualified Code(s): N30.01 - Acute cystitis with hematuria Disposition: Admitted As Inpatient Time of Disposition: 21:30 General Adult HPI - General Chief complaint: ED Altered Mental Status Stated complaint: AMS Nursing Notes Reviewed: Yes Vital Signs Reviewed: Yes - Related Data Home Medications Medication Instructions Recorded Confirmed Fenofibrate Nanocrystallized 160 mg PO DAILY 03/13/18 01/27/19 [Triglide] Ferrous Sulfate [Iron] 325 mg PO BID 03/13/18 01/27/19 Metoprolol Succinate 200 mg PO DAILY 05/15/18 01/27/19 Memantine HCl 10 mg PO BID 07/23/18 01/27/19 Amitriptyline [Elavil] 50 mg PO HS 07/24/18 01/27/19 Bumetanide 2 mg PO BID 11/25/18 01/27/19 Ondansetron HCl [Zofran] 4 mg PO Q6H PRN 11/25/18 01/27/19 Sertraline [Zoloft] 100 mg PO DAILY 11/25/18 01/27/19 Trazodone HCl 100 mg PO HS 11/25/18 01/27/19 OxyCODONE Immed Rel [Roxicodone 10 10 mg PO Q4H PRN 12/10/18 01/27/19 MG] Docusate [Colace] 100 mg PO DAILY 01/27/19 01/27/19 Hydrocortisone 1% OINT [Cortaid] 1 appl TP BID 01/27/19 01/27/19 Insulin NPH Hum/Reg Insulin Hm 10 unit SQ BID 01/27/19 01/28/19 [Humulin 70-30 Vial] LORazepam [Ativan] 0.5 mg PO QID PRN 01/27/19 01/27/19 OxyCODONE Immed Rel [Roxicodone 10 10 mg PO DAILY 01/27/19 01/27/19 MG] Polyethylene Glycol 3350 [MiraLAX] 17 gm PO DAILY 01/27/19 01/27/19 Quetiapine Fumarate [Seroquel] 50 mg PO BID 01/27/19 01/27/19 Previous Rx's Medication Instructions Recorded Miconazole 2% cream [Lesli 1 appl TP BID tube 01/30/19 Antifungal] Sulfamethoxazole/Trimeth DS 1 each PO BID #3 tablet 01/30/19 [Bactrim Ds] amLODIPine [Norvasc] 10 mg PO DAILY #30 tablet 01/30/19 Allergies Allergy/AdvReac Type Severity Reaction Status Date / Time ceftriaxone Allergy Hives Verified 07/22/18 20:46 gabapentin Allergy Hives Verified 01/28/19 07:58 hydrochlorothiazide Allergy Hives Verified 01/28/19 07:58 pregabalin Allergy Hives Verified 01/28/19 07:58 risperidone AdvReac Confusion Verified 07/22/18 20:46 Past Medical History - Past Medical History Medical history: Reports: asthma, CHF, COPD, coronary artery disease, dementia, diabetes, GERD, hyperlipidemia, hypertension, thyroid disease Surgical history: Reports: appendectomy, coronary bypass (CABG), hysterectomy Psychiatric history: Reports: anxiety - Social History Smoking Status: Never smoker Smokeless Tobacco Status: No Alcohol use: Reports: none Drug use: Reports: none Course Vital Signs Temperature 97.3 F L 02/23/19 15:11 Pulse Rate 85 02/23/19 15:11 Respiratory Rate 18 02/23/19 15:11 Blood Pressure 121/87 02/23/19 15:11 O2 Sat by Pulse Oximetry 95 02/23/19 15:11 Temperature 98.2 F 02/23/19 20:08 Pulse Rate 85 02/23/19 20:08 Respiratory Rate 16 02/23/19 20:08 Blood Pressure 153/70 02/23/19 20:08 O2 Sat by Pulse Oximetry 93 02/23/19 20:08 Oxygen Delivery Oxygen Delivery Room Air Medical Decision Making - Lab Data Result diagrams: 02/23/19 15:47 02/23/19 15:47 Lab Results 02/23/19 02/23/19 02/23/19 Range/Units 15:26 15:27 15:47 WBC 9.4 (4.3-11.1) K/mcL RBC 3.88 (3.82-4.97) M/mcL Hgb 11.5 (11.5-15.4) g/dL Hct 35.8 (35.3-44.9) % MCV 92.3 (83.0-100.0) fL MCH 29.6 (28.0-33.3) pg MCHC 32.1 (31.6-35.5) g/dL RDW 13.5 (11.5-14.5) % Plt Count 365 (140-400) K/mcL MPV 9.1 L (9.4-12.4) fL Immature Gran % 0.4 (0-4) % Seg Neutrophils % 76.9 % Lymphocytes % 14.6 % Monocytes % 7.0 % Eosinophils % 0.6 % Basophils % 0.5 % Neutrophils # 7.2 (1.6-8.9) K/mcL Lymphocytes # 1.4 (0.6-4.6) K/mcL Monocytes # 0.7 (0.0-1.3) K/mcL Eosinophils # 0.1 (0.0-0.6) K/mcL Basophils # 0.1 (0.0-0.2) K/mcL PT (9.4-12.1) Seconds INR APTT (26.0-36.0) Seconds Sodium (136-145) mEq/L Potassium (3.5-5.1) mEq/L Chloride (98-107) mEq/L Carbon Dioxide (23-29) mEq/L BUN (8-23) mg/dL Creatinine (0.60-1.20) mg/dL Est GFR ( Amer) (> 60) Est GFR (Non-Af Amer) (> 60) BUN/Creatinine Ratio (6-26) Glucose (70-105) mg/dL POC Glucose 446 H* 427 H* (70-99) mg/dL Calculated Osmolality (280-300) Calcium (8.6-10.3) mg/dL Total Bilirubin (0.3-1.0) mg/dL Direct Bilirubin (0.0-0.2) mg/dL Indirect Bilirubin (0.0-1.2) mg/dL AST (13-39) Units/L ALT (7-52) Units/L Alkaline Phosphatase (34-104) Units/L Troponin I (< 0.04) ng/mL Serum Total Protein (6.4-8.9) g/dL Albumin (3.5-5.7) g/dL Globulin (2.4-3.5) g/dL Albumin/Globulin Ratio (1.1-2.2) TSH (0.340-5.600) mcIU/mL Urine Color (Yellow) Urine Clarity (Clear) Urine pH (5.0-8.0) pH Units Ur Specific [place] (1.010-1.025) Urine Protein (Neg-Trace) mg/dL Urine Glucose (UA) (Normal) mg/dL Urine Ketones (Negative) mg/dL Urine Blood (Negative) Urine Nitrite (Negative) Urine Bilirubin (Negative) Urine Urobilinogen (Normal) mg/dL Ur Leukocyte Esterase (Negative) Urine Microscopic RBC (0-3) per hpf Urine Microscopic WBC (0-3) per hpf Ur Squamous Epith Cells (None-Few) per lpf Urine Bacteria (None-Few) per hpf Ur Culture Indicated? (NO) 02/23/19 02/23/19 02/23/19 Range/Units 15:47 15:47 16:59 WBC (4.3-11.1) K/mcL RBC (3.82-4.97) M/mcL Hgb (11.5-15.4) g/dL Hct (35.3-44.9) % MCV (83.0-100.0) fL MCH (28.0-33.3) pg MCHC (31.6-35.5) g/dL RDW (11.5-14.5) % Plt Count (140-400) K/mcL MPV (9.4-12.4) fL Immature Gran % (0-4) % Seg Neutrophils % % Lymphocytes % % Monocytes % % Eosinophils % % Basophils % % Neutrophils # (1.6-8.9) K/mcL Lymphocytes # (0.6-4.6) K/mcL Monocytes # (0.0-1.3) K/mcL Eosinophils # (0.0-0.6) K/mcL Basophils # (0.0-0.2) K/mcL PT 14.2 H (9.4-12.1) Seconds INR 1.3 APTT 32.6 (26.0-36.0) Seconds Sodium 137 (136-145) mEq/L Potassium 5.1 (3.5-5.1) mEq/L Chloride 101 (98-107) mEq/L Carbon Dioxide 23 (23-29) mEq/L BUN 46 H (8-23) mg/dL Creatinine 1.60 H (0.60-1.20) mg/dL Est GFR ( Amer) 38 L (> 60) Est GFR (Non-Af Amer) 32 L (> 60) BUN/Creatinine Ratio 29 H (6-26) Glucose 460 H (70-105) mg/dL POC Glucose (70-99) mg/dL Calculated Osmolality 316 H (280-300) Calcium 9.1 (8.6-10.3) mg/dL Total Bilirubin 0.3 (0.3-1.0) mg/dL Direct Bilirubin 0.1 (0.0-0.2) mg/dL Indirect Bilirubin 0.2 (0.0-1.2) mg/dL AST 14 (13-39) Units/L ALT 11 (7-52) Units/L Alkaline Phosphatase 90 (34-104) Units/L Troponin I < 0.03 (< 0.04) ng/mL Serum Total Protein 7.1 (6.4-8.9) g/dL Albumin 3.3 L (3.5-5.7) g/dL Globulin 3.8 H (2.4-3.5) g/dL Albumin/Globulin Ratio 0.9 L (1.1-2.2) TSH 0.754 (0.340-5.600) mcIU/mL Urine Color Yellow (Yellow) Urine Clarity Turbid A (Clear) Urine pH 5.0 (5.0-8.0) pH Units Ur Specific [place] 1.013 (1.010-1.025) Urine Protein 30 H (Neg-Trace) mg/dL Urine Glucose (UA) >=1000 H (Normal) mg/dL Urine Ketones Trace H (Negative) mg/dL Urine Blood Small H (Negative) Urine Nitrite Positive A (Negative) Urine Bilirubin Negative (Negative) Urine Urobilinogen Normal (Normal) mg/dL Ur Leukocyte Esterase Large H (Negative) Urine Microscopic RBC 0-3 (0-3) per hpf Urine Microscopic WBC TNTC H (0-3) per hpf Ur Squamous Epith Cells Many H (None-Few) per lpf Urine Bacteria Many H (None-Few) per hpf Ur Culture Indicated? YES A (NO) Attestation Statement - Attestation Attestation: This documentation is done with the assistance of Dragderrek dictation. Despite efforts made to ensure accuracy, there may be inaccuracies in bolt man or spelling and typographical errors. I examined this patient and my medical decision-making was reviewed with the Resident Physician. I agree with the documented findings, disposition and treatment plan as described except to the extent set forth below. Patient was seen and evaluated by Dr. Hernández and myself, I agree with his evaluation and management plan, I supervised the care the patient throughout her stay. Patient comes from home by EMS due to altered mental status change. Family states that she has been acting altered for last 2 days. History of UTI she does smell like urine here. She is also got some small pupil someone if there could be an opiate affect here. We will go ahead and image her and check labs and place catheter and reassess she will need admission. I reviewed the residents documentation and agree with the residents assessment and plan of care. I have personally had face to face time with the patient. (Brief History, Brief Exam, and MDM) I personally supervised and was present for the [place]ed[place]/critical portions of the following procedures completed by the resident: EKG was read and interpreted by the ER resident, under my supervision, I agree with her interpretation.
[2019-02-23] MEDS ORDERED: Naloxone 0.4 MG/ML INJ IVP ONE (15:33)
[2019-02-23] MEDS ORDERED: *HR* LORazepam 2 MG/ML VIAL IVP ONE (15:51)
[2019-02-23 16:05] LABS: Basophils # 0.1 K/mcL (0.0-0.2); Basophils % 0.5 %; Eosinophils # 0.1 K/mcL (0.0-0.6); Eosinophils % 0.6 %; Hematocrit 35.8 % (35.3-44.9); Hemoglobin 11.5 g/dL (11.5-15.4); Immature Granulocytes % 0.4 % (0-4); Lymphocytes # 1.4 K/mcL (0.6-4.6); Lymphocytes % 14.6 %; Mean Corpuscular HGB Conc 32.1 g/dL (31.6-35.5); Mean Corpuscular Hemoglobin 29.6 pg (28.0-33.3); Mean Corpuscular Volume 92.3 fL (83.0-100.0); Mean Platelet Volume 9.1 fL (9.4-12.4); Monocytes # 0.7 K/mcL (0.0-1.3); Neutrophils # 7.2 K/mcL (1.6-8.9); Platelet Count 365 K/mcL (140-400); Red Blood Count 3.88 M/mcL (3.82-4.97); Red Cell Distribution Width 13.5 % (11.5-14.5); Segmented Neutrophils % 76.9 %; White Blood Count 9.4 K/mcL (4.3-11.1)
[2019-02-23 16:13] LABS: INR 1.3; Prothrombin Time 14.2 Seconds (9.4-12.1)
[2019-02-23 16:16] LABS: Activated Partial Thrombo Time 32.6 Seconds (26.0-36.0)
[2019-02-23 16:23] LABS: Alanine Aminotransferase 11 Units/L (7-52); Albumin 3.3 g/dL (3.5-5.7); Albumin/Globulin Ratio 0.9 (1.1-2.2); Alkaline Phosphatase 90 Units/L (34-104); Aspartate Amino Transferase 14 Units/L (13-39); BUN/Creatinine Ratio 29 (6-26); Bilirubin,Direct 0.1 mg/dL (0.0-0.2); Bilirubin,Indirect 0.2 mg/dL (0.0-1.2); Bilirubin,Total 0.3 mg/dL (0.3-1.0); Blood Urea Nitrogen 46 mg/dL (8-23); Calcium 9.1 mg/dL (8.6-10.3); Carbon Dioxide 23 mEq/L (23-29); Chloride 101 mEq/L (98-107); Globulin 3.8 g/dL (2.4-3.5); Glucose 460 mg/dL (70-105); Osmolality,Calculated 316 (280-300); Potassium 5.1 mEq/L (3.5-5.1); Sodium 137 mEq/L (136-145); Total Protein 7.1 g/dL (6.4-8.9); Troponin I < 0.03 ng/mL (< 0.04); eGFR For African Americans 38 (> 60); eGFR For Non-African Americans 32 (> 60)
[2019-02-23 16:37] LABS: Thyroid Stimulating Hormone 0.754 mcIU/mL (0.340-5.600)
[2019-02-23 17:12] LABS: Bilirubin,Urine Negative (Negative); Blood,Urine Small (Negative); Clarity,Urine Turbid (Clear); Color,Urine Yellow (Yellow); Glucose,Urine (UA) >=1000 mg/dL (Normal); Ketones,Urine Trace mg/dL (Negative); Leukocyte Esterase,Urine Large (Negative); Nitrite,Urine Positive (Negative); Protein,Urine 30 mg/dL (Neg-Trace); Specific Gravity,Urine 1.013 (1.010-1.025); Urobilinogen,Urine Normal (Normal)
[2019-02-23 17:14] LABS: Bacteria,Urine Many per hpf (None-Few); RBC,Urine 0-3 per hpf (0-3); Squamous Epithelial Cell,Urine Many per lpf (None-Few); WBC,Urine TNTC per hpf (0-3)
[2019-02-23] MEDS ORDERED: Ampicillin/Sulbactam 1,500 MG in 0.9 % Sodium Chloride Mini Bag 100 ML IVPB ONE (17:34)
--- NOTE | 2019-02-23 17:37 | Emergency Department Note ---
Disposition Clinical Impression: Metabolic encephalopathy, LEOBARDO (acute kidney injury) UTI (urinary tract infection) Qualifiers: Urinary tract infection type: acute cystitis Hematuria presence: with hematuria Qualified Code(s): N30.01 - Acute cystitis with hematuria Disposition: Admitted As Inpatient Time of Disposition: 19:37 General Adult HPI - General Chief complaint: ED Altered Mental Status Stated complaint: AMS Time Seen by Provider: 02/23/19 15:09 Source: family, EMS Limitations: altered mental status Nursing Notes Reviewed: Yes Vital Signs Reviewed: Yes - History of Present Illness HPI Narrative: Patient is a 74-year-old female past medical history of asthma, CHF, COPD, CAD with CABG dementia, hypertension and thyroid disease presents to the ED from home for evaluation of altered mental status. She recently was discharged from extended care facility on February 152018 after a hospitalization for acute respiratory failure. Patient has a history of altered mental status secondary to an infection such as UTI. She has been on recent antibiotics for urinary tract infection. Patient herself denies any pain at this time. However, she continues to call me Ja does appear to be altered. Pain Scale: 4 - Related Data Home Medications Medication Instructions Recorded Confirmed Fenofibrate Nanocrystallized 160 mg PO DAILY 03/13/18 01/27/19 [Triglide] Ferrous Sulfate [Iron] 325 mg PO BID 03/13/18 01/27/19 Metoprolol Succinate 200 mg PO DAILY 05/15/18 01/27/19 Memantine HCl 10 mg PO BID 07/23/18 01/27/19 Amitriptyline [Elavil] 50 mg PO HS 07/24/18 01/27/19 Bumetanide 2 mg PO BID 11/25/18 01/27/19 Ondansetron HCl [Zofran] 4 mg PO Q6H PRN 11/25/18 01/27/19 Sertraline [Zoloft] 100 mg PO DAILY 11/25/18 01/27/19 Trazodone HCl 100 mg PO HS 11/25/18 01/27/19 OxyCODONE Immed Rel [Roxicodone 10 10 mg PO Q4H PRN 12/10/18 01/27/19 MG] Docusate [Colace] 100 mg PO DAILY 01/27/19 01/27/19 Hydrocortisone 1% OINT [Cortaid] 1 appl TP BID 01/27/19 01/27/19 Insulin NPH Hum/Reg Insulin Hm 10 unit SQ BID 01/27/19 01/28/19 [Humulin 70-30 Vial] LORazepam [Ativan] 0.5 mg PO QID PRN 01/27/19 01/27/19 OxyCODONE Immed Rel [Roxicodone 10 10 mg PO DAILY 01/27/19 01/27/19 MG] Polyethylene Glycol 3350 [MiraLAX] 17 gm PO DAILY 01/27/19 01/27/19 Quetiapine Fumarate [Seroquel] 50 mg PO BID 01/27/19 01/27/19 Previous Rx's Medication Instructions Recorded Miconazole 2% cream [Lesli 1 appl TP BID tube 01/30/19 Antifungal] Sulfamethoxazole/Trimeth DS 1 each PO BID #3 tablet 01/30/19 [Bactrim Ds] amLODIPine [Norvasc] 10 mg PO DAILY #30 tablet 01/30/19 Allergies Allergy/AdvReac Type Severity Reaction Status Date / Time ceftriaxone Allergy Hives Verified 07/22/18 20:46 gabapentin Allergy Hives Verified 01/28/19 07:58 hydrochlorothiazide Allergy Hives Verified 01/28/19 07:58 pregabalin Allergy Hives Verified 01/28/19 07:58 risperidone AdvReac Confusion Verified 07/22/18 20:46 Limitations: ROS unobtainable due to patients medical condition Past Medical History - Past Medical History Medical history: Reports: asthma, CHF, COPD, coronary artery disease, dementia, diabetes, GERD, hyperlipidemia, hypertension, thyroid disease Surgical history: Reports: appendectomy, coronary bypass (CABG), hysterectomy Psychiatric history: Reports: anxiety, depression - Social History Smoking Status: Never smoker Smokeless Tobacco Status: No Alcohol use: Reports: none Drug use: Reports: none Physical Exam - General Limitations: altered mental status (First me is Ja but answers some questions appropriately.) General appearance: alert - Head Head exam: atraumatic, normocephalic, normal inspection - Eye Eye exam: Present: normal appearance, PERRL, EOMI - ENT ENT exam: normal exam, normal oropharynx, mucous membranes moist - Neck Neck exam: Present: normal inspection, full ROM, trachea midline - Chest Chest inspection: Present: normal inspection, symmetric chest wall rise - Respiratory Respiratory exam: Present: normal lung sounds bilaterally. Absent: respiratory distress, wheezes - Cardiovascular Cardiovascular exam: Present: regular rate, normal rhythm, normal heart sounds, +S1, +S2 - Abdominal Exam Abdominal exam: Present: soft, Non-Tender, normal bowel sounds. Absent: tenderness - Extremities Exam Extremities exam: Present: normal inspection, full ROM. Absent: tenderness, pedal edema - Back Exam Back exam: Present: normal inspection, full ROM. Absent: tenderness - Neurological Exam Neurological exam: Present: alert - Expanded Neurological Exam Speech: Present: fluid speech Cranial nerves: EOM function (II, III, IV, ): Normal Motor strength - LUE: 5/5 Motor strength - RUE: 5/5 Motor strength - LLE: 5/5 Motor strength - RLE: 5/5 Sensory exam upper extremity: light touch: Normal Sensory exam lower extremity: light touch: Normal Coma Scale Eye Opening: Spontaneous Coma Scale Motor Response: Obeys Commands Coma Scale Verbal Response: Confused Coma Scale Total: 14 - Skin Skin exam: Present: warm, dry, intact, normal color Course Course Narrative: Patient underwent evaluation for altered mental status which included evaluating for infectious cause versus cardiac versus intracranial process. The patient's troponin was negative and her EKG was nonischemic. She had no signs of infection on her chest x-ray. Her head CT was unremarkable. Her urine was positive for infection. She is started on antibiotics according to prior culture sensitivities. The patient was admitted for altered mental status with metabolic encephalopathy most likely secondary to urinary tract infection. Vital Signs Temperature 97.3 F L 02/23/19 15:11 Pulse Rate 85 02/23/19 15:11 Respiratory Rate 18 02/23/19 15:11 Blood Pressure 121/87 02/23/19 15:11 O2 Sat by Pulse Oximetry 95 02/23/19 15:11 Temperature 97.3 F L 02/23/19 15:11 Pulse Rate 81 02/23/19 18:13 Respiratory Rate 16 02/23/19 18:13 Blood Pressure 133/74 02/23/19 18:13 O2 Sat by Pulse Oximetry 93 02/23/19 18:13 Oxygen Delivery Oxygen Delivery Room Air Medical Decision Making - Medical Records Medical records reviewed: Yes I reviewed the patient's medical records. - Lab Data Lab results reviewed: Yes I reviewed the patient's lab results. Result diagrams: 02/23/19 15:47 02/23/19 15:47 Lab Results 02/23/19 02/23/19 02/23/19 Range/Units 15:26 15:27 15:47 WBC 9.4 (4.3-11.1) K/mcL RBC 3.88 (3.82-4.97) M/mcL Hgb 11.5 (11.5-15.4) g/dL Hct 35.8 (35.3-44.9) % MCV 92.3 (83.0-100.0) fL MCH 29.6 (28.0-33.3) pg MCHC 32.1 (31.6-35.5) g/dL RDW 13.5 (11.5-14.5) % Plt Count 365 (140-400) K/mcL MPV 9.1 L (9.4-12.4) fL Immature Gran % 0.4 (0-4) % Seg Neutrophils % 76.9 % Lymphocytes % 14.6 % Monocytes % 7.0 % Eosinophils % 0.6 % Basophils % 0.5 % Neutrophils # 7.2 (1.6-8.9) K/mcL Lymphocytes # 1.4 (0.6-4.6) K/mcL Monocytes # 0.7 (0.0-1.3) K/mcL Eosinophils # 0.1 (0.0-0.6) K/mcL Basophils # 0.1 (0.0-0.2) K/mcL PT (9.4-12.1) Seconds INR APTT (26.0-36.0) Seconds Sodium (136-145) mEq/L Potassium (3.5-5.1) mEq/L Chloride (98-107) mEq/L Carbon Dioxide (23-29) mEq/L BUN (8-23) mg/dL Creatinine (0.60-1.20) mg/dL Est GFR ( Amer) (> 60) Est GFR (Non-Af Amer) (> 60) BUN/Creatinine Ratio (6-26) Glucose (70-105) mg/dL POC Glucose 446 H* 427 H* (70-99) mg/dL Calculated Osmolality (280-300) Calcium (8.6-10.3) mg/dL Total Bilirubin (0.3-1.0) mg/dL Direct Bilirubin (0.0-0.2) mg/dL Indirect Bilirubin (0.0-1.2) mg/dL AST (13-39) Units/L ALT (7-52) Units/L Alkaline Phosphatase (34-104) Units/L Troponin I (< 0.04) ng/mL Serum Total Protein (6.4-8.9) g/dL Albumin (3.5-5.7) g/dL Globulin (2.4-3.5) g/dL Albumin/Globulin Ratio (1.1-2.2) TSH (0.340-5.600) mcIU/mL Urine Color (Yellow) Urine Clarity (Clear) Urine pH (5.0-8.0) pH Units Ur Specific Pacific (1.010-1.025) Urine Protein (Neg-Trace) mg/dL Urine Glucose (UA) (Normal) mg/dL Urine Ketones (Negative) mg/dL Urine Blood (Negative) Urine Nitrite (Negative) Urine Bilirubin (Negative) Urine Urobilinogen (Normal) mg/dL Ur Leukocyte Esterase (Negative) Urine Microscopic RBC (0-3) per hpf Urine Microscopic WBC (0-3) per hpf Ur Squamous Epith Cells (None-Few) per lpf Urine Bacteria (None-Few) per hpf Ur Culture Indicated? (NO) 02/23/19 02/23/19 02/23/19 Range/Units 15:47 15:47 16:59 WBC (4.3-11.1) K/mcL RBC (3.82-4.97) M/mcL Hgb (11.5-15.4) g/dL Hct (35.3-44.9) % MCV (83.0-100.0) fL MCH (28.0-33.3) pg MCHC (31.6-35.5) g/dL RDW (11.5-14.5) % Plt Count (140-400) K/mcL MPV (9.4-12.4) fL Immature Gran % (0-4) % Seg Neutrophils % % Lymphocytes % % Monocytes % % Eosinophils % % Basophils % % Neutrophils # (1.6-8.9) K/mcL Lymphocytes # (0.6-4.6) K/mcL Monocytes # (0.0-1.3) K/mcL Eosinophils # (0.0-0.6) K/mcL Basophils # (0.0-0.2) K/mcL PT 14.2 H (9.4-12.1) Seconds INR 1.3 APTT 32.6 (26.0-36.0) Seconds Sodium 137 (136-145) mEq/L Potassium 5.1 (3.5-5.1) mEq/L Chloride 101 (98-107) mEq/L Carbon Dioxide 23 (23-29) mEq/L BUN 46 H (8-23) mg/dL Creatinine 1.60 H (0.60-1.20) mg/dL Est GFR ( Amer) 38 L (> 60) Est GFR (Non-Af Amer) 32 L (> 60) BUN/Creatinine Ratio 29 H (6-26) Glucose 460 H (70-105) mg/dL POC Glucose (70-99) mg/dL Calculated Osmolality 316 H (280-300) Calcium 9.1 (8.6-10.3) mg/dL Total Bilirubin 0.3 (0.3-1.0) mg/dL Direct Bilirubin 0.1 (0.0-0.2) mg/dL Indirect Bilirubin 0.2 (0.0-1.2) mg/dL AST 14 (13-39) Units/L ALT 11 (7-52) Units/L Alkaline Phosphatase 90 (34-104) Units/L Troponin I < 0.03 (< 0.04) ng/mL Serum Total Protein 7.1 (6.4-8.9) g/dL Albumin 3.3 L (3.5-5.7) g/dL Globulin 3.8 H (2.4-3.5) g/dL Albumin/Globulin Ratio 0.9 L (1.1-2.2) TSH 0.754 (0.340-5.600) mcIU/mL Urine Color Yellow (Yellow) Urine Clarity Turbid A (Clear) Urine pH 5.0 (5.0-8.0) pH Units Ur Specific Pacific 1.013 (1.010-1.025) Urine Protein 30 H (Neg-Trace) mg/dL Urine Glucose (UA) >=1000 H (Normal) mg/dL Urine Ketones Trace H (Negative) mg/dL Urine Blood Small H (Negative) Urine Nitrite Positive A (Negative) Urine Bilirubin Negative (Negative) Urine Urobilinogen Normal (Normal) mg/dL Ur Leukocyte Esterase Large H (Negative) Urine Microscopic RBC 0-3 (0-3) per hpf Urine Microscopic WBC TNTC H (0-3) per hpf Ur Squamous Epith Cells Many H (None-Few) per lpf Urine Bacteria Many H (None-Few) per hpf Ur Culture Indicated? YES A (NO) - Radiology Data Radiology results reviewed: Yes I reviewed the patient's radiology results. Chest X-Ray 02/23/19 15:18 IMPRESSION: Cardiomegaly. No radiographic evidence of acute pulmonary disease. D/ / Louis Echols / Louis Echols Interpreting Provider: Louis Echols Head CT 02/23/19 15:18 IMPRESSION: No acute intracranial abnormality. D/ / Danny Fall MD / Danny Fall MD Interpreting Provider: Danny Fall MD - EKG Data EKG #1 EKG attestation: Yes I reviewed and interpreted this EKG. EKG results narrative: EKG done at 15:21 shows sinus rhythm at a rate of 85 bpm. Normal axis. Intervals within normal limits. No signs of ST elevation, ST depression or Q waves present.
[2019-02-23] MEDS ORDERED: Naloxone 0.4 MG/ML INJ IVP PRN (19:08)
[2019-02-23] MEDS ORDERED: Ondansetron 4 MG/2 ML VIAL IVP PRN (19:17)
[2019-02-23] MEDS ORDERED: D5% in Water 1,000 ML IVC PRN (19:26)
[2019-02-23] MEDS ORDERED: Dextrose Gel 15 GM/37.5 ML TUBE PO PRN ×2 (19:26)
[2019-02-23] MEDS ORDERED: *HR* Dextrose 50 % in Water (Syg) 50 ML SYRINGE IVP PRN (19:26)
--- NOTE | 2019-02-23 19:37 | Internal Med History&Physical ---
Date of Encounter: 02/23/19 Time of Encounter: 19:34 Internal Medicine - H&P: HPI Chief complaint: AMS Admitted From: Emergency Dept Plans for Post Hospital Care: Transfer Inp Rehab Fac History of present illness: Ms. Berry is a 74 year old female with a history of CHF COPD CAD status post CABG hypertension and dementia who was brought into the ED to be evaluated for altered mental status. Patient currently cannot provide any history there is no family available as such history of present illness is obtained from the ED records. The patient was brought in by her family members due to concern for worsening mentation. Per reports she was recently discharged on February 15 after hospitalization for acute respiratory failure and during her hospital stay she was treated for UTI Past Med Surg Social Fam HX - Past Medical History Medical history: asthma, CHF, COPD, coronary artery disease, dementia, diabetes, GERD, hyperlipidemia, hypertension, thyroid disease Additional medical history: Glaucoma. Parkinson's Psychiatric history: anxiety, depression - Past Surgical History Surgical History: appendectomy, coronary bypass (CABG), hysterectomy Additional surgical history: back surgery - Social History Smoking Status: Never smoker Smokeless Tobacco Status: No Alcohol use: none Drug use: none - Family History Mother Adopted: No Family Member Ethnicity: Non- Living Status: Hx Family Cardiac Disorders: No Hx Family Respiratory Disorders: No Hx Family Cancer: No Hx Family GI Disorders: No Hx Family Endocrine Disorder: Yes Hx Family Neuromuscular Disorders: No (arthritis) Hx Family Neurologic Disorders: No Hx Family HEENT Disorders: No Hx Family Autoimmune Disorders: No Father Adopted: No Family Member Ethnicity: Non- Living Status: Hx Family Cardiac Disorders: Yes Hx Family Respiratory Disorders: Yes Hx Family Cancer: Yes Hx Family GI Disorders: No Hx Family Endocrine Disorder: No Hx Family Neuromuscular Disorders: No Hx Family Neurologic Disorders: No Hx Family HEENT Disorders: No Hx Family Autoimmune Disorders: No Internal Medicine - H&P: Meds Fenofibrate Nanocrystallized [Triglide] 160 mg PO DAILY 03/13/18 [History] Ferrous Sulfate [Iron] 325 mg PO BID 03/13/18 [History] Metoprolol Succinate 200 mg PO DAILY 05/15/18 [History] Memantine HCl 10 mg PO BID 07/23/18 [History] Amitriptyline [Elavil] 50 mg PO HS 07/24/18 [History] Bumetanide 2 mg PO BID 11/25/18 [History] Ondansetron HCl [Zofran] 4 mg PO Q6H PRN 11/25/18 [History] Sertraline [Zoloft] 100 mg PO DAILY 11/25/18 [History] Trazodone HCl 100 mg PO HS 11/25/18 [History] OxyCODONE Immed Rel [Roxicodone 10 MG] 10 mg PO Q4H PRN 12/10/18 [History] Docusate [Colace] 100 mg PO DAILY 01/27/19 [History] Hydrocortisone 1% OINT [Cortaid] 1 appl TP BID 01/27/19 [History] Insulin NPH Hum/Reg Insulin Hm [Humulin 70-30 Vial] 10 unit SQ BID 01/27/19 [History] LORazepam [Ativan] 0.5 mg PO QID PRN 01/27/19 [History] OxyCODONE Immed Rel [Roxicodone 10 MG] 10 mg PO DAILY 01/27/19 [History] Polyethylene Glycol 3350 [MiraLAX] 17 gm PO DAILY 01/27/19 [History] Quetiapine Fumarate [Seroquel] 50 mg PO BID 01/27/19 [History] Miconazole 2% cream [Lesli Antifungal] 1 appl TP BID tube 01/30/19 [Rx] Sulfamethoxazole/Trimeth DS [Bactrim Ds] 1 each PO BID #3 tablet 01/30/19 [Rx] amLODIPine [Norvasc] 10 mg PO DAILY #30 tablet 01/30/19 [Rx] Allergy/AdvReac Type Severity Reaction Status Date / Time ceftriaxone Allergy Hives Verified 07/22/18 20:46 gabapentin Allergy Hives Verified 01/28/19 07:58 hydrochlorothiazide Allergy Hives Verified 01/28/19 07:58 pregabalin Allergy Hives Verified 01/28/19 07:58 risperidone AdvReac Confusion Verified 07/22/18 20:46 All Systems PM: A 10-system review of systems was performed and is negative for pertinent findings except as documented above in the HPI. Review of systems: unable to obtain patient's encephalopathic - Constitutional Vitals: Temp Pulse Resp BP Pulse Ox 97.3 F L 81 16 133/74 93 02/23/19 15:11 02/23/19 18:13 02/23/19 18:13 07/08/19 18:13 02/23/19 18:13 Exam: GENERAL: Mildly distressed obese female does not respond to questions appropriately mumbles SKIN: No skin lesions or rashes, non-jaundiced, pale thin/fragile and warm EYES: EOMI, PERRLA, no sclera icterus HENT: Head atraumatic, no facial asymmetry, frontal and maxillary sinus non- tender, visualized oropharynx and mucosa dry and without any exudates NECK: No cervical lymphadenopathy, trachea midline, thyroid is palpable does not appear enlarged LUNGS: somewhat diminished vesicular breath sounds due to body habitus. clear to auscultation, no wheeze, rhonchi, rales or crackles. Non labored respirations HEART: Normal rate and rhythm, no murmurs or rubs ABDOMEN: obese, soft, non-tender, non-distended, bowel sounds x 4 normoactive EXTRMITIES: No LE asymmetry, No LE edema, pedal pulses 1+ and radial pulses 2 + and equal bilaterally NEURO: response to painful stimuli but incoherent PSYCH: deferred Internal Med - H&P Results - Labs CBC & Chem 7: 02/23/19 15:47 02/23/19 15:47 Labs: Short CBC 02/23/19 Range/Units 15:47 WBC 9.4 (4.3-11.1) K/mcL Hgb 11.5 (11.5-15.4) g/dL Hct 35.8 (35.3-44.9) % Plt Count 365 (140-400) K/mcL Neutrophils # 7.2 (1.6-8.9) K/mcL BMP 02/23/19 15:47 Sodium 137 Potassium 5.1 Chloride 101 Carbon Dioxide 23 BUN 46 H Creatinine 1.60 H Glucose 460 H Calcium 9.1 Cardiac Enzymes 02/23/19 Range/Units 15:47 Troponin I < 0.03 (< 0.04) ng/mL Liver Function 02/23/19 Range/Units 15:47 Total Bilirubin 0.3 (0.3-1.0) mg/dL Direct Bilirubin 0.1 (0.0-0.2) mg/dL AST 14 (13-39) Units/L ALT 11 (7-52) Units/L Alkaline Phosphatase 90 (34-104) Units/L Albumin 3.3 L (3.5-5.7) g/dL Urine 02/23/19 Range/Units 16:59 Urine Color Yellow (Yellow) Urine Clarity Turbid A (Clear) Urine pH 5.0 (5.0-8.0) pH Units Ur Specific Echo 1.013 (1.010-1.025) Urine Protein 30 H (Neg-Trace) mg/dL Urine Glucose (UA) >=1000 H (Normal) mg/dL - Impressions ITS Impressions Chest X-Ray 02/23/19 15:18 IMPRESSION: Cardiomegaly. No radiographic evidence of acute pulmonary disease. D/ / Louis Echols / Louis Echols Interpreting Provider: Louis Echols Head CT 02/23/19 15:18 IMPRESSION: No acute intracranial abnormality. D/ / Danny Fall MD / Danny Fall MD Interpreting Provider: Danny Fall MD - Assessment and Plan (1) Metabolic encephalopathy Current Visit: Yes Status: Acute Assessment and plan: CT head was negative, likely etiology being UTI. TSH was within normal limits we will obtain an ammonia level as well as ABG to rule out hypercapnia (2) UTI (urinary tract infection) Current Visit: Yes Status: Acute Assessment and plan: UA suggestive for acute UTI she was treated with Unasyn at the ED however we will switch to Zosyn for extended coverage for Pseudomonas. afebrile with no leukocytosis, she can provide any history due to ascertain if she has any dysuria Qualifiers: Urinary tract infection type: acute cystitis Hematuria presence: with hematuria Qualified Code(s): N30.01 - Acute cystitis with hematuria (3) LEOBARDO (acute kidney injury) Current Visit: Yes Status: Acute Assessment and plan: Baseline not known suspect prerenal causes from dehydration, initiated resuscitation repeat BMP in am (4) COPD (chronic obstructive pulmonary disease) Current Visit: No Status: Chronic Assessment and plan: We will obtain ABG does not think this is pulmonary related DuoNeb as needed Qualifiers: COPD type: unspecified COPD Qualified Code(s): J44.9 - Chronic obstructive pulmonary disease, unspecified (5) Diabetes Current Visit: No Status: Chronic Assessment and plan: does not appear to be DKA or HHS. We will initiate basal insulin as well as sliding scale insulin every 6 hours since she is nothing by mouth due to encephalopathy Qualifiers: Diabetes mellitus type: type 2 Diabetes mellitus intermediate card tender insulin use: with skilled nursing use Diabetes mellitus complication status: with hyperglycemia Qualified Code(s): E11.65 - Type 2 diabetes mellitus with hyperglycemia; Z79.4 - FPC (current) use of insulin (6) Hypertension Current Visit: No Status: Chronic Assessment and plan: normotensive, home meds on hold Qualifiers: Hypertension type: essential hypertension Qualified Code(s): I10 - Essential (primary) hypertension (7) DVT prophylaxis Current Visit: Yes Status: Acute Assessment and plan: Heparin per protocol - Time Spent With Patient Total time spent is greater than 50% in coordination of care (as documented) at patient's floor/unit and/or counseling patient: Looking up records 40 mins.
[2019-02-23] MEDS ORDERED: Ipratropium/Albuterol Neb 3 ML IH PRN (19:51)
[2019-02-23 21:03] LABS: ABG Base Excess -2 mEq/L (-2 to 3); ABG HCO3 24 mEq/L (21-27); ABG Oxygen Saturation 92 % (95-98); ABG PCO2 42 mmHg (35-45); ABG PH 7.36 pH Units (7.32-7.45); ABG PO2 65 mmHg (85-104); ABG TCO2 25 mEq/L (20-26)
[2019-02-23] MEDS: Insulin LISPRO 300 UNITS/3 ML VIAL SQ SCH (21:19)
[2019-02-23] MEDS: Ringers Solution, Lactated 1,000 ML IVC SCH (21:20)
[2019-02-23] MEDS: Insulin DETEMIR 100 UNIT/ML X5UNITS SQ SCH (21:20)
[2019-02-23] MEDS ORDERED: Haloperidol Lactate 5 MG/ML VIAL IVP ONE (22:00)
[2019-02-23] MEDS ORDERED: *HR* Promethazine 25 MG/ML VIAL IVP PRN (22:01)
[2019-02-23] MEDS: Nystatin POWDER 30 GM BOTTLE TP SCH (22:46)
[2019-02-23] MEDS: Piperacillin/Tazobactam 3.375 GM in 0.9 % Sodium Chloride Mini Bag 100 ML IVPB SCH (23:33)
[2019-02-23] MEDS: *HR* Heparin 5,000 UNIT/ML VIAL SQ SCH (23:33)
[2019-02-24] MEDS ORDERED: Insulin LISPRO 300 UNITS/3 ML VIAL SQ SCH
[2019-02-24 07:10] LABS: Basophils # 0.1 K/mcL (0.0-0.2); Basophils % 0.7 %; Eosinophils # 0.2 K/mcL (0.0-0.6); Hemoglobin 10.9 g/dL (11.5-15.4); Immature Granulocytes % 0.4 % (0-4); Lymphocytes % 21.6 %; Mean Corpuscular HGB Conc 32.1 g/dL (31.6-35.5); Mean Corpuscular Hemoglobin 29.6 pg (28.0-33.3); Mean Corpuscular Volume 92.4 fL (83.0-100.0); Mean Platelet Volume 8.9 fL (9.4-12.4); Monocytes # 1.3 K/mcL (0.0-1.3); Monocytes % 13.7 %; Neutrophils # 5.8 K/mcL (1.6-8.9); Platelet Count 355 K/mcL (140-400); Red Blood Count 3.68 M/mcL (3.82-4.97); Red Cell Distribution Width 13.5 % (11.5-14.5); Segmented Neutrophils % 61.6 %; White Blood Count 9.4 K/mcL (4.3-11.1)
[2019-02-24 07:26] LABS: Calcium 8.9 mg/dL (8.6-10.3); Magnesium 2.3 mg/dL (1.6-2.6); Potassium 3.9 mEq/L (3.5-5.1)
[2019-02-24] MEDS: *HR* Heparin 5,000 UNIT/ML VIAL SQ SCH ×3 (08:52→23:25)
[2019-02-24] MEDS: Piperacillin/Tazobactam 3.375 GM in 0.9 % Sodium Chloride Mini Bag 100 ML IVPB SCH ×3 (08:52→23:25)
[2019-02-24] MEDS: Ringers Solution, Lactated 1,000 ML IVC SCH (08:53)
[2019-02-24] MEDS: Insulin LISPRO 300 UNITS/3 ML VIAL SQ SCH ×4 (08:53→21:22)
[2019-02-24] MEDS: Nystatin POWDER 30 GM BOTTLE TP SCH ×3 (09:00→21:21)
[2019-02-24] MEDS ORDERED: Naloxone 0.4 MG/ML INJ IVP PRN (09:44)
[2019-02-24] MEDS ORDERED: Leptospermum Honey Paste 1 APPL/5 ML MLS TP SCH (13:00)
[2019-02-24] MEDS: Leptospermum Honey Paste 44 ML TUBE TP SCH (16:58)
--- NOTE | 2019-02-24 19:22 | Internal Med Progress Note ---
Hospitalist Progress Note - Encounter Date of Encounter: 02/24/19 Time of Encounter: 10:15 - Subjective Interval History: Ms. Berry is more conversant today she denies any fevers or chills, she appears to be having visual hallucination speaking to her friend Evy home she claims is lying next to her - Exam Vitals: Temp Pulse Resp BP Pulse Ox 98.5 F 79 16 170/73 97 02/24/19 16:15 02/24/19 16:15 02/24/19 16:15 02/24/19 16:15 02/24/19 16:15 Exam: GENERAL: obese female not in acute distress SKIN: pale thin/fragile and warm EYES: EOMI, PERRLA, no sclera icterus HENT: Head atraumatic, no facial asymmetry, frontal and maxillary sinus non- tender, visualized oropharynx and mucosa dry and without any exudates NECK: No cervical lymphadenopathy, trachea midline, thyroid is palpable does not appear enlarged LUNGS: somewhat diminished vesicular breath sounds due to body habitus. clear to auscultation, no wheeze, rhonchi, rales or crackles. Non labored respirations HEART: Normal rate and rhythm, no murmurs or rubs ABDOMEN: obese, soft, non-tender, non-distended, bowel sounds x 4 normoactive EXTRMITIES: No LE asymmetry, No LE edema, pedal pulses 1+ and radial pulses 2 + and equal bilaterally NEURO: Alert and oriented to self only, speech is intact however comprehension is questionable PSYCH: appears to have visual hallucinations - Assessment and Plan (1) Metabolic encephalopathy Current Visit: Yes Status: Acute Assessment and Plan: CT head was negative, likely etiology being UTI. TSH was within normal limits, ammonia wnl, ABG was practically normal, revealing except for hypoxia. She appears back to baseline (2) UTI (urinary tract infection) Current Visit: Yes Status: Acute Assessment and Plan: UA suggestive for acute UTI she was treated with Unasyn at the ED however we will switch to Zosyn for extended coverage for Pseudomonas. afebrile with no leukocytosis, she denies dysuria, gram-negative rods noted on culture with sensitivities pending (3) LEOBARDO (acute kidney injury) Current Visit: Yes Status: Acute Assessment and Plan: Baseline not known suspect prerenal causes from dehydration, Scr improved from 1.6 to 1.43 with IV hydration likely baseline, she is c/o some shortness of breath we will discontinue IV and encourage oral intake (4) COPD (chronic obstructive pulmonary disease) Current Visit: No Status: Chronic Assessment and Plan: ABG was remarkable does not think this is pulmonary related DuoNeb as needed (5) Diabetes Current Visit: No Status: Chronic Assessment and Plan: does not appear to be DKA or HHS. We will initiate basal insulin as well as sliding scale insulin resume diabetic diet (6) Hypertension Current Visit: No Status: Chronic Assessment and Plan: normotensive, will continue metoprolol and amlodipine (7) DVT prophylaxis Current Visit: Yes Status: Acute Assessment and Plan: Heparin per protocol - Time Spent with Patient Total time spent is greater than 50% in coordination of care (as documented) at patient's floor/unit and/or counseling patient: Internal Medicine: Result - Labs CBC & Chem 7: 02/24/19 06:38 02/24/19 06:38 Labs: Short CBC 02/24/19 Range/Units 06:38 WBC 9.4 (4.3-11.1) K/mcL Hgb 10.9 L (11.5-15.4) g/dL Hct 34.0 L (35.3-44.9) % Plt Count 355 (140-400) K/mcL Neutrophils # 5.8 (1.6-8.9) K/mcL BMP 02/24/19 06:38 Sodium 143 Potassium 3.9 Chloride 106 Carbon Dioxide 28 BUN 42 H Creatinine 1.43 H Glucose 201 H Calcium 8.9 - ABG Interpretation ABG results: ABG ABG pH 7.36 pH Units (7.32-7.45) 02/23/19 21:00 ABG pCO2 42 mmHg (35-45) 02/23/19 21:00 ABG pO2 65 mmHg (85-104) L 02/23/19 21:00 ABG O2 Saturation 92 % (95-98) L 02/23/19 21:00 PT/INR, D-dimer PT 14.2 Seconds (9.4-12.1) H 02/23/19 15:47 Consult Discharge Plan - Plan Referrals: Dory Salvador, ORDER ENTRY [Advanced Practice Nurse] - (2) UTI (urinary tract infection) Qualifiers: Urinary tract infection type: acute cystitis Hematuria presence: with hematuria Qualified Code(s): N30.01 - Acute cystitis with hematuria (4) COPD (chronic obstructive pulmonary disease) Qualifiers: COPD type: unspecified COPD Qualified Code(s): J44.9 - Chronic obstructive pulmonary disease, unspecified (5) Diabetes Qualifiers: Diabetes mellitus type: type 2 Diabetes mellitus assisted insulin use: with assisted use Diabetes mellitus complication status: with hyperglycemia Qualified Code(s): E11.65 - Type 2 diabetes mellitus with hyperglycemia; Z79.4 - oil heaterman (current) use of insulin (6) Hypertension Qualifiers: Hypertension type: essential hypertension Qualified Code(s): I10 - Essential (primary) hypertension
[2019-02-24] MEDS ORDERED: Hydrocortisone 1% OINT 28 GM TUBE TP PRN (19:33)
[2019-02-24] MEDS: amLODIPine 5 MG TABLET PO SCH (21:14)
[2019-02-24] MEDS: traZODone 50 MG TABLET PO SCH (21:14)
[2019-02-24] MEDS: *HR* LORazepam 0.5 MG TABLET PO SCH (21:14)
[2019-02-24] MEDS: Insulin DETEMIR 100 UNIT/ML X5UNITS SQ SCH (21:22)
[2019-02-25] MEDS: *HR* LORazepam 0.5 MG TABLET PO SCH ×4 (10:31→21:35)
[2019-02-25] MEDS: Metoprolol XL (24 HR) Succ 50 MG TAB.ER.24H PO SCH (10:31)
[2019-02-25] MEDS: *HR* Heparin 5,000 UNIT/ML VIAL SQ SCH ×2 (10:32→18:16)
[2019-02-25] MEDS: Fenofibrate 54 MG TABLET PO SCH (10:32)
[2019-02-25] MEDS: amLODIPine 5 MG TABLET PO SCH (10:32)
[2019-02-25] MEDS: Insulin LISPRO 300 UNITS/3 ML VIAL SQ SCH ×2 (10:36→13:02)
[2019-02-25 11:09] LABS: Basophils # 0.1 K/mcL (0.0-0.2); Basophils % 0.6 %; Eosinophils # 0.4 K/mcL (0.0-0.6); Eosinophils % 4.7 %; Hematocrit 34.7 % (35.3-44.9); Hemoglobin 11.1 g/dL (11.5-15.4); Immature Granulocytes % 0.5 % (0-4); Lymphocytes # 2.2 K/mcL (0.6-4.6); Lymphocytes % 23.1 %; Mean Corpuscular Hemoglobin 30.2 pg (28.0-33.3); Mean Corpuscular Volume 94.3 fL (83.0-100.0); Mean Platelet Volume 9.2 fL (9.4-12.4); Monocytes % 10.9 %; Neutrophils # 5.7 K/mcL (1.6-8.9); Platelet Count 344 K/mcL (140-400); Red Blood Count 3.68 M/mcL (3.82-4.97); Red Cell Distribution Width 13.6 % (11.5-14.5); Segmented Neutrophils % 60.2 %; White Blood Count 9.4 K/mcL (4.3-11.1)
[2019-02-25 11:34] LABS: Calcium 8.3 mg/dL (8.6-10.3); Potassium 4.2 mEq/L (3.5-5.1)
[2019-02-25] MEDS: Leptospermum Honey Paste 44 ML TUBE TP SCH (12:09)
[2019-02-25] MEDS: Nystatin POWDER 30 GM BOTTLE TP SCH ×3 (12:09→21:35)
--- NOTE | 2019-02-25 16:19 | Internal Med Progress Note ---
Hospitalist Progress Note - Encounter Date of Encounter: 02/25/19 Time of Encounter: 10:20 - Subjective Interval History: Patient is doing well overall. Denies any chest pain or palpitations. No abdominal pain. She did have fever with MAXIMUM TEMPERATURE of 101.1 last night. She does not recollect having fever. No chest pain or palpitations. No dysuria. - Exam Vitals: Temp Pulse Resp BP Pulse Ox 98.4 F 79 16 118/46 94 02/25/19 15:30 02/25/19 15:30 02/25/19 15:30 02/25/19 15:30 02/25/19 15:30 Exam: General: Patient is alert, no acute distress, Respiratory: Good respiratory effort. Normal breath sounds. No wheezing or crackles. Cardiovascular: Regular rate and rhythm. s1 and s2 normal No clicks, rubs, gallops, or murmurs. No pedal edema Abdomen: Abdomen is soft, nontender. Bowel sounds are present Musculoskeletal: Spontaneously moving all extremities Skin: warm, dry, intact. Neuro: Alert normal cranial nerves, no focal deficits - Assessment and Plan (1) UTI (urinary tract infection) Current Visit: Yes Status: Acute (2) Metabolic encephalopathy Current Visit: Yes Status: Acute (3) Hypertension Current Visit: Yes Status: Chronic (4) LEOBARDO (acute kidney injury) Current Visit: Yes Status: Acute (5) Diabetes Current Visit: No Status: Chronic (6) COPD (chronic obstructive pulmonary disease) Current Visit: No Status: Chronic (7) DVT prophylaxis Current Visit: Yes Status: Acute DVT Prophylaxis: On Sq heparin - Summary of Assessment and Plan Summary of Assessment and Plan: Acute encephalopathy: Likely septic related to underlying UTI. Improving overall. Appears to be back to baseline. Acute urinary tract infection: Urine culture growing Klebsiella multidrug resistant. Will switch antibiotic to ertapenem. This is likely cause of her continued fevers. Will continue for 7 days. Acute kidney injury: Creatinine continues to improve. Sodium 133 today. We will monitor. Diabetes mellitus type 2: Poorly controlled. Blood sugars remain elevated. Will increase sliding scale coverage and also ad morning dose of long-acting insulin. Continue diabetic diet. Essential hypertension: Blood pressure was elevated earlier this morning but has since improved. COPD: Not in acute exacerbation. Continue bronchodilators as needed. Moderate risk for complications - Time Spent with Patient Total time spent is greater than 50% in coordination of care (as documented) at patient's floor/unit and/or counseling patient: Internal Medicine: Result - Labs CBC & Chem 7: 02/25/19 10:25 02/25/19 10:25 Labs: Short CBC 02/25/19 Range/Units 10:25 WBC 9.4 (4.3-11.1) K/mcL Hgb 11.1 L (11.5-15.4) g/dL Hct 34.7 L (35.3-44.9) % Plt Count 344 (140-400) K/mcL Neutrophils # 5.7 (1.6-8.9) K/mcL BMP 02/25/19 10:25 Sodium 133 L Potassium 4.2 Chloride 99 Carbon Dioxide 24 BUN 33 H Creatinine 1.36 H Glucose 337 H Calcium 8.3 L - ABG Interpretation ABG results: ABG ABG pH 7.36 pH Units (7.32-7.45) 02/23/19 21:00 ABG pCO2 42 mmHg (35-45) 02/23/19 21:00 ABG pO2 65 mmHg (85-104) L 02/23/19 21:00 ABG O2 Saturation 92 % (95-98) L 02/23/19 21:00 PT/INR, D-dimer PT 14.2 Seconds (9.4-12.1) H 02/23/19 15:47 Consult Discharge Plan - Plan Referrals: Dory Salvador, JUNIOR WEB DESIGNER [Advanced Practice Nurse] - (1) UTI (urinary tract infection) Qualifiers: Urinary tract infection type: acute cystitis Hematuria presence: with hematuria Qualified Code(s): N30.01 - Acute cystitis with hematuria (3) Hypertension Qualifiers: Hypertension type: essential hypertension Qualified Code(s): I10 - Essential (primary) hypertension (5) Diabetes Qualifiers: Diabetes mellitus type: type 2 Diabetes mellitus professor of biochemistry insulin use: with professor of biochemistry use Diabetes mellitus complication status: with hyperglycemia Qualified Code(s): E11.65 - Type 2 diabetes mellitus with hyperglycemia; Z79.4 - casualty underwriter (current) use of insulin (6) COPD (chronic obstructive pulmonary disease) Qualifiers: COPD type: unspecified COPD Qualified Code(s): J44.9 - Chronic obstructive pulmonary disease, unspecified
[2019-02-25] MEDS ORDERED: Insulin LISPRO 300 UNITS/3 ML VIAL SQ SCH ×2 (16:22)
[2019-02-25] MEDS: Insulin DETEMIR 100 UNIT/ML X5UNITS SQ SCH (21:35)
[2019-02-25] MEDS: traZODone 50 MG TABLET PO SCH (21:35)
[2019-02-26] MEDS: *HR* Heparin 5,000 UNIT/ML VIAL SQ SCH ×3 (00:02→18:26)
[2019-02-26] MEDS ORDERED: Insulin DETEMIR 100 UNIT/ML X5UNITS SQ SCH (09:00)
[2019-02-26] MEDS: Metoprolol XL (24 HR) Succ 50 MG TAB.ER.24H PO SCH (10:29)
[2019-02-26] MEDS: Fenofibrate 54 MG TABLET PO SCH (10:29)
[2019-02-26] MEDS: amLODIPine 5 MG TABLET PO SCH (10:29)
[2019-02-26] MEDS: *HR* LORazepam 0.5 MG TABLET PO SCH ×2 (10:30→15:05)
[2019-02-26] MEDS: Nystatin POWDER 30 GM BOTTLE TP SCH ×3 (10:31→22:10)
[2019-02-26] MEDS: Leptospermum Honey Paste 44 ML TUBE TP SCH (10:31)
[2019-02-26 11:05] LABS: Basophils # 0.1 K/mcL (0.0-0.2); Basophils % 0.7 %; Eosinophils # 0.3 K/mcL (0.0-0.6); Eosinophils % 3.3 %; Hematocrit 32.8 % (35.3-44.9); Hemoglobin 10.6 g/dL (11.5-15.4); Immature Granulocytes % 0.8 % (0-4); Lymphocytes # 1.8 K/mcL (0.6-4.6); Lymphocytes % 20.8 %; Mean Corpuscular HGB Conc 32.3 g/dL (31.6-35.5); Mean Corpuscular Hemoglobin 29.4 pg (28.0-33.3); Mean Corpuscular Volume 90.9 fL (83.0-100.0); Mean Platelet Volume 8.9 fL (9.4-12.4); Monocytes % 11.7 %; Neutrophils # 5.5 K/mcL (1.6-8.9); Platelet Count 318 K/mcL (140-400); Red Blood Count 3.61 M/mcL (3.82-4.97); Red Cell Distribution Width 13.2 % (11.5-14.5); Segmented Neutrophils % 62.7 %; White Blood Count 8.7 K/mcL (4.3-11.1)
[2019-02-26 11:21] LABS: Calcium 8.3 mg/dL (8.6-10.3); Potassium 3.9 mEq/L (3.5-5.1)
--- NOTE | 2019-02-26 14:09 | Internal Med Progress Note ---
Hospitalist Progress Note - Encounter Date of Encounter: 02/26/19 Time of Encounter: 09:40 - Subjective Interval History: Patient is awake and alert. Doing better today. Tolerating oral diet well. No fever reported overnight. - Exam Vitals: Temp Pulse Resp BP Pulse Ox 98.8 F 84 16 139/65 95 02/26/19 12:33 02/26/19 12:33 02/26/19 12:33 02/26/19 12:33 02/26/19 12:33 Exam: General: Patient is alert, no acute distress, oriented x 3 Respiratory: Good respiratory effort. Normal breath sounds. No wheezing or crackles. Cardiovascular: Regular rate and rhythm. s1 and s2 normal No clicks, rubs, gallops, or murmurs. No pedal edema Abdomen: Abdomen is soft, nontender. Bowel sounds are present Musculoskeletal: Spontaneously moving all extremities Skin: warm, dry, intact. Neuro: Alert oriented x 3 normal cranial nerves, no focal deficits - Assessment and Plan (1) UTI (urinary tract infection) Current Visit: Yes Status: Acute (2) Metabolic encephalopathy Current Visit: Yes Status: Acute (3) Hypertension Current Visit: Yes Status: Chronic (4) LEOBARDO (acute kidney injury) Current Visit: Yes Status: Acute (5) Diabetes Current Visit: No Status: Chronic (6) COPD (chronic obstructive pulmonary disease) Current Visit: No Status: Chronic (7) DVT prophylaxis Current Visit: Yes Status: Acute DVT Prophylaxis: On subcutaneous heparin - Summary of Assessment and Plan Summary of Assessment and Plan: Acute encephalopathy: Likely septic related to underlying UTI. Now resolved Acute urinary tract infection: Urine culture growing Klebsiella multidrug resistant. No new episodes of fever overnight. Continue IV ertapenem for total of 7 days. Acute kidney injury: Creatinine 1.33. Sodium 135 today. Diabetes mellitus type 2: Patient had an episode of hypoglycemia this morning. We will decrease sliding scale coverage while continuing long-acting insulin. Most likely due to better dietary control. Essential hypertension: Blood pressure is mostly well controlled. Continue Toprol. 10 amlodipine. COPD: Not in acute exacerbation. Continue bronchodilators as needed. Moderate risk for complications - Time Spent with Patient Total time spent is greater than 50% in coordination of care (as documented) at patient's floor/unit and/or counseling patient: Internal Medicine: Result - Labs CBC & Chem 7: 02/26/19 10:40 02/26/19 10:40 Labs: Short CBC 02/26/19 Range/Units 10:40 WBC 8.7 (4.3-11.1) K/mcL Hgb 10.6 L (11.5-15.4) g/dL Hct 32.8 L (35.3-44.9) % Plt Count 318 (140-400) K/mcL Neutrophils # 5.5 (1.6-8.9) K/mcL BMP 02/26/19 10:40 Sodium 135 L Potassium 3.9 Chloride 99 Carbon Dioxide 28 BUN 30 H Creatinine 1.33 H Glucose 182 H Calcium 8.3 L - ABG Interpretation ABG results: ABG ABG pH 7.36 pH Units (7.32-7.45) 02/23/19 21:00 ABG pCO2 42 mmHg (35-45) 02/23/19 21:00 ABG pO2 65 mmHg (85-104) L 02/23/19 21:00 ABG O2 Saturation 92 % (95-98) L 02/23/19 21:00 PT/INR, D-dimer PT 14.2 Seconds (9.4-12.1) H 02/23/19 15:47 Consult Discharge Plan - Plan Referrals: Dory Salvador, IN SCHOOL SUSPENSION AIDE [Advanced Practice Nurse] - Prescriptions: Ertapenem Sodium [Ertapenem] 1 gm IV DAILY #5 vial (1) UTI (urinary tract infection) Qualifiers: Urinary tract infection type: acute cystitis Hematuria presence: with hematuria Qualified Code(s): N30.01 - Acute cystitis with hematuria (3) Hypertension Qualifiers: Hypertension type: essential hypertension Qualified Code(s): I10 - Essential (primary) hypertension (5) Diabetes Qualifiers: Diabetes mellitus type: type 2 Diabetes mellitus care home insulin use: with care home use Diabetes mellitus complication status: with hyperglycemia Qualified Code(s): E11.65 - Type 2 diabetes mellitus with hyperglycemia; Z79.4 - [facility] (current) use of insulin (6) COPD (chronic obstructive pulmonary disease) Qualifiers: COPD type: unspecified COPD Qualified Code(s): J44.9 - Chronic obstructive pulmonary disease, unspecified
[2019-02-26] MEDS: Insulin LISPRO 300 UNITS/3 ML VIAL SQ SCH ×3 (15:05→22:11)
[2019-02-26] MEDS: traZODone 50 MG TABLET PO SCH (22:07)
[2019-02-26] MEDS: Insulin DETEMIR 100 UNIT/ML X5UNITS SQ SCH (22:09)
[2019-02-27] MEDS: *HR* Heparin 5,000 UNIT/ML VIAL SQ SCH ×4 (00:50→23:24)
[2019-02-27 03:48] LABS: Calcium 7.8 mg/dL (8.6-10.3); Potassium 3.7 mEq/L (3.5-5.1)
[2019-02-27 03:49] LABS: Basophils # 0.1 K/mcL (0.0-0.2); Basophils % 0.5 %; Eosinophils # 0.4 K/mcL (0.0-0.6); Eosinophils % 3.9 %; Hematocrit 30.2 % (35.3-44.9); Hemoglobin 9.8 g/dL (11.5-15.4); Immature Granulocytes % 0.7 % (0-4); Lymphocytes # 2.9 K/mcL (0.6-4.6); Lymphocytes % 31.1 %; Mean Corpuscular HGB Conc 32.5 g/dL (31.6-35.5); Mean Corpuscular Hemoglobin 29.4 pg (28.0-33.3); Mean Corpuscular Volume 90.7 fL (83.0-100.0); Mean Platelet Volume 9.1 fL (9.4-12.4); Monocytes # 0.9 K/mcL (0.0-1.3); Monocytes % 10.2 %; Neutrophils # 4.9 K/mcL (1.6-8.9); Platelet Count 307 K/mcL (140-400); Red Blood Count 3.33 M/mcL (3.82-4.97); Red Cell Distribution Width 13.1 % (11.5-14.5); Segmented Neutrophils % 53.6 %; White Blood Count 9.2 K/mcL (4.3-11.1)
[2019-02-27] MEDS: Insulin LISPRO 300 UNITS/3 ML VIAL SQ SCH ×4 (08:46→21:38)
[2019-02-27] MEDS: Metoprolol XL (24 HR) Succ 50 MG TAB.ER.24H PO SCH (09:06)
[2019-02-27] MEDS: Fenofibrate 54 MG TABLET PO SCH (09:06)
[2019-02-27] MEDS: Leptospermum Honey Paste 44 ML TUBE TP SCH (09:07)
[2019-02-27] MEDS: Nystatin POWDER 30 GM BOTTLE TP SCH ×3 (09:07→21:39)
--- NOTE | 2019-02-27 13:06 | Internal Med Progress Note ---
Hospitalist Progress Note - Encounter Date of Encounter: 02/27/19 Time of Encounter: 13:04 - Subjective Interval History: Evaluated patient earlier today. Doing well overall. Denies any chest pain or palpitations. No dysuria. No nausea or vomiting. No fever reported overnight. - Exam Vitals: Temp Pulse Resp BP Pulse Ox 97.5 F L 70 15 111/55 93 02/27/19 11:30 02/27/19 11:30 02/27/19 11:30 02/27/19 11:30 02/27/19 11:30 Exam: General: Patient is alert, no acute distress, oriented x 2 Respiratory: Good respiratory effort. Normal breath sounds. No wheezing or crackles. Cardiovascular: Regular rate and rhythm. s1 and s2 normal No clicks, rubs, gallops, or murmurs. No pedal edema Abdomen: Abdomen is soft, nontender. Bowel sounds are present Musculoskeletal: Spontaneously moving all extremities Skin: warm, dry, intact. Neuro: Alert oriented x2 normal cranial nerves, no focal deficits - Assessment and Plan (1) UTI (urinary tract infection) Current Visit: Yes Status: Acute (2) Metabolic encephalopathy Current Visit: Yes Status: Acute (3) Hypertension Current Visit: Yes Status: Chronic (4) LEOBARDO (acute kidney injury) Current Visit: Yes Status: Acute (5) Diabetes Current Visit: No Status: Chronic (6) COPD (chronic obstructive pulmonary disease) Current Visit: No Status: Chronic (7) DVT prophylaxis Current Visit: Yes Status: Acute DVT Prophylaxis: On subcutaneous heparin - Summary of Assessment and Plan Summary of Assessment and Plan: Acute encephalopathy: Likely septic related to underlying UTI. Now resolved Acute urinary tract infection: Continue IV ertapenem. Acute kidney injury: Creatinine 1.38. Sodium 133 today. We will continue to monitor. Diabetes mellitus type 2: Blood sugar low this morning. We will further decrease insulin regimen. Continue to monitor blood sugars closely. Essential hypertension: Blood pressure is mostly well controlled. Continue T oprol COPD: Not in acute exacerbation. Continue bronchodilators as needed. Moderate risk for complications - Time Spent with Patient Total time spent is greater than 50% in coordination of care (as documented) at patient's floor/unit and/or counseling patient: Internal Medicine: Result - Labs CBC & Chem 7: 02/27/19 03:15 02/27/19 03:15 Labs: Short CBC 02/27/19 Range/Units 03:15 WBC 9.2 (4.3-11.1) K/mcL Hgb 9.8 L (11.5-15.4) g/dL Hct 30.2 L (35.3-44.9) % Plt Count 307 (140-400) K/mcL Neutrophils # 4.9 (1.6-8.9) K/mcL BMP 02/27/19 03:15 Sodium 133 L Potassium 3.7 Chloride 100 Carbon Dioxide 27 BUN 28 H Creatinine 1.38 H Glucose 130 H Calcium 7.8 L - ABG Interpretation ABG results: ABG ABG pH 7.36 pH Units (7.32-7.45) 02/23/19 21:00 ABG pCO2 42 mmHg (35-45) 02/23/19 21:00 ABG pO2 65 mmHg (85-104) L 02/23/19 21:00 ABG O2 Saturation 92 % (95-98) L 02/23/19 21:00 PT/INR, D-dimer PT 14.2 Seconds (9.4-12.1) H 02/23/19 15:47 Consult Discharge Plan - Plan Referrals: Dory Salvador, CLINICAL DATA RESEARCH [Advanced Practice Nurse] - Prescriptions: Ertapenem Sodium [Ertapenem] 1 gm IV DAILY #5 vial (1) UTI (urinary tract infection) Qualifiers: Urinary tract infection type: acute cystitis Hematuria presence: with hematuria Qualified Code(s): N30.01 - Acute cystitis with hematuria (3) Hypertension Qualifiers: Hypertension type: essential hypertension Qualified Code(s): I10 - Essential (primary) hypertension (5) Diabetes Qualifiers: Diabetes mellitus type: type 2 Diabetes mellitus ferry terminal supervisor insulin use: with ferry terminal supervisor use Diabetes mellitus complication status: with hyperglycemia Qualified Code(s): E11.65 - Type 2 diabetes mellitus with hyperglycemia; Z79.4 - tank terminal gauger (current) use of insulin (6) COPD (chronic obstructive pulmonary disease) Qualifiers: COPD type: unspecified COPD Qualified Code(s): J44.9 - Chronic obstructive pulmonary disease, unspecified
[2019-02-27] MEDS ORDERED: traMADol 50 MG TABLET PO PRN (16:17)
[2019-02-27] MEDS: *HR* LORazepam 0.5 MG TABLET PO PRN ×2 (16:30→23:24)
[2019-02-27] MEDS: traZODone 50 MG TABLET PO SCH (21:35)
[2019-02-27] MEDS: Insulin DETEMIR 100 UNIT/ML X5UNITS SQ SCH (21:37)
[2019-02-28 05:47] LABS: Potassium 4.1 mEq/L (3.5-5.1)
[2019-02-28] MEDS: Metoprolol XL (24 HR) Succ 50 MG TAB.ER.24H PO SCH (09:40)
[2019-02-28] MEDS: *HR* Heparin 5,000 UNIT/ML VIAL SQ SCH (09:40)
[2019-02-28] MEDS: Insulin LISPRO 300 UNITS/3 ML VIAL SQ SCH ×2 (09:42→12:47)
[2019-02-28 10:59] VITALS: BP 122/69
[2019-02-28] MEDS: Insulin DETEMIR 100 UNIT/ML X5UNITS SQ SCH (11:16)
[2019-02-28] MEDS: Fenofibrate 54 MG TABLET PO SCH (11:17)
--- NOTE | 2019-02-28 13:55 | Discharge Summary ---
- NOTES TO OUTPATIENT PROVIDER Notes to Outpatient Provider: Patient with a history of CHF, COPD, carotid artery disease status post CABG, hypertension and dementia was hospitalized here initially for altered mental status. She was suspected of having an acute urinary tract infection and was treated with antibiotics for this. Her en cephalopathy resolved soon after. Her urine cultures were positive for Klebsiella that small to drug resistant. As such patient has been placed on ertapenem and will need to complete 7 days of intravenous antibiotic therapy. She was evaluated by physical therapy and recommended placement to skilled rehabilitation. She will be discharged to skilled rehabilitation later today and will complete antibiotic course there. Date of Encounter: 02/28/19 Time of Encounter: 13:48 - Discharge Diagnosis (1) Metabolic encephalopathy Priority: Primary Status: Acute Assessment and Plan: Septic encephalopathy due to UTI (2) UTI (urinary tract infection) Priority: Secondary Status: Acute Qualifiers: Urinary tract infection type: acute cystitis Hematuria presence: with hematuria Qualified Code(s): N30.01 - Acute cystitis with hematuria (3) Hypertension Priority: Secondary Status: Chronic Qualifiers: Hypertension type: essential hypertension Qualified Code(s): I10 - Essential (primary) hypertension (4) LEOBARDO (acute kidney injury) Priority: Secondary Status: Acute (5) Diabetes Priority: Secondary Status: Chronic Qualifiers: Diabetes mellitus type: type 2 Diabetes mellitus laborer marine terminal insulin use: with laborer marine terminal use Diabetes mellitus complication status: with kidney complications Diabetes mellitus complication detail: with chronic kidney disease Chronic kidney disease stage: stage 3 (moderate) Qualified Code(s): E11.22 - Type 2 diabetes mellitus with diabetic chronic kidney disease; N18.3 - Chronic kidney disease, stage 3 (moderate); Z79.4 - termite treater helper (current) use of insulin (6) COPD (chronic obstructive pulmonary disease) Priority: Secondary Status: Chronic Qualifiers: COPD type: unspecified COPD Qualified Code(s): J44.9 - Chronic obstructive pulmonary disease, unspecified (7) DVT prophylaxis Priority: Secondary Status: Acute Hospital course: Ms. Berry is a 74 year old female Patient with a history of CHF, COPD, carotid artery disease status post CABG, hypertension and dementia was hospitalized here initially for altered mental status. She was suspected of having an acute urinary tract infection and was treated with antibiotics for this. Her encephalopathy resolved soon after. Her urine cultures were positive for Klebsiella that small to drug resistant. As such patient has been placed on ertapenem and will need to complete 7 days of intravenous antibiotic therapy. She was evaluated by physical therapy and recommended placement to skilled rehabilitation. She will be discharged to skilled rehabilitation later today and will complete antibiotic course there. I have decreased her Bumex dose to 1 mg twice a day as patient had presented with acute kidney injury. She does have underlying chronic kidney disease stage III. Discharge discussed with: patient, nurse - Time Spent with Patient Total time spent providing and/or coordinating discharge services: Time spent: Greater than 30 minutes (40 min) - Discharge Medications Prescriptions: New Ertapenem Sodium [Ertapenem] 1 gm IV DAILY #5 vial Nystatin POWDER [Nystop] 1 appl TP TID bottle Oxycodone HCl/Acetaminophen [Percocet 5-325 mg Tablet] 1 each PO Q6H PRN 5 Days #14 tablet PRN Reason: Moderate Pain Continued Ferrous Sulfate [Iron] 325 mg PO BID Fenofibrate Nanocrystallized [Triglide] 160 mg PO DAILY Metoprolol Succinate 200 mg PO DAILY Memantine HCl 10 mg PO BID Amitriptyline [Elavil] 50 mg PO HS Sertraline [Zoloft] 100 mg PO DAILY Trazodone HCl 100 mg PO HS Ondansetron HCl [Zofran] 4 mg PO Q6H PRN PRN Reason: Nausea And Vomiting Hydrocortisone 1% OINT [Cortaid] 1 appl TP BID PRN PRN Reason: DERMATITIS Docusate [Colace] 100 mg PO DAILY Polyethylene Glycol 3350 [MiraLAX] 17 gm PO DAILY Quetiapine Fumarate [Seroquel] 50 mg PO BID amLODIPine [Norvasc] 10 mg PO DAILY Insulin NPH Hum/Reg Insulin Hm [Novolin 70-30 Flexpen] 10 - 70 unit SQ BID LORazepam [Ativan] 0.5 mg PO QID PRN 5 Days #20 tablet PRN Reason: Anxiety Changed Bumetanide 1 mg PO BID #0 Discontinued OxyCODONE Immed Rel [Roxicodone 10 MG] 10 mg PO Q4H PRN PRN Reason: Severe Pain OxyCODONE Immed Rel [Roxicodone 10 MG] 10 mg PO DAILY Home Medications: Fenofibrate Nanocrystallized [Triglide] 160 mg PO DAILY 03/13/18 [History] Ferrous Sulfate [Iron] 325 mg PO BID 03/13/18 [History] Metoprolol Succinate 200 mg PO DAILY 05/15/18 [History] Memantine HCl 10 mg PO BID 07/23/18 [History] Amitriptyline [Elavil] 50 mg PO HS 07/24/18 [History] Ondansetron HCl [Zofran] 4 mg PO Q6H PRN 11/25/18 [History] Sertraline [Zoloft] 100 mg PO DAILY 11/25/18 [History] Trazodone HCl 100 mg PO HS 11/25/18 [History] Docusate [Colace] 100 mg PO DAILY 01/27/19 [History] Hydrocortisone 1% OINT [Cortaid] 1 appl TP BID PRN 01/27/19 [History] Polyethylene Glycol 3350 [MiraLAX] 17 gm PO DAILY 01/27/19 [History] Quetiapine Fumarate [Seroquel] 50 mg PO BID 01/27/19 [History] Insulin NPH Hum/Reg Insulin Hm [Novolin 70-30 Flexpen] 10 - 70 unit SQ BID 02/24/19 [History] amLODIPine [Norvasc] 10 mg PO DAILY 02/24/19 [History] Ertapenem Sodium [Ertapenem] 1 gm IV DAILY #5 vial 02/26/19 [Rx] Bumetanide 1 mg PO BID #0 02/28/19 [Rx] LORazepam [Ativan] 0.5 mg PO QID PRN 5 Days #20 tablet 02/28/19 [Rx] Nystatin POWDER [Nystop] 1 appl TP TID bottle 02/28/19 [Rx] Oxycodone HCl/Acetaminophen [Percocet 5-325 mg Tablet] 1 each PO Q6H PRN 5 Days #14 tablet 02/28/19 [Rx] Allergies/Adverse Reactions: Allergy/AdvReac Type Severity Reaction Status Date / Time ceftriaxone Allergy Hives Verified 07/22/18 20:46 gabapentin Allergy Hives Verified 01/28/19 07:58 hydrochlorothiazide Allergy Hives Verified 01/28/19 07:58 pregabalin Allergy Hives Verified 01/28/19 07:58 risperidone AdvReac Confusion Verified 07/22/18 20:46 Date of admission: 02/25/19 11:42 Primary care physician: PCP NONE Consults: 02/23/19 20:08 Consult to Wound Care [CONS] Routine Reason for Consult: Patient has two unstageable wounds to heal center unstageable wound to her right thigh. Please make daily wound care recommendations after assessment. Call Completed: No 02/24/19 14:38 Consult to Occupational Therapy [CONS] Routine Comment: Evaluate, develop and implement POC Reason for Consult: limited mobility Does patient have active BEDREST order?: No Is patient medically & hemodynamically stable?: Yes Patient assessed for mobility or mobilized this visit?: Yes Consult to Physical Therapy [CONS] Routine Comment: Evaluate, develop and implement POC Reason for Consult: impaired mobility Does patient have active BEDREST order?: No Is patient medically & hemodynamically stable?: Yes Patient assessed for mobility or mobilized this visit?: Yes 02/25/19 09:06 Consult to Invasive Line Access Team [CONS] Routine Reason for Consult: Place EPIV for Abx 7-14 days Line Type: EPIV PICC line indications: termite treater helper Med/Antibiotic Discharging clinician: Katja Maza Anticipated date of discharge: 02/28/19 - Constitutional Vitals: Temp Pulse Resp BP Pulse Ox 97.9 F 65 17 122/69 94 02/28/19 10:58 02/28/19 10:58 02/28/19 10:58 02/28/19 10:58 02/28/19 10:58 Exam: General: Patient is alert, no acute distress, oriented x 2 Respiratory: Good respiratory effort. Normal breath sounds. No wheezing or crackles. Cardiovascular: Regular rate and rhythm. s1 and s2 normal No clicks, rubs, gallops, or murmurs. No pedal edema Abdomen: Abdomen is soft, nontender. Bowel sounds are present Musculoskeletal: Spontaneously moving all extremities Skin: Both feet are bandaged and in pressure relieving dressing underlying diabetic ulcers which are chronic Neuro: Alert oriented x 2 normal cranial nerves, no focal deficits - Patient Status Disposition: Transfer SNF Condition: Fair Functional capacity at discharge: bed bound Overall status at discharge: patient is progressing back to baseline - Discharge Instructions Instructions: Chronic Hypertension (DC) Follow Up With: Dory Salvador CONSTRUCTION CONTROLLER [Advanced Practice Nurse] - (in 1 week) Additional Instructions: Follow-up with wound care clinic in 1 week - Diet and Activity Activity: increase activity as tolerated Diet: diabetic diet, low fat, low cholesterol, low salt diet
--- NOTE | 2019-02-28 14:00 | Physician Discharge Referral ---
ExtendedCare Referral Info Provider in Charge after Transfer: PCP Institutional Level of Care: Skilled - Diagnosis (1) Metabolic encephalopathy Priority: Primary Status: Acute (2) UTI (urinary tract infection) Priority: Secondary Status: Acute (3) Hypertension Priority: Secondary Status: Chronic (4) LEOBARDO (acute kidney injury) Priority: Secondary Status: Acute (5) Diabetes Priority: Secondary Status: Chronic (6) COPD (chronic obstructive pulmonary disease) Priority: Secondary Status: Chronic (7) DVT prophylaxis Priority: Secondary Status: Acute Prognosis: Fair Aware of Diagnosis: Patient, Family Aware of Prognosis: Patient, Family - Transfer Medications Prescriptions: LORazepam [Ativan] 0.5 mg PO QID PRN 5 Days #20 tablet PRN Reason: Anxiety Ertapenem Sodium [Ertapenem] 1 gm IV DAILY #5 vial Oxycodone HCl/Acetaminophen [Percocet 5-325 mg Tablet] 1 each PO Q6H PRN 5 Days #14 tablet PRN Reason: Moderate Pain Home Medications: Fenofibrate Nanocrystallized [Triglide] 160 mg PO DAILY 03/13/18 [History] Ferrous Sulfate [Iron] 325 mg PO BID 03/13/18 [History] Metoprolol Succinate 200 mg PO DAILY 05/15/18 [History] Memantine HCl 10 mg PO BID 07/23/18 [History] Amitriptyline [Elavil] 50 mg PO HS 07/24/18 [History] Ondansetron HCl [Zofran] 4 mg PO Q6H PRN 11/25/18 [History] Sertraline [Zoloft] 100 mg PO DAILY 11/25/18 [History] Trazodone HCl 100 mg PO HS 11/25/18 [History] Docusate [Colace] 100 mg PO DAILY 01/27/19 [History] Hydrocortisone 1% OINT [Cortaid] 1 appl TP BID PRN 01/27/19 [History] Polyethylene Glycol 3350 [MiraLAX] 17 gm PO DAILY 01/27/19 [History] Quetiapine Fumarate [Seroquel] 50 mg PO BID 01/27/19 [History] Insulin NPH Hum/Reg Insulin Hm [Novolin 70-30 Flexpen] 10 - 70 unit SQ BID 02/24/19 [History] amLODIPine [Norvasc] 10 mg PO DAILY 02/24/19 [History] Ertapenem Sodium [Ertapenem] 1 gm IV DAILY #5 vial 02/26/19 [Rx] Bumetanide 1 mg PO BID #0 02/28/19 [Rx] LORazepam [Ativan] 0.5 mg PO QID PRN 5 Days #20 tablet 02/28/19 [Rx] Nystatin POWDER [Nystop] 1 appl TP TID bottle 02/28/19 [Rx] Oxycodone HCl/Acetaminophen [Percocet 5-325 mg Tablet] 1 each PO Q6H PRN 5 Days #14 tablet 02/28/19 [Rx] Allergies/Adverse Reactions: Allergy/AdvReac Type Severity Reaction Status Date / Time ceftriaxone Allergy Hives Verified 07/22/18 20:46 gabapentin Allergy Hives Verified 01/28/19 07:58 hydrochlorothiazide Allergy Hives Verified 01/28/19 07:58 pregabalin Allergy Hives Verified 01/28/19 07:58 risperidone AdvReac Confusion Verified 07/22/18 20:46 - Respiratory Orders Smoking Cessation: Smoking cessation has been advised. For more information, call the [employer] Tobacco Quit Line at 5-202-BTIQ-NOW. - Advance Directives Code Status: Full Code - Rehabiliation Orders Rehab Potential: Fair Rehab Orders: Evaluation for Physical Therapy, Evaluation for Occupational Therapy - Treatments Skin tear care topically daily PRN per policy List/Other: Wound Care: chronic diabetic foot ulcers to the bilateral heels and wound to right medial thigh - cleanse daily with soap and water - rinse well with water and pat dry - apply Medihoney paste to the wounds - cover with Allevyn Foam Dressings - change daily - apply Heelbos to bilateral heels - Diet Orders No Concentrated Sweets (Diabetic), Cardiac CERTIFICATION: I certify that the transfer of the above named patient to an Extended Care Facility is necessary for the continuing treatment of the diagnosis listed. The above information is true and accurate reflection of patient's current condition. Confidential - Redisclosure prohibited without a patient's written consent.
== END 2019-02-28 15:57 | DRG 871 ==
LOC: 3ANU 15:06 → EMEROOARM 15:06 → SUATTDRO 18:34 → 3ANU 18:52
PROVIDERS: ADMIT Pharmacist; ATTEND Internal Medicine

== ENCOUNTER 2019-06-02 18:40 | Inpatient (IN) ==
[2019-06-02] MEDS ORDERED: 0.9 % Sodium Chloride 1,000 ML IVC ONE (18:48)
[2019-06-02 20:13] LABS: Basophils # 0.1 K/mcL (0.0-0.2); Basophils % 0.7 %; Eosinophils # 0.2 K/mcL (0.0-0.6); Eosinophils % 2.8 %; Hematocrit 28.8 % (35.3-44.9); Hemoglobin 9.1 g/dL (11.5-15.4); Immature Granulocytes % 0.3 % (0-4); Lymphocytes # 1.9 K/mcL (0.6-4.6); Lymphocytes % 27.8 %; Mean Corpuscular HGB Conc 31.6 g/dL (31.6-35.5); Mean Corpuscular Hemoglobin 30.5 pg (28.0-33.3); Mean Corpuscular Volume 96.6 fL (83.0-100.0); Mean Platelet Volume 8.9 fL (9.4-12.4); Monocytes # 0.9 K/mcL (0.0-1.3); Monocytes % 13.4 %; Neutrophils # 3.7 K/mcL (1.6-8.9); Platelet Count 406 K/mcL (140-400); Red Blood Count 2.98 M/mcL (3.82-4.97); Red Cell Distribution Width 14.5 % (11.5-14.5); White Blood Count 6.8 K/mcL (4.3-11.1)
[2019-06-02 20:28] LABS: Bilirubin,Urine Negative (Negative); Blood,Urine Moderate (Negative); Clarity,Urine Cloudy (Clear); Color,Urine Yellow (Yellow); Glucose,Urine (UA) Normal (Normal); Ketones,Urine Negative (Negative); Leukocyte Esterase,Urine Large (Negative); Nitrite,Urine Negative (Negative); Protein,Urine 100 mg/dL (Neg-Trace); Specific Gravity,Urine 1.014 (1.010-1.025); Urobilinogen,Urine Normal (Normal)
[2019-06-02 20:30] LABS: Bacteria,Urine Many per hpf (None-Few); Hyaline Casts,Urine None Seen per lpf (None-Few); Squamous Epithelial Cell,Urine Moderate per lpf (None-Few); WBC,Urine TNTC per hpf (0-3)
[2019-06-02 20:34] LABS: BUN/Creatinine Ratio 27 (6-26); Blood Urea Nitrogen 26 mg/dL (8-23); Carbon Dioxide 29 mEq/L (23-29); Chloride 104 mEq/L (98-107); Glucose 154 mg/dL (70-105); Osmolality,Calculated 298 (280-300); Potassium 4.1 mEq/L (3.5-5.1); Sodium 140 mEq/L (136-145); Troponin I 0.03 ng/mL (< 0.04); eGFR For African Americans > 60 (> 60); eGFR For Non-African Americans 56 (> 60)
[2019-06-02] MEDS ORDERED: Ertapenem 1,000 MG in 0.9 % Sodium Chloride Mini Bag 100 ML IVPB STA (21:01)
[2019-06-03] MEDS ORDERED: D5% in Water 1,000 ML IVC PRN (06:41)
[2019-06-03] MEDS ORDERED: *HR* Dextrose 50 % in Water (Syg) 50 ML SYRINGE IVP PRN (06:41)
[2019-06-03] MEDS ORDERED: Dextrose Gel 15 GM/37.5 ML TUBE PO PRN ×2 (06:41)
[2019-06-03] MEDS ORDERED: Naloxone 0.4 MG/ML INJ IVP PRN (06:42)
[2019-06-03 07:54] LABS: Hemoglobin 8.3 g/dL (11.5-15.4); Mean Corpuscular HGB Conc 31.9 g/dL (31.6-35.5); Mean Corpuscular Hemoglobin 31.4 pg (28.0-33.3); Mean Corpuscular Volume 98.5 fL (83.0-100.0); Platelet Count 355 K/mcL (140-400); Red Blood Count 2.64 M/mcL (3.82-4.97); Red Cell Distribution Width 14.3 % (11.5-14.5); White Blood Count 7.1 K/mcL (4.3-11.1)
[2019-06-03 08:02] LABS: BUN/Creatinine Ratio 26 (6-26); Blood Urea Nitrogen 25 mg/dL (8-23); Calcium 8.6 mg/dL (8.6-10.3); Carbon Dioxide 27 mEq/L (23-29); Chloride 101 mEq/L (98-107); Glucose 247 mg/dL (70-105); Osmolality,Calculated 297 (280-300); Potassium 4.2 mEq/L (3.5-5.1); Sodium 137 mEq/L (136-145); eGFR For African Americans > 60 (> 60); eGFR For Non-African Americans 56 (> 60)
[2019-06-03] MEDS: Insulin LISPRO 300 UNITS/3 ML VIAL SQ SCH ×4 (09:27→22:34)
[2019-06-03] MEDS: Ertapenem 1,000 MG in 0.9 % Sodium Chloride Mini Bag 100 ML IVPB SCH (09:28)
[2019-06-03] MEDS ORDERED: *HR* LORazepam 0.5 MG TABLET PO PRN (10:26)
[2019-06-03] MEDS: *HR* HYDROcodone/Acet 5/325 mg TABLET PO PRN ×3 (11:33→23:05)
[2019-06-03] MEDS: amLODIPine 5 MG TABLET PO SCH (11:34)
[2019-06-03] MEDS: Bumetanide 1 MG TABLET PO SCH (16:53)
[2019-06-03] MEDS: *HR* Heparin 5,000 UNIT/ML VIAL SQ SCH (16:54)
[2019-06-04 06:09] LABS: Hematocrit 27.6 % (35.3-44.9); Hemoglobin 8.9 g/dL (11.5-15.4); Mean Corpuscular HGB Conc 32.2 g/dL (31.6-35.5); Mean Corpuscular Hemoglobin 31.6 pg (28.0-33.3); Mean Corpuscular Volume 97.9 fL (83.0-100.0); Mean Platelet Volume 9.2 fL (9.4-12.4); Platelet Count 379 K/mcL (140-400); Red Blood Count 2.82 M/mcL (3.82-4.97); Red Cell Distribution Width 14.1 % (11.5-14.5); White Blood Count 6.1 K/mcL (4.3-11.1)
[2019-06-04] MEDS: *HR* Heparin 5,000 UNIT/ML VIAL SQ SCH ×2 (07:28→17:12)
[2019-06-04 07:40] LABS: % Iron Saturation 34 % (15-50); BUN/Creatinine Ratio 23 (6-26); Blood Urea Nitrogen 24 mg/dL (8-23); Calcium 8.3 mg/dL (8.6-10.3); Carbon Dioxide 26 mEq/L (23-29); Chloride 101 mEq/L (98-107); Glucose 227 mg/dL (70-105); Iron 91 mcg/dL (50-170); Magnesium 1.8 mg/dL (1.6-2.6); Osmolality,Calculated 295 (280-300); Phosphorous 3.6 mg/dL (2.7-4.5); Sodium 137 mEq/L (136-145); Transferrin 193 mg/dL (203-362); eGFR For African Americans > 60 (> 60); eGFR For Non-African Americans 52 (> 60)
[2019-06-04 07:47] LABS: Ferritin 358 ng/mL (10-120)
[2019-06-04] MEDS: Insulin LISPRO 300 UNITS/3 ML VIAL SQ SCH ×7 (08:21→21:47)
[2019-06-04] MEDS: Bumetanide 1 MG TABLET PO SCH ×2 (08:35→17:14)
[2019-06-04] MEDS: amLODIPine 5 MG TABLET PO SCH (08:36)
[2019-06-04] MEDS: Ertapenem 1,000 MG in 0.9 % Sodium Chloride Mini Bag 100 ML IVPB SCH (08:39)
[2019-06-04] MEDS ORDERED: Insulin DETEMIR 100 UNIT/ML X5UNITS SQ SCH (21:00)
[2019-06-05 04:57] LABS: Hematocrit 28.9 % (35.3-44.9); Hemoglobin 9.7 g/dL (11.5-15.4); Mean Corpuscular HGB Conc 33.6 g/dL (31.6-35.5); Mean Corpuscular Hemoglobin 31.5 pg (28.0-33.3); Mean Corpuscular Volume 93.8 fL (83.0-100.0); Mean Platelet Volume 9.3 fL (9.4-12.4); Platelet Count 409 K/mcL (140-400); Red Blood Count 3.08 M/mcL (3.82-4.97); Red Cell Distribution Width 13.7 % (11.5-14.5); White Blood Count 6.3 K/mcL (4.3-11.1)
[2019-06-05 05:16] LABS: Calcium 8.2 mg/dL (8.6-10.3); Potassium 3.9 mEq/L (3.5-5.1)
[2019-06-05] MEDS: *HR* Heparin 5,000 UNIT/ML VIAL SQ SCH ×2 (05:30→18:08)
[2019-06-05] MEDS: Bumetanide 1 MG TABLET PO SCH (08:00)
[2019-06-05] MEDS: *HR* HYDROcodone/Acet 5/325 mg TABLET PO PRN ×2 (08:00→15:50)
[2019-06-05] MEDS: Ertapenem 1,000 MG in 0.9 % Sodium Chloride Mini Bag 100 ML IVPB SCH (08:24)
[2019-06-05] MEDS: amLODIPine 5 MG TABLET PO SCH (08:27)
[2019-06-05] MEDS: Insulin LISPRO 300 UNITS/3 ML VIAL SQ SCH ×7 (08:33→21:22)
[2019-06-05] MEDS ORDERED: Aminoglycoside Consult 1 EACH MC ONE (11:47)
[2019-06-05] MEDS ORDERED: 0.9 % Sodium Chloride 1,000 ML IVC SCH (13:15)
[2019-06-05] MEDS: Insulin DETEMIR 100 UNIT/ML X5UNITS SQ SCH (21:22)
[2019-06-06 04:12] LABS: Hematocrit 27.3 % (35.3-44.9); Hemoglobin 8.9 g/dL (11.5-15.4); Mean Corpuscular HGB Conc 32.6 g/dL (31.6-35.5); Mean Corpuscular Hemoglobin 31.4 pg (28.0-33.3); Mean Corpuscular Volume 96.5 fL (83.0-100.0); Mean Platelet Volume 9.3 fL (9.4-12.4); Platelet Count 357 K/mcL (140-400); Red Blood Count 2.83 M/mcL (3.82-4.97); Red Cell Distribution Width 13.9 % (11.5-14.5); White Blood Count 5.8 K/mcL (4.3-11.1)
[2019-06-06 04:30] LABS: Calcium 7.5 mg/dL (8.6-10.3); Potassium 3.7 mEq/L (3.5-5.1)
[2019-06-06] MEDS: *HR* Heparin 5,000 UNIT/ML VIAL SQ SCH ×2 (05:42→18:10)
[2019-06-06] MEDS: *HR* HYDROcodone/Acet 5/325 mg TABLET PO PRN ×2 (05:59→18:09)
[2019-06-06] MEDS ORDERED: 0.9 % Sodium Chloride 1,000 ML IVC SCH (07:30)
[2019-06-06] MEDS: Insulin LISPRO 300 UNITS/3 ML VIAL SQ SCH ×7 (08:42→20:42)
[2019-06-06] MEDS: Ertapenem 1,000 MG in 0.9 % Sodium Chloride Mini Bag 100 ML IVPB SCH (09:53)
[2019-06-06] MEDS: amLODIPine 5 MG TABLET PO SCH (09:53)
[2019-06-06] MEDS: Insulin DETEMIR 100 UNIT/ML X5UNITS SQ SCH (21:04)
[2019-06-07 01:57] LABS: Calcium 7.5 mg/dL (8.6-10.3)
[2019-06-07] MEDS: *HR* Heparin 5,000 UNIT/ML VIAL SQ SCH (06:03)
[2019-06-07 07:14] VITALS: BP 170/75
[2019-06-07] MEDS: Ertapenem 1,000 MG in 0.9 % Sodium Chloride Mini Bag 100 ML IVPB SCH (07:53)
[2019-06-07] MEDS: Insulin LISPRO 300 UNITS/3 ML VIAL SQ SCH ×2 (07:53→07:57)
[2019-06-07] MEDS: amLODIPine 5 MG TABLET PO SCH (07:53)
[2019-06-07] MEDS ORDERED: FLU Vac QV 19-20 (6Month+)/PF 0.5 ML SYRINGE IM ONE (10:22)
== END 2019-06-07 11:48 | disposition hospice, home (50) | DRG 689 ==
LOC: EMEROOARM 18:40 → 3ANU 18:40 → SUATTDRO 21:46 → 3ANU 22:09
PROVIDERS: ADMIT Family Medicine; ATTEND Internal Medicine

== ENCOUNTER 2019-06-25 11:38 | Inpatient (IN) ==
[2019-06-25 12:27] LABS: Hemoglobin 10.1 g/dL (11.5-15.4); Mean Corpuscular HGB Conc 32.6 g/dL (31.6-35.5); Mean Corpuscular Hemoglobin 31.4 pg (28.0-33.3); Mean Corpuscular Volume 96.3 fL (83.0-100.0); Mean Platelet Volume 9.2 fL (9.4-12.4); Platelet Count 296 K/mcL (140-400); Red Blood Count 3.22 M/mcL (3.82-4.97); Red Cell Distribution Width 13.3 % (11.5-14.5); White Blood Count 5.8 K/mcL (4.3-11.1)
[2019-06-25 13:06] LABS: Bilirubin,Urine Negative (Negative); Blood,Urine Small (Negative); Clarity,Urine Turbid (Clear); Color,Urine Yellow (Yellow); Glucose,Urine (UA) Normal (Normal); Ketones,Urine Negative (Negative); Leukocyte Esterase,Urine Large (Negative); Nitrite,Urine Negative (Negative); Protein,Urine 100 mg/dL (Neg-Trace); Specific Gravity,Urine 1.016 (1.010-1.025); Urobilinogen,Urine Normal (Normal)
[2019-06-25 13:07] LABS: Bacteria,Urine Many per hpf (None-Few); Hyaline Casts,Urine None Seen per lpf (None-Few); Squamous Epithelial Cell,Urine Many per lpf (None-Few); WBC,Urine TNTC per hpf (0-3)
[2019-06-25 13:13] LABS: Alanine Aminotransferase 18 Units/L (7-52); Albumin 3.2 g/dL (3.5-5.7); Albumin/Globulin Ratio 0.9 (1.1-2.2); Alkaline Phosphatase 93 Units/L (34-104); Aspartate Amino Transferase 30 Units/L (13-39); BUN/Creatinine Ratio 35 (6-26); Bilirubin,Direct 0.1 mg/dL (0.0-0.2); Bilirubin,Indirect 0.2 mg/dL (0.0-1.0); Bilirubin,Total 0.3 mg/dL (0.3-1.0); Blood Urea Nitrogen 34 mg/dL (8-23); Carbon Dioxide 23 mEq/L (23-29); Chloride 106 mEq/L (98-107); Globulin 3.6 g/dL (2.4-3.5); Glucose 212 mg/dL (70-105); Osmolality,Calculated 302 (280-300); Potassium 4.8 mEq/L (3.5-5.1); Sodium 139 mEq/L (136-145); Total Protein 6.8 g/dL (6.4-8.9); eGFR For African Americans > 60 (> 60); eGFR For Non-African Americans 55 (> 60)
[2019-06-25] MEDS ORDERED: *HR* HYDROcodone/Acet 5/325 mg TABLET PO ONE (15:28)
[2019-06-25] MEDS ORDERED: Ampicillin/Sulbactam 3,000 MG in 0.9 % Sodium Chloride Mini Bag 100 ML IVPB ONE (15:29)
[2019-06-25] MEDS ORDERED: Ondansetron 4 MG/2 ML VIAL IVP PRN (16:41)
[2019-06-25] MEDS ORDERED: Naloxone 0.4 MG/ML INJ IVP PRN (16:41)
[2019-06-25] MEDS ORDERED: *HR* Dextrose 50 % in Water (Syg) 50 ML SYRINGE IVP PRN (17:08)
[2019-06-25] MEDS ORDERED: D5% in Water 1,000 ML IVC PRN (17:08)
[2019-06-25] MEDS ORDERED: Dextrose Gel 15 GM/37.5 ML TUBE PO PRN ×2 (17:08)
[2019-06-25] MEDS: Insulin LISPRO 300 UNITS/3 ML VIAL SQ SCH (18:43)
[2019-06-25] MEDS: Bumetanide 1 MG TABLET PO SCH (18:43)
[2019-06-25] MEDS: traZODone 50 MG TABLET PO SCH (22:02)
[2019-06-25] MEDS: *HR* LORazepam 0.5 MG TABLET PO PRN (22:02)
[2019-06-25] MEDS: *HR* Heparin 5,000 UNIT/ML VIAL SQ SCH (22:02)
[2019-06-25] MEDS: *HR* HYDROcodone/Acet 5/325 mg TABLET PO PRN (22:03)
[2019-06-25] MEDS: Ertapenem 1,000 MG in 0.9 % Sodium Chloride Mini Bag 100 ML IVPB SCH (22:12)
[2019-06-26 00:57] LABS: Basophils % 0.5 %; Eosinophils # 0.2 K/mcL (0.0-0.6); Eosinophils % 1.9 %; Hematocrit 27.5 % (35.3-44.9); Hemoglobin 9.2 g/dL (11.5-15.4); Immature Granulocytes % 0.3 % (0-4); Lymphocytes # 2.2 K/mcL (0.6-4.6); Lymphocytes % 27.6 %; Mean Corpuscular HGB Conc 33.5 g/dL (31.6-35.5); Mean Corpuscular Hemoglobin 31.9 pg (28.0-33.3); Mean Corpuscular Volume 95.5 fL (83.0-100.0); Mean Platelet Volume 9.7 fL (9.4-12.4); Monocytes # 1.2 K/mcL (0.0-1.3); Monocytes % 15.1 %; Neutrophils # 4.4 K/mcL (1.6-8.9); Platelet Count 291 K/mcL (140-400); Red Blood Count 2.88 M/mcL (3.82-4.97); Red Cell Distribution Width 13.2 % (11.5-14.5); Segmented Neutrophils % 54.6 %
[2019-06-26 01:20] LABS: Calcium 8.6 mg/dL (8.6-10.3); Potassium 4.5 mEq/L (3.5-5.1)
[2019-06-26] MEDS: *HR* Heparin 5,000 UNIT/ML VIAL SQ SCH ×3 (06:05→22:30)
[2019-06-26] MEDS: Insulin LISPRO 300 UNITS/3 ML VIAL SQ SCH ×3 (07:56→16:21)
[2019-06-26] MEDS: amLODIPine 5 MG TABLET PO SCH (07:56)
[2019-06-26] MEDS: Bumetanide 1 MG TABLET PO SCH ×2 (07:56→16:21)
[2019-06-26] MEDS: Ertapenem 1,000 MG in 0.9 % Sodium Chloride Mini Bag 100 ML IVPB SCH (07:56)
[2019-06-26] MEDS: *HR* HYDROcodone/Acet 5/325 mg TABLET PO PRN ×2 (11:57→22:39)
[2019-06-26] MEDS: Insulin DETEMIR 100 UNIT/ML X5UNITS SQ SCH (11:58)
[2019-06-26] MEDS: traZODone 50 MG TABLET PO SCH (22:30)
[2019-06-26] MEDS: *HR* LORazepam 0.5 MG TABLET PO PRN (22:39)
[2019-06-27] MEDS: *HR* Heparin 5,000 UNIT/ML VIAL SQ SCH ×3 (05:16→22:43)
[2019-06-27 05:36] LABS: Basophils # 0.1 K/mcL (0.0-0.2); Eosinophils # 0.2 K/mcL (0.0-0.6); Eosinophils % 4.6 %; Hematocrit 28.5 % (35.3-44.9); Hemoglobin 9.8 g/dL (11.5-15.4); Immature Granulocytes % 0.4 % (0-4); Lymphocytes # 1.9 K/mcL (0.6-4.6); Lymphocytes % 36.8 %; Mean Corpuscular HGB Conc 34.4 g/dL (31.6-35.5); Mean Corpuscular Hemoglobin 31.7 pg (28.0-33.3); Mean Corpuscular Volume 92.2 fL (83.0-100.0); Mean Platelet Volume 9.4 fL (9.4-12.4); Monocytes # 0.7 K/mcL (0.0-1.3); Monocytes % 13.7 %; Neutrophils # 2.3 K/mcL (1.6-8.9); Platelet Count 283 K/mcL (140-400); Red Blood Count 3.09 M/mcL (3.82-4.97); Red Cell Distribution Width 13.2 % (11.5-14.5); Segmented Neutrophils % 43.5 %; White Blood Count 5.2 K/mcL (4.3-11.1)
[2019-06-27 05:55] LABS: Calcium 8.5 mg/dL (8.6-10.3); Potassium 3.9 mEq/L (3.5-5.1)
[2019-06-27] MEDS ORDERED: Ipratropium/Albuterol Neb 3 ML IH PRN (06:49)
[2019-06-27] MEDS: Bumetanide 1 MG TABLET PO SCH ×2 (09:40→17:04)
[2019-06-27] MEDS: Insulin LISPRO 300 UNITS/3 ML VIAL SQ SCH ×3 (09:40→17:04)
[2019-06-27] MEDS: amLODIPine 5 MG TABLET PO SCH (09:40)
[2019-06-27] MEDS: Ertapenem 1,000 MG in 0.9 % Sodium Chloride Mini Bag 100 ML IVPB SCH (09:40)
[2019-06-27] MEDS: Fenofibrate 54 MG TABLET PO SCH (09:40)
[2019-06-27] MEDS: Insulin DETEMIR 100 UNIT/ML X5UNITS SQ SCH (09:54)
[2019-06-27] MEDS: *HR* HYDROcodone/Acet 5/325 mg TABLET PO PRN (12:30)
[2019-06-27] MEDS: traZODone 50 MG TABLET PO SCH (22:43)
[2019-06-27] MEDS: *HR* LORazepam 0.5 MG TABLET PO PRN (22:43)
[2019-06-28] MEDS: *HR* Heparin 5,000 UNIT/ML VIAL SQ SCH ×3 (05:39→20:27)
[2019-06-28 06:35] LABS: Basophils # 0.1 K/mcL (0.0-0.2); Eosinophils # 0.3 K/mcL (0.0-0.6); Eosinophils % 4.5 %; Hematocrit 28.3 % (35.3-44.9); Hemoglobin 9.5 g/dL (11.5-15.4); Immature Granulocytes % 0.5 % (0-4); Lymphocytes % 35.5 %; Mean Corpuscular HGB Conc 33.6 g/dL (31.6-35.5); Mean Corpuscular Hemoglobin 31.8 pg (28.0-33.3); Mean Corpuscular Volume 94.6 fL (83.0-100.0); Mean Platelet Volume 9.6 fL (9.4-12.4); Monocytes # 0.8 K/mcL (0.0-1.3); Monocytes % 13.6 %; Neutrophils # 2.6 K/mcL (1.6-8.9); Platelet Count 283 K/mcL (140-400); Red Blood Count 2.99 M/mcL (3.82-4.97); Red Cell Distribution Width 13.2 % (11.5-14.5); Segmented Neutrophils % 44.9 %; White Blood Count 5.8 K/mcL (4.3-11.1)
[2019-06-28 06:54] LABS: Calcium 8.4 mg/dL (8.6-10.3)
[2019-06-28] MEDS: Ertapenem 1,000 MG in 0.9 % Sodium Chloride Mini Bag 100 ML IVPB SCH (08:14)
[2019-06-28] MEDS: Insulin LISPRO 300 UNITS/3 ML VIAL SQ SCH ×3 (08:21→17:30)
[2019-06-28] MEDS: amLODIPine 5 MG TABLET PO SCH (08:23)
[2019-06-28] MEDS: Fenofibrate 54 MG TABLET PO SCH (08:23)
[2019-06-28] MEDS: Bumetanide 1 MG TABLET PO SCH ×2 (08:23→17:28)
[2019-06-28] MEDS: Insulin DETEMIR 100 UNIT/ML X5UNITS SQ SCH (08:28)
[2019-06-28] MEDS: 0.9 % Sodium Chloride 1,000 ML IVC SCH (10:43)
[2019-06-28] MEDS: *HR* HYDROcodone/Acet 5/325 mg TABLET PO PRN (18:25)
[2019-06-28] MEDS: traZODone 50 MG TABLET PO SCH (19:56)
[2019-06-28] MEDS ORDERED: Insulin LISPRO 300 UNITS/3 ML VIAL SQ SCH (21:00)
[2019-06-29] MEDS: *HR* LORazepam 0.5 MG TABLET PO PRN ×2 (01:01→20:39)
[2019-06-29 04:43] LABS: Basophils # 0.1 K/mcL (0.0-0.2); Basophils % 0.8 %; Eosinophils # 0.3 K/mcL (0.0-0.6); Eosinophils % 4.8 %; Hematocrit 28.2 % (35.3-44.9); Hemoglobin 9.5 g/dL (11.5-15.4); Immature Granulocytes % 0.3 % (0-4); Lymphocytes # 2.4 K/mcL (0.6-4.6); Lymphocytes % 39.7 %; Mean Corpuscular HGB Conc 33.7 g/dL (31.6-35.5); Mean Corpuscular Hemoglobin 31.8 pg (28.0-33.3); Mean Corpuscular Volume 94.3 fL (83.0-100.0); Mean Platelet Volume 9.8 fL (9.4-12.4); Monocytes # 0.8 K/mcL (0.0-1.3); Monocytes % 13.7 %; Neutrophils # 2.4 K/mcL (1.6-8.9); Platelet Count 282 K/mcL (140-400); Red Blood Count 2.99 M/mcL (3.82-4.97); Red Cell Distribution Width 12.9 % (11.5-14.5); Segmented Neutrophils % 40.7 %
[2019-06-29 05:09] LABS: BUN/Creatinine Ratio 26 (6-26); Blood Urea Nitrogen 28 mg/dL (8-23); Calcium 8.1 mg/dL (8.6-10.3); Carbon Dioxide 25 mEq/L (23-29); Chloride 103 mEq/L (98-107); Glucose 192 mg/dL (70-105); Osmolality,Calculated 291 (280-300); Potassium 3.9 mEq/L (3.5-5.1); Sodium 135 mEq/L (136-145); eGFR For African Americans > 60 (> 60); eGFR For Non-African Americans 51 (> 60)
[2019-06-29] MEDS: *HR* Heparin 5,000 UNIT/ML VIAL SQ SCH ×3 (06:44→20:38)
[2019-06-29] MEDS: amLODIPine 5 MG TABLET PO SCH (08:23)
[2019-06-29] MEDS: Fenofibrate 54 MG TABLET PO SCH (08:23)
[2019-06-29] MEDS: Bumetanide 1 MG TABLET PO SCH ×2 (08:24→15:56)
[2019-06-29] MEDS: Ertapenem 1,000 MG in 0.9 % Sodium Chloride Mini Bag 100 ML IVPB SCH (08:25)
[2019-06-29] MEDS: Insulin LISPRO 300 UNITS/3 ML VIAL SQ SCH ×4 (08:33→20:39)
[2019-06-29] MEDS: Insulin DETEMIR 100 UNIT/ML X5UNITS SQ SCH (08:57)
[2019-06-29] MEDS: *HR* HYDROcodone/Acet 5/325 mg TABLET PO PRN (09:00)
[2019-06-29] MEDS ORDERED: Aminoglycoside Consult 1 EACH MC ONE (09:31)
[2019-06-29] MEDS: 0.9 % Sodium Chloride 1,000 ML IVC SCH (13:49)
[2019-06-29] MEDS: Fosfomycin Tromethamine 3 GM Packet PO ONE (17:46)
[2019-06-29] MEDS: traZODone 50 MG TABLET PO SCH (20:21)
[2019-06-29] MEDS ORDERED: Haloperidol Lactate 5 MG/ML VIAL IVP ONE (21:42)
[2019-06-29] MEDS ORDERED: *HR* Promethazine 25 MG/ML VIAL IVP ONE (21:43)
[2019-06-29] MEDS ORDERED: *HR* Metoprolol 5 MG/5 ML VIAL IVP ONE (23:35)
[2019-06-30] MEDS: *HR* Heparin 5,000 UNIT/ML VIAL SQ SCH ×3 (05:17→20:49)
[2019-06-30] MEDS: Insulin LISPRO 300 UNITS/3 ML VIAL SQ SCH ×4 (08:29→20:49)
[2019-06-30] MEDS: Bumetanide 1 MG TABLET PO SCH ×2 (08:29→17:01)
[2019-06-30] MEDS: *HR* HYDROcodone/Acet 5/325 mg TABLET PO PRN ×2 (08:29→19:45)
[2019-06-30] MEDS: amLODIPine 5 MG TABLET PO SCH (08:29)
[2019-06-30] MEDS: Fenofibrate 54 MG TABLET PO SCH (08:29)
[2019-06-30 09:06] LABS: Basophils # 0.1 K/mcL (0.0-0.2); Eosinophils # 0.2 K/mcL (0.0-0.6); Eosinophils % 3.9 %; Hematocrit 30.5 % (35.3-44.9); Hemoglobin 10.5 g/dL (11.5-15.4); Immature Granulocytes % 0.5 % (0-4); Lymphocytes # 2.1 K/mcL (0.6-4.6); Lymphocytes % 33.4 %; Mean Corpuscular HGB Conc 34.4 g/dL (31.6-35.5); Mean Corpuscular Hemoglobin 31.5 pg (28.0-33.3); Mean Corpuscular Volume 91.6 fL (83.0-100.0); Mean Platelet Volume 9.5 fL (9.4-12.4); Monocytes # 0.8 K/mcL (0.0-1.3); Monocytes % 13.6 %; Neutrophils # 2.9 K/mcL (1.6-8.9); Platelet Count 314 K/mcL (140-400); Red Blood Count 3.33 M/mcL (3.82-4.97); Red Cell Distribution Width 13.2 % (11.5-14.5); Segmented Neutrophils % 47.6 %; White Blood Count 6.2 K/mcL (4.3-11.1)
[2019-06-30 09:20] LABS: BUN/Creatinine Ratio 26 (6-26); Blood Urea Nitrogen 27 mg/dL (8-23); Calcium 8.6 mg/dL (8.6-10.3); Carbon Dioxide 26 mEq/L (23-29); Chloride 104 mEq/L (98-107); Glucose 255 mg/dL (70-105); Osmolality,Calculated 298 (280-300); Potassium 4.1 mEq/L (3.5-5.1); Sodium 137 mEq/L (136-145); eGFR For African Americans > 60 (> 60); eGFR For Non-African Americans 52 (> 60)
[2019-06-30] MEDS: Insulin DETEMIR 100 UNIT/ML X5UNITS SQ SCH (10:41)
[2019-06-30] MEDS: Fosfomycin Tromethamine 3 GM Packet PO ONE (12:23)
[2019-06-30] MEDS: traZODone 50 MG TABLET PO SCH (20:48)
[2019-07-01] MEDS: *HR* Heparin 5,000 UNIT/ML VIAL SQ SCH (05:05)
[2019-07-01 06:45] VITALS: BP 136/61
[2019-07-01] MEDS: Insulin LISPRO 300 UNITS/3 ML VIAL SQ SCH (08:56)
[2019-07-01] MEDS: Insulin DETEMIR 100 UNIT/ML X5UNITS SQ SCH (08:56)
[2019-07-01] MEDS: Bumetanide 1 MG TABLET PO SCH (08:56)
[2019-07-01] MEDS: amLODIPine 5 MG TABLET PO SCH (08:56)
[2019-07-01] MEDS: Fenofibrate 54 MG TABLET PO SCH (08:56)
== END 2019-07-01 11:46 | disposition hospice, home (50) | DRG 690 ==
LOC: 2ANU 11:38 → EMEROOARM 11:38 → SUATTDRO 17:11 → 2ANU 17:55 → SUATTDRO 06-26 13:02
PROVIDERS: ADMIT Student in an Organized Health Care Education/Training Program; ATTEND Internal Medicine

== ENCOUNTER 2019-07-21 17:55 | Inpatient (IN) ==
[2019-07-21 18:48] LABS: Bilirubin,Urine Small (Negative); Blood,Urine Negative (Negative); Clarity,Urine Clear (Clear); Color,Urine Yellow (Yellow); Glucose,Urine (UA) 100 mg/dL (Normal); Ketones,Urine Negative (Negative); Leukocyte Esterase,Urine Negative (Negative); Nitrite,Urine Negative (Negative); Protein,Urine 100 mg/dL (Neg-Trace); Specific Gravity,Urine 1.017 (1.010-1.025); Urobilinogen,Urine Normal (Normal)
[2019-07-21 18:50] LABS: Bacteria,Urine None Seen per hpf (None-Few); RBC,Urine 0-3 per hpf (0-3); Squamous Epithelial Cell,Urine Many per lpf (None-Few)
[2019-07-21 18:55] LABS: Amphetamine Screen,Urine Negative ng/mL (Cutoff=1000); Barbiturate Screen,Urine Negative ng/mL (Cutoff=200); Benzodiazepines Screen,Urine Negative ng/mL (Cutoff=200); Cannabinoid Screen,Urine Negative ng/mL (Cutoff = 50); Cocaine Screen,Urine Negative ng/mL (Cutoff= 300); Opiate Screen,Urine Positive ng/mL (Cutoff=300); Phencyclidine Screen,Urine Negative ng/mL (Cutoff=25)
[2019-07-21 19:15] LABS: Hyaline Casts,Urine Moderate per lpf (None-Few)
[2019-07-21 19:16] LABS: Basophils % 0.6 %; Eosinophils # 0.2 K/mcL (0.0-0.6); Eosinophils % 3.2 %; Hematocrit 35.2 % (35.3-44.9); Hemoglobin 11.7 g/dL (11.5-15.4); Immature Granulocytes % 0.3 % (0-4); Lymphocytes # 2.2 K/mcL (0.6-4.6); Lymphocytes % 35.1 %; Mean Corpuscular HGB Conc 33.2 g/dL (31.6-35.5); Mean Corpuscular Hemoglobin 31.4 pg (28.0-33.3); Mean Corpuscular Volume 94.4 fL (83.0-100.0); Mean Platelet Volume 9.6 fL (9.4-12.4); Monocytes # 0.5 K/mcL (0.0-1.3); Monocytes % 8.1 %; Neutrophils # 3.3 K/mcL (1.6-8.9); Platelet Count 278 K/mcL (140-400); Red Blood Count 3.73 M/mcL (3.82-4.97); Red Cell Distribution Width 13.3 % (11.5-14.5); Segmented Neutrophils % 52.7 %; White Blood Count 6.2 K/mcL (4.3-11.1)
[2019-07-21 19:17] LABS: INR 1.1; Prothrombin Time 12.2 Seconds (9.4-12.1)
[2019-07-21 19:20] LABS: Activated Partial Thrombo Time 30.4 Seconds (26.0-36.0)
[2019-07-21 19:33] LABS: Alanine Aminotransferase 28 Units/L (7-52); Albumin 3.6 g/dL (3.5-5.7); Albumin/Globulin Ratio 1.1 (1.1-2.2); Alkaline Phosphatase 92 Units/L (34-104); Aspartate Amino Transferase 33 Units/L (13-39); BUN/Creatinine Ratio 30 (6-26); Bilirubin,Direct 0.1 mg/dL (0.0-0.2); Bilirubin,Indirect 0.2 mg/dL (0.0-1.0); Bilirubin,Total 0.3 mg/dL (0.3-1.0); Blood Urea Nitrogen 38 mg/dL (8-23); Calcium 8.8 mg/dL (8.6-10.3); Carbon Dioxide 21 mEq/L (23-29); Chloride 103 mEq/L (98-107); Ethanol < 10 mg/dL (Less than 10); Globulin 3.2 g/dL (2.4-3.5); Glucose 251 mg/dL (70-105); Osmolality,Calculated 304 (280-300); Potassium 4.2 mEq/L (3.5-5.1); Sodium 138 mEq/L (136-145); Total Protein 6.8 g/dL (6.4-8.9); Troponin I < 0.03 ng/mL (< 0.04); eGFR For African Americans 50 (> 60); eGFR For Non-African Americans 41 (> 60)
[2019-07-21] MEDS ORDERED: 0.9 % Sodium Chloride 1,000 ML IV ONE (19:34)
[2019-07-21] MEDS ORDERED: Naloxone 0.4 MG/ML INJ IVP PRN (22:48)
[2019-07-22] MEDS ORDERED: 0.9 % Sodium Chloride 1,000 ML IVC SCH (00:45)
[2019-07-22] MEDS ORDERED: Dextrose Gel 15 GM/37.5 ML TUBE PO PRN ×2 (01:54)
[2019-07-22] MEDS ORDERED: D5% in Water 1,000 ML IVC PRN (01:54)
[2019-07-22] MEDS ORDERED: *HR* Dextrose 50 % in Water (Syg) 50 ML SYRINGE IVP PRN (01:54)
[2019-07-22] MEDS ORDERED: Ertapenem 1,000 MG in 0.9 % Sodium Chloride Mini Bag 100 ML IVPB SCH ×2 (02:16→09:00)
[2019-07-22 02:18] LABS: ABG Base Excess 0 mEq/L (-2 to 3); ABG HCO3 26 mEq/L (21-27); ABG Oxygen Saturation 91 % (95-98); ABG PCO2 45 mmHg (35-45); ABG PH 7.37 pH Units (7.32-7.45); ABG PO2 64 mmHg (85-104); ABG TCO2 27 mEq/L (20-26)
[2019-07-22] MEDS ORDERED: Bumetanide 1 MG TABLET PO SCH ×2 (08:00→09:00)
[2019-07-22] MEDS: Metoprolol XL (24 HR) Succ 50 MG TAB.ER.24H PO SCH (08:00)
[2019-07-22 08:51] LABS: Hematocrit 34.2 % (35.3-44.9); Hemoglobin 11.3 g/dL (11.5-15.4); Mean Platelet Volume 9.7 fL (9.4-12.4); Platelet Count 294 K/mcL (140-400); Red Blood Count 3.64 M/mcL (3.82-4.97); Red Cell Distribution Width 13.2 % (11.5-14.5); White Blood Count 7.6 K/mcL (4.3-11.1)
[2019-07-22] MEDS ORDERED: amLODIPine 5 MG TABLET PO SCH (09:00)
[2019-07-22 09:12] LABS: Albumin 3.6 g/dL (3.5-5.7); Albumin/Globulin Ratio 1.1 (1.1-2.2); Bilirubin,Total 0.3 mg/dL (0.3-1.0); Calcium 8.8 mg/dL (8.6-10.3); Globulin 3.2 g/dL (2.4-3.5); Total Protein 6.8 g/dL (6.4-8.9)
[2019-07-22] MEDS: Insulin LISPRO 300 UNITS/3 ML VIAL SQ SCH ×4 (10:36→21:55)
[2019-07-22] MEDS: Ertapenem 1,000 MG in 0.9 % Sodium Chloride Mini Bag 100 ML IVPB SCH (10:43)
[2019-07-22] MEDS: *HR* Heparin 5,000 UNIT/ML VIAL SQ SCH ×2 (15:21→21:54)
[2019-07-23 06:08] LABS: BUN/Creatinine Ratio 29 (6-26); Blood Urea Nitrogen 29 mg/dL (8-23); Calcium 8.8 mg/dL (8.6-10.3); Carbon Dioxide 21 mEq/L (23-29); Chloride 107 mEq/L (98-107); Glucose 181 mg/dL (70-105); Osmolality,Calculated 300 (280-300); Potassium 3.9 mEq/L (3.5-5.1); Sodium 140 mEq/L (136-145); eGFR For African Americans > 60 (> 60); eGFR For Non-African Americans 54 (> 60)
[2019-07-23] MEDS: *HR* Heparin 5,000 UNIT/ML VIAL SQ SCH ×3 (06:35→21:42)
[2019-07-23] MEDS: Metoprolol XL (24 HR) Succ 50 MG TAB.ER.24H PO SCH (08:02)
[2019-07-23] MEDS: Insulin LISPRO 300 UNITS/3 ML VIAL SQ SCH ×4 (08:02→21:10)
[2019-07-23] MEDS: amLODIPine 5 MG TABLET PO SCH (08:03)
[2019-07-23] MEDS: Ertapenem 1,000 MG in 0.9 % Sodium Chloride Mini Bag 100 ML IVPB SCH (08:03)
[2019-07-23] MEDS: Ampicillin 2 GM in 0.9 % Sodium Chloride Mini Bag 100 ML IVPB SCH ×4 (09:44→23:43)
[2019-07-23] MEDS ORDERED: 0.9 % Sodium Chloride 1,000 ML IVC SCH (13:45)
[2019-07-24] MEDS: Ampicillin 2 GM in 0.9 % Sodium Chloride Mini Bag 100 ML IVPB SCH (05:47)
[2019-07-24] MEDS: *HR* Heparin 5,000 UNIT/ML VIAL SQ SCH ×3 (05:47→21:00)
[2019-07-24 07:30] LABS: BUN/Creatinine Ratio 27 (6-26); Blood Urea Nitrogen 21 mg/dL (8-23); Calcium 8.5 mg/dL (8.6-10.3); Carbon Dioxide 20 mEq/L (23-29); Chloride 107 mEq/L (98-107); Potassium 3.8 mEq/L (3.5-5.1); Sodium 139 mEq/L (136-145); eGFR For African Americans > 60 (> 60); eGFR For Non-African Americans > 60 (> 60)
[2019-07-24] MEDS: Metoprolol XL (24 HR) Succ 50 MG TAB.ER.24H PO SCH (08:09)
[2019-07-24] MEDS: Insulin LISPRO 300 UNITS/3 ML VIAL SQ SCH ×4 (08:10→21:00)
[2019-07-24] MEDS: amLODIPine 5 MG TABLET PO SCH (08:10)
[2019-07-24 08:16] LABS: Glucose 199 mg/dL (70-105); Osmolality,Calculated 297 (280-300)
[2019-07-24] MEDS ORDERED: DAPTOmycin 375 MG in 0.9 % Sodium Chloride 100 ML IVPB SCH (10:00)
[2019-07-24] MEDS: DAPTOmycin 500 MG in 0.9 % Sodium Chloride 100 ML IVPB SCH (10:49)
[2019-07-24 10:56] LABS: Thyroid Stimulating Hormone 1.58 mcIU/mL (0.340-5.600)
[2019-07-25 05:58] LABS: BUN/Creatinine Ratio 26 (6-26); Blood Urea Nitrogen 19 mg/dL (8-23); Calcium 8.6 mg/dL (8.6-10.3); Carbon Dioxide 21 mEq/L (23-29); Chloride 110 mEq/L (98-107); Glucose 210 mg/dL (70-105); Osmolality,Calculated 298 (280-300); Potassium 3.7 mEq/L (3.5-5.1); Sodium 140 mEq/L (136-145); eGFR For African Americans > 60 (> 60); eGFR For Non-African Americans > 60 (> 60)
[2019-07-25] MEDS: *HR* Heparin 5,000 UNIT/ML VIAL SQ SCH ×3 (06:26→20:09)
[2019-07-25] MEDS: amLODIPine 5 MG TABLET PO SCH (08:48)
[2019-07-25] MEDS: Metoprolol XL (24 HR) Succ 50 MG TAB.ER.24H PO SCH (08:48)
[2019-07-25] MEDS: Insulin LISPRO 300 UNITS/3 ML VIAL SQ SCH ×4 (08:48→22:12)
[2019-07-25] MEDS: DAPTOmycin 500 MG in 0.9 % Sodium Chloride 100 ML IVPB SCH (08:49)
[2019-07-26] MEDS: *HR* Heparin 5,000 UNIT/ML VIAL SQ SCH ×3 (05:36→20:26)
[2019-07-26 06:54] LABS: BUN/Creatinine Ratio 26 (6-26); Blood Urea Nitrogen 19 mg/dL (8-23); Calcium 8.5 mg/dL (8.6-10.3); Carbon Dioxide 22 mEq/L (23-29); Chloride 107 mEq/L (98-107); Glucose 241 mg/dL (70-105); Osmolality,Calculated 298 (280-300); Potassium 3.6 mEq/L (3.5-5.1); Sodium 139 mEq/L (136-145); eGFR For African Americans > 60 (> 60); eGFR For Non-African Americans > 60 (> 60)
[2019-07-26] MEDS: amLODIPine 5 MG TABLET PO SCH (08:47)
[2019-07-26] MEDS: Insulin LISPRO 300 UNITS/3 ML VIAL SQ SCH ×4 (08:47→20:31)
[2019-07-26] MEDS: DAPTOmycin 500 MG in 0.9 % Sodium Chloride 100 ML IVPB SCH (08:48)
[2019-07-26] MEDS: Metoprolol XL (24 HR) Succ 50 MG TAB.ER.24H PO SCH (08:48)
[2019-07-26] MEDS ORDERED: Acetaminophen 650 MG RECTAL SUPP RC PRN (11:55)
[2019-07-26] MEDS ORDERED: Hyoscyamine SL 0.125 MG TAB.SUBL SL PRN (12:01)
[2019-07-26] MEDS ORDERED: Bisacodyl 10 MG RECTAL SUPPOSITORY RC PRN (12:01)
[2019-07-26] MEDS ORDERED: Nystatin POWDER 30 GM BOTTLE TP PRN ×2 (12:01→12:52)
[2019-07-26] MEDS: Nystatin POWDER 30 GM BOTTLE TP SCH (20:26)
[2019-07-26] MEDS: Insulin DETEMIR 100 UNIT/ML X5UNITS SQ SCH ×2 (20:30→21:00)
[2019-07-27] MEDS: *HR* Heparin 5,000 UNIT/ML VIAL SQ SCH (05:27)
[2019-07-27 06:44] LABS: BUN/Creatinine Ratio 28 (6-26); Blood Urea Nitrogen 23 mg/dL (8-23); Calcium 8.3 mg/dL (8.6-10.3); Carbon Dioxide 21 mEq/L (23-29); Chloride 106 mEq/L (98-107); Glucose 249 mg/dL (70-105); Osmolality,Calculated 298 (280-300); Potassium 3.9 mEq/L (3.5-5.1); Sodium 138 mEq/L (136-145); eGFR For African Americans > 60 (> 60); eGFR For Non-African Americans > 60 (> 60)
[2019-07-27] MEDS: Metoprolol XL (24 HR) Succ 50 MG TAB.ER.24H PO SCH (09:26)
[2019-07-27] MEDS: amLODIPine 5 MG TABLET PO SCH (09:26)
[2019-07-27] MEDS: DAPTOmycin 500 MG in 0.9 % Sodium Chloride 100 ML IVPB SCH (09:26)
[2019-07-27] MEDS: Insulin LISPRO 300 UNITS/3 ML VIAL SQ SCH ×4 (09:27→21:11)
[2019-07-27] MEDS: Nystatin POWDER 30 GM BOTTLE TP SCH ×2 (09:27→21:00)
[2019-07-27] MEDS ORDERED: Acetaminophen 325 MG TABLET PO PRN (15:00)
[2019-07-27] MEDS: Insulin DETEMIR 100 UNIT/ML X5UNITS SQ SCH (20:51)
[2019-07-28] MEDS ORDERED: *HR* Enoxaparin 40 MG/0.4 ML SYRINGE SQ SCH (06:00)
[2019-07-28 06:21] LABS: BUN/Creatinine Ratio 32 (6-26); Blood Urea Nitrogen 30 mg/dL (8-23); Calcium 7.8 mg/dL (8.6-10.3); Carbon Dioxide 23 mEq/L (23-29); Chloride 107 mEq/L (98-107); Glucose 175 mg/dL (70-105); Osmolality,Calculated 298 (280-300); Potassium 3.8 mEq/L (3.5-5.1); Sodium 139 mEq/L (136-145); eGFR For African Americans > 60 (> 60); eGFR For Non-African Americans 58 (> 60)
[2019-07-28] MEDS: Metoprolol XL (24 HR) Succ 50 MG TAB.ER.24H PO SCH (09:41)
[2019-07-28] MEDS: Insulin LISPRO 300 UNITS/3 ML VIAL SQ SCH ×3 (09:41→16:24)
[2019-07-28] MEDS: amLODIPine 5 MG TABLET PO SCH (09:41)
[2019-07-28] MEDS: DAPTOmycin 500 MG in 0.9 % Sodium Chloride 100 ML IVPB SCH (09:42)
[2019-07-28] MEDS: Nystatin POWDER 30 GM BOTTLE TP SCH (09:42)
[2019-07-28 15:41] VITALS: BP 131/64
[2019-07-28] MEDS ORDERED: Fosfomycin Tromethamine 3 GM Packet PO ONE (17:30)
[2019-07-29] MEDS ORDERED: *HR* Enoxaparin 40 MG/0.4 ML SYRINGE SQ SCH ×2 (06:00)
== END 2019-07-28 18:29 | DRG 689 ==
LOC: 2ANU 17:55 → EMEROOARM 17:55 → SUATTDRO 22:19 → 2ANU 22:48
PROVIDERS: ADMIT Internal Medicine; ATTEND Student in an Organized Health Care Education/Training Program